=== PATIENT | male | born 1970 | race Caucasian/White ===

== ENCOUNTER 2018-03-02 22:45 | Emergency (ER) | payer MEDICARE, OTHER ==
[2018-03-02] MEDS ORDERED: SODIUM CHLORIDE 0.9% 1,000 ML IV STA (23:16)
[2018-03-02] MEDS ORDERED: ONDANSETRON 4 MG/2 ML VIAL IVP STA (23:16)
[2018-03-02 23:25] LABS: Basophils # (A) 0.1 k/uL (0-0.2); Basophils % (A) 1 %; Eosinophils # (A) 0.3 k/uL (0-0.7); Eosinophils % (A) 2 %; HCT 49.5 % (39.0-53.0); HGB 16.7 gm/dL (13.0-17.5); Lymphocytes # (A) 1.8 k/uL (1.0-4.8); Lymphocytes % (A) 16 %; MCH 28.9 pg (25.0-35.0); MCHC 33.8 g/dL (31.0-37.0); MCV 85.4 fL (80.0-100.0); Mean Platelet Volume 7.4; Monocytes # (A) 0.5 k/uL (0-1.0); Monocytes % (A) 4 %; Neutrophils # (A) 8.6 k/uL (1.3-7.7); Neutrophils % (A) 75 %; Platelet Count 238 k/uL (150-450); RBC 5.79 m/uL (4.30-5.90); RDW 13.4 % (11.5-15.5); WBC 11.4 k/uL (3.8-10.6)
[2018-03-02 23:29] LABS: Appearance,Urine Clear (Clear); Bilirubin,Urine Negative (Negative); Blood,Urine Trace (Negative); Color,Urine Yellow; Glucose,Urine (UA) Negative (Negative); Ketones,Urine Negative (Negative); Leukocyte Esterase,Urine Negative (Negative); Mucus,Urine Rare /hpf; Nitrite,Urine Negative (Negative); PH, Urine 6.5 (5.0-8.0); Protein,Urine 1+ (Negative); RBC,Urine 9 /hpf (0-5); Specific Gravity,Urine 1.013 (1.001-1.035); Urobilinogen,Urine <2.0 mg/dL (<2.0); WBC,Urine 1 /hpf (0-5)
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
--- NOTE | 2018-03-02 23:44 | CT ---
EXAMINATION TYPE: CT abdomen pelvis wo con DATE OF EXAM: 03/02/2018 COMPARISON: NONE HISTORY: Lower abd pain, Right side pain, R/O Stones CT DLP: 806.00 mGycm Automated exposure control for dose reduction was used. TECHNIQUE: Helical acquisition of images was performed from the lung bases through the pelvis. FINDINGS: The lung bases are clear. There is no pleural effusion. Heart size is normal. There is no pericardial effusion. Liver spleen pancreas appear normal. Gallbladder is contracted. There is no adrenal mass. There is some thickening of left and right adrenal gland. Kidneys of normal size and contour. There is no hydronephrosis. Ureters are not dilated. There is no ascites. There is no sign of free air. I see no intestinal wall thickening. There are no dilated loops. Bladder disten ds smoothly. I see no pelvic mass. Prostate is large and measures 4.5 cm. Appendix is not seen. There is no sign of appendicitis. I see no bony destructive process. There is atheromatous change in the a bdominal aorta. IMPRESSION: NO EVIDENCE OF RENAL STONE OR OBSTRUCTION. ATHEROSCLEROTIC VASCULAR DISEASE. ENLARGED PROSTATE.
[2018-03-02 23:46] LABS: ALT 31 U/L (21-72); AST 25 U/L (17-59); Albumin 3.6 g/dL (3.5-5.0); Alkaline Phosphatase 72 U/L (38-126); Amylase 58 U/L (30-110); Anion Gap 15 mmol/L; Blood Urea Nitrogen 20 mg/dL (9-20); Calcium 9.6 mg/dL (8.4-10.2); Carbon Dioxide 26 mmol/L (22-30); Chloride 100 mmol/L (98-107); Glucose 108 mg/dL (74-99); Lipase 78 U/L (23-300); Potassium 3.2 mmol/L (3.5-5.1); Sodium 141 mmol/L (137-145); Total Bilirubin 0.4 mg/dL (0.2-1.3); Total Protein 6.3 g/dL (6.3-8.2)
[2018-03-03] MEDS ORDERED: POTASSIUM CHLORIDE ER 20 MEQ TAB.ER PO STA (00:22)
[2018-03-03] MEDS ORDERED: KETOROLAC 30 MG/ML 1 ML VIAL IVP STA (00:22)
[2018-03-03] MEDS ORDERED: DICYCLOMINE 10 MG/ML 2 ML AMP IM STA (00:36)
[2018-03-03 00:53] VITALS: RESP 18
[2018-03-03] MEDS ORDERED: RX INFO: IV CONTRAST WAS GIVEN 1 EACH MISC MISCELLANE PRN (01:35)
--- NOTE | 2018-03-03 02:20 | CT ---
EXAMINATION TYPE: CT abdomen pelvis w con DATE OF EXAM: 03/03/2018 COMPARISON: Yesterday HISTORY: Prior exam done a few hours ago w/o contrast, Lower abd pain, Right side pain, back pain, IV only CT DLP: 559.20 mGycm Automated exposure control for dose reduction was used. TECHNIQUE: Helical acquisition of images was performed from the lung bases through the pelvis. CONTRAST: Performed without Oral Contrast and with IV Contrast, patient injected with 100 mL of Isovue 300. FINDINGS: Lung bases are clear. There is no pleural effusion. There is no pericardial effusion. Liver spleen appear normal. There are a few small pancreatic calcifications. This is probably vascula r. Gallbladder is contracted. There is no adrenal mass. Kidneys show satisfactory contrast opacificat ion. There is no hydronephrosis. There are large bowel fluid levels. There is no sign of free air. Th ere is no ascites. Bladder distends smoothly. There is no evidence of bowel obstruction. Lumbar spine is intact. There is mild atherosclerotic vascular calcification. Prostate measures 5 cm. There is no retroperitoneal adenopathy. Appendix is not seen. No sign of appendicitis. IMPRESSION: THERE ARE SOME LARGE BOWEL AIR FLUID LEVELS A COULD RELATE TO DIARRHEA OR ILEUS. NO FREE AIR. NO EVID ENCE OF BOWEL OBSTRUCTION. ATHEROSCLEROTIC VASCULAR DISEASE. NO SIGNIFICANT CHANGE COMPARED TO YESTER DAY.
[2018-03-03 02:58] VITALS: BP 173/96; PULSE 65; TEMP 98.3
== END 2018-03-03 02:58 | disposition home or self-care (01) ==
LOC: EC 22:45
DX: S30.1XXA Contusion of abdominal wall, initial encounter (principal); N40.0 Benign prostatic hyperplasia without lower urinary tract symptoms; K56.7 Ileus, unspecified; I10 Essential (primary) hypertension; F17.200 Nicotine dependence, unspecified, uncomplicated; Z79.82 Long term (current) use of aspirin; Z79.899 Other long term (current) drug therapy; Z88.0 Allergy status to penicillin; Z88.5 Allergy status to narcotic agent; V49.40XA Driver injured in collision with unspecified motor vehicles in traffic accident, initial encounter
CPT/HCPCS: 36415; 80053; 82150; 83605; 83690; 85025; 81001; 74176; 74177; 99284; 96374; 96375; 96361; 96372; J0500; J2405; J1885; Q9967

== ENCOUNTER → 2019-09-10 | Outpatient (CLI) | payer MEDICARE ==
--- NOTE | 2019-09-10 16:26 | CT ---
EXAMINATION TYPE: CT abdomen pelvis wo con DATE OF EXAM: 09/10/2019 COMPARISON: 03/03/2018 HISTORY: abdominal distention, sudden weight gain CT DLP: 785 mGycm Examination of the solid and hollow viscera is limited given the lack of contrast. FINDINGS: LUNG BASES: No evidence for nodule. No evidence for infiltrate. LIVER/GB: The gallbladder is unremarkable. No space-occupying hepatic lesion. PANCREAS: No pancreatic mass identified. No inflammatory process seen. SPLEEN: No evidence for splenomegaly. No intrasplenic lesions seen. ADRENALS: Bilateral adrenal thickening which may reflect hyperplasia. KIDNEYS: No evidence for renal mass. No nephrolithiasis. No hydronephrosis. BOWEL: Appendix has a normal appearance. No evidence of bowel obstruction. No inflammatory process. Lymph nodes: No evidence for adenopathy greater than 1 cm. Abdominal aorta: Atheromatous changes seen. No evidence for aneurysm. Genital organs: No significant abnormality. Other: No significant abnormality. IMPRESSION: Bilateral adrenal thickening which may reflect hyperplasia. OTHERWISE UNREMARKABLE STUDY.
== END | disposition home or self-care (01) ==
LOC: RADCTMAIN 16:01
PROVIDERS: ATTEND Family Medicine
DX: E27.8 Other specified disorders of adrenal gland (principal)
CPT/HCPCS: 74176

== ENCOUNTER → 2019-09-21 | Outpatient (CLI) | payer MEDICARE ==
[2019-09-21 15:45] LABS: Anion Gap 11.7 mmol/L (4.00-12.00); BUN/Creat Ratio 12.5 Ratio (12.00-20.00); Calcium 9.8 mg/dL (8.7-10.3); Carbon Dioxide 26.3 mmol/L (21.6-31.8); Non-African American GFR(CKD) 71.6 (60.0-200.0); Potassium 3.3 mmol/L (3.5-5.5)
== END | disposition home or self-care (01) ==
LOC: LABWHC1 11:13
PROVIDERS: ATTEND Physician Assistant
DX: I10 Essential (primary) hypertension (principal)
CPT/HCPCS: 36415; 80048

== ENCOUNTER 2019-09-27 10:11 | Day surgery (SDC) | payer MEDICARE ==
[2019-09-23 13:02] VITALS: BMI 24.7
[~2019-09-27 10:11] MED LIST: LACTATED RINGERS 1,000 ML IV SCH
[2019-09-27 10:37] VITALS: TEMP 97.6
[2019-09-27] MEDS ORDERED: LIDOCAINE 1% INJ 10MG/ML (20 ML MDV) ONE (11:14)
[2019-09-27] MEDS ORDERED: PROPOFOL 10 MG/ML 20 ML VIAL IV ONE (11:14)
--- NOTE | 2019-09-27 11:17 | P.GSHP ---
History of Present Illness H&P Date: 09/27/19 Chief Complaint: GERD, constipation This a 49-year-old male who presents today for EGD and colonoscopy. Patient issues with GERD and constipation. Past Medical History Past Medical History: Hypertension, Osteoarthritis (OA) Additional Past Medical History / Comment(s): Constipation/bloating. Renal insufficiency, 80% kidney function, hx TIA's X2, 9 yrs ago X2, bulging disc (L4), back pain, ocassional numbness left leg. History of Any Multi-Drug Resistant Organisms: None Reported Past Surgical History: Appendectomy Additional Past Surgical History / Comment(s): Right second and third toes reattached after lawnmower accident. Past Anesthesia/Blood Transfusion Reactions: No Reported Reaction Past Psychological History: No Psychological Hx Reported Smoking Status: Current every day smoker Past Alcohol Use History: None Reported Additional Past Alcohol Use History / Comment(s): Has been smoking for 30 yrs, down from 1 PPD to 5 cigarettes per day. Past Drug Use History: None Reported - Past Family History Mother Family Medical History: No Reported History Medications and Allergies Home Medications Medication Instructions Recorded Confirmed Type Aspirin 325 mg PO DAILY 03/02/18 09/23/19 History Carvedilol [Coreg] 12.5 mg PO BID 03/02/18 09/23/19 History Ferrous Sulfate [Feosol] 325 mg PO DAILY 03/02/18 09/23/19 History Simvastatin [Zocor] 20 mg PO HS 03/02/18 09/23/19 History amLODIPine [Norvasc] 5 mg PO QAM 03/02/18 09/23/19 History hydrALAZINE HCL [Apresoline] 100 mg PO TID 03/02/18 09/23/19 History Dicyclomine [Bentyl] 20 mg PO QID #10 tablet 03/03/18 09/23/19 Rx Lubiprostone [Amitiza] 24 mcg PO BID 09/23/19 09/23/19 History Potassium Chloride [Klor-Con 20] 20 meq PO QAM 09/23/19 09/23/19 History Triamterene/Hydrochlorothiazid 1 each PO DAILY 09/23/19 09/23/19 History [Triamterene-Hctz 37.5-25 mg Tb] Allergies Allergy/AdvReac Type Severity Reaction Status Date / Time morphine Allergy Rash/Hives Verified 09/23/19 13:03 Penicillins Allergy Rash/Hives Verified 09/23/19 13:03 Surgical - Exam Vital Signs Temp Pulse Resp BP Pulse Ox 97.6 F 74 14 190/113 98 09/27/19 10:35 09/27/19 10:35 09/27/19 10:35 09/27/19 10:35 09/27/19 10:35 - General well developed, well nourished, no distress - Eyes PERRL - ENT normal pinna - Neck no masses - Respiratory normal expansion - Cardiovascular Rhythm: regular - Abdomen Abdomen: soft, non tender Assessment and Plan Assessment: GERD, constipation. We'll perform EGD and colonoscopy
--- NOTE | 2019-09-27 11:30 | P.OP ---
Date of Procedure: 09/27/19 Preoperative Diagnosis: GERD Constipation Postoperative Diagnosis: Antral gastritis No evidence of hiatal hernia Esophagitis External hemorrhoids Procedure(s) Performed: EGD Colonoscopy Anesthesia: MAC Surgeon: Jose R Ramos Pathology: other (Antrum, esophagus) Condition: stable Disposition: PACU Description of Procedure: The patient's placed on the endoscopy table in the lateral position. He received IV sedation. The gastroscope was oropharynx passed in the esophagus into the stomach. Scope was placed through the pylorus. The first and second portion of duodenum appeared normal. Scope was then brought back the antrum this above inflamed. A biopsies performed. The scope was unretroflexed and remainder of the stomach appeared normal. There is no significant hiatal hernia. The GE junction was at 47 is. The distal esophagus are mildly inflamed a biopsies performed. The proximal esophagus appeared normal. Scope was withdrawn for patient. Next digital rectal exam is performed. This revealed external hemorrhoids. The prostate was symmetric without nodules. The flexible colonoscope was then placed patient anus and passed throughout the entire colon. The ileocecal valve was visualized. The cecum, ascending, transverse, descending and sigmoid colon appeared normal. Scope was then brought back the rectum and this appeared normal. Scope was withdrawn for patient.
[2019-09-27 11:40] VITALS: RESP 16
[2019-09-27 12:13] VITALS: BP 173/116; PULSE 59
== END 2019-09-27 12:20 | disposition home or self-care (01) ==
LOC: ORWHC2ENDO 10:11
PROVIDERS: ATTEND Surgery
DX: K29.50 Unspecified chronic gastritis without bleeding (principal); B96.81 Helicobacter pylori [H. pylori] as the cause of diseases classified elsewhere; K21.0 Gastro-esophageal reflux disease with esophagitis; K58.1 Irritable bowel syndrome with constipation; K64.4 Residual hemorrhoidal skin tags; I12.9 Hypertensive chronic kidney disease with stage 1 through stage 4 chronic kidney disease, or unspecified chronic kidney disease; N18.9 Chronic kidney disease, unspecified; M19.90 Unspecified osteoarthritis, unspecified site; E78.5 Hyperlipidemia, unspecified; F17.210 Nicotine dependence, cigarettes, uncomplicated; Z88.0 Allergy status to penicillin; Z88.5 Allergy status to narcotic agent; Z86.73 Personal history of transient ischemic attack (TIA), and cerebral infarction without residual deficits; Z79.82 Long term (current) use of aspirin; Z79.02 Long term (current) use of antithrombotics/antiplatelets; Z79.899 Other long term (current) drug therapy; Z90.49 Acquired absence of other specified parts of digestive tract
CPT/HCPCS: 88305; 88342; 45378; 43239; J2001; J2704

== ENCOUNTER 2020-11-18 05:19 | Inpatient (IN) | payer MEDICARE ==
--- NOTE | 2020-11-18 05:41 | ED ---
Chest Pain HPI <Feliz Mcintosh - Last Filed: 11/18/20 08:58> - General Source: patient Mode of arrival: ambulatory Limitations: no limitations - History of Present Illness MD Complaint: chest pain Onset/Timin -: week(s) Onset: during rest Pain Location: left chest Pain Radiation: none Severity: moderate Quality: aching, sharp Consistency: constant Improves With: nothing Worsens With: inspiration Context: recent surgery (Heart cath) Treatments Prior to Arrival: none <Tera Andrew - Last Filed: 11/22/20 08:15> - General Chief Complaint: Chest Pain Stated Complaint: Chest pain Time Seen by Provider: 11/18/20 05:28 - History of Present Illness Initial Comments: This patient is a 50-year-old man who presents to be evaluated for left-sided chest pain that is been going on for approximately one week, getting worse over that interval. Prior to this patient had been admitted at [facility] for chest pain. He had undergone a heart catheterization and states that they told him that he did not require any stenting, they only had minimal "clots." Patient denies anginal type symptoms, no dyspnea, diaphoresis, nausea or vomiting, palpitations. (Tera Andrew) - Related Data Home Medications Medication Instructions Recorded Confirmed Aspirin 325 mg PO DAILY 03/02/18 11/18/20 Simvastatin [Zocor] 20 mg PO HS 03/02/18 11/18/20 amLODIPine [Norvasc] 5 mg PO QAM 03/02/18 11/18/20 hydrALAZINE HCL [Apresoline] 100 mg PO TID 03/02/18 11/18/20 Potassium Chloride [Klor-Con 20] 20 meq PO DAILY 09/23/19 11/18/20 Triamterene/Hydrochlorothiazid 1 tab PO DAILY 09/23/19 11/18/20 [Triamterene-Hctz 37.5-25 mg Tb] hydroCHLOROthiazide [Hydrodiuril] 25 mg PO DAILY 11/18/20 11/18/20 Allergies Allergy/AdvReac Type Severity Reaction Status Date / Time morphine Allergy Rash/Hives Verified 11/18/20 08:30 Penicillins Allergy Rash/Hives Verified 11/18/20 08:30 pineapple Allergy Anaphylaxis Verified 11/18/20 08:30 Review of Systems ROS Other: All systems not noted in ROS Statement are negative. <Feliz Mcintosh - Last Filed: 11/18/20 08:58> ROS Other: All systems not noted in ROS Statement are negative. Constitutional: Denies: fever, chills Respiratory: Denies: cough, dyspnea, wheezes, hemoptysis Cardiovascular: Reports: chest pain. Denies: palpitations, orthopnea, edema, syncope Gastrointestinal: Denies: abdominal pain, nausea, vomiting, diarrhea Genitourinary: Denies: dysuria, hematuria, testicular pain Musculoskeletal: Denies: back pain Skin: Denies: rash Neurological: Denies: headache, weakness, numbness <LorrieTera - Last Filed: 11/22/20 08:15> ROS Statement: Those systems with pertinent positive or pertinent negative responses have been documented in the HPI. EKG Findings - EKG Results: EKG: interpreted by LINKD, sinus rhythm (With PVCs) EKG shows: tachycardia (Rate 113 bpm) - Blocks, [place], Hypertrophy, ST Abn: AV and intraventricular conduction: right bundle branch block (fixed/intermittent, complete/incomplete), left anterior fascicular block <Tera Andrew - Last Filed: 11/22/20 08:15> Past Medical History Past Medical History: Hypertension, Osteoarthritis (OA) Additional Past Medical History / Comment(s): Constipation/bloating. Renal insufficiency, 80% kidney function, hx TIA's X2, 9 yrs ago X2, bulging disc (L4), back pain, ocassional numbness left leg. History of Any Multi-Drug Resistant Organisms: None Reported Past Surgical History: Appendectomy, Heart Catheterization Additional Past Surgical History / Comment(s): Right second and third toes reattached after lawnmower accident. Past Anesthesia/Blood Transfusion Reactions: No Reported Reaction Past Psychological History: No Psychological Hx Reported Smoking Status: Former smoker Past Alcohol Use History: Occasional Past Drug Use History: None Reported - Past Family History Mother Family Medical History: No Reported History <Tera Andrew - Last Filed: 11/22/20 08:15> General Exam Limitations: no limitations General appearance: alert, in no apparent distress, anxious Head exam: Present: atraumatic, normocephalic Eye exam: Present: normal appearance. Absent: scleral icterus, conjunctival injection ENT exam: Present: normal oropharynx Neck exam: Present: normal inspection, full ROM Respiratory exam: Present: normal lung sounds bilaterally. Absent: respiratory distress, wheezes, rales, rhonchi, stridor Cardiovascular Exam: Present: normal rhythm, tachycardia, normal heart sounds. Absent: systolic murmur, diastolic murmur, rubs, gallop GI/Abdominal exam: Present: soft. Absent: distended, tenderness, guarding, rebound, rigid, organomegaly, mass, pulsatile mass, hernia Extremities exam: Present: normal inspection, normal capillary refill. Absent: pedal edema, calf tenderness Back exam: Present: normal inspection. Absent: CVA tenderness (R), CVA tenderness (L) Neurological exam: Present: alert Skin exam: Present: warm, dry, intact, normal color. Absent: rash <Tera Andrew - Last Filed: 11/22/20 08:15> Course Vital Signs 11/18/20 11/18/20 11/18/20 05:22 06:00 06:05 Temperature 97.6 F Pulse Rate 112 H 106 H 102 H Respiratory 16 18 18 Rate Blood Pressure 156/125 154/124 156/109 O2 Sat by Pulse 97 94 L Oximetry 11/18/20 11/18/20 11/18/20 06:09 06:14 06:19 Temperature Pulse Rate 101 H 100 93 Respiratory 18 18 18 Rate Blood Pressure 140/127 141/88 148/100 O2 Sat by Pulse 93 L 90 L Oximetry 11/18/20 11/18/20 11/18/20 06:27 06:33 06:38 Temperature Pulse Rate 98 85 85 Respiratory 18 18 18 Rate Blood Pressure 144/108 150/112 150/111 O2 Sat by Pulse 91 L 96 97 Oximetry 11/18/20 11/18/20 11/18/20 06:43 06:48 06:53 Temperature Pulse Rate 80 82 95 Respiratory 18 18 18 Rate Blood Pressure 138/119 133/113 167/95 O2 Sat by Pulse 96 96 95 Oximetry 11/18/20 11/18/20 11/18/20 06:58 07:03 07:14 Temperature 98 F Pulse Rate 90 98 94 Respiratory 18 20 18 Rate Blood Pressure 129/98 148/126 143/110 O2 Sat by Pulse 97 97 96 Oximetry 11/18/20 11/18/20 11/18/20 08:30 08:40 08:56 Temperature Pulse Rate 98 93 92 Respiratory 20 20 18 Rate Blood Pressure 178/104 135/103 143/89 O2 Sat by Pulse 98 98 98 Oximetry 11/18/20 11/18/20 11/18/20 09:00 09:04 09:10 Temperature 98.3 F Pulse Rate 101 H 98 Respiratory 18 18 Rate Blood Pressure 143/89 143/105 O2 Sat by Pulse 98 97 Oximetry 11/18/20 11/18/20 09:20 09:30 Temperature Pulse Rate 95 94 Respiratory 18 18 Rate Blood Pressure 140/100 146/93 O2 Sat by Pulse 95 98 Oximetry Chest Pain MDM <Tera Andrew - Last Filed: 11/22/20 08:15> - MDM This patient is 50-year-old man, With history of cardiomyopathy, presenting with left-sided chest pain. He has had recent heart cath, and his EKG does not appear to show any new ischemia. The workup today concerning for elevated transaminases, also a minimally elevated troponin. At shift change, the patient does continue to have significant chest pain and therefore computed tomography scan is ordered. She will be admitted under his primary care physician with cardiology consultation given the borderline troponin, also gastroenterology consultation given the elevated transaminases levels. (Tera Andrew) Disposition <Feliz Mcintosh - Last Filed: 11/18/20 08:58> <Tera Andrew - Last Filed: 11/22/20 08:15> Clinical Impression: Acute non-ST elevation myocardial infarction (NSTEMI), Lung mass, Hepatitis Disposition: ADMITTED IP TO THIS HOSP Condition: Fair
[2020-11-18] MEDS ORDERED: NITROGLYCERIN-D5W PMX 50 MG in DEXTROSE/WATER 1 250ML.BAG IV ONE (05:42)
[2020-11-18 06:05] LABS: Anisocytosis Slight; Basophils # (A) 0.1 k/uL (0-0.2); Basophils % (A) 1 %; Eosinophils # (A) 0.1 k/uL (0-0.7); Eosinophils % (A) 1 %; HCT 42.6 % (39.0-53.0); HGB 14.6 gm/dL (13.0-17.5); Lymphocytes # (A) 1.7 k/uL (1.0-4.8); Lymphocytes % (A) 16 %; MCH 29.8 pg (25.0-35.0); MCHC 34.3 g/dL (31.0-37.0); MCV 86.8 fL (80.0-100.0); Mean Platelet Volume 9.6; Monocytes # (A) 0.5 k/uL (0-1.0); Monocytes % (A) 5 %; Neutrophils % (A) 77 %; Platelet Count 116 k/uL (150-450); RDW 16.7 % (11.5-15.5); WBC 10.4 k/uL (3.8-10.6)
[2020-11-18 06:20] LABS: Albumin 3.8 g/dL (3.5-5.0); Calcium 8.9 mg/dL (8.4-10.2); Potassium 3.7 mmol/L (3.5-5.1); Total Bilirubin 2.1 mg/dL (0.2-1.3); Total Protein 6.4 g/dL (6.3-8.2)
[2020-11-18] MEDS ORDERED: ENALAPRILAT 1.25 MG/ML 1 ML VIAL IVP STA (06:20)
[2020-11-18 06:21] LABS: INR 1.2 (<1.2); Prothrombin Time 12.5 sec (9.0-12.0)
[2020-11-18] MEDS ORDERED: hydrALAZINE HCL 20 MG/ML 1 ML VIAL IVP STA ×3 (06:26→08:15)
[2020-11-18 06:49] LABS: Partial Thromboplastin Time 20.7 sec (22.0-30.0)
[2020-11-18 07:07] LABS: Amylase 41 U/L (30-110); Lipase 79 U/L (23-300)
[2020-11-18] MEDS ORDERED: SODIUM CHLORIDE 0.9% 1,000 ML IV SCH (08:15)
[2020-11-18] MEDS: FUROSEMIDE 10 MG/ML 4 ML VIAL IV SCH ×2 (08:30→20:49)
--- NOTE | 2020-11-18 08:43 | CT ---
EXAMINATION TYPE: CT ChestAbdPelvis w con DATE OF EXAM: 11/18/2020 COMPARISON: 09/10/2019 HISTORY: Chest and abd pain CT DLP: 996.9 mGycm CONTRAST: CT scan of the chest, abdomen and pelvis is performed without Oral Contrast and with IV Contrast, pat ient injected with 80 mL of Isovue 300. CT Chest: LUNGS: There is a pleural-based mass lateral segment right middle lobe measuring 2.6 x 1.7 cm. Additi onal pleural-based mass density posterior left costophrenic sulcus measuring 2.6 x 1.2 cm. Neoplasm is not excluded. Consider PET/CT for further evaluation. There are few scattered groundglass infiltrates seen as well as linear atelectasis. MEDIASTINUM: There is ectasia of the ascending thoracic aorta measuring 3.9 cm. Descending thoracic a stanley is aneurysmal at 3.2 cm AP dimension. No evidence for dissection. The heart is enlarged. Low rig ht paratracheal adenopathy measuring 1.8 cm. AP window adenopathy measuring up to 1.3 cm. Subcarinal adenopathy noted measuring 2.1 cm. Right hilar adenopathy noted measuring 1.6 cm. OTHER: No significant abnormality. CONTRAST CT ABDOMEN AND PELVIS FINDINGS: LIVER/GB: No calcified gallstones. No space occupying hepatic lesion. Biliary tree is of normal ca liber. PANCREAS: No inflammation. No distinct mass. SPLEEN: No splenic enlargement. No lesion seen. ADRENALS: Nonspecific nodular thickening of the adrenal glands. KIDNEYS/BLADDER: No hydronephrosis. No nephrolithiasis. No distinct renal mass. BOWEL: Normal appendix. Normal bowel caliber. No inflammation. GENITAL ORGANS: No gross abnormality. LYMPH NODES: No greater than 1cm abdominal or pelvic lymph nodes are appreciated. AORTA: Mild atheromatous change without definite aneurysm of the abdominal aorta. Right common iliac artery is aneurysmal at 2.1 cm. OSSEOUS STRUCTURES: No significant abnormality is seen. OTHER: No significant additional abnormality is seen. IMPRESSION: 1. 2 pleural-based masses with one within the right middle lobe and one within the left lower lobe wi th right hilar and mediastinal adenopathy. Neoplasm is not excluded. PET/CT is advised. 2. Uncomplicated aneurysm of the descending thoracic aorta. Aneurysm of the right common iliac artery . 3. Nonspecific nodular thickening of the adrenal glands.
--- NOTE | 2020-11-18 08:44 | XR ---
EXAMINATION TYPE: XR chest 1V DATE OF EXAM: 11/18/2020 COMPARISON: 04/11/2013 HISTORY: Chest pain TECHNIQUE: Single frontal view of the chest is obtained. FINDINGS: Nodular density at the periphery of the right middle lobe. CT is recommended. The cardiac silhouette size is enlarged. No evidence for overt failure. Scattered senescent parenchym al changes noted. The osseous structures are intact. IMPRESSION: 1. Nodular density at the periphery of the right middle lobe. CT is recommended.
[2020-11-18] MEDS ORDERED: HEPARIN SODIUM,PORCINE 5,000 UNIT/ML 1 ML VIAL IV ONE (08:49)
[2020-11-18] MEDS ORDERED: HEPARIN SOD,PORK IN 0.45% NACL 25,000 UNIT in 0.45% NACL 1 250ML.BAG IV SCH (09:00)
[2020-11-18] MEDS ORDERED: LORazepam 2 MG/ML INJ IV STA (09:08)
[2020-11-18] MEDS ORDERED: NITROGLYCERIN OINT 1 INCH/GM PACKET TOPICAL STA (09:41)
[2020-11-18] MEDS ORDERED: ASPIRIN 81 MG PO STA (09:42)
[2020-11-18 10:30] VITALS: BMI 21.2
[2020-11-18 12:03] LABS: Hepatitis A Antibody IgM Non-Reactive (Non-Reactive); Hepatitis B Core IgM Non-Reactive (Non-Reactive); Hepatitis B Surface Antigen Non-Reactive (Non-Reactive); Hepatitis C IgG Antibody Non-Reactive (Non-Reactive)
--- NOTE | 2020-11-18 13:24 | P.CNPUL ---
History of Present Illness Consult date: 11/18/20 Requesting physician: Bob Nino Reason for consult: chest pain, abnormal CXR/CT Chief complaint: Abnormal CAT scan. History of present illness: Primary consultation dated 11/18/2020. 50-year-old male who presents to the emergency department on November 18, at 0519 in the morning, because of chest pain. The patient apparently was recently in the hospital at [facility], for chest pain, and had a cardiac catheterization at that time. Apparently no stents were placed at that time. We were consulted primarily because of an abnormal chest x-ray and CAT scan, which shows a lesion in the periphery of the right middle lobe /right lower lobe. The lesion is about 26 x 17 mm in size, and it is very smooth and oval- shaped. Additional 26 X 12 mm lesion in the left costophrenic sulcus. It appears to be abutting the pleural surface but not attached to the pleural surface. The patient has a history of chronic tobacco use. He's been smoking about 30 years. Recently quit smoking. Certainly there is a concern that this could be a early lung cancer. I told the patient that he would be seeing me in the office post discharge out of the hospital, and we would order a PFT, and an outpatient PET scan. If the PET scan was positive, we would attempt either biopsy or excision, and if the PET scan was negative, then we would probably end up doing serial computed tomography scan in for a period of 2 years. The patient has a history of hypertension, osteoarthritis, constipation, chronic kidney disease, TIA, chronic back pain, coronary artery disease, and hyperlipidemia. White count is 10.4, hemoglobin 14.6, hematocrit 42.6, and platelet count 116,000. PT was 12.5, INR 1.2, PTT 20.7. Sodium 137, potassium 3.7, chloride 105, CO2 22, anion gap 10, BUN 29, and creatinine 1.27. Troponins were 0.335, 0.330, 0.300. COVID 19 testing was negative. Review of Systems REVIEW OF SYSTEMS: CONSTITUTIONAL: [Negative.] NEUROLOGIC: [ Negative.] HEENT: [ Negative.] CARDIAC: Chest pain. PULMONARY: [Negative.] GI: [Negative.] : [Negative.] RHEUMATOLOGIC: [ Negative.] IMMUNOLOGIC: [ Negative.] ENDOCRINE: [Negative. ] DERMATOLOGIC: [Negative.] Past Medical History Past Medical History: Hypertension, Osteoarthritis (OA) Additional Past Medical History / Comment(s): Constipation/bloating. Renal insufficiency, 80% kidney function, hx TIA's X2, 9 yrs ago X2, bulging disc (L4), back pain, ocassional numbness left leg. 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 Past Anesthesia/Blood Transfusion Reactions: No Reported Reaction Smoking Status: Former smoker - Past Family History Mother Family Medical History: No Reported History Medications and Allergies Home Medications Medication Instructions Recorded Confirmed Type Aspirin 325 mg PO DAILY 03/02/18 11/18/20 History Simvastatin [Zocor] 20 mg PO HS 03/02/18 11/18/20 History amLODIPine [Norvasc] 5 mg PO QAM 03/02/18 11/18/20 History hydrALAZINE HCL [Apresoline] 100 mg PO TID 03/02/18 11/18/20 History Potassium Chloride [Klor-Con 20] 20 meq PO DAILY 09/23/19 11/18/20 History Triamterene/Hydrochlorothiazid 1 tab PO DAILY 09/23/19 11/18/20 History [Triamterene-Hctz 37.5-25 mg Tb] hydroCHLOROthiazide [Hydrodiuril] 25 mg PO DAILY 11/18/20 11/18/20 History Allergies Allergy/AdvReac Type Severity Reaction Status Date / Time morphine Allergy Rash/Hives Verified 11/18/20 08:30 Penicillins Allergy Rash/Hives Verified 11/18/20 08:30 pineapple Allergy Anaphylaxis Verified 11/18/20 08:30 Physical Exam Osteopathic Statement: *. No significant issues noted on an osteopathic structural exam other than those noted in the History and Physical/Consult. Vitals: Vital Signs Temp Pulse Pulse Resp BP BP Pulse Ox 11/18/20 11:58 97.9 F 88 20 134/97 97 11/18/20 10:30 97.3 F L 82 20 134/78 96 11/18/20 09:30 94 18 146/93 98 11/18/20 09:20 95 18 140/100 95 11/18/20 09:10 98 18 143/105 97 11/18/20 09:04 98.3 F 11/18/20 09:00 101 H 18 143/89 98 11/18/20 08:56 92 18 143/89 98 11/18/20 08:40 93 20 135/103 98 11/18/20 08:30 98 20 178/104 98 11/18/20 07:14 98 F 94 18 143/110 96 11/18/20 07:03 98 20 148/126 97 11/18/20 06:58 90 18 129/98 97 11/18/20 06:53 95 18 167/95 95 11/18/20 06:48 82 18 133/113 96 11/18/20 06:43 80 18 138/119 96 11/18/20 06:38 85 18 150/111 97 11/18/20 06:33 85 18 150/112 96 11/18/20 06:27 98 18 144/108 91 L 11/18/20 06:19 93 18 148/100 90 L 11/18/20 06:14 100 18 141/88 93 L 11/18/20 06:09 101 H 18 140/127 11/18/20 06:05 102 H 18 156/109 11/18/20 06:00 106 H 18 154/124 94 L 11/18/20 05:22 97.6 F 112 H 16 156/125 97 Intake and Output 11/17/20 11/18/20 11/18/20 22:59 06:59 14:59 Intake Total 1.5 47.15 Output Total 3250 Balance 1.5 -3202.85 Intake: Intake, IV Titration 1.5 47.15 Amount Nitroglycerin-D5w Pmx 50 1.5 47.15 mg In Dextrose/Water 1 250ml.bag @ 20 MCG/MIN 6 mls/hr IV .Q24H ONE Rx#: [id number] Output: Urine 3250 Other: Weight 77.111 kg 77.111 kg No acute distress, oriented 3. Nasal O2 noted. Saturations 97%. HEENT examination is grossly unremarkable. Mucous membranes are moist. No oral lesions. Neck supple. Full range of motion. No adenopathy thyromegaly or neck vein distention. Cardiovascular examination reveals regular rhythm rate. S1-S2 normal. No S3 or S4. No discernible murmur noted. Heart rate is 88 bpm. Lungs reveal clear breath sounds. Her sounds are equal bilaterally. No adventitious lung sounds including wheezes rhonchi or crackles. Abdomen soft bowel sounds are heard. No masses or tenderness. Extremities are intact. No cyanosis clubbing or edema. Skin is without rash or lesion. Neurologic examination is brief but nonfocal. Results - Laboratory Findings CBC and BMP: 11/18/20 05:51 11/18/20 05:51 PT/INR, D-dimer PT 12.5 sec (9.0-12.0) H 11/18/20 05:51 INR 1.2 (<1.2) H 11/18/20 05:51 Abnormal lab findings: Abnormal Labs 11/18/20 11/18/20 11/18/20 05:51 05:51 05:51 RDW 16.7 H Plt Count 116 L Neutrophils # 8.0 H PT 12.5 H INR 1.2 H APTT 20.7 L BUN 29 H Creatinine 1.27 H Glucose 102 H Total Bilirubin 2.1 H AST 1038 H ALT 1500 H Troponin I 11/18/20 11/18/20 11/18/20 05:51 09:42 11:43 RDW Plt Count Neutrophils # PT INR APTT BUN Creatinine Glucose Total Bilirubin AST ALT Troponin I 0.335 H* 0.330 H* 0.300 H* - Diagnostic Findings Chest x-ray: image reviewed CT scan - chest: image reviewed Assessment and Plan Assessment: Multiple pulmonary nodules, which could represent bronchogenic carcinoma. History of chronic tobacco use, although currently, the patient does not smoke. Rule out COPD. The patient will have outpatient PFTs Chest pain, for which the patient had a recent cardiac catheterization at [facility], without intervention. History of hypertension. History of hyperlipidemia. History of osteoarthritis. Chronic kidney disease. History of TIA. History of chronic constipation. History of chronic back pain. Plan: Plan dated 11/18/2020. The patient will have an outpatient workup. This will include a complete pulmonary function test to rule out COPD, as well as an outpatient PET scan. If PET scanning is positive, then biopsy will be contemplated. If PET scan is negative, then serial computed tomography scan and will be indicated. Additional recommendations and suggestions are forthcoming. He will see me in the office post discharge. Additional recommendations and suggestions are forthcoming. Prognosis is guarded. The patient is encouraged to continue with tobacco cessation. Time with Patient: Greater than 30
--- NOTE | 2020-11-18 16:36 | HP ---
HISTORY AND PHYSICAL 50-year-old white male comes to emergency room. Recent discharge from [facility]. He had a heart catheterization that showed 30% ejection fraction. He was treated for systolic heart failure and he wanted to follow up as an outpatient with a lesion in the right middle lobe, lower lobe, so we sent him home. He obviously got short of breath and there is concern on CT scan for possible lung cancer. He will need possibly a PET scan versus bronchoscopy. Cardiology can seem him for systolic heart failure and was admitted to the hospital due to chest pain, shortness of breath. Cardiology, Pulmonary, as mentioned has seen him. 14-point review of systems negative. PAST MEDICAL HISTORY: Hypertension, osteoarthritis, systolic heart failure just discovered at the other hospital, coronary artery disease, bulging disc, renal insufficiency, constipation, bloating. PAST SURGICAL HISTORY: Appendectomy, heart catheterization, right 2nd, 3rd toes reattached due to a blanking press operator accident. SOCIAL HISTORY: Former smoker. Works as a mechanical product design engineer. Has breathed in a lot of bad fumes for years. MEDICATIONS: He was on hydralazine 100 t.i.d., Norvasc 5 daily, Zocor 20 daily, aspirin 325 daily, Dyazide 1 daily HydroDIURIL. ALLERGIES: MORPHINE, PENICILLIN. PINEAPPLES. PHYSICAL EXAMINATION: Temperature is 97 to 98, pulse 80s, respiratory 16 to 18, O2 94 to 97. No acute distress. He is thin and he is not grossly obese. Neck is supple. No mass. CARDIOVASCULAR: S1, S2. No murmurs, rubs, gallops. LUNGS are scattered rhonchi and wheeze. ABDOMEN is soft. No mass noted. EXTREMITIES no cyanosis, clubbing, edema. SKIN no rash, excoriation. NEUROLOGIC: Cranial nerves are intact. PSYCH: Fair mood and affect. BUN 29, creatinine 1.27. White count 10.4. ASSESSMENT: 1. Systolic heart failure. 2. Atypical chest pain. 3. He has a history of some chronic obstructive pulmonary disease also. 4. He has history of coronary artery disease with systolic heart failure. 5. Hypertension. 6. Osteoarthritis. 7. Dyslipidemia. 8. Chronic kidney disease. 9. Chronic back pain. 10.Multiple pulmonary nodules. 11.Nicotine addiction. He recently quit. 12.He breathes in a lot of fumes at work as a mechanical product design engineer. Apparently, pulmonary saw and wants to do a PET scan as an outpatient. If it is positive, then do a biopsy. Continue to treat with Cardiology for systolic heart failure. MMODL / IJN: [id number] /
[2020-11-18] MEDS: hydrALAZINE HCL 50 MG TAB PO SCH ×2 (16:55→20:48)
[2020-11-18] MEDS: HEPARIN SODIUM,PORCINE 5,000 UNIT/ML 1 ML VIAL IV PRN (17:17)
[2020-11-18] MEDS ORDERED: ATORVASTATIN 10 MG TAB PO SCH (21:00)
[2020-11-19] MEDS: HEPARIN SODIUM,PORCINE 5,000 UNIT/ML 1 ML VIAL IV PRN (00:35)
[2020-11-19] MEDS: amLODIPine 5 MG TAB PO SCH (08:58)
[2020-11-19] MEDS: FUROSEMIDE 10 MG/ML 4 ML VIAL IV SCH (08:58)
[2020-11-19] MEDS: hydrALAZINE HCL 50 MG TAB PO SCH ×3 (08:58→20:32)
[2020-11-19] MEDS: POTASSIUM CHLORIDE ER 20 MEQ TAB.ER PO SCH (08:58)
[2020-11-19] MEDS ORDERED: ASPIRIN 325 MG TAB PO SCH (09:00)
--- NOTE | 2020-11-19 11:37 | US ---
EXAMINATION TYPE: US abdomen complete DATE OF EXAM: 11/19/2020 COMPARISON: CLINICAL HISTORY: lft elevation. abnormal labs. EXAM MEASUREMENTS: Liver Length: 17.7 cm Gallbladder Wall: 0.2 cm CBD: 0.4 cm Spleen: 15.7 cm Right Kidney: 10.0 x 4.1 x 5.5 cm Left Kidney: 11.1 x 4.1 x 5.3 cm Pancreas: wnl Liver: wnl Gallbladder: No stones seen Evidence for sonographic Walter's sign: neg CBD: Partially obscured by overlying bowel gas Spleen: Enlarged in size. Possible accessory spleen seen = 1.3 x 1.4 x 1.5 cm Right Kidney: No hydronephrosis or masses seen Left Kidney: No hydronephrosis or masses seen Upper IVC: wnl Abd Aorta: No AAA visualized The liver is homogenous. The intrahepatic portion of the IVC and proximal abdominal aorta are within normal limits. There is no evidence of cholelithiasis. Common bile duct is unremarkable. The visu alized portions of the pancreas are homogenous. Kidneys are symmetric and free of hydronephrosis. No renal lesions are seen. IMPRESSION: Splenomegaly.
--- NOTE | 2020-11-19 12:18 | P.PN ---
Subjective Progress Note Date: 11/19/20 Principal diagnosis: Chest pain, abnormal CT of the chest 50-year-old male who presents to the emergency department on November 18, at 0519 in the morning, because of chest pain. The patient apparently was recently in the hospital at [facility], for chest pain, and had a cardiac catheterization at that time. Apparently no stents were placed at that time. We were consulted primarily because of an abnormal chest x-ray and CAT scan, which shows a lesion in the periphery of the right middle lobe /right lower lobe. The lesion is about 26 x 17 mm in size, and it is very smooth and oval- shaped. Additional 26 X 12 mm lesion in the left costophrenic sulcus. It appears to be abutting the pleural surface but not attached to the pleural surface. The patient has a history of chronic tobacco use. He's been smoking about 30 years. Recently quit smoking. Certainly there is a concern that this could be a early lung cancer. I told the patient that he would be seeing me in the office post discharge out of the hospital, and we would order a PFT, and an outpatient PET scan. If the PET scan was positive, we would attempt either biopsy or excision, and if the PET scan was negative, then we would probably end up doing serial computed tomography scan in for a period of 2 years. The patient has a history of hypertension, osteoarthritis, constipation, chronic kidney disease, TIA, chronic back pain, coronary artery disease, and hyperlipidemia. White count is 10.4, hemoglobin 14.6, hematocrit 42.6, and platelet count 116,000. PT was 12.5, INR 1.2, PTT 20.7. Sodium 137, potassium 3.7, chloride 105, CO2 22, anion gap 10, BUN 29, and creatinine 1.27. Troponins were 0.335, 0.330, 0.300. COVID 19 testing was negative. The patient is seen today 11/19/2020 in follow-up on the selective care unit. He is currently awake and alert in no acute distress. Resting comfortably in bed. He is maintaining O2 saturation the high 90s on 3 L/m per nasal cannula. His been afebrile. Hemodynamically stable. Elevated LFTs. Hepatitis screen negative. Abdominal ultrasound revealed splenomegaly but no liver abnormalities. Objective - Vital Signs Vital signs: Vital Signs Temp 97.1 F L 11/19/20 12:00 Pulse 77 11/19/20 12:00 Resp 20 11/19/20 12:00 BP 137/102 11/19/20 12:00 Pulse Ox 98 11/19/20 12:00 Intake & Output 11/18/20 11/19/20 11/19/20 18:59 06:59 18:59 Intake Total 1342.181 88.873 Output Total 4100 1750 200 Balance -2757.819 -1661.127 -200 Weight 77.111 kg 85.3 kg Intake: Intake, IV Titration 262.181 88.873 Amount Heparin Sod,Pork in 0.45% 115.031 88.873 NaCl 25,000 unit In 0.45 % NaCl 1 250ml.bag @ 12 UNITS/KG/HR 9.253 mls/hr IV .Q24H [facility] Rx#: [id number] Nitroglycerin-D5w Pmx 50 47.15 mg In Dextrose/Water 1 250ml.bag @ 20 MCG/MIN 6 mls/hr IV .Q24H [facility] Rx#: [id number] Sodium Chloride 0.9% 1, 100 000 ml @ 20 mls/hr IV . Q24H [facility] Rx#:[id number] Oral 1080 Output: Urine 4100 1750 200 - Exam GENERAL EXAM: Alert, 50-year-old male patient, on room air, comfortable in no apparent distress. HEAD: Normocephalic. EYES: Normal reaction of pupils, equal size. NOSE: Clear with pink turbinates. THROAT: No erythema or exudates. NECK: No masses, no JVD. CHEST: No chest wall deformity. LUNGS: Equal air entry with no crackles, wheeze, rhonchi or dullness. CVS: S1 and S2 normal with no audible murmur, regular rhythm. ABDOMEN: No hepatosplenomegaly, normal bowel sounds, no guarding or rigidity. SPINE: No scoliosis or deformity SKIN: No rashes CENTRAL NERVOUS SYSTEM: No focal deficits, tone is normal in all 4 extremities. EXTREMITIES: There is no peripheral edema. No clubbing, no cyanosis. Peripheral pulses are intact. - Labs CBC & Chem 7: 11/18/20 05:51 11/18/20 05:51 Labs: Abnormal Lab Results - Last 24 Hours (Table) 11/18/20 11/19/20 Range/Units 11:43 06:38 APTT 42.7 H (22.0-30.0) sec Troponin I 0.300 H* (0.000-0.034) ng/mL Assessment and Plan Assessment: Multiple pulmonary nodules, which could represent bronchogenic carcinoma. History of chronic tobacco use, although currently, the patient does not smoke. Rule out COPD. The patient will have outpatient PFTs Chest pain, for which the patient had a recent cardiac catheterization at [facility], without intervention. Elevated LFTs, hepatitis screen negative, ultrasound of the liver negative though with noted splenomegaly History of hypertension. History of hyperlipidemia. History of osteoarthritis. Chronic kidney disease. History of TIA. History of chronic constipation. History of chronic back pain. Plan: The patient was seen and evaluated by Dr. Atkinson Aware of the need for outpatient PET scan Outpatient PFT to determine the severity of his COPD We will follow as needed I, the cosigning physician, performed a history & physical examination of the patient. Lungs sounds are clear. Maintaining good O2 saturations in the 90s on room air. I discussed the assessment and plan of care with my nurse practition er, Jaylene Cortez. I attest to the above note as dictated by her.
[2020-11-19] MEDS: lisinopriL 10 MG TAB PO SCH (12:27)
[2020-11-19] MEDS: SPIRONOLACTONE 25 MG TAB PO SCH (12:27)
--- NOTE | 2020-11-19 14:30 | P.CRDCN ---
History of Present Illness History of present illness: This is Dr. Rider dictating a consult on this patient The patient was interviewed and examined IMPRESSION / ASSESSMENT: Known cardiac myopathy left ventricular ejection fraction of about 40-45% with right bundle branch block pattern on twelve-lead EKG and frequent PVCs with increased LV mass, deemed to be hypertensive hypertrophy. I had suspected an infiltrative or metabolic storage current myopathy almost 10-12 years back based on his MRI of the heart Recently admitted to [facility] with chest discomfort and shortness of breath and left ventricular ejection fraction hours at 35%. He was intolerant of the medications he was given at [facility] and stopped them Hypertension requiring multiple medications with left ventricular hypertrophy Now with increased SGPT and SGOT, SGPT higher than SGOT, normal alkaline phosphatase, possible congestive, possible ischemic versus other primary hepatic etiologies. Hepatitis A- Congestive heart failure, nonobstructive CAD by cardiac catheterization recently 2 pleural-based masses with adenopathy within the chest as described below PLAN: Review of [facility] records to see if he had a significant hypotensive event which is prolonged, that could account for the liver abnormalities or review his cardiac catheterization report to see his LV EDP, possible congestive2 megaly. However the patient does have splenomegaly on ultrasound as well as a low platelet count From a cardiac standpoint, reassessment of secondary hypertension. Serum aldosterone, plasma renin, metanephrines, and 24 hour urine Workup of abnormal liver function and tender hepatomegaly with associated splenomegaly. Considerations also include congestive hepatomegaly versus ischemic hepatic insult as long as there was an appropriate clinical insult Workup for infiltrative or storage disorders that could explain left ventricular hypertrophy/cardiac myopathy and hepatic dysfunction Once his 24-hour urine collection is completed restart him on carvedilol. He is intolerant of metoprolol. Maximize ed inhibitors. Increase spironolactone and stop oral potassium HPI Patient presented with chest discomfort. He presented with chest discomfort totally [facility] in the last one to 2 weeks He also stated he was short of breath at that time. At this time he does not appear short of breath at rest Abdominal pain right upper quadrant pain ROS: No fever chills or rigors, no cough, phlegm or expectoration, no nausea, vomiting or diarrhea, no hematuria, dysuria, no musculoskeletal complaints, no strokes or seizures, no skin lesions. EXAMINATION: 1 3701 102, 117/89, 130 701 Heart rates in the 70s to 90s Afebrile Right upper quadrant tenderness Soft systolic murmur no S3 gallop No JVD No lower extremity edema Resting comfortably in bed REVIEW OF LABS, ECG & MEDICAL DATA Twelve-lead EKG shows sinus tachycardia right bundle-branch block rightward axis, frequent PVCs CT of the chest shows a pleural-based mass right middle lobe lateral segment 2.6 X1.7 centimeter The pleural-based mass posterior left costophrenic sulcus measuring 2.61.2 Ectatic ascending thoracic aorta Descending aorta 3.2 cm Paratracheal adenopathy Adenopathy in the AP window Subcarinal adenopathy Right hilar adenopathy Nonspecific nodular thickening of the adrenal glands Ultrasound of the abdomen shows liver with homogenous texture Splenomegaly Labs are reviewed. White count normal, hemoglobin normal, platelet count reduced at 116,000 Normal sodium, normal potassium BUN 27 creatinine 1.27 Total bilirubin 2.1 AST 1038, ALP 1500, normal alkaline phosphatase Borderline troponins Normal cortisol Normal lipase Past Medical History Past Medical History: Hypertension, Osteoarthritis (OA) Additional Past Medical History / Comment(s): Constipation/bloating. Renal insufficiency, 80% kidney function, hx TIA's X2, 9 yrs ago X2, bulging disc (L4), back pain, ocassional numbness left leg. 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 Past Anesthesia/Blood Transfusion Reactions: No Reported Reaction Smoking Status: Former smoker - Past Family History Mother Family Medical History: No Reported History Medications and Allergies Home Medications Medication Instructions Recorded Confirmed Type Aspirin 325 mg PO DAILY 03/02/18 11/18/20 History Simvastatin [Zocor] 20 mg PO HS 03/02/18 11/18/20 History amLODIPine [Norvasc] 5 mg PO QAM 03/02/18 11/18/20 History hydrALAZINE HCL [Apresoline] 100 mg PO TID 03/02/18 11/18/20 History Potassium Chloride [Klor-Con 20] 20 meq PO DAILY 09/23/19 11/18/20 History Triamterene/Hydrochlorothiazid 1 tab PO DAILY 09/23/19 11/18/20 History [Triamterene-Hctz 37.5-25 mg Tb] hydroCHLOROthiazide [Hydrodiuril] 25 mg PO DAILY 11/18/20 11/18/20 History Allergies Allergy/AdvReac Type Severity Reaction Status Date / Time morphine Allergy Rash/Hives Verified 11/18/20 08:30 Penicillins Allergy Rash/Hives Verified 11/18/20 08:30 pineapple Allergy Anaphylaxis Verified 11/18/20 08:30 Physical Exam Vitals: Vital Signs Temp Pulse Resp BP Pulse Ox 11/19/20 12:00 97.1 F L 77 20 137/102 98 11/19/20 08:00 98.4 F 90 20 117/89 98 11/19/20 04:00 92 20 137/101 98 11/19/20 02:00 95 18 11/19/20 00:00 95 18 134/90 97 11/18/20 20:45 102 H 20 11/18/20 20:00 98.6 F 102 H 20 141/105 96 11/18/20 16:48 97 11/18/20 16:00 98.5 F 93 20 132/90 95 Intake and Output 11/18/20 11/19/20 11/19/20 22:59 06:59 14:59 Intake Total 1055.031 88.873 240 Output Total 1800 800 875 Balance -744.969 -711.127 -165 Intake: Intake, IV Titration 215.031 88.873 Amount Heparin Sod,Pork in 0.45% 115.031 88.873 NaCl 25,000 unit In 0.45 % NaCl 1 250ml.bag @ 12 UNITS/KG/HR 9.253 mls/hr IV .Q24H [facility] Rx#: [id number] Sodium Chloride 0.9% 1, 100 000 ml @ 20 mls/hr IV . Q24H [facility] Rx#:[id number] Oral 840 240 Output: Urine 1800 800 875 Other: Weight 85.3 kg Results 11/18/20 05:51 11/18/20 05:51 Coagulation 11/18/20 11/18/20 11/19/20 Range/Units 15:47 23:34 06:38 APTT 24.3 27.2 42.7 H (22.0-30.0) sec Current Medications Generic Name Dose Route Start Last Admin Trade Name Janneth PRN Reason Stop Dose Admin Amlodipine Besylate 5 mg 11/19/20 09:00 11/19/20 08:58 Amlodipine 5 Mg Tab PO 5 mg QAM [facility] Administration Hydralazine HCl 100 mg 11/18/20 16:00 11/19/20 08:58 Hydralazine Hcl 50 Mg Tab PO 100 mg TID [facility] Administration Lisinopril 10 mg 11/19/20 10:45 11/19/20 12:27 Lisinopril 10 Mg Tab PO 10 mg DAILY [facility] Administration Potassium Chloride 20 meq 11/19/20 09:00 11/19/20 08:58 Potassium Chloride Er 20 Meq Tab.Er PO 20 meq DAILY [facility] Administration Spironolactone 25 mg 11/19/20 10:45 11/19/20 12:27 Spironolactone 25 Mg Tab PO 25 mg DAILY [facility] Administration Intake and Output 11/18/20 11/19/20 11/19/20 22:59 06:59 14:59 Intake Total 1055.031 88.873 240 Output Total 1800 800 875 Balance -744.969 -711.127 -635 Intake: Intake, IV Titration 215.031 88.873 Amount Heparin Sod,Pork in 0.45% 115.031 88.873 NaCl 25,000 unit In 0.45 % NaCl 1 250ml.bag @ 12 UNITS/KG/HR 9.253 mls/hr IV .Q24H [facility] Rx#: [id number] Sodium Chloride 0.9% 1, 100 000 ml @ 20 mls/hr IV . Q24H [facility] Rx#:[id number] Oral 840 240 Output: Urine 1800 800 875 Other: Weight 85.3 kg 11/18/20 05:51 11/18/20 05:51
[2020-11-20 07:00] LABS: Anisocytosis Slight; Basophils # (A) 0.1 k/uL (0-0.2); Basophils % (A) 1 %; Eosinophils # (A) 0.2 k/uL (0-0.7); Eosinophils % (A) 3 %; HCT 44.7 % (39.0-53.0); HGB 14.8 gm/dL (13.0-17.5); Lymphocytes # (A) 1.5 k/uL (1.0-4.8); Lymphocytes % (A) 16 %; MCH 29.1 pg (25.0-35.0); MCV 88.1 fL (80.0-100.0); Mean Platelet Volume 8.8; Monocytes # (A) 0.5 k/uL (0-1.0); Monocytes % (A) 6 %; Neutrophils # (A) 6.8 k/uL (1.3-7.7); Neutrophils % (A) 73 %; Platelet Count 160 k/uL (150-450); RBC 5.08 m/uL (4.30-5.90); RDW 16.6 % (11.5-15.5); WBC 9.3 k/uL (3.8-10.6)
[2020-11-20 07:16] LABS: Albumin 3.5 g/dL (3.5-5.0); Potassium 3.5 mmol/L (3.5-5.1); Total Bilirubin 1.5 mg/dL (0.2-1.3); Total Protein 5.8 g/dL (6.3-8.2)
[2020-11-20] MEDS: SPIRONOLACTONE 25 MG TAB PO SCH (09:25)
[2020-11-20] MEDS: hydrALAZINE HCL 50 MG TAB PO SCH ×3 (09:25→20:20)
[2020-11-20] MEDS: POTASSIUM CHLORIDE ER 20 MEQ TAB.ER PO SCH (09:26)
[2020-11-20] MEDS: lisinopriL 10 MG TAB PO SCH (09:26)
[2020-11-20] MEDS: amLODIPine 5 MG TAB PO SCH (09:26)
--- NOTE | 2020-11-20 14:36 | P.PN ---
Subjective Progress Note Date: 11/20/20 HISTORY OF PRESENT ILLNESS: Patient examined this morning at the bedside. He denies chest pain or pressure. Denies shortness of breath. 24 urine remains in progress. creatinine 1.46, up from 1.27. LFTs improving. AST 123. ALT 727. Vital signs stable. PHYSICAL EXAM: VITAL SIGNS: Reviewed. GENERAL: Well-developed in no acute distress. NECK: Supple. No JVD or thyromegaly LUNGS: Respirations even and unlabored. Lungs essentially clear to auscultation bilaterally. HEART: Regular rate and rhythm. S1 and S2 heard. Systolic murmur noted. EXTREMITIES: Normal range of motion. No clubbing or cyanosis. Peripheral pulses intact. No lower extremity edema ASSESSMENT: Multiple pulmonary nodules Nonischemic cardiomyopathy, EF 35-40% Acute exacerbation of systolic heart failure Transaminitis Hypertensive hypertrophy Chest pain, recent cardiac cath performed at [facility] revealing nonobstructive coronary artery disease PLAN: Pulmonary following. Patient to have outpatient PET scan completed. GI following for elevated LFTs 24 hour urine completed. Await results Begin carvedilol 6.125 mg twice a day Patient currently on lisinopril. Will hold off on beginning Entresto at this time Continue aldactone Further recommendations pending patient course Nurse practitioner note has been reviewed by physician. Signing provider agrees with the documented findings, assessment, and plan of care. Objective - Vital Signs Vital signs: Vital Signs Temp 97.8 F 11/20/20 12:00 Pulse 86 11/20/20 12:00 Resp 18 11/20/20 12:00 BP 139/87 11/20/20 12:00 Pulse Ox 99 11/20/20 12:00 Intake & Output 11/19/20 11/20/20 11/20/20 18:59 06:59 18:59 Intake Total 387 047 3973 Output Total 1125 325 200 Balance -325 -85 1000 Weight 84.7 kg Intake: Intake, IV Titration 80 Amount Sodium Chloride 0.9% 1, 80 000 ml @ 20 mls/hr IV . Q24H [facility] Rx#:[id number] Oral 378 266 5336 Output: Urine 1125 325 200 Other: # Voids 2 - Labs CBC & Chem 7: 11/20/20 06:16 11/20/20 06:16 Labs: Abnormal Lab Results - Last 24 Hours (Table) 11/20/20 11/20/20 Range/Units 06:16 06:16 RDW 16.6 H (11.5-15.5) % BUN 33 H (9-20) mg/dL Creatinine 1.46 H (0.66-1.25) mg/dL Total Bilirubin 1.5 H (0.2-1.3) mg/dL AST 123 H (17-59) U/L ALT 727 H (4-49) U/L Total Protein 5.8 L (6.3-8.2) g/dL
[2020-11-20] MEDS: polyethylene glycoL 3350 17 GM POWD.PACK PO SCH (16:05)
[2020-11-20 16:24] LABS: % Iron Saturation 16.8 (15.00-50.00)
[2020-11-20 17:05] LABS: Alpha Fetoprotein, Tumor Mkr 3.9 ng/mL (0.0-7.9)
[2020-11-20] MEDS ORDERED: carvediloL 3.125 MG TAB PO SCH (17:30)
--- NOTE | 2020-11-20 17:39 | P.PN ---
Progress Note - Text LFTs improving, ALT 727 and AST 123 Not pressure reasonable Current myopathy Nonobstructive CAD Severe LVH Secondary hypertension labs sent Cortisol 21, aldosterone normal, recommend direct 12 Alpha-fetoprotein tumor marker normal Low Iron, normal TIBC Plan Maximize Coreg Continue lisinopril 10 mg daily Stop oral potassium Continue spironolactone and may increase dose Continue hydralazine May continue amlodipine for now, depending upon his maximally tolerated dose of Coreg, he may or may not need this He has a current myopathy and it would be best to avoid it and replace it with higher dose of carvedilol
[2020-11-20] MEDS: carvediloL 3.125 MG TAB PO SCH ×2 (17:40)
[2020-11-20 18:28] LABS: Protein, Total 5.5 g/dL (6.2-8.2)
--- NOTE | 2020-11-20 22:28 | PN ---
PROGRESS NOTE DATE OF SERVICE: 11/19/2020 The patient is admitted with coronary artery disease, cardiomyopathy, significant shortness of breath, pleural lesions, low platelet count. He has elevated liver enzymes, possible congestive hepatomegaly versus ischemic hepatic insult. He is going to be started back on carvedilol. Cardiology is involved with this. He remains short of breath. Pulmonary is going to work him up outpatient for pulmonary mass, adenopathy in the chest, unclear etiology. ASSESSMENT: 1. Pulmonary mass, unclear etiology. 2. Cardiomyopathy, unclear etiology. 3. Elevated liver enzymes of unclear etiology. Please see further orders. MMODL / IJN: [id number] /
--- NOTE | 2020-11-20 22:33 | PN ---
PROGRESS NOTE This patient is a 50-year-old white male admitted with cardiomyopathy, ejection fraction 30% to 35%, medical coronary artery disease, significant shortness of breath secondary to possibly pulmonary lesions versus CHF. Creatinine is up to 1.46 from 1.27. His Lasix was stopped yesterday. LFTs are improved. Vital signs are stable. Vital signs are reviewed. Lungs clear. CARDIOVASCULAR: S1, S2. Extremities: No edema. His temperature is 97.8, pulse 86, respiratory rate 16-18, blood pressure 139/87, O2 99%. ASSESSMENT: 1. Multiple pulmonary nodules. 2. Nonischemic cardiomyopathy. 3. Systolic heart failure. 4. Transaminitis. 5. Hypertension. 6. Hypertrophy. 7. Chest pain. 8. Nonobstructive coronary artery disease. He is going to have an outpatient PET scan. Check LFTs. Awaiting 24-hour metanephrines. He was started back on his beta blockers, his lisinopril. We will hold off on Entresto. Continue Aldactone. Continue to watch him. Follow his liver enzymes. Prognosis extremely guarded. MMODL / IJN: [id number] /
[2020-11-21] MEDS: carvediloL 3.125 MG TAB PO SCH ×2 (06:10→17:39)
[2020-11-21 08:10] LABS: Anisocytosis Slight; Basophils # (A) 0.1 k/uL (0-0.2); Basophils % (A) 1 %; Eosinophils # (A) 0.2 k/uL (0-0.7); Eosinophils % (A) 2 %; HCT 44.9 % (39.0-53.0); HGB 14.7 gm/dL (13.0-17.5); Lymphocytes # (A) 1.3 k/uL (1.0-4.8); Lymphocytes % (A) 15 %; MCH 29.3 pg (25.0-35.0); MCHC 32.7 g/dL (31.0-37.0); MCV 89.4 fL (80.0-100.0); Mean Platelet Volume 8.7; Monocytes # (A) 0.5 k/uL (0-1.0); Monocytes % (A) 5 %; Neutrophils # (A) 6.6 k/uL (1.3-7.7); Neutrophils % (A) 75 %; Platelet Count 162 k/uL (150-450); RBC 5.02 m/uL (4.30-5.90); RDW 16.4 % (11.5-15.5); WBC 8.8 k/uL (3.8-10.6)
[2020-11-21 08:24] LABS: Albumin 3.5 g/dL (3.5-5.0); Calcium 9.2 mg/dL (8.4-10.2); Potassium 3.6 mmol/L (3.5-5.1); Total Bilirubin 1.3 mg/dL (0.2-1.3); Total Protein 5.8 g/dL (6.3-8.2)
[2020-11-21] MEDS: polyethylene glycoL 3350 17 GM POWD.PACK PO SCH (08:30)
[2020-11-21] MEDS: hydrALAZINE HCL 50 MG TAB PO SCH ×3 (08:38→21:06)
[2020-11-21] MEDS: lisinopriL 10 MG TAB PO SCH (08:38)
[2020-11-21] MEDS: ALPRAZolam 0.25 MG TAB PO PRN ×2 (08:38→23:44)
[2020-11-21] MEDS: amLODIPine 5 MG TAB PO SCH (08:38)
[2020-11-21] MEDS: SPIRONOLACTONE 25 MG TAB PO SCH (08:38)
--- NOTE | 2020-11-21 09:32 | XR ---
EXAMINATION TYPE: XR chest 1V portable DATE OF EXAM: 11/21/2020 CLINICAL HISTORY: Difficulty breathing progress study. TECHNIQUE: Two AP portable frontal upright views of the chest are obtained. COMPARISON: Chest x-ray and CT from 3 days earlier FINDINGS: There is background chronic emphysematous change without suspicious new focal airspace opa city or pneumothorax seen. Suspect tiny left pleural effusion. Persistent right middle lobe nodule in the periphery. Posterior left basilar nodule on CT less well seen on plain films. Stable mild cardio megaly. Osseous structures are intact. IMPRESSION: Stable mild cardiomegaly. Background chronic emphysematous change with new tiny left pleu ral effusion. No new focal infiltrate. Persistent suspicious peripheral right middle lobe nodule.
[2020-11-21 11:11] LABS: Liver/Kidney Microsome Antibod 0.9 UNITS (<=20)
[2020-11-21 11:56] LABS: Ceruloplasmin 28.6 mg/dL (20.0-60.0)
[2020-11-21] MEDS: FUROSEMIDE 20 MG TAB PO SCH (12:50)
--- NOTE | 2020-11-21 12:57 | CDI ---
Documentation Clarification Form Date: 11/21/2020 12:49:59 PM From: Teetee Redd RN, CCDS Admit Date: 11/18/2020 08:03:00 AM Patient Name: Jaleel Pal Visit Number: [id number] ATTENTION: The Clinical Documentation Specialists (CDI) and [facility] Coding Staff appreciate your assistance in clarifying documentation. Please respond to the clarification below the line at the bottom and electronically sign. The CDI & [facility] Coding staff will review the response and follow-up if needed. Please note: Queries are made part of the Legal Health Record. If you have any questions, please contact the author of this message via ITS. Dr. Bob Nino CKD is documented in the H&P and Pulmonary progress notes and requires further specificity. History/Risk Factors: 11/22/18 Patients Historical BUN/CR/GFR: 15/1.2/71.6 Chronic systolic CHF, CAD, HTN Clinical Indicators: 11/18 Pulmonary Consult and 11/19 Pulmonary Progress Note: "Chronic kidney disease." 11/18 H&P: "Chronic kidney disease." 11/18-11/21 Current BUN: 29/33/31 CR: 1.27/1.46/1.31 GFR: 66/56/64 Treatment: 11/18-11/19 Lasix 40 mg IVP q12 hrs. 11/21 Lasix 20 mg PO QD No IVF Ordered In order to capture the severity of condition, please clarify the stage of the CKD, if known: CKD Stage 1 (GFR > 90) CKD Stage 2 (GFR 60-89) CKD Stage 3a (GFR 45-59) CKD Stage 3b (GFR 30-44) CKD Stage 4 (GFR 15-29) CKD Stage 5 (GFR <15) ESRD Other, please specify Unable to determine [Template last reviewed: June 2020] MTDD
--- NOTE | 2020-11-21 13:07 | P.CONS ---
History of Present Illness - Reason for Consult Consult date: 11/20/20 Elevated liver enzymes Requesting physician: Bob Nino - Chief Complaint Chest pain - History of Present Illness 50-year-old male with a medical history significant for hypertension, osteoporosis, chronic constipation, chronic kidney disease, prior TIA, chronic back pain, coronary artery disease and hyperlipidemia who presented for chest pain. The patient reports recent heart catheterization at [facility]. Also presented for chest pain. CT was started on 4 no medications at that time. Currently he is being followed by the cardiology service. Patient was found to have elevation in liver enzymes on presentation and gastroenterology for consulted for further evaluation. He denies any history of intrinsic liver disease or heavy alcohol use at this time. Liver enzymes which were significantly elevated on presentation with total bilirubin 2.1, alkaline phosphatase 91, AST 1038 and ALT 1500 have improved with total bilirubin 1.5, alkaline phosphatase 64, AST 123 and ALTs 727 today. Other laboratory evaluation significant for WBC 9.3, hemoglobin 40.8, platelet count 460,000. 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 Abdominal ultrasound showed a homogeneous liver with a normal CBD and no cholelithiasis and splenomegaly. Review of Systems REVIEW OF SYSTEMS: CONSTITUTIONAL: Denies any fevers, chills, weight change or fatigue. CARDIOVASCULAR: Denies any chest pain, palpitations high or low blood pressures currently admitted presented with complaints of chest pain. RESPIRATORY: Denies any shortness of breath, hemoptysis or cough. GENITOURINARY: No dysuria or hematuria. MUSCULOSKELETAL: No weakness reported. SKIN: Denies any new rashes or lesions, jaundice or pallor. PSYCHIATRIC: Denies any depression or anxiety. NEUROLOGY: Denies headache, denies any new focal deficits. EARS/NOSE/THROAT: No recent hearing change, congestion, nasal discharge or sore throat. EYES: No pain in eyes, discharge or change in vision. GASTROINTESTINAL: As per HPI. Past Medical History Past Medical History: Hypertension, Osteoarthritis (OA) Additional Past Medical History / Comment(s): Constipation/bloating. Renal insufficiency, 80% kidney function, hx TIA's X2, 9 yrs ago X2, bulging disc (L4), back pain, ocassional numbness left leg. hear cath oct 2020 medical manage History of Any Multi-Drug Resistant Organisms: None Reported Past Surgical History: Appendectomy, Heart Catheterization Additional Past Surgical History / Comment(s): Right second and third toes codi ttached after lawnmower accident. Past Anesthesia/Blood Transfusion Reactions: No Reported Reaction Smoking Status: Former smoker - Past Family History Mother Family Medical History: No Reported History Medications and Allergies Home Medications Medication Instructions Recorded Confirmed Type Aspirin 325 mg PO DAILY 03/02/18 11/18/20 History Simvastatin [Zocor] 20 mg PO HS 03/02/18 11/18/20 History amLODIPine [Norvasc] 5 mg PO QAM 03/02/18 11/18/20 History hydrALAZINE HCL [Apresoline] 100 mg PO TID 03/02/18 11/18/20 History Potassium Chloride [Klor-Con 20] 20 meq PO DAILY 09/23/19 11/18/20 History Triamterene/Hydrochlorothiazid 1 tab PO DAILY 09/23/19 11/18/20 History [Triamterene-Hctz 37.5-25 mg Tb] hydroCHLOROthiazide [Hydrodiuril] 25 mg PO DAILY 11/18/20 11/18/20 History Allergies Allergy/AdvReac Type Severity Reaction Status Date / Time morphine Allergy Rash/Hives Verified 11/18/20 08:30 Penicillins Allergy Rash/Hives Verified 11/18/20 08:30 pineapple Allergy Anaphylaxis Verified 11/18/20 08:30 Physical Exam Vitals: Vital Signs Temp Pulse Resp BP Pulse Ox 11/20/20 12:00 97.8 F 86 18 139/87 99 11/20/20 08:00 97.8 F 77 18 142/94 97 11/20/20 04:00 98.3 F 82 15 126/93 98 11/20/20 02:00 84 15 11/20/20 00:00 98.1 F 84 15 132/84 100 11/19/20 20:00 97.9 F 82 15 129/96 97 11/19/20 16:00 98 F 84 20 141/91 98 Intake and Output 11/19/20 11/20/20 11/20/20 22:59 06:59 14:59 Intake Total 138 657 4272 Output Total 250 325 200 Balance 70 -85 1000 Intake: Intake, IV Titration 80 Amount Sodium Chloride 0.9% 1, 80 000 ml @ 20 mls/hr IV . Q24H JORGE Rx#:[id number] Oral 161 783 0796 Output: Urine 250 325 200 Other: # Voids 2 Weight 84.7 kg On physical examination, patient appears comfortable in no apparent distress. HEAD: Normocephalic, atraumatic. EYES: No scleral icterus. No conjunctival injection. MOUTH: No lesions, tongue midline. NECK: Trachea midline, no gross abnormalities. CHEST: Clear to auscultation with no wheezing or rhonchi appreciated. HEART: S1-S2 appreciated. ABDOMEN: Soft, nontender to palpation. Bowel sounds are positive. No organomegaly. No guarding or rigidity. EXTREMITIES: No pedal edema. SKIN: No rashes, no jaundice. NEUROLOGIC: Alert and oriented x3. No focal deficits. Results CBC & Chem 7: 11/21/20 07:08 11/21/20 07:08 Labs: Abnormal Lab Results - Last 24 Hours (Table) 11/20/20 11/20/20 Range/Units 06:16 06:16 RDW 16.6 H (11.5-15.5) % BUN 33 H (9-20) mg/dL Creatinine 1.46 H (0.66-1.25) mg/dL Total Bilirubin 1.5 H (0.2-1.3) mg/dL AST 123 H (17-59) U/L ALT 727 H (4-49) U/L Total Protein 5.8 L (6.3-8.2) g/dL US - abdomen: report reviewed (Ultrasound of the abdomen with a homogeneous liver with a normal CBD, splenomegaly with no cholelithiasis noted.) Assessment and Plan (1) Elevated liver enzymes Narrative/Plan: 50-year-old male with multiple medical comorbidities including tobacco abuse, hypertension, osteoporosis, hyperlipidemia, chronic kidney disease, coronary disease and prior TIA who presented to the hospital with chest pain. He reports recent cardiac catheterization at [facility]. Patient found to have elevation in his liver enzymes in both a cholestatic and hepatocellular pattern on presentation with total bilirubin 2.1, pleasant phosphatase 91, AST 1038 and ALT 1500 improved on repeat blood draw to 1.5, 64, 123 and 727 respectively. Unknown etiology, given acuity suspicion is for ischemic hepatitis, differential also includes drug-induced liver injury with plan for full serology and acute viral hepatitis panel testing to rule out other etiology. Current Visit: Yes Status: Acute Code(s): R74.8 - ABNORMAL LEVELS OF OTHER SERUM ENZYMES SNOMED Code(s): 699745187 (2) Lung mass Current Visit: Yes Status: Acute Code(s): R91.8 - OTHER NONSPECIFIC ABNORMAL FINDING OF LUNG FIELD SNOMED Code(s): 040383046 Plan: Supportive care Okay for diet as tolerated Continue monitor CBC, BMP, LFTs Avoid hepatotoxic medications Full liver serologies ordered Ultrasound of the abdomen reviewed with no suspicious hepatic lesions, cholelithiasis or cholecystitis or choledocholithiasis noted MiraLAX daily added for chronic constipation Continue other medical management per primary team Thank you for allowing us to participate in the care of the patient we will continue to follow
--- NOTE | 2020-11-21 14:51 | P.PN ---
Subjective Progress Note Date: 11/21/20 HISTORY OF PRESENT ILLNESS: 11/20/2020 Patient examined this morning at the bedside. He denies chest pain or pressure. Denies shortness of breath. 24 urine remains in progress. creatinine 1.46, up from 1.27. LFTs improving. AST 123. ALT 727. Vital signs stable. 11/21/2020 Patient examined this morning at the bedside. Patient states he had a bad night and did not sleep well secondary to back pain. He reports feeling slightly short of breath. He states he is having a lot of anxiety today. Blood pressure 142/90. Heart rate in the 80s. Creatinine 1.31 today. LFTs continue to improve. Bilirubin 1.3. AST 73. ALT 508. PHYSICAL EXAM: VITAL SIGNS: Reviewed. GENERAL: Well-developed in no acute distress. NECK: Supple. No JVD or thyromegaly LUNGS: Respirations even and unlabored. Lungs essentially clear to auscultation bilaterally. HEART: Regular rate and rhythm. S1 and S2 heard. Systolic murmur noted. EXTREMITIES: Normal range of motion. No clubbing or cyanosis. Peripheral pulses intact. No lower extremity edema ASSESSMENT: Multiple pulmonary nodules Nonischemic cardiomyopathy, EF 35-40% Acute exacerbation of systolic heart failure Transaminitis Hypertensive hypertrophy Chest pain, recent cardiac cath performed at [facility] revealing nonobstructive coronary artery disease PLAN: Pulmonary following. Patient to have outpatient PET scan completed. GI following for elevated LFTs Patient currently on lisinopril. Will hold off on beginning Entresto at this time Continue current dose of carvedilol Continue spironolactone Begin Lasix 20 mg daily Obtain chest x-ray Further recommendations pending patient course Nurse practitioner note has been reviewed by physician. Signing provider agrees with the documented findings, assessment, and plan of care. Objective - Vital Signs Vital signs: Vital Signs Temp 98.4 F 11/21/20 12:00 Pulse 85 11/21/20 12:00 Resp 16 11/21/20 12:00 BP 149/98 11/21/20 12:00 Pulse Ox 95 11/21/20 12:00 Intake & Output 11/20/20 11/21/20 11/21/20 18:59 06:59 18:59 Intake Total 1920 240 Output Total 200 Balance 1720 240 Weight 81.4 kg Intake: Oral 1920 240 Output: Urine 200 Other: # Voids 1 1 - Labs CBC & Chem 7: 11/21/20 07:08 11/21/20 07:08 Labs: Abnormal Lab Results - Last 24 Hours (Table) 11/20/20 11/20/20 11/21/20 Range/Units 06:16 06:16 07:08 RDW 16.4 H (11.5-15.5) % Sodium (137-145) mmol/L BUN (9-20) mg/dL Creatinine (0.66-1.25) mg/dL Iron 43 L (65-175) ug/dL AST (17-59) U/L ALT (4-49) U/L Total Protein (6.3-8.2) g/dL Total Protein (PEP) 5.5 L (6.2-8.2) g/dL 11/21/20 Range/Units 07:08 RDW (11.5-15.5) % Sodium 136 L (137-145) mmol/L BUN 31 H (9-20) mg/dL Creatinine 1.31 H (0.66-1.25) mg/dL Iron (65-175) ug/dL AST 73 H (17-59) U/L ALT 508 H (4-49) U/L Total Protein 5.8 L (6.3-8.2) g/dL Total Protein (PEP) (6.2-8.2) g/dL
[2020-11-21 15:36] LABS: Cortisol, Urine Free by LC-MS 17.4 ug/L; Free Cortisol 24 Hour,Urine 17.4 ug/day (<60.0)
[2020-11-21 17:28] LABS: Albumin 3.15 g/dL (3.80-4.90); Gamma Globulin 0.54 g/dL (0.70-1.50)
--- NOTE | 2020-11-21 17:45 | PN ---
PROGRESS NOTE This is a 50-year-old white male with cardiomyopathy. Ordered Xanax for his severe anxiety today. Cardiology has reassessed his medicines for cardiomyopathy. LFTs are improving. AST is 123, ALT 727. Vital signs are stable. CARDIOVASCULAR: S1, S2. Lungs clear. GI soft. He has rales at the base. He is going to get a PET scan as an outpatient. Elevated LFTs; unsure of etiology. Cardiology review of systems. Medications started Xanax for anxiety. Try to wean him off oxygen. Possible discharge home after Cardiology and liver physician clear him. MMODL / IJN: [id number] /
[2020-11-22] MEDS: carvediloL 3.125 MG TAB PO SCH (06:44)
[2020-11-22] MEDS: SPIRONOLACTONE 25 MG TAB PO SCH (09:16)
[2020-11-22] MEDS: FUROSEMIDE 20 MG TAB PO SCH (09:16)
[2020-11-22] MEDS: lisinopriL 10 MG TAB PO SCH (09:16)
[2020-11-22] MEDS: hydrALAZINE HCL 50 MG TAB PO SCH (09:16)
[2020-11-22] MEDS: amLODIPine 5 MG TAB PO SCH (09:17)
[2020-11-22] MEDS: polyethylene glycoL 3350 17 GM POWD.PACK PO SCH (09:17)
[2020-11-22 10:38] VITALS: RESP 16
[2020-11-22 10:47] LABS: Albumin 4.1 g/dL (3.5-5.0); Anisocytosis Slight; Basophils # (A) 0.1 k/uL (0-0.2); Basophils % (A) 1 %; Calcium 9.7 mg/dL (8.4-10.2); Eosinophils # (A) 0.1 k/uL (0-0.7); Eosinophils % (A) 1 %; HGB 15.4 gm/dL (13.0-17.5); Hypochromasia Slight; Lymphocytes % (A) 12 %; MCH 28.7 pg (25.0-35.0); MCHC 31.5 g/dL (31.0-37.0); MCV 91.2 fL (80.0-100.0); Mean Platelet Volume 8.8; Monocytes # (A) 0.4 k/uL (0-1.0); Monocytes % (A) 5 %; Neutrophils # (A) 6.6 k/uL (1.3-7.7); Neutrophils % (A) 79 %; Platelet Count 191 k/uL (150-450); Potassium 4.3 mmol/L (3.5-5.1); RBC 5.37 m/uL (4.30-5.90); RDW 16.5 % (11.5-15.5); Total Bilirubin 1.4 mg/dL (0.2-1.3); Total Protein 6.7 g/dL (6.3-8.2); WBC 8.3 k/uL (3.8-10.6)
[2020-11-22] MEDS ORDERED: SENNOSIDES-DOCUSATE SODIUM 1 EACH TAB PO PRN (10:55)
--- NOTE | 2020-11-22 10:57 | P.PN ---
Subjective Progress Note Date: 11/21/20 Principal diagnosis: Elevated liver enzymes Patient seen lying in bed. No acute complaints. Still reporting some constipation. Patient formed the liver enzymes are trending down with no acute intervention recommended at this time. Objective - Vital Signs Vital signs: Vital Signs Temp 98.4 F 11/21/20 12:00 Pulse 85 11/21/20 12:00 Resp 16 11/21/20 12:00 BP 149/98 11/21/20 12:00 Pulse Ox 95 11/21/20 12:00 Intake & Output 11/20/20 11/21/20 11/21/20 18:59 06:59 18:59 Intake Total 1920 240 Output Total 200 Balance 1720 240 Weight 81.4 kg Intake: Oral 1920 240 Output: Urine 200 Other: # Voids 1 1 - Exam On physical examination, patient appears comfortable in no apparent distress. HEAD: Normocephalic, atraumatic. EYES: No scleral icterus. No conjunctival injection. MOUTH: No lesions, tongue midline. NECK: Trachea midline, no gross abnormalities. ABDOMEN: Soft, nontender to palpation. Bowel sounds are positive. No organomegaly. No guarding or rigidity. EXTREMITIES: No pedal edema. SKIN: No rashes, no jaundice. NEUROLOGIC: Alert and oriented x3. No focal deficits. - Labs CBC & Chem 7: 11/22/20 09:08 11/22/20 09:08 Labs: Abnormal Lab Results - Last 24 Hours (Table) 11/20/20 11/20/20 11/21/20 Range/Units 06:16 06:16 07:08 RDW 16.4 H (11.5-15.5) % Sodium (137-145) mmol/L BUN (9-20) mg/dL Creatinine (0.66-1.25) mg/dL Iron 43 L (65-175) ug/dL AST (17-59) U/L ALT (4-49) U/L Total Protein (6.3-8.2) g/dL Total Protein (PEP) 5.5 L (6.2-8.2) g/dL 11/21/20 Range/Units 07:08 RDW (11.5-15.5) % Sodium 136 L (137-145) mmol/L BUN 31 H (9-20) mg/dL Creatinine 1.31 H (0.66-1.25) mg/dL Iron (65-175) ug/dL AST 73 H (17-59) U/L ALT 508 H (4-49) U/L Total Protein 5.8 L (6.3-8.2) g/dL Total Protein (PEP) (6.2-8.2) g/dL Assessment and Plan (1) Elevated liver enzymes Narrative/Plan: 50-year-old male with multiple medical comorbidities including tobacco abuse, hypertension, osteoporosis, hyperlipidemia, chronic kidney disease, coronary disease and prior TIA who presented to the hospital with chest pain. He reports recent cardiac catheterization at [facility]. Patient found to have elevation in his liver enzymes in both a cholestatic and hepatocellular pattern on presentation with total bilirubin 2.1, pleasant phosphatase 91, AST 1038 and ALT 1500 improved on repeat blood draw to 1.5, 64, 123 and 727 respectively. Unknown etiology, given acuity suspicion is for ischemic hepatitis, differential also includes drug-induced liver injury with plan for full serology and acute viral hepatitis panel testing to rule out other etiology. Liver enzymes are trending down, consistent with possible ischemic etiology of elevation. Current Visit: Yes Status: Acute Code(s): R74.8 - ABNORMAL LEVELS OF OTHER SERUM ENZYMES SNOMED Code(s): 620889852 (2) Lung mass Current Visit: Yes Status: Acute Code(s): R91.8 - OTHER NONSPECIFIC ABNORMAL FINDING OF LUNG FIELD SNOMED Code(s): 025636661 Plan: Supportive care Okay for diet as tolerated Continue monitor CBC, BMP, LFTs Avoid hepatotoxic medications Full liver serologies ordered Ultrasound of the abdomen reviewed with no suspicious hepatic lesions, cholelithiasis or cholecystitis or choledocholithiasis noted MiraLAX daily added for chronic constipation Senokot added as needed for constipation Continue other medical management per primary team The GI service will stand by, please calls back with any questions or concerns Thank you for allowing us to participate in the care of the patient
[2020-11-22 12:14] LABS: Metanephrines 24 Hour,Urine 166 ug/day (52-341); Normetanephrine 24 Hour,Urine 550 ug/day (88-444); Total Metanephrines 24 Hour,Ur 716 ug/day (140-785); Urine Creatinine, 24 Hr 1.5 gm/24h (1.0-2.0)
--- NOTE | 2020-11-22 14:42 | P.PN ---
Subjective Progress Note Date: 11/22/20 HISTORY OF PRESENT ILLNESS: 11/20/2020 Patient examined this morning at the bedside. He denies chest pain or pressure. Denies shortness of breath. 24 urine remains in progress. creatinine 1.46, up from 1.27. LFTs improving. AST 123. ALT 727. Vital signs stable. 11/21/2020 Patient examined this morning at the bedside. Patient states he had a bad night and did not sleep well secondary to back pain. He reports feeling slightly short of breath. He states he is having a lot of anxiety today. Blood pressure 142/90. Heart rate in the 80s. Creatinine 1.31 today. LFTs continue to improve. Bilirubin 1.3. AST 73. ALT 508. 11/22/2020 Patient examined this morning on the cardiac stepdown unit. Patient seen ambulating in the hallway multiple times this morning. He denies chest pain or pressure. Denies shortness of breath. PHYSICAL EXAM: VITAL SIGNS: Reviewed. GENERAL: Well-developed in no acute distress. NECK: Supple. No JVD or thyromegaly LUNGS: Respirations even and unlabored. Lungs essentially clear to auscultation bilaterally. HEART: Regular rate and rhythm. S1 and S2 heard. Systolic murmur noted. EXTREMITIES: Normal range of motion. No clubbing or cyanosis. Peripheral pulses intact. No lower extremity edema ASSESSMENT: Multiple pulmonary nodules Nonischemic cardiomyopathy, EF 35-40% Acute exacerbation of systolic heart failure Transaminitis Hypertensive hypertrophy Chest pain, recent cardiac cath performed at [facility] revealing nonobstructive coronary artery disease PLAN: Continue current cardiac medications Increase Coreg to 12.5 mg twice a day Patient is stable for discharge home today. He is to follow up outpatient with Dr. Rider Nurse practitioner note has been reviewed by physician. Signing provider agrees with the documented findings, assessment, and plan of care. Objective - Vital Signs Vital signs: Vital Signs Temp 97.4 F L 11/22/20 08:55 Pulse 82 11/22/20 08:55 Resp 16 11/22/20 08:55 BP 137/108 11/22/20 08:55 Pulse Ox 98 11/22/20 08:55 Intake & Output 11/21/20 11/22/20 11/22/20 18:59 06:59 18:59 Intake Total 0033 022 9764 Output Total 500 450 350 Balance 810 -90 770 Weight 81.1 kg Intake: Oral 8477 317 9684 Output: Urine 500 450 350 Other: # Voids 3 # Bowel Movements 1 - Labs CBC & Chem 7: 11/22/20 09:08 11/22/20 09:08 Labs: Abnormal Lab Results - Last 24 Hours (Table) 11/19/20 11/20/20 11/21/20 Range/Units 11:24 06:16 07:08 RDW (11.5-15.5) % BUN (9-20) mg/dL Creatinine (0.66-1.25) mg/dL Glucose (74-99) mg/dL Transferrin 186.0 L (204.0-354.0) mg/dL Total Bilirubin (0.2-1.3) mg/dL AST (17-59) U/L ALT (4-49) U/L Albumin (PEP) 3.15 L (3.80-4.90) g/dL Coazx-4-Miajexrcx 0.61 H (0.10-0.40) g/dL Beta Globulins 0.50 L (0.60-1.30) g/dL Gamma Globulins 0.54 L (0.70-1.50) g/dL U Normetanephrine 24h 550 H (88-444) ug/day 11/22/20 11/22/20 Range/Units 09:08 09:08 RDW 16.5 H (11.5-15.5) % BUN 32 H (9-20) mg/dL Creatinine 1.41 H (0.66-1.25) mg/dL Glucose 110 H (74-99) mg/dL Transferrin (204.0-354.0) mg/dL Total Bilirubin 1.4 H (0.2-1.3) mg/dL AST 71 H (17-59) U/L ALT 402 H (4-49) U/L Albumin (PEP) (3.80-4.90) g/dL Ryzmx-3-Khntwqies (0.10-0.40) g/dL Beta Globulins (0.60-1.30) g/dL Gamma Globulins (0.70-1.50) g/dL U Normetanephrine 24h (88-444) ug/day
[2020-11-22 14:45] VITALS: BP 128/89; PULSE 81; TEMP 96.5
[2020-11-22] MEDS ORDERED: carvediloL 12.5 MG TAB PO SCH (17:30)
--- NOTE | 2020-11-22 19:05 | DS ---
DISCHARGE SUMMARY This 50-year-old white male was admitted with systolic heart failure and abnormal lung mass of unclear etiology. He is going to have a PET scan as outpatient. New medicines for systolic heart failure and cardiomyopathy include Aldactone 25 mg daily, Coreg 6.25 b.i.d., Lasix 20 mg daily, MiraLAX 17 grams daily, Senokot 1 daily p.r.n., Zestril 10 mg daily, Apresoline 100 t.i.d., Norvasc 5 each morning. CONDITION: Stable. PROGNOSIS: Guarded. Ambulate as tolerated. He will need a PET scan as outpatient. He had an abnormal CT scan of his lungs, for which PET scan is recommended. He was weaned off oxygen. He came in on 3 L of oxygen and was weaned off with treatment for systolic heart failure and cardiomyopathy. As mentioned above, chronic constipation, liver enzyme elevation of unclear etiology; possible cardiorenal syndrome, improved on discharge. Hepatic doctor had no further input on discharge medications and will follow up with liver enzymes as outpatient. He will need a PET scan right away. Diet regular. Ambulate as tolerated. MMODL / IJN: [id number] /
--- NOTE | 2020-11-24 09:33 | CDI ---
Documentation Clarification Form Date: 11/21/2020 12:49:00 PM From: Teetee Redd RN, CCDS Admit Date: 11/18/2020 08:03:00 AM Patient Name: Jaleel Pal Visit Number: [id number] Discharge Date: 11/22/2020 03:57:00 PM ATTENTION: The Clinical Documentation Specialists (CDI) and [facility] Coding Staff appreciate your assistance in clarifying documentation. Please respond to the clarification below the line at the bottom and electronically sign. The CDI & [facility] Coding staff will review the response and follow-up if needed. Please note: Queries are made part of the Legal Health Record. If you have any questions, please contact the author of this message via ITS. Dr. Bob Nino CKD is documented in the H&P and Pulmonary progress notes and requires further specificity. History/Risk Factors: 11/22/18 Patients Historical BUN/CR/GFR: 15/1.2/71.6 Chronic systolic CHF, CAD, HTN Clinical Indicators: 11/18 Pulmonary Consult and 11/19 Pulmonary Progress Note: "Chronic kidney disease." 11/18 H&P: "Chronic kidney disease." 11/18-11/21 Current BUN: 29/33/31 CR: 1.27/1.46/1.31 GFR: 66/56/64 Treatment: 11/18-11/19 Lasix 40 mg IVP q12 hrs. 11/21 Lasix 20 mg PO QD No IVF Ordered In order to capture the severity of condition, please clarify the stage of the CKD, if known: CKD Stage 1 (GFR > 90) CKD Stage 2 (GFR 60-89) CKD Stage 3a (GFR 45-59) CKD Stage 3b (GFR 30-44) CKD Stage 4 (GFR 15-29) CKD Stage 5 (GFR <15) ESRD Other, please specify Unable to determine [Template last reviewed: June 2020] MTDD
[2020-11-27 22:40] LABS: Metanephrine, Free <25 pg/mL (< OR = 57); Normetanephrine, Free 53 pg/mL (< OR = 148); Total, Free (MN + NMN) 53 pg/mL (< OR = 205)
--- NOTE | 2020-11-30 21:56 | PN ---
PROGRESS NOTE ADDENDUM TO PROGRESS NOTES: Chronic kidney disease, stage 3A. MMODL / IJN: [id number] /
== END 2020-11-22 15:57 | disposition home or self-care (01) | DRG 291 ==
LOC: EC 05:19 → 3SCARD 08:03
PROVIDERS: ADMIT Family Medicine; ATTEND Family Medicine
DX: I13.0 Hypertensive heart and chronic kidney disease with heart failure and stage 1 through stage 4 chronic kidney disease, or unspecified chronic kidney disease (principal); I50.23 Acute on chronic systolic (congestive) heart failure; I42.8 Other cardiomyopathies; J44.9 Chronic obstructive pulmonary disease, unspecified; Z20.822 Contact with and (suspected) exposure to COVID-19; I25.10 Atherosclerotic heart disease of native coronary artery without angina pectoris; E78.5 Hyperlipidemia, unspecified; K59.09 Other constipation; R16.1 Splenomegaly, not elsewhere classified; R91.1 Solitary pulmonary nodule; R14.0 Abdominal distension (gaseous); K75.9 Inflammatory liver disease, unspecified; N18.31 Chronic kidney disease, stage 3a; I15.9 Secondary hypertension, unspecified; R59.9 Enlarged lymph nodes, unspecified; R20.0 Anesthesia of skin; M54.9 Dorsalgia, unspecified; G89.29 Other chronic pain; M19.90 Unspecified osteoarthritis, unspecified site; I45.10 Unspecified right bundle-branch block; F41.9 Anxiety disorder, unspecified; F17.200 Nicotine dependence, unspecified, uncomplicated; Z79.82 Long term (current) use of aspirin; Z79.899 Other long term (current) drug therapy; Z86.73 Personal history of transient ischemic attack (TIA), and cerebral infarction without residual deficits
CPT/HCPCS: 36415; 71045; 71260; 74177; 76700; 80053; 80074; 82088; 82103; 82105; 82150; 82390; 82530; 82533; 83516; 83540; 83550; 83690; 83735; 83835; 84165; 84244; 84466; 84484; 85025; 85610; 85730; 86038; 86376; 87635; 93005; 94760; 96365; 96366; 96368; 96375; 96376; 99285

== ENCOUNTER 2020-12-07 00:34 | Emergency (ER) | payer MEDICARE ==
--- NOTE | 2020-12-07 00:36 | ED ---
Recheck HPI - General Stated Complaint: Rib Pain Time Seen by Provider: 12/07/20 00:35 Source: RN notes reviewed, old records reviewed Limitations: no limitations - History of Present Illness Initial Comments: This is a 42-year-old male DF for evaluation patient Dese for recurrent right- sided chest pain chest wall pain known history of lung nodules. Patient is a complicated recent medical history with admissions and evaluation for possible cancer metastatic cancer. Patient has history of smoking although denying this continued shortness of breath. Patient quit smoking 2 weeks ago. Patient is epstein s continued pain and right-sided a stress was seen in urgent care earlier today x-ray was done which is negative for acute disease. Patient denying any fevers or cough. Complaining of right-sided rib pain right-sided chest pain MD Complaint: other (Heart records reviewed) -: week(s) Returns Today for: request for prescription, persistent/worsening pain related to initial visit Symptoms Since Prior Visit: worsening pain Context: planned re-check Associated Symptoms: chest pain Treatments Prior to Arrival: Given Pain Meds on - Related Data Home Medications Medication Instructions Recorded Confirmed amLODIPine [Norvasc] 5 mg PO QAM 03/02/18 11/18/20 hydrALAZINE HCL [Apresoline] 100 mg PO TID 03/02/18 11/18/20 Previous Rx's Medication Instructions Recorded Carvedilol [Coreg] 12.5 mg PO BID #60 tablet 11/22/20 Furosemide [Lasix] 20 mg PO DAILY 30 Days #30 tab 11/22/20 Sennosides-Docusate Sodium 1 each PO DAILY PRN tab 11/22/20 [Senokot-S] Spironolactone [Aldactone] 25 mg PO DAILY 30 Days #30 tab 11/22/20 lisinopriL [Zestril] 10 mg PO DAILY 30 Days #30 tab 11/22/20 polyethylene glycoL 3350 [Miralax] 17 gm PO DAILY powd.pack 11/22/20 Allergies Allergy/AdvReac Type Severity Reaction Status Date / Time morphine Allergy Rash/Hives Verified 11/18/20 08:30 Penicillins Allergy Rash/Hives Verified 11/18/20 08:30 pineapple Allergy Anaphylaxis Verified 11/18/20 08:30 Review of Systems ROS Statement: Those systems with pertinent positive or pertinent negative responses have been documented in the HPI. ROS Other: All systems not noted in ROS Statement are negative. Past Medical History Past Medical History: Hypertension, Osteoarthritis (OA) Additional Past Medical History / Comment(s): Constipation/bloating. Renal insufficiency, 80% kidney function, hx TIA's X2, 9 yrs ago X2, bulging disc (L4), back pain, ocassional numbness left leg. History of Any Multi-Drug Resistant Organisms: None Reported Past Surgical History: Appendectomy, Heart Catheterization Additional Past Surgical History / Comment(s): Right second and third toes reattached after lawnmower accident. Past Anesthesia/Blood Transfusion Reactions: No Reported Reaction Past Psychological History: No Psychological Hx Reported Smoking Status: Former smoker Past Alcohol Use History: Occasional Past Drug Use History: None Reported - Past Family History Mother Family Medical History: No Reported History General Exam General appearance: alert, in no apparent distress Head exam: Present: atraumatic, normocephalic, normal inspection Eye exam: Present: normal appearance, PERRL, EOMI. Absent: scleral icterus, conjunctival injection, periorbital swelling ENT exam: Present: normal exam, mucous membranes moist Neck exam: Present: normal inspection. Absent: tenderness, meningismus, ly mphadenopathy Respiratory exam: Present: normal lung sounds bilaterally. Absent: respiratory distress, wheezes, rales, rhonchi, stridor Cardiovascular Exam: Present: regular rate, normal rhythm, normal heart sounds. Absent: systolic murmur, diastolic murmur, rubs, gallop, clicks GI/Abdominal exam: Present: soft, normal bowel sounds. Absent: distended, tenderness, guarding, rebound, rigid Extremities exam: Present: normal inspection, full ROM, normal capillary refill. Absent: tenderness, pedal edema, joint swelling, calf tenderness Back exam: Present: normal inspection Neurological exam: Present: alert, oriented X3, CN II-XII intact Psychiatric exam: Present: normal affect, normal mood Skin exam: Present: warm, dry, intact, normal color. Absent: rash Course Vital Signs 12/07/20 12/07/20 00:38 01:34 Temperature 98.1 F Pulse Rate 68 69 Respiratory 20 Rate Blood Pressure 142/85 O2 Sat by Pulse 95 Oximetry - Reevaluation(s) Reevaluation #1: 12/07/20 01:46 Medical record is reviewed Reevaluation #2: 12/07/20 01:46 Patient informed of results here and questions have been answered Medical Decision Making - Medical Decision Making 50 male DF for evaluation patient with recurrent right-sided pain chest pain chest wall pain. No recent diagnosis of pulmonary nodules rule out mass rule out cancer. Patient unsure pending results. Patient be given pain control and discharged home - EKG Data -: EKG Interpreted by Me (EKG shows sinus rhythm 77, MO 172 QRS 148 QTc 506) - Radiology Data Radiology results: report reviewed (Chest x-rays negative for acute disease), image reviewed Disposition Clinical Impression: Lung mass, Rib pain on right side, Chest wall pain Disposition: HOME SELF-CARE Condition: Fair Instructions (If sedation given, give patient instructions): Chest Pain (ED), Costochondritis (ED) Is patient prescribed a controlled substance at d/c from ED?: No Referrals: Bob Nino MD [Primary Care Provider] - 1-2 days
[2020-12-07 00:42] VITALS: TEMP 98.1
[2020-12-07] MEDS ORDERED: IPRATROPIUM-ALBUTEROL 3 ML NEB INHALATION STA (00:56)
[2020-12-07] MEDS ORDERED: KETOROLAC 15 MG/ML 1 ML VIAL IVP STA (00:56)
[2020-12-07] MEDS ORDERED: HYDROmorphone 1 MG/ML 1 ML SYRINGE IVP STA (00:57)
[2020-12-07] MEDS ORDERED: ACET/COD 300 MG/30 MG STARTER PACK 6 TAB BTL PO STA (01:27)
--- NOTE | 2020-12-07 01:30 | XR ---
EXAM: XR Chest, 2 Views CLINICAL HISTORY: ITS.REASON XR Reason: cp TECHNIQUE: Frontal and lateral views of the chest. COMPARISON: CXR 11/21/20. FINDINGS: Lungs: Bibasilar opacities. Stable 15 mm pulmonary nodule in the right lower lung. Emphysema. Pleural space: Possible trace effusions. No pneumothorax. Heart: Stable cardiomegaly. Pulmonary vascularity appears normal. Mediastinum: Unremarkable. Bones/joints: No acute fracture. No dislocation. IMPRESSION: 1. Stable 15 mm pulmonary nodule right lower lung. 2. Bibasilar opacities, atelectasis or infiltrates. 3. Possible trace effusions. 4. Stable cardiomegaly.
[2020-12-07 01:51] VITALS: BP 126/80; PULSE 72; RESP 18
== END 2020-12-07 02:01 | disposition home or self-care (01) ==
LOC: EC 00:34
DX: R07.89 Other chest pain (principal); R07.81 Pleurodynia; R91.8 Other nonspecific abnormal finding of lung field; I10 Essential (primary) hypertension; Z79.899 Other long term (current) drug therapy; Z87.891 Personal history of nicotine dependence; Z88.5 Allergy status to narcotic agent; Z88.0 Allergy status to penicillin; Z91.018 Allergy to other foods
CPT/HCPCS: 94640; 71046; 99284; 96374; 96375; J1170; J1885

== ENCOUNTER 2020-12-07 20:54 | Inpatient (IN) | payer MEDICARE ==
[2020-12-07] MEDS ORDERED: HYDROmorphone 0.5 MG/0.5 ML SYRINGE IVP STA ×2 (21:49→22:47)
[2020-12-07 22:12] LABS: Basophils % (A) 0 %; Eosinophils # (A) 0.1 k/uL (0-0.7); Eosinophils % (A) 1 %; HCT 45.3 % (39.0-53.0); HGB 14.9 gm/dL (13.0-17.5); Lymphocytes # (A) 1.2 k/uL (1.0-4.8); Lymphocytes % (A) 12 %; MCH 28.6 pg (25.0-35.0); MCV 86.9 fL (80.0-100.0); Mean Platelet Volume 8.4; Monocytes # (A) 0.8 k/uL (0-1.0); Monocytes % (A) 8 %; Neutrophils # (A) 7.7 k/uL (1.3-7.7); Neutrophils % (A) 77 %; Platelet Count 218 k/uL (150-450); RBC 5.22 m/uL (4.30-5.90); RDW 15.1 % (11.5-15.5); WBC 9.9 k/uL (3.8-10.6)
[2020-12-07 22:24] LABS: INR 0.9 (<1.2); Partial Thromboplastin Time 23.9 sec (22.0-30.0); Prothrombin Time 10.1 sec (9.0-12.0)
[2020-12-07 22:28] LABS: D-Dimer 0.97 mg/L FEU (<0.60)
[2020-12-07 22:29] LABS: Albumin 4.5 g/dL (3.5-5.0); Magnesium 1.9 mg/dL (1.6-2.3); Total Bilirubin 1.3 mg/dL (0.2-1.3); Total Protein 7.4 g/dL (6.3-8.2)
--- NOTE | 2020-12-07 22:32 | XR ---
EXAMINATION TYPE: XR ribs RT w pa chest xray DATE OF EXAM: 12/07/2020 COMPARISON: 12/07/2020 HISTORY: Right upper quadrant pain. Rib pain. Chest pain TECHNIQUE: 5 views FINDINGS: There is some patchy atelectasis at the lung bases. Heart size is normal. There is no heart failure. The right ribs appear intact. I see no rib fracture. IMPRESSION: Patchy atelectasis at the lung bases with pleural reaction at the right costophrenic angl e. No significant change compared to exam earlier today. No heart failure. No rib fracture seen.
[2020-12-07 22:50] LABS: Potassium 4.3 mmol/L (3.5-5.1)
[2020-12-07] MEDS: ASPIRIN 81 MG PO STA ×2 (23:13→23:26)
[2020-12-07] MEDS ORDERED: LORazepam 2 MG/ML INJ IV STA (23:17)
[2020-12-07 23:47] LABS: Lactic Acid, Venous 1.1 mmol/L (0.7-2.0)
--- NOTE | 2020-12-07 23:52 | ED ---
General Adult HPI - General Source: patient Mode of arrival: EMS Limitations: no limitations <Gilda Avalos - Last Filed: 12/07/20 23:55> - General Source: RN notes reviewed, old records reviewed <Feliz Zaragoza - Last Filed: 12/09/20 05:58> - General Chief complaint: Back Pain/Injury Stated complaint: Flank pain Time Seen by Provider: 12/07/20 21:08 - History of Present Illness Initial comments: 50-year-old male history of refractory hypertension on numerous blood pressure medications including amlodipine hydralazine carvedilol furosemide spironolactone, lisinopril presenting for cc of right rib pain. patient states that he has had right rib pain for quiote some time. he denies injuries or fall. he denies substernal chest pain, jaw pain, arm pain. He states he has pain in the right shoulder and right back. patient denies nausea, vomiting, diaphoresis. patient appear dyspneic but he states he does not have significant shortness of breath. Patient should denies any leg swelling calf pain he denies any hemoptysis. Patient states he recent quit smoking but has been on lifetime heavy smoker. Patient states uses trouble with alcoholism. Patient has no additional complaints. (Gilda Avalos) - Related Data Home Medications Medication Instructions Recorded Confirmed amLODIPine [Norvasc] 5 mg PO QAM 03/02/18 12/08/20 hydrALAZINE HCL [Apresoline] 100 mg PO TID 03/02/18 12/08/20 Acetaminophen Tab [Tylenol Tab] 1,000 mg PO Q6HR PRN 12/08/20 12/08/20 Acetaminophen-Codeine 300-30mg 1 tab PO Q6H PRN 12/08/20 12/08/20 [Tylenol w/codeine #3] Ferrous Sulfate [Feosol] 325 mg PO DAILY 12/08/20 12/08/20 traMADol HCL [Ultram] 50 mg PO Q4HR PRN 12/08/20 12/08/20 Previous Rx's Medication Instructions Recorded Carvedilol [Coreg] 12.5 mg PO BID #60 tablet 11/22/20 Furosemide [Lasix] 20 mg PO DAILY 30 Days #30 tab 11/22/20 Spironolactone [Aldactone] 25 mg PO DAILY 30 Days #30 tab 11/22/20 lisinopriL [Zestril] 10 mg PO DAILY 30 Days #30 tab 11/22/20 Allergies Allergy/AdvReac Type Severity Reaction Status Date / Time morphine Allergy Rash/Hives Verified 12/08/20 08:32 Penicillins Allergy Rash/Hives Verified 12/08/20 08:32 pineapple Allergy Anaphylaxis Verified 12/08/20 08:32 Review of Systems ROS Other: All systems not noted in ROS Statement are negative. <Gilda Avalos - Last Filed: 12/07/20 23:55> ROS Other: All systems not noted in ROS Statement are negative. <Feliz Zaragoza - Last Filed: 12/09/20 05:58> ROS Statement: Those systems with pertinent positive or pertinent negative responses have been documented in the HPI. Past Medical History Past Medical History: Hypertension, Osteoarthritis (OA) Additional Past Medical History / Comment(s): Constipation/bloating. Renal insufficiency, 80% kidney function, hx TIA's X2, 9 yrs ago X2, bulging disc (L4), back pain, ocassional numbness left leg. History of Any Multi-Drug Resistant Organisms: None Reported Past Surgical History: Appendectomy, Heart Catheterization Additional Past Surgical History / Comment(s): Right second and third toes reattached after lawnmower accident. Past Anesthesia/Blood Transfusion Reactions: No Reported Reaction Past Psychological History: No Psychological Hx Reported Smoking Status: Former smoker Past Alcohol Use History: Occasional Past Drug Use History: None Reported - Past Family History Mother Family Medical History: No Reported History <Gilda Avalos - Last Filed: 12/07/20 23:55> General Exam Limitations: no limitations <Gilda Avalos - Last Filed: 12/07/20 23:55> General appearance: alert, in no apparent distress Head exam: Present: atraumatic, normocephalic, normal inspection Eye exam: Present: normal appearance, PERRL, EOMI. Absent: scleral icterus, conjunctival injection, periorbital swelling ENT exam: Present: normal exam, mucous membranes moist Neck exam: Present: normal inspection. Absent: tenderness, meningismus, lymphadenopathy Respiratory exam: Present: normal lung sounds bilaterally. Absent: respiratory distress, wheezes, rales, rhonchi, stridor Cardiovascular Exam: Present: regular rate, normal rhythm, normal heart sounds. Absent: systolic murmur, diastolic murmur, rubs, gallop, clicks GI/Abdominal exam: Present: soft, normal bowel sounds. Absent: distended, tenderness, guarding, rebound, rigid Extremities exam: Present: normal inspection, full ROM, normal capillary refill. Absent: tenderness, pedal edema, joint swelling, calf tenderness Back exam: Present: normal inspection Neurological exam: Present: alert, oriented X3, CN II-XII intact Psychiatric exam: Present: normal affect, normal mood Skin exam: Present: warm, dry, intact, normal color. Absent: rash <Feliz Zaragoza - Last Filed: 12/09/20 05:58> - General Exam Comments Initial Comments: General: The patient is awake and alert, in no distress Eye: +3 mm pupils are equal, round and reactive to light, extra-ocular movements are intact. No nystagmus. There is normal conjunctiva bilaterally. No signs of icterus. Ears, nose, mouth and throat: There are moist mucous membranes and no oral lesions. Neck: The neck is supple, there is no tenderness or JVD. Cardiovascular: There is a regular rate and rhythm. No murmur, rub or gallop is appreciated. Respiratory: Specfici right upper rib pain to palpation, pt jumps from the bed when it is pushed. Respirations are mildly labored, breath sounds are equal. No wheezes, stridor, rales, or rhonchi. Gastrointestinal: Soft, non-distended, non-tender abdomen without masses or organomegaly noted. There is no rebound or guarding present. Musculoskeletal: Normal ROM, no tenderness. Strength 5/5. Sensation intact. Radial and DP pulses equal bilaterally 2+. Neurological: A&O x 3. CN II-XII intact grossly, There are no obvious motor or sensory deficits. Coordination appears grossly intact. Speech is normal. Skin: Skin is warm and dry and no rashes or lesions are noted. No LE pitting edema, no calf pain to palpation or calf swelling Psychiatric: Cooperative, appropriate mood & affect, normal judgment. (Gilda Avalos) Course <Gilda Avalos - Last Filed: 12/07/20 23:55> <Feliz Zaragoza Last Filed: 12/09/20 05:58> Vital Signs 12/07/20 12/07/20 12/08/20 20:57 22:47 00:59 Temperature 97.4 F L Pulse Rate 91 96 77 Respiratory 18 16 18 Rate Blood Pressure 169/122 171/101 147/103 O2 Sat by Pulse 97 97 98 Oximetry - Reevaluation(s) Reevaluation #1: Signed out to Dr. Zaragoza pending CTA and final disposition, aware of ddx 12/07/20 23:57 (Gilda Avalos) medical record and prior ED visit is reviewed patient still w persistent and difficult to control PA (Feliz Zaragoza) Medical Decision Making - Lab Data Result diagrams: 12/07/20 21:55 12/07/20 21:55 <Gilda Avalos - Last Filed: 12/07/20 23:55> - Lab Data Result diagrams: 12/07/20 21:55 12/07/20 21:55 - Radiology Data Radiology results: report reviewed (CTa chest is negative for PE, postiive for BL pna ), image reviewed <Feliz Zaragoza - Last Filed: 12/09/20 05:58> - Medical Decision Making 50 male with persistent right-sided chest pain, history of new diagnosis of cancer, history of drug abuse alcohol and smoking. Patient does have persistently elevated troponin [place] for cardiology echo and further evaluation. Patient does have persistent right-sided chest pain here in the ER difficult to control pain, patient be admitted for pain control as well, chest x-ray does show developing edema, CHF versus pneumonia pneumonia (Feliz Zaragoza) - Lab Data Lab Results 12/07/20 12/07/20 12/07/20 Range/Units 21:55 21:55 21:55 WBC 9.9 (3.8-10.6) k/uL RBC 5.22 (4.30-5.90) m/uL Hgb 14.9 (13.0-17.5) gm/dL Hct 45.3 (39.0-53.0) % MCV 86.9 (80.0-100.0) fL MCH 28.6 (25.0-35.0) pg MCHC 33.0 (31.0-37.0) g/dL RDW 15.1 (11.5-15.5) % Plt Count 218 (150-450) k/uL MPV 8.4 Neutrophils % 77 % Lymphocytes % 12 % Monocytes % 8 % Eosinophils % 1 % Basophils % 0 % Neutrophils # 7.7 (1.3-7.7) k/uL Lymphocytes # 1.2 (1.0-4.8) k/uL Monocytes # 0.8 (0-1.0) k/uL Eosinophils # 0.1 (0-0.7) k/uL Basophils # 0.0 (0-0.2) k/uL PT 10.1 (9.0-12.0) sec INR 0.9 (<1.2) APTT 23.9 (22.0-30.0) sec D-Dimer 0.97 H (<0.60) mg/L FEU Sodium 135 L (137-145) mmol/L Potassium 4.3 (3.5-5.1) mmol/L Chloride 100 (98-107) mmol/L Carbon Dioxide 20 L (22-30) mmol/L Anion Gap 15 mmol/L BUN 30 H (9-20) mg/dL Creatinine 1.53 H (0.66-1.25) mg/dL Est GFR (CKD-EPI)AfAm 61 (>60 ml/min/1.73 sqM) Est GFR (CKD-EPI)NonAf 53 (>60 ml/min/1.73 sqM) Glucose 90 (74-99) mg/dL Plasma Lactic Acid Elvis (0.7-2.0) mmol/L Calcium 10.0 (8.4-10.2) mg/dL Magnesium 1.9 (1.6-2.3) mg/dL Total Bilirubin 1.3 (0.2-1.3) mg/dL AST 27 (17-59) U/L ALT 27 (4-49) U/L Alkaline Phosphatase 58 (38-126) U/L Ammonia (<30) umol/L Troponin I (0.000-0.034) ng/mL NT-Pro-B Natriuret Pep pg/mL Total Protein 7.4 (6.3-8.2) g/dL Albumin 4.5 (3.5-5.0) g/dL 12/07/20 12/07/20 12/07/20 Range/Units 21:55 21:55 23:23 WBC (3.8-10.6) k/uL RBC (4.30-5.90) m/uL Hgb (13.0-17.5) gm/dL Hct (39.0-53.0) % MCV (80.0-100.0) fL MCH (25.0-35.0) pg MCHC (31.0-37.0) g/dL RDW (11.5-15.5) % Plt Count (150-450) k/uL MPV Neutrophils % % Lymphocytes % % Monocytes % % Eosinophils % % Basophils % % Neutrophils # (1.3-7.7) k/uL Lymphocytes # (1.0-4.8) k/uL Monocytes # (0-1.0) k/uL Eosinophils # (0-0.7) k/uL Basophils # (0-0.2) k/uL PT (9.0-12.0) sec INR (<1.2) APTT (22.0-30.0) sec D-Dimer (<0.60) mg/L FEU Sodium (137-145) mmol/L Potassium (3.5-5.1) mmol/L Chloride (98-107) mmol/L Carbon Dioxide (22-30) mmol/L Anion Gap mmol/L BUN (9-20) mg/dL Creatinine (0.66-1.25) mg/dL Est GFR (CKD-EPI)AfAm (>60 ml/min/1.73 sqM) Est GFR (CKD-EPI)NonAf (>60 ml/min/1.73 sqM) Glucose (74-99) mg/dL Plasma Lactic Acid Elvis 1.1 (0.7-2.0) mmol/L Calcium (8.4-10.2) mg/dL Magnesium (1.6-2.3) mg/dL Total Bilirubin (0.2-1.3) mg/dL AST (17-59) U/L ALT (4-49) U/L Alkaline Phosphatase (38-126) U/L Ammonia 11 (<30) umol/L Troponin I 0.105 H* (0.000-0.034) ng/mL NT-Pro-B Natriuret Pep 4900 pg/mL Total Protein (6.3-8.2) g/dL Albumin (3.5-5.0) g/dL Critical Care Time Critical Care Time: Yes Total Critical Care Time: 31 <Feliz Zaragoza - Last Filed: 12/09/20 05:58> Disposition <Gilda Avalos - Last Filed: 12/07/20 23:55> Is patient prescribed a controlled substance at d/c from ED?: No <Fleiz Zaragoza - Last Filed: 12/09/20 05:58> Clinical Impression: Chest wall pain, Acute non-ST elevation myocardial infarction (NSTEMI), Lung mass, Rib pain on right side, Community acquired bacterial pneumonia Disposition: ADMITTED IP TO THIS HOSP Condition: Undetermined
--- NOTE | 2020-12-08 00:05 | CT ---
EXAMINATION TYPE: CT chest angio for PE DATE OF EXAM: 12/07/2020 COMPARISON: 11/18/2020 HISTORY: elevated d-dimer Chest pain CT DLP: 354 mGycm Automated exposure control for dose reduction was used. CONTRAST: Performed with IV Contrast, patient injected with 65 mL of Isovue 370. There are 3-D post processed images. There is some patchy infiltrate and atelectasis at both lung bases. Heart is borderline enlarged. The re is no pericardial effusion. There is no pleural effusion. There is a subpleural 3 x 1.5 cm rounded infiltrate in the lateral aspect of the right middle lobe. There are no hilar masses. There is no mediastinal adenopathy. Thoracic aorta is intact. There is no aneurysm or dissection. There is normal contrast opacification of the pulmonary arteries. There are no filling defects. Upper abdominal soft tissues are intact. IMPRESSION: No evidence of pulmonary embolism. Patchy pneumonia and atelectasis at both lung bases is mostly new compared to old exam. There is stab le oval-shaped masslike infiltrate in the subpleural right middle lobe compared to recent exam. This appears new compared to older CT scan of 09/10/2019 and is nonspecific. Tumor is possible.
[2020-12-08] MEDS ORDERED: NITROGLYCERIN SL TABS 0.4 MG TAB SUBLINGUAL PRN (00:43)
[2020-12-08] MEDS ORDERED: MORPHINE SULFATE 4 MG/ML SYRINGE IV PRN (00:43)
[2020-12-08 01:22] LABS: Acetaminophen <10.0 ug/mL; Alcohol <10 mg/dL; Lipase 84 U/L (23-300); Magnesium 1.9 mg/dL (1.6-2.3); Phosphorus 4.5 mg/dL (2.5-4.5); Salicylate <1.0 mg/dL
[2020-12-08] MEDS ORDERED: HYDROmorphone 1 MG/ML 1 ML SYRINGE IVP STA (01:39)
[2020-12-08] MEDS: carvediloL 12.5 MG TAB PO SCH ×2 (09:27→20:08)
[2020-12-08] MEDS: ATORVASTATIN 80 MG TAB PO SCH (09:27)
[2020-12-08] MEDS: lisinopriL 10 MG TAB PO SCH (09:27)
[2020-12-08] MEDS: SPIRONOLACTONE 25 MG TAB PO SCH (09:27)
[2020-12-08] MEDS: HYDROmorphone 1 MG/ML 1 ML SYRINGE IVP PRN ×3 (09:27→22:21)
--- NOTE | 2020-12-08 12:23 | P.CRDCN ---
History of Present Illness History of present illness: HISTORY OF PRESENTING ILLNESS This is a pleasant 50-year-old patient amount past medical history significant for non-ischemic cardiomyopathy, left ventricular ejection fraction 3035 percent with right bundle branch block pattern and frequent PVCs, TIA's x 2, osteoarthritis, former smoker (30+ smoker, smoking 1/2 ppd, recently quit on 11/23/20), former ETOH (quit 14 years ago), hypertension. He follows in the office with Dr. Rider. We have been asked to see in consultation for patient complained of right-sided chest pain and elevated troponins. Patient is seen and examined lying in bed. Patient complains of right-sided rib right shoulder and right lower back pain. Pain started on Friday and increased and patient presents emergency department. His right-sided pain worsens with activity and improves when he is resting in bed. Pain does not radiate. Rates right sided and back pain 10/10, constant, and sharp. Associated symptoms include shortness of breath and fatigue. Patient states told about a lung nodule and that he is to follow-up Dr. Peng next week in clinic he's been told that he potentially may need a PET scan Patient denies any central chest pain, palpitations, weight cane, change in diet, weakness, edema. Patient denies symptoms of orthopnea, PND. Patient denies history of DC, diabetes. States he is compliant with medication. Laboratory data reviewed, troponin 0.10, peaked at 0.13, now downtrending 0.12, d-dimer 0.97, sodium 135, creatinine 1.53, P1 30, lactate 1.1, magnesium 1.9 hemoglobin 14.9, white blood cell count 9.9, Plt 218 Vital signs blood pressure 129/85 heart rate 81 afebrile respirations 18 SpO2 96% on 3 L nasal cannula DIAGNOSTICS EKG reveals sinus rhythm heart rate 73 right bundle-branch block, T wave inversion in V2, left axis devation. Previous EKG showed similar however, more frequent PVCs Telemetry tracings indicate this with right bundle branch block.with occasional PVCs Chest xray stable 15 mm nodule in the right lower lung, bibasilar opacities, atelectasis or infiltrate, stable cardiomegaly, possible trace effusions. Current cardiac medications include lisinopril 10 mg daily, hydralazine 100 mg 3 times a day, amlodipine 5 mg daily, spironolactone 25 mg daily, furosemide 20 mg daily, carvedilol 12.5 mg 3 times a day . Xray- Ribs: No fracture seen. Patchy atelectasis at the lung bases with pleural reaction at the right costophrenic angle. CT chest - negative for PE, Stable oval-shaped mass-like infiltrate in the subpleural right middle lobe compared to recent exam, appears new compared to older CT scan of 08/2019. Tumor is possible. Most recent TTE at [facility]- 11/13/20 - EF 30-35%, Most recent cardiac cath at [facility]- 11/13/20- mild to moderate diffuse disease in LAD without high-grade stenosis TTE 07/2018- EF 50%, G2DD, severe concentric hypertrophy REVIEW OF SYSTEMS At the time of my exam: CONSTITUTIONAL: Denies fever or chills. CARDIOVASCULAR: +shortness of breath, Denies central chest pain, orthopnea, PND or palpitations. RESPIRATORY: Denies cough. GASTROINTESTINAL: Denies abdominal pain, diarrhea, constipation, nausea or vomiting. MUSCULOSKELETAL: Denies myalgias. NEUROLOGIC: Denies numbness, tingling, headacbe or weakness. ENDOCRINE: +fatigue, Denies weight change, polydipsia or polyurina. GENITOURINARY: Denies burning, hematuria or urgency with micturation. HEMATOLOGIC: Denies history of anemia or bleeding. PHYSICAL EXAMINATION CONSTITUTIONAL: No apparent distress. HEENT: Head is normocephalic. Pupils are equal, round. Sclerae anicteric. Mucous membranes of the mouth are moist. No JVD. No carotid bruit. CHEST EXAMINATION: Lungs severe decreased air exchange. Chest wall tenderness on right side and with deep breathing. HEART EXAMINATION: Regular rate and rhythm. S1, S2 heard. No murmurs, gallops or rub. ABDOMEN: Soft, nontender. Positive bowel sounds. EXTREMITIES: 2+ peripheral pulses, no lower extremity edema and no calf ten derness. NEUROLOGIC EXAMINATION: Patient is awake, alert and oriented x3. ASSESSMENT [Heart failure with reduced EF- Non-ischemic cardiomyopathy Hypertension Pulmonary Nodule Acute on chronic kidney disease Elevated troponin- -Patient with no evidence of NSTEMI. Recent cardiac cath (11/13/20), mild to moderate diffuse disease in LAD without high-grade stenosis. May be related to kidney disease or pulmonary. ] PLAN -No need for repeat TTE, most recent TTE 11/13/20 -Pulmonary consult/follow up regarding pulmonary nodule- patient states he is going to follow up with Dr. Atkinson next week. -Will optimize medical therapy: Continue ASA 81mg daily, Lisinopril 10mg daily, Spirnolactone 25mg daily, Carvedilol 12.5mg daily. -Will hold Lasix secondary to increased creatinine and patient does not appear overloaded on exam -Will hold amlodipine- BP 120s/80s -Will need to follow up outpatient in cardiology clinic Nurse Practitioner note has been reviewed, I agree with a documented findings a nd plan of care. Patient was seen and examined. Past Medical History Past Medical History: Hypertension, Osteoarthritis (OA) Additional Past Medical History / Comment(s): Constipation/bloating. Renal insufficiency, 80% kidney function, hx TIA's X2, 9 yrs ago X2, bulging disc (L4), back pain, ocassional numbness left leg. History of Any Multi-Drug Resistant Organisms: None Reported Past Surgical History: Appendectomy, Heart Catheterization Additional Past Surgical History / Comment(s): Right second and third toes reattached after lawnmower accident. Past Anesthesia/Blood Transfusion Reactions: No Reported Reaction Past Psychological History: No Psychological Hx Reported Smoking Status: Former smoker Past Alcohol Use History: Occasional Additional Past Alcohol Use History / Comment(s): Has been smoking for 30 yrs, QUIT 2 WEEKS AGO Past Drug Use History: None Reported - Past Family History Mother Family Medical History: No Reported History Medications and Allergies Home Medications Medication Instructions Recorded Confirmed Type amLODIPine [Norvasc] 5 mg PO QAM 03/02/18 12/08/20 History hydrALAZINE HCL [Apresoline] 100 mg PO TID 03/02/18 12/08/20 History Carvedilol [Coreg] 12.5 mg PO BID #60 tablet 11/22/20 12/08/20 Rx Furosemide [Lasix] 20 mg PO DAILY 30 Days #30 tab 11/22/20 12/08/20 Rx Spironolactone [Aldactone] 25 mg PO DAILY 30 Days #30 tab 11/22/20 12/08/20 Rx lisinopriL [Zestril] 10 mg PO DAILY 30 Days #30 tab 11/22/20 12/08/20 Rx Acetaminophen Tab [Tylenol Tab] 1,000 mg PO Q6HR PRN 12/08/20 12/08/20 History Acetaminophen-Codeine 300-30mg 1 tab PO Q6H PRN 12/08/20 12/08/20 History [Tylenol w/codeine #3] Ferrous Sulfate [Feosol] 325 mg PO DAILY 12/08/20 12/08/20 History traMADol HCL [Ultram] 50 mg PO Q4HR PRN 12/08/20 12/08/20 History Allergies Allergy/AdvReac Type Severity Reaction Status Date / Time morphine Allergy Rash/Hives Verified 12/08/20 08:32 Penicillins Allergy Rash/Hives Verified 12/08/20 08:32 pineapple Allergy Anaphylaxis Verified 12/08/20 08:32 Physical Exam Vitals: Vital Signs Temp Pulse Pulse Resp BP BP Pulse Ox 12/08/20 04:00 98.4 F 77 17 128/75 95 12/08/20 02:19 97 12/08/20 02:06 97.9 F 84 18 174/102 97 12/08/20 00:59 77 18 147/103 98 12/07/20 22:47 96 16 171/101 97 12/07/20 20:57 97.4 F L 91 18 169/122 97 Intake and Output 12/07/20 12/08/20 12/08/20 22:59 06:59 14:59 Output Total 400 Balance -400 Output: Urine 400 Other: Voiding Method Urinal # Voids 1 Weight 83.007 kg 83.6 kg Results 12/07/20 21:55 12/07/20 21:55 Cardiac Enzymes 12/07/20 12/07/20 12/08/20 Range/Units 21:55 21:55 01:50 AST 27 (17-59) U/L Troponin I 0.105 H* 0.130 H* (0.000-0.034) ng/mL 12/08/20 Range/Units 03:58 AST (17-59) U/L Troponin I 0.120 H* (0.000-0.034) ng/mL Coagulation 12/07/20 Range/Units 21:55 PT 10.1 (9.0-12.0) sec APTT 23.9 (22.0-30.0) sec CBC 12/07/20 Range/Units 21:55 WBC 9.9 (3.8-10.6) k/uL RBC 5.22 (4.30-5.90) m/uL Hgb 14.9 (13.0-17.5) gm/dL Hct 45.3 (39.0-53.0) % Plt Count 218 (150-450) k/uL Comprehensive Metabolic Panel 12/07/20 Range/Units 21:55 Sodium 135 L (137-145) mmol/L Potassium 4.3 (3.5-5.1) mmol/L Chloride 100 (98-107) mmol/L Carbon Dioxide 20 L (22-30) mmol/L BUN 30 H (9-20) mg/dL Creatinine 1.53 H (0.66-1.25) mg/dL Glucose 90 (74-99) mg/dL Calcium 10.0 (8.4-10.2) mg/dL AST 27 (17-59) U/L ALT 27 (4-49) U/L Alkaline Phosphatase 58 (38-126) U/L Total Protein 7.4 (6.3-8.2) g/dL Albumin 4.5 (3.5-5.0) g/dL Current Medications Generic Name Dose Route Start Last Admin Trade Name Freq PRN Reason Stop Dose Admin Aspirin 325 mg 12/09/20 09:00 Aspirin 325 Mg Tab PO DAILY [facility] Atorvastatin Calcium 80 mg 12/08/20 09:00 Atorvastatin 80 Mg Tab PO DAILY [facility] Hydromorphone HCl 1 mg 12/08/20 01:39 Hydromorphone 1 Mg/Ml 1 Ml Syringe IVP Q4HR PRN Pain Morphine Sulfate 4 mg 12/08/20 00:43 Morphine Sulfate 4 Mg/Ml Syringe IV Q4HR PRN Chest Pain Nitroglycerin 0.4 mg 12/08/20 00:43 Nitroglycerin Sl Tabs 0.4 Mg Tab SUBLINGUAL Q5M PRN Chest Pain Intake and Output 12/07/20 12/08/20 12/08/20 22:59 06:59 14:59 Output Total 400 Balance -400 Output: Urine 400 Other: Voiding Method Urinal # Voids 1 Weight 83.007 kg 83.6 kg 12/07/20 21:55 12/07/20 21:55
[2020-12-08] MEDS ORDERED: LEVOFLOXACIN 750MG-D5W PMX 750 MG in DEXTROSE/WATER 1 150ML.BAG IVPB SCH (15:00)
--- NOTE | 2020-12-08 15:20 | HP ---
HISTORY AND PHYSICAL A 50-year-old white male with past medical history significant for nonischemic cardiomyopathy and left ventricular ejection fraction 30% to 35%, TIAs x2, nicotine addiction, pulmonary mass for which he missed his PET scan. He is complaining of severe chest pain, unrelieved with tramadol or any Motrin, more right-sided rib, shoulder pain, right lower back pain. The pain is 10/10, constant. systems include shortness of breath, fatigue. He has a lung nodule or mass for which a PET scan has been ordered. He missed his first PET scan. EKG shows right bundle branch block. Chest x-ray is 1.5 mm nodule right lower lung, bibasilar opacities. MEDICATIONS: Medications include: 1. Hydralazine 100 t.i.d. 2. Lisinopril 10 daily. 3. Amlodipine 5 daily. 4. Spironolactone 25 daily. 5. Lasix 20 daily. 6. Carvedilol 12.[address] of the chest negative for PE, stable oval shaped mass like infiltrate in the right middle lobe, rule out tumor. Ejection fraction 30% to 35% on recent echo. Heart catheterization shows mild to moderate diffuse disease. REVIEW OF SYSTEMS: Fourteen-point review of systems otherwise is negative except for pain in his right side of his chest, shortness of breath with exertion and at rest. PHYSICAL EXAMINATION: Pupils equal, round, reactive. cachectic. LUNGS: Are decreased. HEART: S1, S2. ABDOMEN: Soft. EXTREMITIES: 2+ peripheral pulses. NEUROLOGIC: Alert and oriented x3. PSYCH: Appears anxious, nervous. ASSESSMENT: 1. Heart failure reduced ejection fraction. 2. Pulmonary mass. 3. Right-sided chest pain. 4. Hypertension. 5. Pulmonary nodule. 6. Acute on chronic kidney disease. 7. Elevated troponin, but no evidence of non ST-elevation myocardial infarction. Will need a Pulmonary consult, Cardiology consult. Due to elevated creatinine levels, we are going to hold his amlodipine. Follow up as outpatient with Cardiology. Get Pulmonary and Cardiology to see him. Please see further orders. MMODL / IJN: [id number] /
--- NOTE | 2020-12-08 15:27 | P.CNPUL ---
History of Present Illness Consult date: 12/08/20 Requesting physician: Bob Nino Reason for consult: chest pain, lung mass, abnormal CXR/CT Chief complaint: Chest pain History of present illness: 50-year-old male, who is been to the emergency room twice, with right-sided sharp chest pain. The patient was air couple days ago and then there again last night. The patient apparently complained of right-sided chest discomfort. It is described as a very sharp pain, worse when he takes a deep breath. The patient apparently was evaluated the first time and sent home and evaluated second time in admitted to the hospital. The patient sees Dr. Bob Nino as a primary. He denies trauma to the area although he states that the ER physi bianca told him, he had a bruise on his right lateral chest area. On observation today, there was no bruise. He does deny trauma. The shortness of breath he's having his more when he takes a deep breath, the pain is such that it limits his inspiration. The patient states that he quit smoking 15 days ago. The patient's smoking since CHF 15. He's been smoking for 33 years at a pack a day. The patient apparently has a history of severe hypertension, and is on numerous medications including amlodipine, hydralazine, Coreg, Lasix, Aldactone, and lisinopril. The patient apparently also has a history of osteoarthritis, chronic kidney disease, TIA, and chronic back pain. Review of Systems REVIEW OF SYSTEMS: CONSTITUTIONAL: [Negative.] NEUROLOGIC: [ Negative.] HEENT: [ Negative.] CARDIAC: [Negative.] PULMONARY: Pleuritic type chest pain, right lateral chest area, worse on deep inspiration. GI: [Negative.] : [Negative.] RHEUMATOLOGIC: [ Negative.] IMMUNOLOGIC: [ Negative.] ENDOCRINE: [Negative. ] DERMATOLOGIC: [Negative.] Past Medical History Past Medical History: Hypertension, Osteoarthritis (OA) Additional Past Medical History / Comment(s): Constipation/bloating. Renal insufficiency, 80% kidney function, hx TIA's X2, 9 yrs ago X2, bulging disc (L4), back pain, ocassional numbness left leg. History of Any Multi-Drug Resistant Organisms: None Reported Past Surgical History: Appendectomy, Heart Catheterization Additional Past Surgical History / Comment(s): Right second and third toes reattached after lawnmower accident. Past Anesthesia/Blood Transfusion Reactions: No Reported Reaction Past Psychological History: No Psychological Hx Reported Smoking Status: Former smoker Past Alcohol Use History: Occasional Additional Past Alcohol Use History / Comment(s): Has been smoking for 30 yrs, QUIT 2 WEEKS AGO Past Drug Use History: None Reported - Past Family History Mother Family Medical History: No Reported History Medications and Allergies Home Medications Medication Instructions Recorded Confirmed Type amLODIPine [Norvasc] 5 mg PO QAM 03/02/18 12/08/20 History hydrALAZINE HCL [Apresoline] 100 mg PO TID 03/02/18 12/08/20 History Carvedilol [Coreg] 12.5 mg PO BID #60 tablet 11/22/20 12/08/20 Rx Furosemide [Lasix] 20 mg PO DAILY 30 Days #30 tab 11/22/20 12/08/20 Rx Spironolactone [Aldactone] 25 mg PO DAILY 30 Days #30 tab 11/22/20 12/08/20 Rx lisinopriL [Zestril] 10 mg PO DAILY 30 Days #30 tab 11/22/20 12/08/20 Rx Acetaminophen Tab [Tylenol Tab] 1,000 mg PO Q6HR PRN 12/08/20 12/08/20 History Acetaminophen-Codeine 300-30mg 1 tab PO Q6H PRN 12/08/20 12/08/20 History [Tylenol w/codeine #3] Ferrous Sulfate [Feosol] 325 mg PO DAILY 12/08/20 12/08/20 History traMADol HCL [Ultram] 50 mg PO Q4HR PRN 12/08/20 12/08/20 History Allergies Allergy/AdvReac Type Severity Reaction Status Date / Time morphine Allergy Rash/Hives Verified 12/08/20 08:32 Penicillins Allergy Rash/Hives Verified 12/08/20 08:32 pineapple Allergy Anaphylaxis Verified 12/08/20 08:32 Physical Exam Osteopathic Statement: *. No significant issues noted on an osteopathic structural exam other than those noted in the History and Physical/Consult. Vitals: Vital Signs Temp Pulse Pulse Resp BP BP Pulse Ox 12/08/20 12:00 70 20 130/81 95 12/08/20 08:00 98.7 F 81 18 129/85 96 12/08/20 04:00 98.4 F 77 17 128/75 95 12/08/20 02:19 97 12/08/20 02:06 97.9 F 84 18 174/102 97 12/08/20 00:59 77 18 147/103 98 12/07/20 22:47 96 16 171/101 97 12/07/20 20:57 97.4 F L 91 18 169/122 97 Intake and Output 12/08/20 12/08/20 12/08/20 06:59 14:59 22:59 Intake Total 480 Output Total 400 300 Balance -400 180 Intake: Oral 480 Output: Urine 400 300 Other: Voiding Method Urinal # Voids 1 Weight 83.6 kg No acute distress, oriented 3. Currently on 3 L nasal cannula. Saturations 95%. The rest of his vital signs are stable. HEENT examination is grossly unremarkable. Mucous membranes are moist. No oral lesions. Neck supple. Full range of motion. No adenopathy thyromegaly or neck vein distention. Cardiovascular examination reveals regular rhythm rate. S1-S2 normal. No S3 or S4. No discernible murmur noted. Lungs reveal clear breath sounds. Breath sounds are equal bilaterally. No adventitious lung sounds including wheezes rhonchi or crackles. No evident trauma. Abdomen soft bowel sounds are heard. No masses or tenderness. Extremities are intact. No cyanosis clubbing or edema. Skin is without rash or lesion. Neurologic examination is brief but nonfocal. Results - Laboratory Findings CBC and BMP: 12/07/20 21:55 12/07/20 21:55 PT/INR, D-dimer PT 10.1 sec (9.0-12.0) 12/07/20 21:55 INR 0.9 (<1.2) 12/07/20 21:55 D-Dimer 0.97 mg/L FEU (<0.60) H 12/07/20 21:55 Abnormal lab findings: Abnormal Labs 12/07/20 12/07/20 12/07/20 21:55 21:55 21:55 D-Dimer 0.97 H Sodium 135 L Carbon Dioxide 20 L BUN 30 H Creatinine 1.53 H Troponin I 0.105 H* C-Reactive Protein 12/08/20 12/08/20 12/08/20 01:02 01:50 03:58 D-Dimer Sodium Carbon Dioxide BUN Creatinine Troponin I 0.130 H* 0.120 H* C-Reactive Protein 64.5 H - Diagnostic Findings Chest x-ray: image reviewed CT scan - chest: image reviewed Assessment and Plan Assessment: Pneumonia, with right-sided pleurisy, community-acquired. Possible mass, right middle lobe, measuring 3 x 1.5 cm. This can be worked up as an outpatient. Patient will need an outpatient PET scan. Rule out COPD, previous heavy tobacco use. The patient's been smoking for 33 years, 1 pack a day, quit 15 days ago. History of severe refractory hypertension, on multiple medications. History of DJD. History of constipation. History of chronic kidney disease. History of TIA. History of chronic back pain. Plan: Plan dated 12/08/2020. The patient should be treated for community-acquired pneumonia. He should be on Zithromax and Rocephin. The patient will need an outpatient PET scan to evaluate the possible lesion in the right midlung. Additional recommendations and suggestions are forthcoming. The patient should be counseled about the importance of maintaining smoking cessation. The patient should also be placed on some updrafts. I'll allow the primary service to order pain medication for the patient's pleurisy. No additional recommendations are made. Prognosis is guarded. Time with Patient: Greater than 30
[2020-12-08] MEDS ORDERED: IPRATROPIUM-ALBUTEROL 3 ML NEB INHALATION PRN (15:29)
[2020-12-08] MEDS: AZITHROMYCIN 500 MG in SODIUM CHLORIDE 0.9% 250 ML IVPB SCH (16:30)
--- NOTE | 2020-12-08 17:44 | ECHOF ---
Referral Reason:eleTrop MEASUREMENTS -------- HEIGHT: 190.5 cm WEIGHT: 83.0 kg BP: 128/75 RVIDd: 2.9 cm (< 3.3) IVSd: 1.7 cm (0.6 - 1.1) LVIDd: 5.4 cm (3.9 - 5.3) LVPWd: 1.6 cm (0.6 - 1.1) IVSs: 2.3 cm LVIDs: 4.8 cm LVPWs: 1.7 cm LA Diam: 4.6 cm (2.7 - 3.8) LAESV Index (A-L): 42.78 ml/m Ao Diam: 3.7 cm (2.0 - 3.7) AV Cusp: 2.4 cm (1.5 - 2.6) MV EXCURSION: 21.020 mm (> 18.000) MV EF SLOPE: 84 mm/s (70 - 150) EPSS: 1.3 cm MV E Praveen: 0.60 m/s MV DecT: 224 ms MV A Praveen: 0.87 m/s MV E/A Ratio: 0.68 RAP: 5.00 mmHg RVSP: 24.48 mmHg FINDINGS -------- This was a technically good study. The left ventricular size is normal. There is severe concentric left ventricular hypertrophy. Ove rall left ventricular systolic function is moderate-severely impaired with, an EF between 30 - 35 %. Basal lateral LV wall motion is hypokinetic. Basal inferior LV wall motion is hypokinetic. Ba jenelel inferoseptal LV wall motion is hypokinetic. The right ventricle is normal in size. LA is severely dilated >40 ml/m2 The right atrium is normal in size. Interatrial and interventricular septum intact. The aortic valve is trileaflet and appears structurally normal. Mild mitral regurgitation is present. Trace tricuspid regurgitation present. Right ventricular systolic pressure is normal at < 35 mmHg. There is no pulmonic regurgitation present. The aortic root size is normal. IVC Not well visulized. There is no pericardial effusion. CONCLUSIONS -------- 1. The left ventricular size is normal. 2. There is severe concentric left ventricular hypertrophy. 3. Overall left ventricular systolic function is moderate-severely impaired with, an EF between 30 - 35 %. 4. Basal lateral LV wall motion is hypokinetic. 5. Basal inferior LV wall motion is hypokinetic. 6. Basal inferoseptal LV wall motion is hypokinetic. 7. LA is severely dilated >40 ml/m2 8. Mild mitral regurgitation is present. 9. Trace tricuspid regurgitation present. 10. There is no pericardial effusion. MANAGEMENT TECHNICIAN: Reina Pope RDCS
[2020-12-08 18:01] LABS: Glucose,Whole Blood 94 mg/dL (75-99)
[2020-12-08] MEDS: IPRATROPIUM-ALBUTEROL 3 ML NEB INHALATION SCH (18:47)
[2020-12-09] MEDS: HYDROmorphone 1 MG/ML 1 ML SYRINGE IVP PRN ×2 (03:42→09:45)
[2020-12-09] MEDS: IPRATROPIUM-ALBUTEROL 3 ML NEB INHALATION SCH ×3 (07:40→19:29)
[2020-12-09 08:14] LABS: Calcium 9.5 mg/dL (8.4-10.2); Potassium 4.1 mmol/L (3.5-5.1)
[2020-12-09 08:43] LABS: HDL Cholesterol 42 mg/dL (40-60)
[2020-12-09 08:47] LABS: Cholesterol 162 mg/dL (<200); LDL Cholesterol,Calculated 100 mg/dL (0-99); Triglycerides 101 mg/dL (<150)
[2020-12-09] MEDS ORDERED: ASPIRIN 325 MG TAB PO SCH (09:00)
[2020-12-09] MEDS: lisinopriL 10 MG TAB PO SCH ×2 (09:44→20:09)
[2020-12-09] MEDS: carvediloL 12.5 MG TAB PO SCH ×2 (09:44→20:09)
[2020-12-09] MEDS: ATORVASTATIN 80 MG TAB PO SCH (09:44)
[2020-12-09] MEDS: ASPIRIN 81 MG PO SCH (09:44)
[2020-12-09] MEDS: SPIRONOLACTONE 25 MG TAB PO SCH (09:45)
--- NOTE | 2020-12-09 12:35 | P.PN ---
Subjective Progress Note Date: 12/09/20 Principal diagnosis: Pneumonia. Pleurisy. 50-year-old male, who is been to the emergency room twice, with right-sided sharp chest pain. The patient was air couple days ago and then there again last night. The patient apparently complained of right-sided chest discomfort. It is described as a very sharp pain, worse when he takes a deep breath. The patient apparently was evaluated the first time and sent home and evaluated second time in admitted to the hospital. The patient sees Dr. Bob Nino as a primary. He denies trauma to the area although he states that the ER physician told him, he had a bruise on his right lateral chest area. On observation today, there was no bruise. He does deny trauma. The shortness of breath he's having his more when he takes a deep breath, the pain is such that it limits his inspiration. The patient states that he quit smoking 15 days ago. The patient's smoking since CHF 15. He's been smoking for 33 years at a pack a day. The patient apparently has a history of severe hypertension, and is on numerous medications including amlodipine, hydralazine, Coreg, Lasix, Aldactone, and lisinopril. The patient apparently also has a history of osteoarthritis, chronic kidney disease, TIA, and chronic back pain. Progress note dated 12/09/2020. 50-year-old male, who we saw yesterday in consultation. He came into the emergency room a couple times, but sharp right-sided pleuritic chest pain. The patient was found to have a pneumonia, with parapneumonic effusion, and pleurisy. The patient was admitted for the diagnosis of pneumonia. In addition, the CAT scan did reveal a nodular density in the right middle lobe. That will need outpatient evaluation. The patient has been smoking for 33 years at a pack a day, and recently quit 15 days ago. Apparently his primary had set him up to see me in the office for the abnormal computed tomography scan showing a solitary pulmonary nodule in the right midlung. The patient does have a history of refractory hypertension, and takes amlodipine, hydralazine, Coreg, Lasix, Aldactone, and lisinopril. The patient is feeling better from the lung standpoint. He also has a history of osteoarthritis, chronic kidney disease, TIA, and chronic back pain. Objective - Vital Signs Vital signs: Vital Signs Temp 98.1 F 12/09/20 09:29 Pulse 70 12/09/20 10:52 Resp 16 12/09/20 10:52 BP 137/88 12/09/20 10:52 Pulse Ox 95 12/09/20 10:52 Intake & Output 12/08/20 12/09/20 12/09/20 18:59 06:59 18:59 Intake Total 480 225 115 Output Total 700 500 Balance -220 -275 115 Weight 81.4 kg Intake: Oral 480 225 115 Output: Urine 700 500 Other: Voiding Method Urinal # Voids 1 - Exam No acute distress, oriented 3. Currently on 3 L nasal cannula. Saturations 95%. The rest of his vital signs are stable. HEENT examination is grossly unremarkable. Mucous membranes are moist. No oral lesions. Neck supple. Full range of motion. No adenopathy thyromegaly or neck vein distention. Cardiovascular examination reveals regular rhythm rate. S1-S2 normal. No S3 or S4. No discernible murmur noted. Lungs reveal clear breath sounds. Breath sounds are equal bilaterally. No adventitious lung sounds including wheezes rhonchi or crackles. No evident trauma. Abdomen soft bowel sounds are heard. No masses or tenderness. Extremities are intact. No cyanosis clubbing or edema. Skin is without rash or lesion. Neurologic examination is brief but nonfocal. - Labs CBC & Chem 7: 12/07/20 21:55 12/09/20 06:47 Labs: Abnormal Lab Results - Last 24 Hours (Table) 12/09/20 12/09/20 Range/Units 06:47 06:47 Sodium 135 L (137-145) mmol/L BUN 26 H (9-20) mg/dL Creatinine 1.30 H (0.66-1.25) mg/dL Glucose 112 H (74-99) mg/dL LDL Cholesterol, Calc 100 H (0-99) mg/dL Assessment and Plan Assessment: Pneumonia, with right-sided pleurisy, community-acquired. Possible mass/SPN, right middle lobe, measuring 3 x 1.5 cm. This can be worked up as an outpatient. Patient will need an outpatient PET scan. Rule out COPD, secondary to previous heavy tobacco use. The patient's been smoking for 33 years, 1 pack a day, quit 15 days ago. History of severe refractory hypertension, on multiple medications. History of DJD. History of constipation. History of chronic kidney disease. History of TIA. History of chronic back pain. Plan: Plan dated 12/09/2020. The patient is doing better. Again, he will need an outpatient PET scan to evaluate the nodular lesion in the right middle lobe. Currently, he is being treated for pneumonia and pleurisy, and the right lower lobe. He does feel better today. The patient's on appropriate antibiotics. He also would likely benefit from a pulmonary function test, as he likely has underlying COPD from 32 years of tobacco use that more than 1 pack a day. The patient was previously scheduled for a PET scan but apparently it was not done. I'll see the patient in the outpatient setting once he is discharged. No additional recommendations are made. Prognosis is guarded. Time with Patient: Less than 30
--- NOTE | 2020-12-09 12:51 | P.PN ---
Subjective This is a pleasant 50-year-old male past medical history significant for nonischemic cardiomyopathy with ejection fraction 30-35%, TIA 2, former nicotine dependence and hypertension. He follows in the office with Dr. Rider. He is seen and examined sitting up in bed in no acute distress. Skin breathing is stable. He continues to have pain on the right side of his chest that is exacerbated by movement or deep breathing. Blood pressure 160/100 heart rate 76 afebrile maintaining oxygen saturation on nasal cannula. Laboratory da ta reviewed, sodium 135, potassium 4.1, creatinine 1.3, LDL 100 and HDL 42. Currently maintained on aspirin 81 mg daily, atorvastatin 80 mg daily, carvedilol 12.5 mg twice a day, lisinopril 10 mg daily and Aldactone 25 mg daily. Echocardiogram obtained on this admission reveals impaired LV systolic function with ejection fraction 30-35%, basal lateral, basal inferior and basal inferoseptal LV wall motion hypokinesia. GENERAL: Well-appearing, well-nourished and in no acute distress. NECK: Supple without JVD or thyromegaly. LUNGS: Breath sounds clear to auscultation bilaterally. Respiration equal and unlabored. No wheezes, rales or rhonchi. Diminished bilaterally. Chest wall tenderness noted in the right anterior moran. HEART: Regular rate and rhythm without murmurs, rubs or gallops. S1 and S2 heard. EXTREMITIES: Normal range of motion, no edema. No clubbing or cyanosis. Peripheral pulses intact. ASSESSMENT Pneumonia Chronic systolic heart failure Hypertension Pleuritic chest pain Acute on chronic kidney disease Elevated troponin, not related to primary myocardial injury. Pulmonary nodule. PLAN Maintained on IV antibiotics for pneumonia. Increase lisinopril to 10 mg BID for optimal blood pressure control. Ongoing medical management, we will follow along as needed. Follow up with Dr. Rider upon discharge. Nurse Practitioner note has been reviewed, I agree with a documented findings and plan of care. Patient was seen and examined. Objective - Vital Signs Vital signs: Vital Signs Temp 98.1 F 12/09/20 09:29 Pulse 76 12/09/20 09:29 Resp 16 12/09/20 09:29 BP 160/100 12/09/20 09:29 Pulse Ox 100 12/09/20 09:29 Intake & Output 12/08/20 12/09/20 12/09/20 18:59 06:59 18:59 Intake Total 480 225 Output Total 700 500 Balance -220 -275 Weight 81.4 kg Intake: Oral 480 225 Output: Urine 700 500 Other: Voiding Method Urinal # Voids 1 - Labs CBC & Chem 7: 12/07/20 21:55 12/09/20 06:47 Labs: Abnormal Lab Results - Last 24 Hours (Table) 12/09/20 12/09/20 Range/Units 06:47 06:47 Sodium 135 L (137-145) mmol/L BUN 26 H (9-20) mg/dL Creatinine 1.30 H (0.66-1.25) mg/dL Glucose 112 H (74-99) mg/dL LDL Cholesterol, Calc 100 H (0-99) mg/dL
--- NOTE | 2020-12-09 13:22 | PN ---
PROGRESS NOTE White male was admitted with right-sided pneumonia and right-sided lung mass. History of cardiomyopathy. He came in with severe right-sided chest pain on the right lateral side of the ribs and shortness of breath. He says something popped in his right side of his chest. He feels better. He had an echo that shows ejection fraction 30-35 percent, unclear etiology. He has a history of medically treated coronary artery disease. He is supposed to get a PET scan as an outpatient. CARDIOVASCULAR: S1, S2. LUNGS: Transmitted upper airway sounds. Hematology negative Homans. Psych: Fair mood and affect. Neurologic: Alert orient x3. ASSESSMENT: 1. Pneumonia with right-sided pleurisy, community-acquired. Possible mass right middle lobe. Workup with a PET scan when he goes home. 2. Chronic obstructive pulmonary disease. 3. Nicotine addiction. 4. Cardiomyopathy. 5. Severe refractory hypertension. 6. Degenerative joint disease. 7. Constipation. 8. Chronic kidney disease. 9. History of transient ischemic attack. 10.Chronic back pain. Smoking cessation, steroids, antibiotics. Wait for Pulmonary to clear for discharge. PET scan as an outpatient. MMODL / IJN: [id number] /
[2020-12-09] MEDS: HYDROcodone/APAP 5-325MG 1 EACH TAB PO PRN (14:11)
[2020-12-09] MEDS: AZITHROMYCIN 500 MG in SODIUM CHLORIDE 0.9% 250 ML IVPB SCH (16:53)
[2020-12-10 00:59] VITALS: TEMP 98.1
[2020-12-10] MEDS: HYDROmorphone 0.5 MG/0.5 ML SYRINGE IVP PRN ×2 (00:59→06:33)
[2020-12-10] MEDS: HYDROcodone/APAP 5-325MG 1 EACH TAB PO PRN (03:52)
[2020-12-10] MEDS: IPRATROPIUM-ALBUTEROL 3 ML NEB INHALATION SCH ×2 (08:01→11:14)
[2020-12-10 08:24] VITALS: BP 122/75; PULSE 75; RESP 18
[2020-12-10] MEDS: lisinopriL 10 MG TAB PO SCH (08:25)
[2020-12-10] MEDS: carvediloL 12.5 MG TAB PO SCH (08:25)
[2020-12-10] MEDS: ATORVASTATIN 80 MG TAB PO SCH (08:25)
[2020-12-10] MEDS: ASPIRIN 81 MG PO SCH (08:25)
[2020-12-10] MEDS: SPIRONOLACTONE 25 MG TAB PO SCH (08:25)
[2020-12-10 09:09] LABS: Calcium 9.5 mg/dL (8.4-10.2); Potassium 4.4 mmol/L (3.5-5.1)
--- NOTE | 2020-12-10 10:30 | P.PN ---
Subjective This is a pleasant 50-year-old male past medical history significant for nonischemic cardiomyopathy with ejection fraction 30-35%, TIA 2, former nicotine dependence and hypertension. He follows in the office with Dr. Rider. He is seen and examined sitting up in bed in no acute distress. Skin breathing is stable. He continues to have pain on the right side of his chest that is exacerbated by movement or deep breathing. Blood pressure 160/100 heart rate 76 afebrile maintaining oxygen saturation on nasal cannula. Laboratory da ta reviewed, sodium 135, potassium 4.1, creatinine 1.3, LDL 100 and HDL 42. Currently maintained on aspirin 81 mg daily, atorvastatin 80 mg daily, carvedilol 12.5 mg twice a day, lisinopril 10 mg daily and Aldactone 25 mg daily. Echocardiogram obtained on this admission reveals impaired LV systolic function with ejection fraction 30-35%, basal lateral, basal inferior and basal inferoseptal LV wall motion hypokinesia. 12/10/2020 Patient is seen and examined resting comfortably in bed in no acute distress he has been up and ambulating through the halls without exertional chest pain. Blood pressure 122/75 heart rate 75 afebrile maintaining oxygen saturation on room air. GENERAL: Well-appearing, well-nourished and in no acute distress. NECK: Supple without JVD or thyromegaly. LUNGS: Breath sounds clear to auscultation bilaterally. Respiration equal and unlabored. No wheezes, rales or rhonchi. Diminished bilaterally. Chest wall tenderness noted in the right anterior moran. HEART: Regular rate and rhythm without murmurs, rubs or gallops. S1 and S2 heard. EXTREMITIES: Normal range of motion, no edema. No clubbing or cyanosis. Peripheral pulses intact. ASSESSMENT Pneumonia Chronic systolic heart failure Hypertension Pleuritic chest pain Acute on chronic kidney disease Elevated troponin, not related to primary myocardial injury. Pulmonary nodule. PLAN Stable on current medical regimen. Ongoing medical management, we will follow along as needed. Follow up with Dr. Rider upon discharge. Nurse Practitioner note has been reviewed, I agree with a documented findings and plan of care. Patient was seen and examined. Objective - Vital Signs Vital signs: Vital Signs Temp 98.1 F 12/10/20 08:00 Pulse 75 12/10/20 08:00 Resp 18 12/10/20 08:00 BP 122/75 12/10/20 08:00 Pulse Ox 96 12/10/20 08:00 Intake & Output 12/09/20 12/10/20 12/10/20 18:59 06:59 18:59 Intake Total 165 100 240 Output Total 350 250 Balance -185 -150 240 Weight 81.7 kg Intake: Intake, IV Titration 50 Amount cefTRIAXone 1 gm In 50 Sodium Chloride 0.9% 50 ml @ 100 mls/hr IVPB Q24HR [facility] Rx#:[id number] Oral 115 100 240 Output: Urine 350 250 Other: Voiding Method Urinal Toilet # Voids 2 - Labs CBC & Chem 7: 12/07/20 21:55 12/10/20 07:23 Labs: Abnormal Lab Results - Last 24 Hours (Table) 12/10/20 Range/Units 07:23 Sodium 136 L (137-145) mmol/L BUN 31 H (9-20) mg/dL Creatinine 1.45 H (0.66-1.25) mg/dL
--- NOTE | 2020-12-10 12:01 | PN ---
PROGRESS NOTE He is up ambulating down the tompkins. His blood pressure is 120s over 70s, heart rate 75, he is saturating decent on room air. Cardiovascular S1, S2. Lungs are diminished. ASSESSMENT: 1. Community-acquired pneumonia. 2. Systolic heart failure. 3. Cardiomyopathy. 4. Hypertension. 5. Pleuritic chest pain. 6. Acute on chronic kidney disease. 7. Elevated troponin, non-cardiac. Wait for Pulmonary recommendations as far as him going home. He needs a PET scan as an outpatient. Antibiotics may be switched to oral soon. He may be discharged depending on pulmonary. Cardiomyopathy will have to be followed up as an outpatient. Needs a PET scan right away. He has a mass on his right middle lobe 3 x 1.5 cm. Continue to quit smoking. hypertension. Continue current medicines. Possible discharge home today. We will see how he does. JANELLE / JOYCEN: [id number] /
--- NOTE | 2020-12-10 12:11 | DS ---
DISCHARGE SUMMARY DISCHARGE MEDICATIONS: Aspirin 81 mg daily, Lipitor 80 mg daily, doxycycline 100 mg b.i.d. for 7 days, Medrol Dosepak dispense 1, Robaxin 500 q.12 hours p.r.n. for pain and muscle relaxer on the right chest wall for 10 day, tramadol for pain 50 q.8h p.r.n., Zestril 10 mg b.i.d., Aldactone 25 mg daily, Nitrostat 0.4 mg sublingual p.r.n. CONDITION: Stable. PROGNOSIS: Guarded. ACTIVITY: Ambulate as tolerated. PLAN: Outpatient PET scan will need to be done next week. The patient missed his prior PET scan. He came in with right-sided pleuritic chest pain. CT scan of the chest shows right middle lobe pneumonia versus mass. Cardiology has seen him for systolic heart failure and cardiomyopathy. Medications adjusted by them. The patient was up ambulating on room air. His right-sided pleuritic chest pain I told him may stay there for 6-8 weeks due to a rib injury or neuropathy under his ribs versus cartilage damage. Patient will take muscle relaxer, tramadol at home, Tylenol, and prednisone. Finish up doxycycline for his pneumonia. Follow up after PET scan. Quit smoking. Blood pressure control. Systolic CHF treatment. Follow up with Cardiology as well as PET scan. Quit smoking. He realizes the importance of all these as he has missed one PET scan appointment already. JANELLE / ELA: [id number] /
--- NOTE | 2020-12-10 12:24 | XR ---
EXAMINATION TYPE: XR chest 2V DATE OF EXAM: 12/10/2020 COMPARISON: Chest x-ray and CT chest from 3 days ago. HISTORY: Pneumonia progress study. TECHNIQUE: Frontal and lateral views of the chest are obtained. FINDINGS: There are persistent bibasilar opacities. Upper lungs remain clear without pneumothorax. T he cardiac silhouette size is stable mildly enlarged. The osseous structures are intact. IMPRESSION: Mild cardiomegaly with new small to tiny bilateral pleural effusions. Persistent bibasil ar acute infiltrate and/or atelectasis.
--- NOTE | 2020-12-10 14:23 | P.PN ---
Subjective Progress Note Date: 12/10/20 Principal diagnosis: Pneumonia. Pleurisy. 50-year-old male, who is been to the emergency room twice, with right-sided sharp chest pain. The patient was air couple days ago and then there again last night. The patient apparently complained of right-sided chest discomfort. It is described as a very sharp pain, worse when he takes a deep breath. The patient apparently was evaluated the first time and sent home and evaluated second time in admitted to the hospital. The patient sees Dr. Bob Nino as a primary. He denies trauma to the area although he states that the ER physician told him, he had a bruise on his right lateral chest area. On observation today, there was no bruise. He does deny trauma. The shortness of breath he's having his more when he takes a deep breath, the pain is such that it limits his inspiration. The patient states that he quit smoking 15 days ago. The patient's smoking since CHF 15. He's been smoking for 33 years at a pack a day. The patient apparently has a history of severe hypertension, and is on numerous medications including amlodipine, hydralazine, Coreg, Lasix, Aldactone, and lisinopril. The patient apparently also has a history of osteoarthritis, chronic kidney disease, TIA, and chronic back pain. Progress note dated 12/09/2020. 50-year-old male, who we saw yesterday in consultation. He came into the emergency room a couple times, but sharp right-sided pleuritic chest pain. The patient was found to have a pneumonia, with parapneumonic effusion, and pleurisy. The patient was admitted for the diagnosis of pneumonia. In addition, the CAT scan did reveal a nodular density in the right middle lobe. That will need outpatient evaluation. The patient has been smoking for 33 years at a pack a day, and recently quit 15 days ago. Apparently his primary had set him up to see me in the office for the abnormal computed tomography scan showing a solitary pulmonary nodule in the right midlung. The patient does have a history of refractory hypertension, and takes amlodipine, hydralazine, Coreg, Lasix, Aldactone, and lisinopril. The patient is feeling better from the lung standpoint. He also has a history of osteoarthritis, chronic kidney disease, TIA, and chronic back pain. Progress note dated 12/10/2020. 50-year-old male, who was seen in consultation 2 or 3 days ago. He was in the emergency room 2 or 3 times complaining of right-sided chest pain. The patient was discovered to have pneumonia in the right base, with small parapneumonic effusion, and pleurisy. The patient was admitted to the hospital with a diagnosis of pneumonia. In addition, the patient was found to have a nodular density in the right middle lobe. He has smoked heavily for 33 years at a pack a day. He states he recently quit a couple weeks ago. The patient is scheduled for an outpatient PET scan, and will see me afterwards. The patient may need a biopsy. His other medical issues include severe hypertension, for which she takes multiple medications. The patient will have a chest x-ray today. He does have a history of osteoarthritis, chronic kidney disease, TIA, and chronic back pain. There may be some consideration to discharging the patient today. The patient's chest x-ray today shows evidence of mild cardiomegaly as well as small bilateral pleural effusions. There is a persistent infiltrate in the right lower lobe. Objective - Vital Signs Vital signs: Vital Signs Temp 98.1 F 12/10/20 08:00 Pulse 75 12/10/20 08:00 Resp 18 12/10/20 08:00 BP 122/75 12/10/20 08:00 Pulse Ox 96 12/10/20 08:00 Intake & Output 12/09/20 12/10/20 12/10/20 18:59 06:59 18:59 Intake Total 165 100 240 Output Total 350 250 Balance -185 -150 240 Weight 81.7 kg Intake: Intake, IV Titration 50 Amount cefTRIAXone 1 gm In 50 Sodium Chloride 0.9% 50 ml @ 100 mls/hr IVPB Q24HR [facility] Rx#:[id number] Oral 115 100 240 Output: Urine 350 250 Other: Voiding Method Urinal Toilet # Voids 2 - Exam No acute distress, oriented 3. Room air saturation is 96%. The rest of his vital signs are stable. HEENT examination is grossly unremarkable. Mucous membranes are moist. No oral lesions. Neck supple. Full range of motion. No adenopathy thyromegaly or neck vein distention. Cardiovascular examination reveals regular rhythm rate. S1-S2 normal. No S3 or S4. No discernible murmur noted. Heart rate is 75 bpm. Lungs reveal clear breath sounds. Breath sounds are equal bilaterally. No adventitious lung sounds including wheezes rhonchi or crackles. No evident trauma. Abdomen soft bowel sounds are heard. No masses or tenderness. Extremities are intact. No cyanosis clubbing or edema. Skin is without rash or lesion. Neurologic examination is brief but nonfocal. - Labs CBC & Chem 7: 12/07/20 21:55 12/10/20 07:23 Labs: Abnormal Lab Results - Last 24 Hours (Table) 12/10/20 Range/Units 07:23 Sodium 136 L (137-145) mmol/L BUN 31 H (9-20) mg/dL Creatinine 1.45 H (0.66-1.25) mg/dL Assessment and Plan Assessment: Pneumonia, with right-sided pleurisy, community-acquired. Possible mass/SPN, right middle lobe, measuring 3 x 1.5 cm. This can be worked up as an outpatient. Patient will need an outpatient PET scan. Rule out COPD, secondary to previous heavy tobacco use. The patient's been smoking for 33 years, 1 pack a day, quit 15 days ago. History of severe refractory hypertension, on multiple medications. History of DJD. History of constipation. History of chronic kidney disease. History of TIA. History of chronic back pain. Plan: Plan dated 12/10/2020. The patient is doing better, and has been weaned off of oxygen. The patient will follow with me after having an outpatient PET scan. Today's labs include a sodium 136, potassium 4.4, chlorides 102, CO2 27, anion gap 7, BUN 31, and creatinine 1.45. The patient's chest x-ray is reviewed. The patient will be potentially discharged later today. He will follow-up with me in the office. Again he will need an outpatient PET scan and also will need a complete pulmonary function test. Additional recommendations and suggestions are forthcoming. He is counseled about the importance of smoking cessation. He states that he quit 15 days ago. Time with Patient: Less than 30
== END 2020-12-10 12:32 | disposition home or self-care (01) | DRG 194 ==
LOC: EC 20:54 → 3SCARD 12-08 00:45
PROVIDERS: ADMIT Family Medicine; ATTEND Family Medicine
DX: J15.9 Unspecified bacterial pneumonia (principal); J44.0 Chronic obstructive pulmonary disease with (acute) lower respiratory infection; I50.22 Chronic systolic (congestive) heart failure; I42.8 Other cardiomyopathies; I13.0 Hypertensive heart and chronic kidney disease with heart failure and stage 1 through stage 4 chronic kidney disease, or unspecified chronic kidney disease; J98.11 Atelectasis; I45.10 Unspecified right bundle-branch block; K59.00 Constipation, unspecified; Z20.822 Contact with and (suspected) exposure to COVID-19; I25.10 Atherosclerotic heart disease of native coronary artery without angina pectoris; F10.20 Alcohol dependence, uncomplicated; Z71.6 Tobacco abuse counseling; Z87.891 Personal history of nicotine dependence; G89.29 Other chronic pain; M19.90 Unspecified osteoarthritis, unspecified site; N18.9 Chronic kidney disease, unspecified; Z79.82 Long term (current) use of aspirin; Z79.899 Other long term (current) drug therapy; Z86.73 Personal history of transient ischemic attack (TIA), and cerebral infarction without residual deficits; R91.1 Solitary pulmonary nodule; Z90.49 Acquired absence of other specified parts of digestive tract; I49.3 Ventricular premature depolarization; G62.9 Polyneuropathy, unspecified; Z88.5 Allergy status to narcotic agent; Z88.0 Allergy status to penicillin; M54.9 Dorsalgia, unspecified
CPT/HCPCS: 36415; 71046; 71275; 80048; 80053; 80061; 80143; 80179; 80320; 82140; 83605; 83690; 83735; 83880; 84100; 84484; 85025; 85379; 85610; 85730; 86140; 87635; 93005; 93306; 94640; 94760; 96374; 96375; 99284; 99291

== ENCOUNTER → 2020-12-15 | Outpatient (CLI) | payer MEDICARE ==
--- NOTE | 2020-12-19 11:26 | PE ---
Nuclear medicine PET/CT HISTORY: R 91.8, initial Patient received 10.5 mCi F-18 FDG intravenously delayed scanning was performed from the skull base t o the mid thighs. Localization and attenuation correction CT scan was performed. Correlation to CT scan dated 12/07/2020 Chest and neck: There is no hypermetabolic uptake identified. No cervical or supraclavicular adenopat hy. There is no mediastinal, axillary, or hilar adenopathy. No pleural pericardial effusion. Coronary artery calcifications are noted. Patchy densities present at the right lung base but improved as com pared to prior exam, SUV 2.8, subpleural nodule appears somewhat decreased in size as compared to alvino or in the right middle lobe, minimal uptake noted. SUV 0.9. No pleural pericardial effusion. ABDOMEN: There is no adrenal mass, no evident liver mass. No retroperitoneal adenopathy. No ascites o r suspicious uptake. Umbilical hernia contains fat. Atheromatous changes are present in the aortoilia c distribution, right iliac artery is ectatic. Prostate is enlarged. No pelvic adenopathy. Osseous structures show no suspicious uptake IMPRESSION: Findings at the right lung base may be postinflammatory, are improved, no suspicious upta ke associated with the subpleural nodule.
== END ==
LOC: RADPETMAIN 13:27
PROVIDERS: ATTEND Internal Medicine Critical Care Medicine
DX: R91.8 Other nonspecific abnormal finding of lung field (principal)
CPT/HCPCS: 78815; A9552

== ENCOUNTER 2021-01-02 23:20 | Inpatient (IN) | payer MEDICARE ==
[2021-01-02 23:24] VITALS: RESP 18; TEMP 97.9
[2021-01-02] MEDS ORDERED: KETOROLAC 15 MG/ML 1 ML VIAL IVP STA (23:37)
[2021-01-02] MEDS ORDERED: SODIUM CHLORIDE 0.9% 500 ML 500 ML IV STA (23:37)
--- NOTE | 2021-01-02 23:51 | ED ---
Abdominal Pain HPI - General Chief Complaint: Abdominal Pain Stated Complaint: Left side pain Time Seen by Provider: 01/02/21 23:26 Source: patient Mode of arrival: ambulatory Limitations: no limitations - History of Present Illness Initial Comments: This patient is a 50-year-old man who presents to have reevaluation of left flank pain. This is been going on for nearly 3 days. The patient had been having similar pains in the right flank and chest for approximately 3-4 weeks and had been admitted in the hospital for the same. The patient states that that the type of pain feels identical. It is worse with movement, with palpation of the chest wall along the costal margin and with lying supine. Patient denies dyspnea. He does have a little bit of cough which is unchanged. No fever or chills. No vomiting. No change in urination or bowel movements MD Complaint: flank pain Onset/Timin -: days(s) Location: L flank Radiation: none Severity: moderate Quality: aching Consistency: constant Improves With: nothing Worsens With: movement Associated Symptoms: denies other symptoms - Related Data Home Medications Medication Instructions Recorded Confirmed Acetaminophen Tab [Tylenol] 1,000 mg PO Q6HR PRN 12/08/20 12/08/20 Ferrous Sulfate [Iron (65 MG 325 mg PO DAILY 12/08/20 12/08/20 Elemental)] traMADol HCL [Ultram] 50 mg PO Q4HR PRN 12/08/20 12/08/20 Previous Rx's Medication Instructions Recorded Carvedilol [Coreg] 12.5 mg PO BID #60 tablet 11/22/20 Spironolactone [Aldactone] 25 mg PO DAILY 30 Days #30 tab 11/22/20 lisinopriL [Zestril] 10 mg PO DAILY 30 Days #30 tab 11/22/20 Aspirin 81 mg PO DAILY 90 Days #90 chew 12/10/20 Atorvastatin [Lipitor] 80 mg PO DAILY 90 Days #90 tab 12/10/20 Nitroglycerin Sl Tabs [Nitrostat] 0.4 mg SUBLINGUAL Q5M PRN 180 Days 12/10/20 #100 tab Allergies Allergy/AdvReac Type Severity Reaction Status Date / Time morphine Allergy Rash/Hives Verified 01/02/21 23:24 Penicillins Allergy Rash/Hives Verified 01/02/21 23:24 pineapple Allergy Anaphylaxis Verified 01/02/21 23:24 Review of Systems ROS Statement: Those systems with pertinent positive or pertinent negative responses have been documented in the HPI. ROS Other: All systems not noted in ROS Statement are negative. Constitutional: Denies: fever, chills Respiratory: Reports: cough (Chronic). Denies: dyspnea, wheezes, hemoptysis Cardiovascular: Denies: chest pain, palpitations, orthopnea, edema, syncope Gastrointestinal: Reports: as per HPI, abdominal pain (Left flank). Denies: nausea, vomiting, diarrhea, constipation Genitourinary: Denies: dysuria, hematuria, testicular pain, testicular mass Musculoskeletal: Denies: back pain Skin: Denies: rash Neurological: Denies: headache, weakness, numbness Past Medical History Past Medical History: Hypertension, Osteoarthritis (OA) Additional Past Medical History / Comment(s): Constipation/bloating. Renal insufficiency, 80% kidney function, hx TIA's X2, 9 yrs ago X2, bulging disc (L4), back pain, ocassional numbness left leg. History of Any Multi-Drug Resistant Organisms: None Reported Past Surgical History: Appendectomy, Heart Catheterization Additional Past Surgical History / Comment(s): Right second and third toes reattached after lawnmower accident. Past Anesthesia/Blood Transfusion Reactions: No Reported Reaction Past Psychological History: No Psychological Hx Reported Smoking Status: Former smoker Past Alcohol Use History: None Reported Past Drug Use History: None Reported - Past Family History Mother Family Medical History: No Reported History General Exam Limitations: no limitations General appearance: alert, in no apparent distress Head exam: Present: atraumatic, normocephalic Eye exam: Present: normal appearance. Absent: scleral icterus, conjunctival injection Neck exam: Present: normal inspection, full ROM Respiratory exam: Present: normal lung sounds bilaterally, chest wall tenderness (There is tenderness to palpation of the left side of the thorax in the midaxillary line near the costal margin). Absent: respiratory distress, wheezes, rales, rhonchi, stridor, accessory muscle use Cardiovascular Exam: Present: regular rate, normal rhythm, normal heart sounds. Absent: systolic murmur, diastolic murmur, rubs, gallop GI/Abdominal exam: Present: soft, tenderness. Absent: distended, guarding, rebound, rigid, mass, pulsatile mass, hernia Extremities exam: Present: normal inspection, normal capillary refill. Absent: pedal edema, calf tenderness Back exam: Present: normal inspection, CVA tenderness (L), paraspinal tenderness. Absent: CVA tenderness (R), vertebral tenderness Neurological exam: Present: alert, normal gait Skin exam: Present: warm, dry, intact, normal color. Absent: rash Course Vital Signs 01/02/21 01/03/21 01/03/21 23:21 01:01 02:21 Temperature 97.9 F Pulse Rate 106 H 86 73 Respiratory 18 18 18 Rate Blood Pressure 144/105 136/97 125/96 O2 Sat by Pulse 96 96 96 Oximetry 01/03/21 03:43 Temperature Pulse Rate 77 Respiratory 18 Rate Blood Pressure 133/98 O2 Sat by Pulse 97 Oximetry Medical Decision Making - Medical Decision Making Patient's 50-year-old man presenting with left-sided flank pain. He is found have elevated d-dimer and computed tomography scan shows what appears to be pulmonary embolism. Discussed that we could not with certainty determine the cause of the left-sided symptoms. Suspect that this is not cardiac in origin given that his troponin is at his baseline, but cannot rule out cardiac source of pain. Patient to be admitted, case discussed with Dr. Nino. The patient subsequently decided he did not want to stay. I discussed that these can course be life-threatening if not properly treated. The patient states that he would like to go. I did provide prescription for eliquis for treatment, going over the appropriate dosing with patient. He'll follow closely with Dr. Nino. He'll return should he have any change in his respiratory status or any new symptoms develop. - Lab Data Result diagrams: 01/02/21 23:43 01/02/21 23:43 Lab Results 01/02/21 01/02/21 01/02/21 Range/Units 23:43 23:43 23:43 WBC 8.6 (3.8-10.6) k/uL RBC 5.64 (4.30-5.90) m/uL Hgb 15.6 (13.0-17.5) gm/dL Hct 47.7 (39.0-53.0) % MCV 84.5 (80.0-100.0) fL MCH 27.7 (25.0-35.0) pg MCHC 32.8 (31.0-37.0) g/dL RDW 14.9 (11.5-15.5) % Plt Count 207 (150-450) k/uL MPV 7.3 Neutrophils % 71 % Lymphocytes % 18 % Monocytes % 6 % Eosinophils % 2 % Basophils % 1 % Neutrophils # 6.1 (1.3-7.7) k/uL Lymphocytes # 1.6 (1.0-4.8) k/uL Monocytes # 0.5 (0-1.0) k/uL Eosinophils # 0.2 (0-0.7) k/uL Basophils # 0.1 (0-0.2) k/uL D-Dimer (<0.60) mg/L FEU Sodium 136 L (137-145) mmol/L Potassium 4.1 (3.5-5.1) mmol/L Chloride 102 (98-107) mmol/L Carbon Dioxide 24 (22-30) mmol/L Anion Gap 10 mmol/L BUN 22 H (9-20) mg/dL Creatinine 1.29 H (0.66-1.25) mg/dL Est GFR (CKD-EPI)AfAm 76 (>60 ml/min/1.73 sqM) Est GFR (CKD-EPI)NonAf 65 (>60 ml/min/1.73 sqM) Glucose 107 H (74-99) mg/dL Calcium 9.6 (8.4-10.2) mg/dL Total Bilirubin 0.7 (0.2-1.3) mg/dL AST 28 (17-59) U/L ALT 24 (4-49) U/L Alkaline Phosphatase 67 (38-126) U/L Troponin I (0.000-0.034) ng/mL Total Protein 6.8 (6.3-8.2) g/dL Albumin 4.0 (3.5-5.0) g/dL Amylase 56 (30-110) U/L Lipase 99 (23-300) U/L Urine Color Yellow Urine Appearance Clear (Clear) Urine pH 5.0 (5.0-8.0) Ur Specific [place] 1.025 (1.001-1.035) Urine Protein Trace H (Negative) Urine Glucose (UA) Negative (Negative) Urine Ketones Negative (Negative) Urine Blood Negative (Negative) Urine Nitrite Negative (Negative) Urine Bilirubin Negative (Negative) Urine Urobilinogen <2.0 (<2.0) mg/dL Ur Leukocyte Esterase Negative (Negative) 01/03/21 01/03/21 Range/Units 01:42 01:42 WBC (3.8-10.6) k/uL RBC (4.30-5.90) m/uL Hgb (13.0-17.5) gm/dL Hct (39.0-53.0) % MCV (80.0-100.0) fL MCH (25.0-35.0) pg MCHC (31.0-37.0) g/dL RDW (11.5-15.5) % Plt Count (150-450) k/uL MPV Neutrophils % % Lymphocytes % % Monocytes % % Eosinophils % % Basophils % % Neutrophils # (1.3-7.7) k/uL Lymphocytes # (1.0-4.8) k/uL Monocytes # (0-1.0) k/uL Eosinophils # (0-0.7) k/uL Basophils # (0-0.2) k/uL D-Dimer 2.91 H (<0.60) mg/L FEU Sodium (137-145) mmol/L Potassium (3.5-5.1) mmol/L Chloride (98-107) mmol/L Carbon Dioxide (22-30) mmol/L Anion Gap mmol/L BUN (9-20) mg/dL Creatinine (0.66-1.25) mg/dL Est GFR (CKD-EPI)AfAm (>60 ml/min/1.73 sqM) Est GFR (CKD-EPI)NonAf (>60 ml/min/1.73 sqM) Glucose (74-99) mg/dL Calcium (8.4-10.2) mg/dL Total Bilirubin (0.2-1.3) mg/dL AST (17-59) U/L ALT (4-49) U/L Alkaline Phosphatase (38-126) U/L Troponin I 0.112 H* (0.000-0.034) ng/mL Total Protein (6.3-8.2) g/dL Albumin (3.5-5.0) g/dL Amylase (30-110) U/L Lipase (23-300) U/L Urine Color Urine Appearance (Clear) Urine pH (5.0-8.0) Ur Specific [place] (1.001-1.035) Urine Protein (Negative) Urine Glucose (UA) (Negative) Urine Ketones (Negative) Urine Blood (Negative) Urine Nitrite (Negative) Urine Bilirubin (Negative) Urine Urobilinogen (<2.0) mg/dL Ur Leukocyte Esterase (Negative) - EKG Data -: EKG Interpreted by [facility] EKG shows normal: sinus rhythm, intervals (AK interval 168 ms, QTC 516 ms, both normal. QRS duration 138 ms prolonged consistent with the intraventricular blocks.), QRS complexes (Right bundle-branch block. Left anterior fascicular block.) Rate: normal (Rate 80 bpm) Interpretation: other (Possible old inferior infarct. Possible old lateral infarct.) Disposition Clinical Impression: Pulmonary embolism Disposition: Left Against Medical Advice Condition: Undetermined Is patient prescribed a controlled substance at d/c from ED?: No
[2021-01-02 23:57] LABS: Basophils # (A) 0.1 k/uL (0-0.2); Basophils % (A) 1 %; Eosinophils # (A) 0.2 k/uL (0-0.7); Eosinophils % (A) 2 %; HCT 47.7 % (39.0-53.0); HGB 15.6 gm/dL (13.0-17.5); Lymphocytes # (A) 1.6 k/uL (1.0-4.8); Lymphocytes % (A) 18 %; MCH 27.7 pg (25.0-35.0); MCHC 32.8 g/dL (31.0-37.0); MCV 84.5 fL (80.0-100.0); Mean Platelet Volume 7.3; Monocytes # (A) 0.5 k/uL (0-1.0); Monocytes % (A) 6 %; Neutrophils # (A) 6.1 k/uL (1.3-7.7); Neutrophils % (A) 71 %; Platelet Count 207 k/uL (150-450); RBC 5.64 m/uL (4.30-5.90); RDW 14.9 % (11.5-15.5); WBC 8.6 k/uL (3.8-10.6)
[2021-01-02 23:58] LABS: Appearance,Urine Clear (Clear); Bilirubin,Urine Negative (Negative); Blood,Urine Negative (Negative); Color,Urine Yellow; Glucose,Urine (UA) Negative (Negative); Ketones,Urine Negative (Negative); Leukocyte Esterase,Urine Negative (Negative); Nitrite,Urine Negative (Negative); Protein,Urine Trace (Negative); Specific Gravity,Urine 1.025 (1.001-1.035); Urobilinogen,Urine <2.0 mg/dL (<2.0)
--- NOTE | 2021-01-03 00:04 | XR ---
EXAMINATION TYPE: XR KUB DATE OF EXAM: 01/02/2021 COMPARISON: NONE HISTORY: Pain TECHNIQUE: 2 views upright FINDINGS: There is no sign of intestinal obstruction or pneumoperitoneum. Fecal pattern is normal. Th ere is no evidence of a mass. There is slight blunting left costophrenic angle. There are no patholog ic calcifications over the kidneys. IMPRESSION: Nonacute abdomen. Small left pleural effusion.
[2021-01-03 00:11] LABS: Calcium 9.6 mg/dL (8.4-10.2); Potassium 4.1 mmol/L (3.5-5.1); Total Bilirubin 0.7 mg/dL (0.2-1.3); Total Protein 6.8 g/dL (6.3-8.2)
[2021-01-03] MEDS ORDERED: HYDROcodone/APAP 5-325MG 1 EACH TAB PO STA (00:46)
--- NOTE | 2021-01-03 03:10 | CT ---
EXAM: CT Angiography Chest With Intravenous Contrast CLINICAL HISTORY: ITS.REASON CT Reason: Possible PE TECHNIQUE: Axial computed tomographic angiography images of the chest with intravenous contrast. CTDI is 17.57 mGy and DLP is 375 mGy-cm. This CT exam was performed using one or more of the following dose reduction techniques: automated exposure control, adjustment of the mA and/or kV according to patient size, and/or use of iterative reconstruction technique. MIP reconstructed images were created and reviewed. COMPARISON: 12/07/2020 FINDINGS: Pulmonary arteries: Partial filling defects in the subsegmental branches of the right lower lobe. Aorta: No thoracic aortic aneurysm. Lungs: No mass. No consolidation. Pleural space: No pneumothorax. Mild left and trace right pleural effusion. Peripheral opacities are again seen in the mid to lower lungs bilaterally. Heart: No cardiomegaly. No pericardial effusion. Bones/joints: No acute fracture or dislocation. Chronic minimal superior endplate wedging of T12 from Schmorl's node. Soft tissues: Thickened nodular right adrenal gland. Lymph nodes: No enlarged lymph nodes. IMPRESSION: 1. Evidence of pulmonary embolism in the subsegmental branches of the right lower lobe. No pulmonary infarct. No right heart strain. 2. Left more than right pleural effusions. 3. Peripheral based lung opacities are again seen, nonspecific. 4. Unchanged thickened nodular right adrenal gland, possibly underlying adenoma.
[2021-01-03] MEDS ORDERED: HYDROmorphone 0.5 MG/0.5 ML SYRINGE IVP PRN (03:21)
[2021-01-03] MEDS ORDERED: HYDROmorphone 1 MG/ML 1 ML SYRINGE IVP PRN (03:21)
[2021-01-03] MEDS ORDERED: MAG HYDROX/AL HYDROX/SIMETH 30 ML CUP PO PRN (03:21)
[2021-01-03] MEDS ORDERED: HEPARIN SODIUM,PORCINE 5,000 UNIT/ML 1 ML VIAL IV PRN (03:21)
[2021-01-03] MEDS ORDERED: ONDANSETRON 4 MG/2 ML VIAL IVP PRN (03:21)
[2021-01-03] MEDS ORDERED: NALOXONE 0.4 MG/ML 1 ML VIAL IV PRN (03:21)
[2021-01-03] MEDS ORDERED: DOCUSATE 100 MG CAP PO PRN (03:21)
[2021-01-03] MEDS ORDERED: TEMAZEPAM 15 MG CAP PO PRN (03:21)
[2021-01-03] MEDS ORDERED: HEPARIN SODIUM,PORCINE 10,000 UNIT/ML 1 ML VIAL IV ONE (03:21)
[2021-01-03] MEDS ORDERED: NITROGLYCERIN SL TABS 0.4 MG TAB SUBLINGUAL PRN (03:24)
[2021-01-03] MEDS ORDERED: ACETAMINOPHEN TAB 500 MG TAB PO PRN (03:24)
[2021-01-03] MEDS ORDERED: HEPARIN SOD,PORK IN 0.45% NACL 25,000 UNIT in 0.45% NACL 1 250ML.BAG IV SCH (03:30)
[2021-01-03 03:45] VITALS: BP 133/98; PULSE 77
[2021-01-03] MEDS ORDERED: carvediloL 12.5 MG TAB PO SCH (09:00)
[2021-01-03] MEDS ORDERED: ASPIRIN 81 MG PO SCH (09:00)
[2021-01-03] MEDS ORDERED: ATORVASTATIN 80 MG TAB PO SCH (09:00)
[2021-01-03] MEDS ORDERED: FERROUS SULFATE 325 MG TAB PO SCH (09:00)
[2021-01-03] MEDS ORDERED: lisinopriL 10 MG TAB PO SCH (09:00)
[2021-01-03] MEDS ORDERED: SPIRONOLACTONE 25 MG TAB PO SCH (09:00)
[2021-01-03] MEDS ORDERED: PANTOPRAZOLE 40 MG/10 ML VIAL IV SCH (09:00)
== END 2021-01-03 04:38 | disposition left against medical advice (07) | DRG 176 ==
LOC: EC 23:20 → 3SCARD 01-03 03:21
PROVIDERS: ADMIT Family Medicine; ATTEND Family Medicine
DX: I26.99 Other pulmonary embolism without acute cor pulmonale (principal); I13.0 Hypertensive heart and chronic kidney disease with heart failure and stage 1 through stage 4 chronic kidney disease, or unspecified chronic kidney disease; I45.2 Bifascicular block; I50.22 Chronic systolic (congestive) heart failure; I11.0 Hypertensive heart disease with heart failure; M19.90 Unspecified osteoarthritis, unspecified site; N18.9 Chronic kidney disease, unspecified; Z79.82 Long term (current) use of aspirin; Z79.899 Other long term (current) drug therapy; Z86.73 Personal history of transient ischemic attack (TIA), and cerebral infarction without residual deficits; Z98.890 Other specified postprocedural states; Z90.49 Acquired absence of other specified parts of digestive tract; Z87.891 Personal history of nicotine dependence; Z88.5 Allergy status to narcotic agent; Z88.0 Allergy status to penicillin; Z91.018 Allergy to other foods
CPT/HCPCS: 36415; 71275; 74018; 80053; 81003; 82150; 83690; 84484; 85025; 85379; 93005; 96361; 96365; 96375; 99284

== ENCOUNTER 2021-09-02 21:37 | Inpatient (IN) | payer MEDICARE ==
--- NOTE | 2021-09-02 21:57 | ED ---
SOB HPI - General Chief Complaint: Shortness of Breath Stated Complaint: SOB Time Seen by Provider: 09/02/21 21:39 Source: EMS Mode of arrival: EMS Limitations: no limitations - History of Present Illness Initial Comments: This patient is a 51-year-old man who presents with complaint that he believes his congestive heart failure is flaring up. The patient states that he ran out of a number of his usual medications yesterday. The symptoms had however started day prior. He noticed that he was starting to get bilateral leg edema. Patient then had orthopnea, shortness of breath and when things worsened today called the ambulance to bring him here. No fever or chills. Denies productive cough. MD Complaint: shortness of breath Onset/Timin -: days(s) Consistency: constant Improves With: upright position Worsens With: lying flat Known History Of: congestive heart failure Context: medication noncompliance (Ran out of medications yesterday) Associated Symptoms: other (Bilateral leg edema) Treatments Prior to Arrival: none - Related Data Home Medications Medication Instructions Recorded Confirmed Acetaminophen Tab [Tylenol] 1,000 mg PO Q6HR PRN 12/08/20 12/08/20 Ferrous Sulfate [Iron (65 MG 325 mg PO DAILY 12/08/20 12/08/20 Elemental)] traMADol HCL [Ultram] 50 mg PO Q4HR PRN 12/08/20 12/08/20 Previous Rx's Medication Instructions Recorded Carvedilol [Coreg] 12.5 mg PO BID #60 tablet 11/22/20 Spironolactone [Aldactone] 25 mg PO DAILY 30 Days #30 tab 11/22/20 lisinopriL [Zestril] 10 mg PO DAILY 30 Days #30 tab 11/22/20 Aspirin 81 mg PO DAILY 90 Days #90 chew 12/10/20 Atorvastatin [Lipitor] 80 mg PO DAILY 90 Days #90 tab 12/10/20 Nitroglycerin Sl Tabs [Nitrostat] 0.4 mg SUBLINGUAL Q5M PRN 180 Days 12/10/20 #100 tab Allergies Allergy/AdvReac Type Severity Reaction Status Date / Time morphine Allergy Rash/Hives Verified 09/02/21 21:46 Penicillins Allergy Rash/Hives Verified 09/02/21 21:46 pineapple Allergy Anaphylaxis Verified 09/02/21 21:46 Review of Systems ROS Statement: Those systems with pertinent positive or pertinent negative responses have been documented in the HPI. ROS Other: All systems not noted in ROS Statement are negative. Constitutional: Reports: weakness. Denies: fever, chills Respiratory: Reports: dyspnea. Denies: hemoptysis Cardiovascular: Reports: palpitations, orthopnea, edema. Denies: chest pain, syncope Gastrointestinal: Denies: abdominal pain, nausea, vomiting, diarrhea, constipation Genitourinary: Denies: dysuria, hematuria Musculoskeletal: Denies: back pain Skin: Denies: rash Neurological: Denies: headache, weakness, numbness Past Medical History Past Medical History: Hypertension, Osteoarthritis (OA) Additional Past Medical History / Comment(s): Constipation/bloating. Renal insufficiency, 80% kidney function, hx TIA's X2, 9 yrs ago X2, bulging disc (L4), back pain, ocassional numbness left leg. History of Any Multi-Drug Resistant Organisms: None Reported Past Surgical History: Appendectomy, Heart Catheterization Additional Past Surgical History / Comment(s): Right second and third toes reattached after lawnmower accident. Past Anesthesia/Blood Transfusion Reactions: No Reported Reaction Past Psychological History: No Psychological Hx Reported Smoking Status: Former smoker Past Alcohol Use History: None Reported Past Drug Use History: None Reported - Past Family History Mother Family Medical History: No Reported History General Exam Limitations: no limitations General appearance: alert, in distress Head exam: Present: atraumatic, normocephalic Eye exam: Present: normal appearance. Absent: scleral icterus, conjunctival injection Respiratory exam: Present: respiratory distress (Mild tachypnea), rales (Bilateral bases). Absent: wheezes, rhonchi, stridor, accessory muscle use, decreased breath sounds Cardiovascular Exam: Present: normal rhythm, tachycardia, systolic murmur, gallop. Absent: diastolic murmur, rubs GI/Abdominal exam: Present: soft. Absent: distended, tenderness, guarding, rebound, rigid, mass Extremities exam: Present: normal capillary refill, pedal edema. Absent: normal inspection, calf tenderness Back exam: Present: normal inspection. Absent: CVA tenderness (R), CVA tenderness (L) Neurological exam: Present: alert Skin exam: Present: warm, dry, intact, normal color. Absent: rash Course Vital Signs 09/02/21 21:39 Temperature 98.9 F Pulse Rate 129 H Respiratory 22 Rate Blood Pressure 152/108 O2 Sat by Pulse 97 Oximetry Medical Decision Making - EKG Data -: EKG Interpreted by [facility] EKG shows normal: sinus rhythm (Sinus tachycardia with multiple PVCs.), intervals ([place] interval 138 ms, normal. QTc 49 ms, normal. QRS duration 128 ms, prolonged consistent with right bundle-branch block.), QRS complexes (Patient h as bifascicular block consisting of right bundle-branch block and left anterior fascicular block.) Rate: tachycardia (Rate 126 bpm) Interpretation: other (Old inferior infarct. Possible old lateral infarct.) Disposition Referrals: Bob Nino MD [Primary Care Provider] - 1-2 days
[2021-09-02 22:38] LABS: Basophils % (A) 0 %; Eosinophils # (A) 0.1 k/uL (0-0.7); Eosinophils % (A) 1 %; HCT 44.4 % (39.0-53.0); HGB 14.4 gm/dL (13.0-17.5); Lymphocytes # (A) 1.3 k/uL (1.0-4.8); Lymphocytes % (A) 9 %; MCH 27.5 pg (25.0-35.0); MCHC 32.6 g/dL (31.0-37.0); MCV 84.5 fL (80.0-100.0); Mean Platelet Volume 9.9; Monocytes # (A) 1.1 k/uL (0-1.0); Monocytes % (A) 8 %; Neutrophils # (A) 11.1 k/uL (1.3-7.7); Neutrophils % (A) 78 %; Platelet Count 169 k/uL (150-450); RBC 5.25 m/uL (4.30-5.90); RDW 15.1 % (11.5-15.5); WBC 14.2 k/uL (3.8-10.6)
--- NOTE | 2021-09-02 22:41 | XR ---
EXAMINATION TYPE: XR chest 2V DATE OF EXAM: 09/02/2021 COMPARISON: 12/10/2020 HISTORY: Pneumonia TECHNIQUE: 2 views FINDINGS: Heart is enlarged. There is no heart failure. There is no pleural effusion. There are no hi lar masses. Bony thorax is intact. IMPRESSION: Moderate cardiomegaly. Heart appears increased compared to old exam. There is clearing of the pleural fluid and atelectasis at the lung bases compared to old exam.
[2021-09-02 22:49] LABS: Albumin 3.4 g/dL (3.5-5.0); Calcium 9.2 mg/dL (8.4-10.2); Potassium 4.8 mmol/L (3.5-5.1); Total Protein 5.9 g/dL (6.3-8.2)
[2021-09-02 22:57] LABS: INR 1.9 (<1.2); Prothrombin Time 18.6 sec (9.0-12.0)
[2021-09-02 23:11] LABS: Amorphous Sediment,Urine Occasional /hpf; Appearance,Urine Clear (Clear); Bilirubin,Urine Negative (Negative); Blood,Urine Small (Negative); Color,Urine Yellow; Glucose,Urine (UA) Negative (Negative); Granular Casts,Urine 5 /lpf (0); Hyaline Casts,Urine 12 /lpf (0-2); Ketones,Urine Trace (Negative); Leukocyte Esterase,Urine Negative (Negative); Mucus,Urine Rare /hpf; Nitrite,Urine Negative (Negative); PH, Urine 5.5 (5.0-8.0); Protein,Urine 3+ (Negative); RBC,Urine 1 /hpf (0-5); Specific Gravity,Urine 1.032 (1.001-1.035); Squamous Epithelial Cell,Urine <1 /hpf (0-4); Urobilinogen,Urine <2.0 mg/dL (<2.0); WBC,Urine 1 /hpf (0-5)
[2021-09-02] MEDS ORDERED: ENOXAPARIN 80 MG/0.8 ML SYRINGE SQ STA (23:24)
[2021-09-02] MEDS ORDERED: HYDROmorphone 1 MG/ML 1 ML SYRINGE IVP STA (23:25)
[2021-09-02] MEDS: NITROGLYCERIN-D5W PMX 50 MG in DEXTROSE/WATER 1 250ML.BAG IV ONE (23:44)
[2021-09-03] MEDS ORDERED: amLODIPine 5 MG TAB PO STA (00:04)
[2021-09-03] MEDS ORDERED: NALOXONE 0.4 MG/ML 1 ML VIAL IV PRN (00:13)
[2021-09-03] MEDS ORDERED: ACETAMINOPHEN TAB 325 MG TAB PO PRN (00:13)
--- NOTE | 2021-09-03 01:11 | CT ---
EXAMINATION TYPE: CT chest angio for PE DATE OF EXAM: 09/03/2021 COMPARISON: 01/03/2021 HISTORY: pe CT DLP: 436.8 mGycm Automated exposure control for dose reduction was used. CONTRAST: Performed with IV Contrast, patient injected with 80 mL of Isovue 370. There are 3-D post processed images. There is mild subsegmental atelectasis at the lung bases. Heart is enlarged. There is no pericardial effusion. There is no pleural effusion. There is no mediastinal adenopathy. There are a few paratracheal and bronchial lymph nodes up to 1 cm . There is normal contrast opacification of the pulmonary arteries. There are no filling defects. Tho racic aorta is intact. There is no sign of aneurysm or dissection. The bony thorax is intact. There is no thoracic compression fracture. Sternum is intact. IMPRESSION: No evidence of pulmonary embolism. Mild cardiomegaly. Mild subsegmental atelectasis at the lung bases similar to old exam. No suspicious pulmonary mass. Cardiomegaly unchanged.
[2021-09-03] MEDS: SODIUM CHLORIDE 0.9% 1,000 ML IV SCH (03:20)
[2021-09-03] MEDS ORDERED: HYDROmorphone 1 MG/ML 1 ML SYRINGE IVP STA (03:56)
[2021-09-03] MEDS ORDERED: hydrALAZINE HCL 20 MG/ML 1 ML VIAL IVP STA (03:57)
[2021-09-03] MEDS ORDERED: LORazepam 2 MG/ML INJ IV STA (03:59)
[2021-09-03] MEDS: NITROGLYCERIN-D5W PMX 50 MG in DEXTROSE/WATER 1 250ML.BAG IV ONE (04:37)
[2021-09-03] MEDS ORDERED: HEPARIN SODIUM 1,000 UN/ML (10ML VL) IV ONE (07:12)
[2021-09-03] MEDS: HEPARIN SOD,PORK IN 0.45% NACL 25,000 UNIT in 0.45% NACL 1 250ML.BAG IV SCH (07:28)
[2021-09-03] MEDS ORDERED: amLODIPine 5 MG TAB PO SCH (09:00)
[2021-09-03] MEDS: allopurinoL 100 MG TAB PO SCH (09:40)
[2021-09-03] MEDS: ASPIRIN 81 MG PO SCH (09:40)
[2021-09-03] MEDS: FUROSEMIDE 40 MG TAB PO SCH ×2 (09:40→18:03)
[2021-09-03] MEDS: carvediloL 12.5 MG TAB PO SCH ×2 (09:41→17:46)
[2021-09-03] MEDS: traMADol 50 MG TAB PO PRN ×2 (09:41→20:09)
[2021-09-03] MEDS: FERROUS SULFATE 325 MG TAB PO SCH (09:41)
[2021-09-03] MEDS: POTASSIUM CHLORIDE ER 20 MEQ TAB.ER PO SCH (09:41)
--- NOTE | 2021-09-03 10:22 | P.CRDCN ---
"History of Present Illness History of present illness: HISTORY OF PRESENTING ILLNESS This is a pleasant 51-year-old patient amount past medical history significant for non-ischemic cardiomyopathy, left ventricular ejection fraction 3035 percent with right bundle branch block pattern and frequent PVCs, TIA's x 2, osteoarthritis, former smoker (30+ smoker, smoking 1/2 ppd, recently quit on 11/23/20), former ETOH (quit 14+ years ago), hypertension. He follows in the office with Dr. Rider. We have been asked to see in consultation for ailyn estive heart failure and possible NSTEMI. Patient seen and examined in the emergency department. He presents to emergency with worsening shortness of breath , he also states he recently ran out of this medications. He denies any chest pain, palpitations, lightheadedness, dizziness, presyncope or syncope. He does have some symptoms of orthopnea and lower extremity edema. DIAGNOSTICS Laboratory data reviewed, WBC 14.2, hemoglobin 14, platelets 169, d-dimer dimer 10, INR 1.9, sodium 131, potassium 4.8, BUN 56, serum creatinine 1.5, lactate 2.4, repeat 1.6, AST 356, AST 584, troponin 2.5, 3.7, troponin 4, proBNP 25,900, COVID-19 PCR negative EKG reveals sinus tachycardia, PVCs, right bundle branch block, left anterior fascicular block, heart rate 126 Telemetry tracings sinus tachycardia Chest xray moderate cardiomegaly. Heart appears increased compared to old exam. Current cardiac medications include CT chest - negative for PE, mild cardiomegaly. No suspicious pulmonary mass. Echocardiogram in the office 03/2021- EF 40%, severe LVH, mild aortic regurgitation, mild to moderate mitral regurgitation mild tricuspid regurgitation Most recent TTE at [facility]- 11/13/20 - EF 30-35%, Most recent cardiac cath at [facility]- 11/13/20- mild to moderate diffuse disease in LAD without high-grade stenosis. LAD 20-30% lesion, Left circumflex mild to moderate disease 30-50% REVIEW OF SYSTEMS At the time of my exam: CONSTITUTIONAL: Denies fever or chills. CARDIOVASCULAR: +shortness of breath, +orthopnea +|LE edema Denies central chest pain,PND or palpitations. RESPIRATORY: Denies cough. GASTROINTESTINAL: Denies abdominal pain, diarrhea, constipation, nausea or vomiting. MUSCULOSKELETAL: Denies myalgias. NEUROLOGIC: Denies numbness, tingling, headacbe or weakness. ENDOCRINE: +fatigue, Denies weight change, polydipsia or polyurina. GENITOURINARY: Denies burning, hematuria or urgency with micturation. HEMATOLOGIC: Denies history of anemia or bleeding. PHYSICAL EXAMINATION CONSTITUTIONAL: Short of breath HEENT: Head is normocephalic. Pupils are equal, round. Sclerae anicteric. Mucous membranes of the mouth are moist. No JVD. No carotid bruit. CHEST EXAMINATION: Lungs severe decreased air exchange. Chest wall tenderness on right side and with deep breathing. HEART EXAMINATION: Regular Tachycardic rate and rhythm. S1, S2 heard. Systolic murmur right sternal border ABDOMEN: Soft, nontender. Positive bowel sounds. EXTREMITIES: 2+ peripheral pulses, 2+ bilateral lower extremity edema and no calf tenderness. NEUROLOGIC EXAMINATION: Patient is awake, alert and oriented x3. ASSESSMENT NSTEMI Elevated LFTs, possibly hepatic congestion Elevated D dimer, CT negative PE Acute Systolic Heart failure with reduced EF Non-ischemic cardiomyopathy Hypertension Acute on chronic kidney disease History non-ischemic cardiomyopathy Non obstructive coronary artery dsiease Former smoker Former ETOH use History of TIAs PLAN Obtain 2D echocardiogram Continue IV heparin drip Continue aspirin Due to acute kidney injury will start PO Lasix 40mg BID Continue Nitro drip Continue amlodipine, carvedilol Statin on hold due to elevated liver enzymes Not on ACEI/ARB due to renal function Keep NPO after midnight Patient will most likely need cardiac catheterization, will stabilize and diuresis patient first, monitor labs, and make further recommendations tomorrow regarding cardiac catheterization Further recommendations based on clinical course Nurse Practitioner note has been reviewed, I agree with a documented findings and plan of care. Patient was seen and examined. Past Medical History Past Medical History: Hypertension, Osteoarthritis (OA) Additional Past Medical History / Comment(s): Constipation/bloating. Renal insufficiency, 80% kidney function, hx TIA's X2, 9 yrs ago X2, bulging disc (L4), back pain, ocassional numbness left leg. History of Any Multi-Drug Resistant Organisms: None Reported Past Surgical History: Appendectomy, Heart Catheterization Additional Past Surgical History / Comment(s): Right second and third toes reattached after lawnmower accident. Past Anesthesia/Blood Transfusion Reactions: No Reported Reaction Past Psychological History: No Psychological Hx Reported Smoking Status: Former smoker Past Alcohol Use History: None Reported Past Drug Use History: None Reported - Past Family History Mother Family Medical History: No Reported History Medications and Allergies Home Medications Medication Instructions Recorded Confirmed Type Carvedilol [Coreg] 12.5 mg PO BID #60 tablet 11/22/20 09/02/21 Rx Spironolactone [Aldactone] 25 mg PO DAILY 30 Days #30 tab 11/22/20 09/02/21 Rx Ferrous Sulfate [Iron (65 MG 325 mg PO DAILY 12/08/20 09/02/21 History Elemental)] traMADol HCL [Ultram] 50 mg PO Q4-6H PRN 12/08/20 09/02/21 History Allopurinol [Zyloprim] 200 mg PO DAILY 09/02/21 09/02/21 History Aspirin 325 mg PO BID 09/02/21 09/02/21 History Ergocalciferol [Vitamin D2 (1250 1,250 mcg PO Q14D 09/02/21 09/02/21 History Mcg = 15407 Iu)] Furosemide [Lasix] 20 mg PO DAILY 09/02/21 09/02/21 History Potassium Chloride [Klor-Con 20] 20 meq PO DAILY 09/02/21 09/02/21 History amLODIPine [Norvasc] 5 mg PO DAILY 09/02/21 09/02/21 History lisinopriL [Zestril] 10 mg PO BID 09/02/21 09/02/21 History Allergies Allergy/AdvReac Type Severity Reaction Status Date / Time morphine Allergy Rash/Hives Verified 09/02/21 23:52 Penicillins Allergy Rash/Hives Verified 09/02/21 23:52 pineapple Allergy Anaphylaxis Verified 09/02/21 23:52 Physical Exam Vitals: Vital Signs Temp Pulse Resp BP Pulse Ox 09/03/21 06:28 98.1 F 110 H 22 121/91 97 09/03/21 06:00 112 H 22 125/100 96 09/03/21 05:00 109 H 22 136/89 97 09/03/21 04:49 111 H 20 149/76 95 09/03/21 04:20 140/92 09/03/21 04:11 105 H 20 132/95 94 L 09/03/21 04:05 112 H 20 142/98 96 09/03/21 03:50 109 H 22 138/117 95 09/03/21 03:45 111 H 20 138/104 95 09/03/21 03:40 112 H 20 149/92 95 09/03/21 03:34 111 H 20 144/99 96 09/03/21 03:29 111 H 20 143/102 96 09/03/21 03:24 110 H 20 139/113 96 09/03/21 03:20 112 H 22 138/97 96 09/03/21 03:15 111 H 20 128/113 95 09/03/21 03:10 114 H 20 126/105 96 09/03/21 03:05 114 H 22 161/103 97 09/03/21 03:00 104 H 22 157/97 96 09/03/21 02:56 113 H 20 148/105 94 L 09/03/21 02:50 112 H 20 154/128 95 09/03/21 02:00 110 H 20 145/106 95 09/03/21 01:30 135/113 09/03/21 01:25 115 H 22 143/84 96 09/03/21 01:20 108 H 20 149/100 94 L 09/03/21 01:15 110 H 20 124/111 97 09/03/21 01:10 112 H 20 126/106 96 09/03/21 01:05 114 H 18 147/118 96 09/03/21 00:39 114 H 18 138/108 97 09/03/21 00:07 117 H 20 149/133 96 09/02/21 23:40 121 H 20 156/117 97 09/02/21 23:16 115 H 22 157/113 96 09/02/21 22:24 125 H 22 149/109 96 09/02/21 21:39 98.9 F 129 H 22 152/108 97 Intake and Output 09/02/21 09/03/21 09/03/21 22:59 06:59 14:59 Intake Total 250.00 Balance 250.00 Intake: Intake, IV Titration 250.00 Amount Nitroglycerin-D5w Pmx 50 250.00 mg In Dextrose/Water 1 250ml.bag @ 20 MCG/MIN 6 mls/hr IV .Q24H ONE Rx#: [id number] Other: Weight 72.575 kg Results 09/02/21 22:22 09/02/21 22:22 Cardiac Enzymes 09/02/21 09/02/21 09/03/21 Range/Units 22:22 22:22 02:59 AST 356 H (17-59) U/L Troponin I 3.510 H* 3.750 H* (0.000-0.034) ng/mL Coagulation 09/02/21 Range/Units 22:22 PT 18.6 H (9.0-12.0) sec APTT 24.0 (22.0-30.0) sec CBC 09/02/21 Range/Units 22:22 WBC 14.2 H (3.8-10.6) k/uL RBC 5.25 (4.30-5.90) m/uL Hgb 14.4 (13.0-17.5) gm/dL Hct 44.4 (39.0-53.0) % Plt Count 169 (150-450) k/uL Comprehensive Metabolic Panel 09/02/21 Range/Units 22:22 Sodium 131 L (137-145) mmol/L Potassium 4.8 (3.5-5.1) mmol/L Chloride 103 (98-107) mmol/L Carbon Dioxide 17 L (22-30) mmol/L BUN 56 H (9-20) mg/dL Creatinine 1.53 H (0.66-1.25) mg/dL Glucose 151 H (74-99) mg/dL Calcium 9.2 (8.4-10.2) mg/dL AST 356 H (17-59) U/L ALT 584 H (4-49) U/L Alkaline Phosphatase 85 (38-126) U/L Total Protein 5.9 L (6.3-8.2) g/dL Albumin 3.4 L (3.5-5.0) g/dL Current Medications Generic Name Dose Route Start Last Admin Trade Name Freq PRN Reason Stop Dose Admin Acetaminophen 650 mg 09/03/21 00:13 Acetaminophen Tab 325 Mg Tab PO Q6HR PRN Mild Pain or Fever > 100.5 Heparin Sodium (Porcine) 0 unit 09/03/21 07:12 Heparin Sodium 1,000 Un/Ml (10ml Vl) IV PER PROTOCOL PRN Low PTT Protocol Nitroglycerin/Dextrose 50 mg/ 250 mls @ 6 mls/hr 09/02/21 23:23 09/03/21 04:37 IV Solution IV 09/03/21 23:22 400 mcg/min .Q24H ONE 120 mls/hr Administration Protocol 20 MCG/MIN Sodium Chloride 1,000 mls @ 20 mls/hr 09/03/21 00:15 09/03/21 03:20 Saline 0.9% IV Not Given .Q24H JORGE Heparin Sodium/Sodium Chloride 250 mls @ 8.709 mls/hr 09/03/21 07:15 09/03/21 07:28 25,000 unit/ Sodium Chloride IV 12 units/kg/hr .Q24H JORGE 8.709 mls/hr Administration Protocol 12 UNITS/KG/HR Naloxone HCl 0.2 mg 09/03/21 00:13 Naloxone 0.4 Mg/Ml 1 Ml Vial IV Q2M PRN Opioid Reversal Intake and Output 09/02/21 09/03/21 09/03/21 22:59 06:59 14:59 Intake Total 250.00 Balance 250.00 Intake: Intake, IV Titration 250.00 Amount Nitroglycerin-D5w Pmx 50 250.00 mg In Dextrose/Water 1 250ml.bag @ 20 MCG/MIN 6 mls/hr IV .Q24H ONE Rx#: [id number] Other: Weight 72.575 kg 09/02/21 22:22 09/02/21 22:22"
--- NOTE | 2021-09-03 10:36 | ECHOF ---
Referral Reason:CHF exacerbation MEASUREMENTS -------- HEIGHT: 190.5 cm WEIGHT: 72.6 kg BP: 130/105 RVIDd: 3.6 cm (< 3.3) IVSd: 1.5 cm (0.6 - 1.1) LVIDd: 6.2 cm (3.9 - 5.3) LVPWd: 1.3 cm (0.6 - 1.1) IVSs: 2.1 cm LVIDs: 5.5 cm LVPWs: 1.7 cm LA Diam: 4.3 cm (2.7 - 3.8) LAESV Index (A-L): 52.91 ml/m Ao Diam: 3.7 cm (2.0 - 3.7) AV Cusp: 2.4 cm (1.5 - 2.6) MV EXCURSION: 15.488 mm (> 18.000) MV EF SLOPE: 171 mm/s (70 - 150) EPSS: 1.9 cm MV E Praveen: 1.26 m/s MV DecT: 89 ms MV A Praveen: 0.53 m/s MV E/A Ratio: 2.39 RAP: 15.00 mmHg RVSP: 53.85 mmHg FINDINGS -------- This was a technically good study. The left ventricle is mildly dilated. There is moderate concentric left ventricular hypertrophy. Overall left ventricular systolic function is severely impaired with, an EF between 20 - 25 %. The right ventricle is mildly enlarged. LA is severely dilated >40 ml/m2 The right atrium is normal in size. Interatrial and interventricular septum intact. Trace amount of aortic regurgitation. Moderate mitral regurgitation is present. Mild tricuspid regurgitation present. There is moderate pulmonary hypertension. The right ventric ular systolic pressure, as measured by Doppler, is 53.85mmHg. Trace/mild (physiologic) pulmonic regurgitation. The aortic root size is normal. The inferior vena cava is dilated with no significant inspiratory collapse which is consistent estima sal right atrial pressure of >15 mmHg. There is no pericardial effusion. CONCLUSIONS -------- 1. The left ventricle is mildly dilated. 2. There is moderate concentric left ventricular hypertrophy. 3. Overall left ventricular systolic function is severely impaired with, an EF between 20 - 25 %. 4. The right ventricle is mildly enlarged. 5. LA is severely dilated >40 ml/m2 6. Trace amount of aortic regurgitation. 7. Moderate mitral regurgitation is present. 8. Mild tricuspid regurgitation present. 9. There is moderate pulmonary hypertension. 10. The right ventricular systolic pressure, as measured by Doppler, is 53.85mmHg. 11. Trace/mild (physiologic) pulmonic regurgitation. 12. The aortic root size is normal. 13. The inferior vena cava is dilated with no significant inspiratory collapse which is consistent es timated right atrial pressure of >15 mmHg. 14. There is no pericardial effusion. TECHNICAL INSPECTOR: Reina Pope RDCS
--- NOTE | 2021-09-03 18:22 | P.CNPUL ---
History of Present Illness Consult date: 09/03/21 Reason for consult: dyspnea, hypoxemia Chief complaint: Shortness of breath History of present illness: Patient is a 51-year-old male with history of the cardiomyopathy started having shortness of breath few days ago with increasing lower extremity swelling, development of orthopnea patient however denies any fever or chills denies any cough or sputum production, symptoms got worse since one day prior to hospitalization since patient ran out of his medications, patient has a baseline nonischemic cardiomyopathy with ejection fraction of 30%, extensive history of smoking and nicotine use [id number] still smoking off and on lately however have quit smoking and also alcohol, on arrival patient noted to be tachycardic and tachypneic hypertensive, patient noted to have elevated prolapse cardiovascular services have been consulted, patient currently on heparin drip, due to hypoxia patient started on BiPAP with a setting of 12/6 with 40% oxygen, unable to obtain a good seal because of facial hair and air leak, admitted chest x-ray significant for cardiomegaly, computed tomography scan of the chest negative for pulmonary embolism showed bilateral subsegmental atelectasis at the bases, cardiomegaly remains unchanged, patient also complaining of some bruises in the lower extremity which are relatively new, admit labs were significant for leukocytosis at 14,000, INR of 1.9, sodium 131, CO2 of 17, BUN/creatinine 56 1.53, and lactic acid level is 2.4, came down to 1.6, troponin were 3.5 continue to go up now showing a downward trend of 2.4, BNP is elevated over 25,000, COVID-19 is negative, Review of Systems All systems: negative Past Medical History Past Medical History: Hypertension, Osteoarthritis (OA) Additional Past Medical History / Comment(s): Constipation/bloating. Renal insufficiency, 80% kidney function, hx TIA's X2, 9 yrs ago X2, bulging disc (L4), back pain, ocassional numbness left leg. History of Any Multi-Drug Resistant Organisms: None Reported Past Surgical History: Appendectomy, Heart Catheterization Additional Past Surgical History / Comment(s): Right second and third toes reattached after lawnmower accident. Past Anesthesia/Blood Transfusion Reactions: No Reported Reaction Past Psychological History: No Psychological Hx Reported Smoking Status: Former smoker Past Alcohol Use History: None Reported Additional Past Alcohol Use History / Comment(s): Has been smoking for 30 yrs, QUIT 1 WEEKS AGO Past Drug Use History: None Reported - Past Family History Mother Family Medical History: No Reported History Medications and Allergies Home Medications Medication Instructions Recorded Confirmed Type Carvedilol [Coreg] 12.5 mg PO BID #60 tablet 11/22/20 09/02/21 Rx Spironolactone [Aldactone] 25 mg PO DAILY 30 Days #30 tab 11/22/20 09/02/21 Rx Ferrous Sulfate [Iron (65 MG 325 mg PO DAILY 12/08/20 09/02/21 History Elemental)] traMADol HCL [Ultram] 50 mg PO Q4-6H PRN 12/08/20 09/02/21 History Allopurinol [Zyloprim] 200 mg PO DAILY 09/02/21 09/02/21 History Aspirin 325 mg PO BID 09/02/21 09/02/21 History Ergocalciferol [Vitamin D2 (1250 1,250 mcg PO Q14D 09/02/21 09/02/21 History Mcg = 03502 Iu)] Furosemide [Lasix] 20 mg PO DAILY 09/02/21 09/02/21 History Potassium Chloride [Klor-Con 20] 20 meq PO DAILY 09/02/21 09/02/21 History amLODIPine [Norvasc] 5 mg PO DAILY 09/02/21 09/02/21 History lisinopriL [Zestril] 10 mg PO BID 09/02/21 09/02/21 History Allergies Allergy/AdvReac Type Severity Reaction Status Date / Time morphine Allergy Rash/Hives Verified 09/02/21 23:52 Penicillins Allergy Rash/Hives Verified 09/02/21 23:52 pineapple Allergy Anaphylaxis Verified 09/02/21 23:52 Physical Exam Vitals: Vital Signs Temp Pulse Resp BP BP Pulse Ox 09/03/21 12:00 97.9 F 18 119/83 99 09/03/21 10:57 102 H 24 128/83 96 09/03/21 09:49 96 09/03/21 09:34 109 H 22 158/105 95 09/03/21 08:14 111 H 16 148/101 98 09/03/21 06:28 98.1 F 110 H 22 121/91 97 09/03/21 06:00 112 H 22 125/100 96 09/03/21 05:00 109 H 22 136/89 97 09/03/21 04:49 111 H 20 149/76 95 09/03/21 04:20 140/92 09/03/21 04:11 105 H 20 132/95 94 L 09/03/21 04:05 112 H 20 142/98 96 09/03/21 03:50 109 H 22 138/117 95 09/03/21 03:45 111 H 20 138/104 95 09/03/21 03:40 112 H 20 149/92 95 09/03/21 03:34 111 H 20 144/99 96 09/03/21 03:29 111 H 20 143/102 96 09/03/21 03:24 110 H 20 139/113 96 09/03/21 03:20 112 H 22 138/97 96 09/03/21 03:15 111 H 20 128/113 95 09/03/21 03:10 114 H 20 126/105 96 09/03/21 03:05 114 H 22 161/103 97 09/03/21 03:00 104 H 22 157/97 96 09/03/21 02:56 113 H 20 148/105 94 L 09/03/21 02:50 112 H 20 154/128 95 09/03/21 02:00 110 H 20 145/106 95 09/03/21 01:30 135/113 09/03/21 01:25 115 H 22 143/84 96 09/03/21 01:20 108 H 20 149/100 94 L 09/03/21 01:15 110 H 20 124/111 97 09/03/21 01:10 112 H 20 126/106 96 09/03/21 01:05 114 H 18 147/118 96 09/03/21 00:39 114 H 18 138/108 97 09/03/21 00:07 117 H 20 149/133 96 09/02/21 23:40 121 H 20 156/117 97 09/02/21 23:16 115 H 22 157/113 96 09/02/21 22:24 125 H 22 149/109 96 09/02/21 21:39 98.9 F 129 H 22 152/108 97 Intake and Output 09/03/21 09/03/21 09/03/21 06:59 14:59 22:59 Intake Total 250.00 89.993 Output Total 400 Balance 250.00 -310.007 Intake: Intake, IV Titration 250.00 89.993 Amount Heparin Sod,Pork in 0.45% 89.993 NaCl 25,000 unit In 0.45 % NaCl 1 250ml.bag @ 12 UNITS/KG/HR 8.709 mls/hr IV .Q24H JORGE Rx#: [id number] Nitroglycerin-D5w Pmx 50 250.00 mg In Dextrose/Water 1 250ml.bag @ 20 MCG/MIN 6 mls/hr IV .Q24H ONE Rx#: [id number] Output: Urine 400 Other: Weight 72.575 kg - Constitutional General appearance: average body habitus, cooperative, disheveled - EENT Eyes: EOMI, PERRLA Ears: bilateral: normal - Neck Neck: normal ROM Carotids: bilateral: upstroke normal Thyroid: bilateral: normal size - Respiratory Respiratory: bilateral: CTA - Cardiovascular Rhythm: regular Heart sounds: normal: S1, S2 - Gastrointestinal General gastrointestinal: normal bowel sounds - Integumentary Integumentary: normal turgor - Neurologic Neurologic: CNII-XII intact - Musculoskeletal Musculoskeletal: gait normal, generalized weakness, strength equal bilaterally - Psychiatric Psychiatric: A&O x's 3, appropriate affect, intact judgment & insight Results - Laboratory Findings CBC and BMP: 09/02/21 22:22 09/02/21 22:22 PT/INR, D-dimer PT 18.6 sec (9.0-12.0) H 09/02/21 22:22 INR 1.9 (<1.2) H 09/02/21 22:22 D-Dimer 10.41 mg/L FEU (<0.60) H 09/02/21 22:22 Abnormal lab findings: Abnormal Labs 09/02/21 09/02/21 09/02/21 22:22 22:22 22:22 WBC 14.2 H Neutrophils # 11.1 H Monocytes # 1.1 H PT 18.6 H INR 1.9 H D-Dimer 10.41 H Sodium Carbon Dioxide BUN Creatinine Glucose Plasma Lactic Acid Elvis Total Bilirubin AST ALT Troponin I Total Protein Albumin Urine Protein 3+ H Urine Ketones Trace H Urine Blood Small H Amorphous Sediment Occasional H Hyaline Casts 12 H Urine Mucus Rare H 09/02/21 09/02/21 09/02/21 22:22 22:22 22:22 WBC Neutrophils # Monocytes # PT INR D-Dimer Sodium 131 L Carbon Dioxide 17 L BUN 56 H Creatinine 1.53 H Glucose 151 H Plasma Lactic Acid Elvis 2.4 H* Total Bilirubin 2.0 H AST 356 H ALT 584 H Troponin I 3.510 H* Total Protein 5.9 L Albumin 3.4 L Urine Protein Urine Ketones Urine Blood Amorphous Sediment Hyaline Casts Urine Mucus 09/03/21 09/03/21 02:59 07:38 WBC Neutrophils # Monocytes # PT INR D-Dimer Sodium Carbon Dioxide BUN Creatinine Glucose Plasma Lactic Acid Elvis Total Bilirubin AST ALT Troponin I 3.750 H* 2.470 H* Total Protein Albumin Urine Protein Urine Ketones Urine Blood Amorphous Sediment Hyaline Casts Urine Mucus Assessment and Plan Assessment: Acute hypoxic respiratory failure due to exacerbation of CHF acute on chronic systolic heart failure Acute on chronic systolic heart failure Non-ST segment elevated CA Nonischemic cardiomyopathy Bruising of lower extremity of unclear etiology Hypertension hypertensive cardiovascular disease Acute kidney injury Plan: Continue gentle diuresis Continue BiPAP support Further definitive intervention for acute CA per cardiovascular services Repeat labs in the morning Time with Patient: Greater than 30
--- NOTE | 2021-09-03 23:43 | CT ---
EXAMINATION TYPE: CT abdomen pelvis wo con DATE OF EXAM: 09/03/2021 COMPARISON: 11/18/2020 HISTORY: abdominal pain CT DLP: 641.1 mGycm Automated exposure control for dose reduction was used. There is some mild atelectasis at the posterior lung bases. There is no pleural effusion. Heart is en larged. There is no pericardial effusion. There is increased density in the gallbladder that could be vicarious excretion. Liver shows no focal defect. Plain is intact. There is no pancreatic mass. The stomach is intact. There is extensive vasc ular calcification. There is no adrenal mass. There is bilateral adrenal hypertrophy. Kidneys show no hydronephrosis. There is some mild renal vascular calcification. There is no evidence of a renal mas s. There is no retroperitoneal adenopathy. Abdominal aorta is atheromatous. There is contrast in the urinary bladder from CT scan earlier today. There is no inguinal hernia. There is probably a small amount of free fluid in the pelvis. There is n o mesenteric edema. There is no ascites or free air. There is no bowel obstruction. Lumbar vertebra h ave normal alignment. There is no compression fracture. The bony pelvis is intact. The hip joints are intact. IMPRESSION: Mild subsegmental atelectasis at the lung bases. Cardiomegaly. There is tiny amount of free fluid in the pelvis of uncertain significance. Fluid appears new compared to old exam.
[2021-09-04] MEDS: HYDROmorphone 0.5 MG/0.5 ML SYRINGE IVP PRN (00:54)
[2021-09-04] MEDS: HEPARIN SODIUM 1,000 UN/ML (10ML VL) IV PRN ×3 (01:07→20:39)
[2021-09-04] MEDS: SODIUM CHLORIDE 0.9% 1,000 ML IV SCH (05:45)
[2021-09-04] MEDS: HEPARIN SOD,PORK IN 0.45% NACL 25,000 UNIT in 0.45% NACL 1 250ML.BAG IV SCH (06:50)
[2021-09-04] MEDS: carvediloL 12.5 MG TAB PO SCH ×2 (06:51→17:38)
[2021-09-04 07:12] LABS: INR 1.6 (<1.2); Prothrombin Time 16.2 sec (9.0-12.0)
[2021-09-04 07:21] LABS: Basophils % (A) 0 %; Eosinophils % (A) 0 %; HCT 45.1 % (39.0-53.0); HGB 14.7 gm/dL (13.0-17.5); Lymphocytes # (A) 1.5 k/uL (1.0-4.8); Lymphocytes % (A) 14 %; MCH 27.6 pg (25.0-35.0); MCHC 32.6 g/dL (31.0-37.0); MCV 84.7 fL (80.0-100.0); Mean Platelet Volume 11.2; Monocytes # (A) 1.1 k/uL (0-1.0); Monocytes % (A) 11 %; Neutrophils # (A) 7.6 k/uL (1.3-7.7); Neutrophils % (A) 72 %; Platelet Count 148 k/uL (150-450); RBC 5.33 m/uL (4.30-5.90); RDW 15.7 % (11.5-15.5); WBC 10.7 k/uL (3.8-10.6)
[2021-09-04 07:46] LABS: Albumin 3.1 g/dL (3.5-5.0); Calcium 9.2 mg/dL (8.4-10.2); Total Protein 5.6 g/dL (6.3-8.2)
[2021-09-04 08:02] LABS: Potassium 6.3 mmol/L (3.5-5.1)
[2021-09-04] MEDS: allopurinoL 100 MG TAB PO SCH (10:21)
[2021-09-04] MEDS: FUROSEMIDE 40 MG TAB PO SCH ×2 (10:22→17:38)
[2021-09-04] MEDS: traMADol 50 MG TAB PO PRN ×2 (10:22→22:47)
[2021-09-04] MEDS: FERROUS SULFATE 325 MG TAB PO SCH (10:22)
[2021-09-04] MEDS: amLODIPine 5 MG TAB PO SCH (10:23)
[2021-09-04] MEDS: POTASSIUM CHLORIDE ER 20 MEQ TAB.ER PO SCH (10:23)
[2021-09-04] MEDS: ASPIRIN 81 MG PO SCH (10:23)
[2021-09-04 10:40] LABS: Calcium 9.1 mg/dL (8.4-10.2)
[2021-09-04 10:45] LABS: Potassium 6.1 mmol/L (3.5-5.1)
--- NOTE | 2021-09-04 10:52 | HP ---
HISTORY AND PHYSICAL This 51-year-old white male came to the hospital with elevated BNP, fluid overload, congestive heart failure changes. He is a 30-year smoker. History of TIAs, PVCs, right bundle branch block, ejection fraction 30% to 35% in the past. Admitted to hospital with shortness of breath. He ran out of his medications one day prior to admission. D- dimer was 10. INR was 1.9. Sodium 131, potassium 4.6. Cardiovascular: S1-S2. Lungs: Rales at the base. Hematology: Negative Homans. Psych: Fair mood and affect. Neurologic: Alert oriented x3. Ophthalmologic: Pupils equal, round and reactive to light and accommodation. Fourteen-point review of systems otherwise negative. PHYSICAL EXAMINATION: GI soft. Tenderness to palpation, diffuse. Cardiovascular: S1-S2. Lungs: Rales at the base. Hematology: Negative Homans. Two plus edema, 3+ edema. Neurologic: Alert and oriented x3. Ophthalmologic: Pupils equal, round, reactive to light and accommodation. ASSESSMENT: 1. [id number] myocardial infarction. 2. Elevated liver function tests. 3. Hepatic congestion. 4. Elevated D-dimer. CT negative for PE. 5. Systolic heart failure, reduced ejection fraction. 6. Nonischemic cardiomyopathy. 7. Hypertension. 8. Acute on chronic kidney disease. 9. Nonobstructive coronary artery disease. 10.Nicotine addiction. 11.Former alcohol. PLAN: Echo. Heparin drip, aspirin, Lasix 40 b.i.d. Continue nitroglycerin drip, amlodipine, carvedilol. Prognosis guarded. MMODL / IJN: [id number] /
[2021-09-04] MEDS: DOBUTamine DRIP 500 MG in DEXTROSE/WATER 1 250ML.BAG IV SCH (11:01)
[2021-09-04] MEDS ORDERED: SODIUM POLYSTYRENE SULFONATE 15 GM/60 ML BOTTLE PO STA (11:54)
--- NOTE | 2021-09-04 13:38 | P.PN ---
Subjective This is a pleasant 51-year-old patient amount past medical history significant for non-ischemic cardiomyopathy, left ventricular ejection fraction 3035 percent with right bundle branch block pattern and frequent PVCs, TIA's x 2, osteoarthritis, former smoker (30+ smoker, smoking 1/2 ppd, recently quit on 11/23/20), former ETOH (quit 14+ years ago), hypertension. He follows in the office with Dr. Rider. We have been asked to see in consultation for congestive heart failure and possible NSTEMI. Patient seen and examined in the emergency department. He presents to emergency with worsening shortness of breath , he also states he recently ran out of this medications. He denies any chest pain, palpitations, lightheadedness, dizziness, presyncope or syncope. He does have some symptoms of orthopnea and lower extremity edema. DIAGNOSTICS Echocardiogram this admission revealed EF 2025 percent, LA severely dilated, moderate mitral regurgitation, mild tricuspid regurgitation, moderate pulmonary hypertension with an RVSP of 54 mmHg. Previous Echocardiogram in the office 03/2021- EF 40%, severe LVH, mild aortic regurgitation, mild to moderate mitral regurgitation mild tricuspid regurgitation Echo at [facility]- 11/13/20 - EF 30-35%, Most recent cardiac cath at [facility]- 11/13/20- mild to moderate diffuse disease in LAD without high-grade stenosis. LAD 20-30% lesion, Left circumflex mild to moderate disease 30-50%. 09/04/21: Patient seen and examined at bedside, he continues to be short of breath, no improvement. Labs reviewed, sodium 130, potassium 6.1, BUN 76, serum crit 2.1. He's currently maintained on aspirin 81 mg daily, carvedilol 12.5 mg twice a day, Lasix 40 mg PO BID, IV heparin. PHYSICAL EXAMINATION Blood pressure 139/70, heart rate 83, afebrile, oxygen saturation is greater rizwan n 92% on 2 L nasal cannula CONSTITUTIONAL: Short of breath HEENT: Neck Supple. No JVD. CHEST EXAMINATION: Lungs severe decreased air exchange, crackles bilaterally. HEART EXAMINATION: Regular Tachycardic rate and rhythm. S1, S2 heard. Systolic murmur right sternal border ABDOMEN: Soft, nontender. Positive bowel sounds. EXTREMITIES: 2+ peripheral pulses, 2+ bilateral lower extremity edema and no calf tenderness. NEUROLOGIC EXAMINATION: Patient is awake, alert and oriented x3. ASSESSMENT NSTEMI Elevated LFTs, likely hepatic congestion Elevated D dimer, CT negative PE Acute Systolic Heart failure with reduced EF 20-25% Non-ischemic cardiomyopathy Hypertension Acute on chronic kidney disease History non-ischemic cardiomyopathy Non obstructive coronary artery dsiease Former smoker Former ETOH use History of TIAs PLAN Start Dobutamine IV 2.5mcg/hr Continue IV heparin drip Continue aspirin Due to acute kidney injury will continue PO Lasix 40mg BID Continue amlodipine, carvedilol Statin on hold due to elevated liver enzymes Not on ACEI/ARB due to renal function I/Os, daily weights, monitor renal function and electrolytes Patient will most likely need cardiac catheterization, will stabilize and diuresis patient first, monitor labs at this time Further recommendations based on clinical course Nurse Practitioner note has been reviewed, I agree with a documented findings and plan of care. Patient was seen and examined. Objective - Vital Signs Vital signs: Vital Signs Temp 98.1 F 09/04/21 08:00 Pulse 83 09/04/21 08:00 Resp 22 09/04/21 08:00 BP 113/78 09/04/21 08:00 Pulse Ox 100 09/04/21 08:00 Intake & Output 09/03/21 09/04/21 09/04/21 18:59 06:59 18:59 Intake Total 89.993 194.368 69.239 Output Total 400 250 Balance -310.007 -55.632 69.239 Weight 72.575 kg 81.3 kg Intake: Intake, IV Titration 89.993 154.368 69.239 Amount Heparin Sod,Pork in 0.45% 89.993 154.368 69.239 NaCl 25,000 unit In 0.45 % NaCl 1 250ml.bag @ 12 UNITS/KG/HR 8.709 mls/hr IV .Q24H [facility] Rx#: [id number] Oral 40 Output: Urine 400 250 Other: Voiding Method Urinal Urinal - Labs CBC & Chem 7: 09/04/21 06:44 09/04/21 10:11 Labs: Abnormal Lab Results - Last 24 Hours (Table) 09/04/21 09/04/21 09/04/21 Range/Units 06:44 06:44 06:44 WBC 10.7 H (3.8-10.6) k/uL RDW 15.7 H (11.5-15.5) % Plt Count 148 L (150-450) k/uL Monocytes # 1.1 H (0-1.0) k/uL PT 16.2 H (9.0-12.0) sec INR 1.6 H (<1.2) Sodium 132 L (137-145) mmol/L Potassium 6.3 H* (3.5-5.1) mmol/L Carbon Dioxide 19 L (22-30) mmol/L BUN 68 H (9-20) mg/dL Creatinine 2.01 H (0.66-1.25) mg/dL Glucose 115 H (74-99) mg/dL Total Bilirubin 3.0 H (0.2-1.3) mg/dL AST 679 H (17-59) U/L ALT 861 H (4-49) U/L Total Protein 5.6 L (6.3-8.2) g/dL Albumin 3.1 L (3.5-5.0) g/dL 09/04/ Range/Units 10:11 WBC (3.8-10.6) k/uL RDW (11.5-15.5) % Plt Count (150-450) k/uL Monocytes # (0-1.0) k/uL PT (9.0-12.0) sec INR (<1.2) Sodium 130 L (137-145) mmol/L Potassium 6.1 H* (3.5-5.1) mmol/L Carbon Dioxide 20 L (22-30) mmol/L BUN 76 H (9-20) mg/dL Creatinine 2.17 H (0.66-1.25) mg/dL Glucose 120 H (74-99) mg/dL Total Bilirubin (0.2-1.3) mg/dL AST (17-59) U/L ALT (4-49) U/L Total Protein (6.3-8.2) g/dL Albumin (3.5-5.0) g/dL
[2021-09-05] MEDS: HYDROmorphone 0.5 MG/0.5 ML SYRINGE IVP PRN ×2 (00:10→08:58)
[2021-09-05 03:27] LABS: Calcium 8.7 mg/dL (8.4-10.2); Magnesium 2.6 mg/dL (1.6-2.3); Potassium 5.2 mmol/L (3.5-5.1)
[2021-09-05] MEDS: HEPARIN SOD,PORK IN 0.45% NACL 25,000 UNIT in 0.45% NACL 1 250ML.BAG IV SCH ×2 (03:41→13:45)
[2021-09-05] MEDS: HEPARIN SODIUM 1,000 UN/ML (10ML VL) IV PRN ×3 (03:43→19:48)
[2021-09-05] MEDS: carvediloL 12.5 MG TAB PO SCH ×2 (06:37→18:02)
[2021-09-05] MEDS: SODIUM CHLORIDE 0.9% 1,000 ML IV SCH (06:39)
[2021-09-05] MEDS: ASPIRIN 81 MG PO SCH (09:00)
[2021-09-05] MEDS: allopurinoL 100 MG TAB PO SCH (09:00)
[2021-09-05] MEDS: amLODIPine 5 MG TAB PO SCH (09:00)
[2021-09-05] MEDS: FUROSEMIDE 10 MG/ML 4 ML VIAL IV SCH ×2 (09:00→21:06)
[2021-09-05] MEDS: FERROUS SULFATE 325 MG TAB PO SCH (09:00)
--- NOTE | 2021-09-05 09:00 | PN ---
PROGRESS NOTE This is a 51-year-old white male with history nonischemic cardiomyopathy, LV ejection fraction 30% to 35%, right bundle branch block, frequent PVCs, TIAs, osteoarthritis, former smoker. No alcohol. Ran out of his medicines at home. He came in with severe systolic heart failure with severely dilated left atrium with mitral regurgitation and pulmonary hypertension. Ejection fraction 25% to 40%, which is down from 40% ejection fraction. His recent heart catheterization in the past showed about 30% to 50% blockage. He is still short of breath at this time. He is on carvedilol, Lasix, heparin, aspirin. BUN is 76-84, creatinine is up to 2.4. Cardiovascular S1, S2. Lungs scattered rhonchi and wheeze. Hematologic 2 to 3+ edema. Neurologic alert and oriented x3. Psych fair mood and affect. ASSESSMENT: 1. [id number] myocardial infarction. 2. congestion secondary to congestive heart failure. 3. Systolic heart failure. 4. Nonischemic cardiomyopathy,. 5. Hypertension. 6. Acute on chronic renal disease. 7. Nonobstructive coronary artery disease. 8. Former smoker. 9. Nicotine addiction. 10.Alcohol abuse. 11.History of transient ischemic attacks. Continue on dobutamine, Heparin, aspirin, oral Lasix, amlodipine, carvedilol status due to elevated LFTs. Wait for possible heart catheterization. Patient is stabilized from a pulmonary standpoint. MMODL / IJN: [id number] /
[2021-09-05 09:58] LABS: ALT 608 U/L (4-49); AST 178 U/L (17-59)
--- NOTE | 2021-09-05 10:04 | P.NPCON ---
History of Present Illness - Reason for Consult acute renal failure, chronic renal failure - History of Present Illness Reason for consultation: Acute kidney injury on chronic kidney disease History of present illness: Patient is a 51-year-old male seen in renal consultation for acute kidney injury on chronic kidney disease. Patient has chronic kidney disease stage IIIa with baseline creatinine in the range of 1.3-1.5. Patient presented to the hospital with shortness of breath and worsening edema. He is noted to have ejection fraction of 20-25% with moderate pulmonary hypertension. He is currently maintained on dobutamine as well as oral Lasix 40 mg twice daily. He did receive IV contrast on September 03 for a CTA which revealed no evidence of PE. CT of the abdomen and pelvis revealed no evidence of hydronephrosis. Patient still feels short of breath at times. Does have edema in the lower 70s. Has been voiding. No hematuria or dysuria. Urine output documented as 700 mL in the last 24 hours. Blood pressure stable. Denies use of nonsteroidals. Vital signs are stable. General: The patient appeared well nourished and normally developed. HEENT: Head exam is unremarkable. LUNGS: Breath sounds decreased. HEART: Rate and Rhythm are regular. ABDOMEN: Soft, no distention. EXTREMITITES: 1+ edema. Past Medical History Past Medical History: Hypertension, Osteoarthritis (OA) Additional Past Medical History / Comment(s): Constipation/bloating. Renal insufficiency, 80% kidney function, hx TIA's X2, 9 yrs ago X2, bulging disc (L4), back pain, ocassional numbness left leg. History of Any Multi-Drug Resistant Organisms: None Reported Past Surgical History: Appendectomy, Heart Catheterization Additional Past Surgical History / Comment(s): Right second and third toes reattached after lawnmower accident. Past Anesthesia/Blood Transfusion Reactions: No Reported Reaction Past Psychological History: No Psychological Hx Reported Smoking Status: Former smoker Past Alcohol Use History: None Reported Additional Past Alcohol Use History / Comment(s): Has been smoking for 30 yrs, QUIT 1 WEEKS AGO Past Drug Use History: None Reported - Past Family History Mother Family Medical History: No Reported History Medications and Allergies Home Medications Medication Instructions Recorded Confirmed Type Carvedilol [Coreg] 12.5 mg PO BID #60 tablet 11/22/20 09/02/21 Rx Spironolactone [Aldactone] 25 mg PO DAILY 30 Days #30 tab 11/22/20 09/02/21 Rx Ferrous Sulfate [Iron (65 MG 325 mg PO DAILY 12/08/20 09/02/21 History Elemental)] traMADol HCL [Ultram] 50 mg PO Q4-6H PRN 12/08/20 09/02/21 History Allopurinol [Zyloprim] 200 mg PO DAILY 09/02/21 09/02/21 History Aspirin 325 mg PO BID 09/02/21 09/02/21 History Ergocalciferol [Vitamin D2 (1250 1,250 mcg PO Q14D 09/02/21 09/02/21 History Mcg = 53074 Iu)] Furosemide [Lasix] 20 mg PO DAILY 09/02/21 09/02/21 History Potassium Chloride [Klor-Con 20] 20 meq PO DAILY 09/02/21 09/02/21 History amLODIPine [Norvasc] 5 mg PO DAILY 09/02/21 09/02/21 History lisinopriL [Zestril] 10 mg PO BID 09/02/21 09/02/21 History Allergies Allergy/AdvReac Type Severity Reaction Status Date / Time morphine Allergy Rash/Hives Verified 09/02/21 23:52 Penicillins Allergy Rash/Hives Verified 09/02/21 23:52 pineapple Allergy Anaphylaxis Verified 09/02/21 23:52 Physical Exam Vitals: Vital Signs Temp Pulse Resp BP Pulse Ox 09/05/21 08:18 100 09/05/21 08:00 97.8 F 91 22 122/89 96 09/05/21 04:00 97.6 F 91 20 119/82 98 09/05/21 02:00 86 20 09/05/21 00:00 97.7 F 86 20 107/78 98 09/04/21 20:00 97.6 F 94 20 118/87 100 09/04/21 16:00 97.9 F 89 18 128/96 100 09/04/21 12:00 98.3 F 65 18 111/75 97 Intake and Output 09/04/21 09/05/21 09/05/21 22:59 06:59 14:59 Intake Total 393.991 172.991 118 Output Total 700 425 Balance 393.991 -527.009 -307 Intake: Intake, IV Titration 153.991 172.991 Amount DOBUTamine IP 500 mg In 26.221 Dextrose/Water 1 250ml. bag @ 5 MCG/KG/MIN 12.195 mls/hr IV .[id number] [facility] Rx#:[id number] Heparin Sod,Pork in 0.45% 127.77 52.991 NaCl 25,000 unit In 0.45 % NaCl 1 250ml.bag @ 12 UNITS/KG/HR 8.709 mls/hr IV .Q24H [facility] Rx#: [id number] Sodium Chloride 0.9% 1, 120 000 ml @ 20 mls/hr IV . Q24H [facility] Rx#:[id number] Oral 240 118 Output: Urine 700 425 Other: Voiding Method Urinal Urinal Weight 81.2 kg Results - Lab Results Most recent lab results Calcium 8.7 mg/dL (8.4-10.2) 09/05/21 02:50 Magnesium 2.6 mg/dL (1.6-2.3) H 09/05/21 02:50 09/04/21 06:44 09/05/21 02:50 Assessment and Plan Plan: Assessment: 1. Acute kidney injury mostly prerenal secondary to cardiorenal syndrome. Creatinine peaked at 2.17 this admission and is 1.82 today. No evidence of hydronephrosis noted on CAT scan. He also received IV contrast dye on September 03 for CTA. UA positive for proteinuria. 2. Hypervolemic hyponatremia. 3. Chronic kidney disease stage III with baseline creatinine in the range of 1.3-1.5 secondary to nephrosclerosis and cardiorenal syndrome. 4. Hyperkalemia secondary to acute kidney injury and metabolic acidosis. He was also on potassium supplementation which has been discontinued. 5. Volume overload. 6. Acute on chronic systolic CHF with ejection fraction of 20-25% with moderate pulmonary hypertension. 7. Metabolic acidosis secondary to acute kidney injury. Plan: Stop oral Lasix. Add IV Lasix 40 mg twice daily. Also on dobutamine. 1200 mL fluid restriction. Repeat UA and quantify proteinuria. Continue to monitor renal function and urine output. Thank you for the consultation. I will continue to follow the patient with you during his hospital stay
[2021-09-05] MEDS: DOBUTamine DRIP 500 MG in DEXTROSE/WATER 1 250ML.BAG IV SCH (10:09)
--- NOTE | 2021-09-05 11:39 | XR ---
EXAMINATION TYPE: XR chest 1V DATE OF EXAM: 09/05/2021 COMPARISON: 09/02/2021 HISTORY: 51 year-old male shortness of breath TECHNIQUE: Single frontal view of the chest is obtained. FINDINGS: Heart is mildly enlarged. Aorta and pulmonary vasculature within normal limits. Mild hyperinflation. No consolidation or pleural effusion. IMPRESSION: Mild cardiomegaly. Otherwise, no acute process.
--- NOTE | 2021-09-05 12:24 | P.PN ---
Subjective This is a pleasant 51-year-old patient amount past medical history significant for non-ischemic cardiomyopathy, left ventricular ejection fraction 3035 percent with right bundle branch block pattern and frequent PVCs, TIA's x 2, osteoarthritis, former smoker (30+ smoker, smoking 1/2 ppd, recently quit on 11/23/20), former ETOH (quit 14+ years ago), hypertension. He follows in the office with Dr. Rider. We have been asked to see in consultation for congestive heart failure and possible NSTEMI. Patient seen and examined in the emergency department. He presents to emergency with worsening shortness of breath , he also states he recently ran out of this medications. He denies any chest pain, palpitations, lightheadedness, dizziness, presyncope or syncope. He does have some symptoms of orthopnea and lower extremity edema. DIAGNOSTICS Echocardiogram this admission revealed EF 2025 percent, LA severely dilated, moderate mitral regurgitation, mild tricuspid regurgitation, moderate pulmonary hypertension with an RVSP of 54 mmHg. Previous Echocardiogram in the office 03/2021- EF 40%, severe LVH, mild aortic regurgitation, mild to moderate mitral regurgitation mild tricuspid regurgitation Echo at [facility]- 11/13/20 - EF 30-35%, Most recent cardiac cath at [facility]- 11/13/20- mild to moderate diffuse disease in LAD without high-grade stenosis. LAD 20-30% lesion, Left circumflex mild to moderate disease 30-50%. 09/05/21: Patient seen and examined at bedside, he continues to be short of breath, some improvement today. He is having some chest discomfort with palpation to the chest or when he takes a deep breath. Continues to have lower extremity edema. He was started on IV dobutamine yesterday and increased to 5mcg/hr. He is also maintained on aspirin 81 mg daily, carvedilol 12.5 mg twice a day, Lasix 40 mg IV BID per nephrology, IV heparin. Telemetry reviewed patient sinus mechanism, occasional PVCs. Patient with 700mL urine output over the past 24 hours. PHYSICAL EXAMINATION Blood pressure 129/88, heart rate 91, afebrile, oxygen saturation is greater than 92% on 2 L nasal cannula CONSTITUTIONAL: Short of breath HEENT: Neck Supple. No JVD. CHEST EXAMINATION: Lungs severe decreased air exchange, crackles bilaterally. HEART EXAMINATION: Regular rate and rhythm. S1, S2 heard. Systolic ejection murmur at apex ABDOMEN: Soft, nontender. Positive bowel sounds. EXTREMITIES: 2+ peripheral pulses, 2+ bilateral lower extremity edema and no calf tenderness. NEUROLOGIC EXAMINATION: Patient is awake, alert and oriented x3. ASSESSMENT NSTEMI Elevated LFTs, likely hepatic congestion Elevated D dimer, CT negative PE Acute Systolic Heart failure with reduced EF 20-25% Non-ischemic cardiomyopathy Hypertension Acute on chronic kidney disease History non-ischemic cardiomyopathy Non obstructive coronary artery dsiease Former smoker Former ETOH use History of TIAs PLAN Continue Dobutamine IV 5mcg/hr IV Lasix 40mg BID started by nephrology Continue IV heparin drip Continue aspirin, amlodipine, carvedilol Statin on hold due to elevated liver enzymes Not on ACEI/ARB due to renal function I/Os, daily weights, monitor renal function and electrolytes Patient will most likely need cardiac catheterization, will stabilize and diuresis patient first, monitor labs at this time Further recommendations based on clinical course Nurse Practitioner note has been reviewed, I agree with a documented findings and plan of care. Patient was seen and examined. Objective - Vital Signs Vital signs: Vital Signs Temp 98.3 F 09/05/21 12:00 Pulse 91 09/05/21 12:00 Resp 20 09/05/21 12:00 BP 129/88 09/05/21 12:00 Pulse Ox 98 09/05/21 12:00 Intake & Output 09/04/21 09/05/21 09/05/21 18:59 06:59 18:59 Intake Total 95.460 540.761 341.779 Output Total 700 425 Balance 95.460 -159.239 -83.221 Weight 81.2 kg Intake: Intake, IV Titration 95.460 300.761 223.779 Amount DOBUTamine DRIP 500 mg In 26.221 223.779 Dextrose/Water 1 250ml. bag @ 5 MCG/KG/MIN 12.195 mls/hr IV .[id number] [facility] Rx#:[id number] Heparin Sod,Pork in 0.45% 69.239 180.761 NaCl 25,000 unit In 0.45 % NaCl 1 250ml.bag @ 12 UNITS/KG/HR 8.709 mls/hr IV .Q24H [facility] Rx#: [id number] Sodium Chloride 0.9% 1, 120 000 ml @ 20 mls/hr IV . Q24H [facility] Rx#:[id number] Oral 240 118 Output: Urine 700 425 Other: Voiding Method Urinal Urinal - Labs CBC & Chem 7: 09/04/21 06:44 09/05/21 02:50 Labs: Abnormal Lab Results - Last 24 Hours (Table) 09/04/21 09/04/21 09/05/21 Range/Units 18:26 21:59 02:50 APTT 33.5 H (22.0-30.0) sec Sodium 129 L (137-145) mmol/L Potassium 5.2 H 5.2 H (3.5-5.1) mmol/L Carbon Dioxide 20 L (22-30) mmol/L BUN 83 H (9-20) mg/dL Creatinine 1.82 H (0.66-1.25) mg/dL Glucose 144 H (74-99) mg/dL Magnesium 2.6 H (1.6-2.3) mg/dL AST (17-59) U/L ALT (4-49) U/L 09/05/21 09/05/21 Range/Units 02:50 09:21 APTT 31.4 H (22.0-30.0) sec Sodium (137-145) mmol/L Potassium (3.5-5.1) mmol/L Carbon Dioxide (22-30) mmol/L BUN (9-20) mg/dL Creatinine (0.66-1.25) mg/dL Glucose (74-99) mg/dL Magnesium (1.6-2.3) mg/dL AST 178 H (17-59) U/L ALT 608 H (4-49) U/L
--- NOTE | 2021-09-05 13:50 | P.PN ---
Subjective Progress Note Date: 09/04/21 Principal diagnosis: Acute hypoxic respiratory failure due to exacerbation of CHF acute on chronic systolic heart failure Acute on chronic systolic heart failure Non-ST segment elevated MO Nonischemic cardiomyopathy Bruising of lower extremity of unclear etiology Hypertension hypertensive cardiovascular disease Acute kidney injury 09/04/2021, patient seen eval reexamined, patient continues short of breath, aggressive to being diuresed, labs from today reviewed sodium is 1:30, potassium 6.1, BUN 76, creatinine 2.1, patient remains on the Lasix and IV heparin cardiovascular disease following, Patient is a 51-year-old male with history of the cardiomyopathy started having shortness of breath few days ago with increasing lower extremity swelling, development of orthopnea patient however denies any fever or chills denies any cough or sputum production, symptoms got worse since one day prior to hospitalization since patient ran out of his medications, patient has a baseline nonischemic cardiomyopathy with ejection fraction of 30%, extensive history of smoking and nicotine use [id number] still smoking off and on lately however have quit smoking and also alcohol, on arrival patient noted to be tachycardic and tachypneic hypertensive, patient noted to have elevated prolapse cardiovascular services have been consulted, patient currently on heparin drip, due to hypoxia patient started on BiPAP with a setting of 12/6 with 40% oxygen, unable to obtain a good seal because of facial hair and air leak, admitted chest x-ray significant for cardiomegaly, computed tomography scan of the chest negative for pulmonary embolism showed bilateral subsegmental atelectasis at the bases, cardiomegaly remains unchanged, patient also complaining of some bruises in the lower extremity which are relatively new, admit labs were significant for leukocytosis at 14,000, INR of 1.9, sodium 131, CO2 of 17, BUN/creatinine 56 1.53, and lactic acid level is 2.4, came down to 1.6, troponin were 3.5 continue to go up now showing a downward trend of 2.4, BNP is elevated over 25,000, COVID-19 is negative, Objective - Vital Signs Vital signs: Vital Signs Temp 98.1 F 09/04/21 08:00 Pulse 83 09/04/21 08:00 Resp 22 09/04/21 08:00 BP 113/78 09/04/21 08:00 Pulse Ox 100 09/04/21 08:00 Intake & Output 09/03/21 09/04/21 09/04/21 18:59 06:59 18:59 Intake Total 89.993 194.368 69.239 Output Total 400 250 Balance -310.007 -55.632 69.239 Weight 72.575 kg 81.3 kg Intake: Intake, IV Titration 89.993 154.368 69.239 Amount Heparin Sod,Pork in 0.45% 89.993 154.368 69.239 NaCl 25,000 unit In 0.45 % NaCl 1 250ml.bag @ 12 UNITS/KG/HR 8.709 mls/hr IV .Q24H [facility] Rx#: [id number] Oral 40 Output: Urine 400 250 Other: Voiding Method Urinal Urinal - Exam - Constitutional General appearance: average body habitus, cooperative, disheveled - EENT Eyes: EOMI, PERRLA Ears: bilateral: normal - Neck Neck: normal ROM Carotids: bilateral: upstroke normal Thyroid: bilateral: normal size - Respiratory Respiratory: bilateral: CTA - Cardiovascular Rhythm: regular Heart sounds: normal: S1, S2 - Gastrointestinal General gastrointestinal: normal bowel sounds - Integumentary Integumentary: normal turgor - Neurologic Neurologic: CNII-XII intact - Musculoskeletal Musculoskeletal: gait normal, generalized weakness, strength equal bilaterally - Psychiatric Psychiatric: A&O x's 3, appropriate affect, intact judgment & insight - Labs CBC & Chem 7: 09/04/21 06:44 09/05/21 02:50 Labs: Abnormal Lab Results - Last 24 Hours (Table) 09/04/21 09/04/21 09/04/21 Range/Units 06:44 06:44 06:44 WBC 10.7 H (3.8-10.6) k/uL RDW 15.7 H (11.5-15.5) % Plt Count 148 L (150-450) k/uL Monocytes # 1.1 H (0-1.0) k/uL PT 16.2 H (9.0-12.0) sec INR 1.6 H (<1.2) Sodium 132 L (137-145) mmol/L Potassium 6.3 H* (3.5-5.1) mmol/L Carbon Dioxide 19 L (22-30) mmol/L BUN 68 H (9-20) mg/dL Creatinine 2.01 H (0.66-1.25) mg/dL Glucose 115 H (74-99) mg/dL Total Bilirubin 3.0 H (0.2-1.3) mg/dL AST 679 H (17-59) U/L ALT 861 H (4-49) U/L Total Protein 5.6 L (6.3-8.2) g/dL Albumin 3.1 L (3.5-5.0) g/dL 09/04/ Range/Units 10:11 WBC (3.8-10.6) k/uL RDW (11.5-15.5) % Plt Count (150-450) k/uL Monocytes # (0-1.0) k/uL PT (9.0-12.0) sec INR (<1.2) Sodium 130 L (137-145) mmol/L Potassium 6.1 H* (3.5-5.1) mmol/L Carbon Dioxide 20 L (22-30) mmol/L BUN 76 H (9-20) mg/dL Creatinine 2.17 H (0.66-1.25) mg/dL Glucose 120 H (74-99) mg/dL Total Bilirubin (0.2-1.3) mg/dL AST (17-59) U/L ALT (4-49) U/L Total Protein (6.3-8.2) g/dL Albumin (3.5-5.0) g/dL Assessment and Plan Assessment: Acute hypoxic respiratory failure due to exacerbation of CHF acute on chronic systolic heart failure Acute on chronic systolic heart failure Non-ST segment elevated MO Elevated liver enzymes combination of history of alcohol and liver disease passive hepatic congestion Nonischemic cardiomyopathy Bruising of lower extremity of unclear etiology Hypertension hypertensive cardiovascular disease Acute kidney injury Plan: Continue gentle diuresis Continue BiPAP support Further definitive intervention for acute MO per cardiovascular services Repeat labs in the morning Trend liver functions Time with Patient: Greater than 30
--- NOTE | 2021-09-05 13:52 | P.PN ---
Subjective Progress Note Date: 09/05/21 Principal diagnosis: Acute hypoxic respiratory failure due to exacerbation of CHF acute on chronic systolic heart failure Acute on chronic systolic heart failure Non-ST segment elevated RI Nonischemic cardiomyopathy Bruising of lower extremity of unclear etiology Hypertension hypertensive cardiovascular disease Acute kidney injury 09/05/2021, shouldn't seen evaluated examined during the rounds labs reviewed medications reviewed, LFT showing a downward trend, hypertension improved as well, stable renal functions, patient is less short of breath, on 3 L nasal cannula, patient has been using BiPAP support 09/04/2021, patient seen eval reexamined, patient continues short of breath, aggressive to being diuresed, labs from today reviewed sodium is 1:30, potassium 6.1, BUN 76, creatinine 2.1, patient remains on the Lasix and IV heparin cardiovascular disease following, Patient is a 51-year-old male with history of the cardiomyopathy started having shortness of breath few days ago with increasing lower extremity swelling, development of orthopnea patient however denies any fever or chills denies any cough or sputum production, symptoms got worse since one day prior to hospitalization since patient ran out of his medications, patient has a baseline nonischemic cardiomyopathy with ejection fraction of 30%, extensive history of smoking and nicotine use [id number] still smoking off and on lately however have quit smoking and also alcohol, on arrival patient noted to be tachycardic and tachypneic hypertensive, patient noted to have elevated prolapse cardiov ascular services have been consulted, patient currently on heparin drip, due to hypoxia patient started on BiPAP with a setting of 12/6 with 40% oxygen, unable to obtain a good seal because of facial hair and air leak, admitted chest x-ray significant for cardiomegaly, computed tomography scan of the chest negative for pulmonary embolism showed bilateral subsegmental atelectasis at the bases, card iomegaly remains unchanged, patient also complaining of some bruises in the lower extremity which are relatively new, admit labs were significant for leukocytosis at 14,000, INR of 1.9, sodium 131, CO2 of 17, BUN/creatinine 56 1.53, and lactic acid level is 2.4, came down to 1.6, troponin were 3.5 continue to go up now showing a downward trend of 2.4, BNP is elevated over 25,000, COVID-19 is negative, Objective - Vital Signs Vital signs: Vital Signs Temp 98.3 F 09/05/21 12:00 Pulse 91 09/05/21 12:00 Resp 20 09/05/21 12:00 BP 129/88 09/05/21 12:00 Pulse Ox 98 09/05/21 12:00 Intake & Output 09/04/21 09/05/21 09/05/21 18:59 06:59 18:59 Intake Total 95.460 540.761 542.593 Output Total 700 425 Balance 95.460 -159.239 117.593 Weight 81.2 kg Intake: Intake, IV Titration 95.460 300.761 424.593 Amount DOBUTamine DRIP 500 mg In 26.221 223.779 Dextrose/Water 1 250ml. bag @ 5 MCG/KG/MIN 12.195 mls/hr IV .[id number] [facility] Rx#:[id number] Heparin Sod,Pork in 0.45% 69.239 180.761 200.814 NaCl 25,000 unit In 0.45 % NaCl 1 250ml.bag @ 12 UNITS/KG/HR 8.709 mls/hr IV .Q24H JORGE Rx#: [id number] Sodium Chloride 0.9% 1, 120 000 ml @ 20 mls/hr IV . Q24H JORGE Rx#:[id number] Oral 240 118 Output: Urine 700 425 Other: Voiding Method Urinal Urinal Urinal - Exam - Constitutional General appearance: average body habitus, cooperative, disheveled - EENT Eyes: EOMI, PERRLA Ears: bilateral: normal - Neck Neck: normal ROM Carotids: bilateral: upstroke normal Thyroid: bilateral: normal size - Respiratory Respiratory: bilateral: CTA - Cardiovascular Rhythm: regular Heart sounds: normal: S1, S2 - Gastrointestinal General gastrointestinal: normal bowel sounds - Integumentary Integumentary: normal turgor - Neurologic Neurologic: CNII-XII intact - Musculoskeletal Musculoskeletal: gait normal, generalized weakness, strength equal bilaterally - Psychiatric Psychiatric: A&O x's 3, appropriate affect, intact judgment & insight - Labs CBC & Chem 7: 09/04/21 06:44 09/05/21 02:50 Labs: Abnormal Lab Results - Last 24 Hours (Table) 09/04/21 09/04/21 09/05/21 Range/Units 18:26 21:59 02:50 APTT 33.5 H (22.0-30.0) sec Sodium 129 L (137-145) mmol/L Potassium 5.2 H 5.2 H (3.5-5.1) mmol/L Carbon Dioxide 20 L (22-30) mmol/L BUN 83 H (9-20) mg/dL Creatinine 1.82 H (0.66-1.25) mg/dL Glucose 144 H (74-99) mg/dL Magnesium 2.6 H (1.6-2.3) mg/dL AST (17-59) U/L ALT (4-49) U/L 09/05/21 09/05/21 Range/Units 02:50 09:21 APTT 31.4 H (22.0-30.0) sec Sodium (137-145) mmol/L Potassium (3.5-5.1) mmol/L Carbon Dioxide (22-30) mmol/L BUN (9-20) mg/dL Creatinine (0.66-1.25) mg/dL Glucose (74-99) mg/dL Magnesium (1.6-2.3) mg/dL AST 178 H (17-59) U/L ALT 608 H (4-49) U/L Assessment and Plan Assessment: Acute hypoxic respiratory failure due to exacerbation of CHF acute on chronic systolic heart failure Acute on chronic systolic heart failure Non-ST segment elevated RI Elevated liver enzymes combination of history of alcohol and liver disease passive hepatic congestion Nonischemic cardiomyopathy Bruising of lower extremity of unclear etiology Hypertension hypertensive cardiovascular disease Acute kidney injury Plan: Continue gentle diuresis Continue BiPAP support Further definitive intervention for acute RI per cardiovascular services Repeat labs in the morning Trend liver functions Time with Patient: Greater than 30
--- NOTE | 2021-09-05 15:23 | PN ---
PROGRESS NOTE 51-year-old white male with acute hypoxemic respiratory failure, exacerbation of COPD, CHF, acute on chronic systolic CHF, non-STEMI, nonischemic cardiomyopathy, hypertensive cardiovascular disease. He is on 3 L nasal cannula and using BiPAP at night. LFT showed downward trend. Hypertension, improved, stable renal functions/less short of breath. Cardiovascular: S1, S2. Lungs: Rales at the bases. Hematology: 2+ edema. Psych: Fair mood and affect. Temp 98.3, pulse 91, respiratory 18-20, blood pressure 120s over 80s, O2 98 on 3 L. Sodium 129, potassium 5.2, BUN is 83, creatinine 1.82. ASSESSMENT AND PLAN: 1. Acute hypoxemic respiratory failure secondary to congestive heart failure, systolic heart failure and fluid overload, acute on chronic systolic heart failure, non- STEMI. 2. Elevated LFTs secondary to cardiorenal syndrome. 3. Nonischemic cardiomyopathy. 4. Hypertensive cardiovascular disease. 5. Acute kidney injury. 6. Noncompliance with outpatient medications. 7. BiPAP. 8. Diuresis. 9. Monitor liver and renal enzymes. 10.Possible heart catheterization down the road. MMODL / IJN: [id number] /
[2021-09-06] MEDS: HEPARIN SODIUM 1,000 UN/ML (10ML VL) IV PRN (02:50)
[2021-09-06] MEDS: traMADol 50 MG TAB PO PRN (04:03)
[2021-09-06] MEDS: HYDROmorphone 0.5 MG/0.5 ML SYRINGE IVP PRN (05:26)
[2021-09-06] MEDS: carvediloL 12.5 MG TAB PO SCH ×2 (06:50→18:09)
[2021-09-06 07:37] LABS: Creatinine,Urine Random 46.5 mg/dL; Protein/Creatinine Ratio,Urine 0.237
[2021-09-06] MEDS: SODIUM CHLORIDE 0.9% 1,000 ML IV SCH (07:43)
[2021-09-06] MEDS: DOBUTamine DRIP 500 MG in DEXTROSE/WATER 1 250ML.BAG IV SCH (08:03)
[2021-09-06] MEDS: FUROSEMIDE 10 MG/ML 4 ML VIAL IV SCH ×2 (08:04→21:48)
[2021-09-06] MEDS: allopurinoL 100 MG TAB PO SCH (08:04)
[2021-09-06] MEDS: ASPIRIN 81 MG PO SCH (08:04)
[2021-09-06] MEDS: FERROUS SULFATE 325 MG TAB PO SCH (08:04)
[2021-09-06] MEDS: amLODIPine 5 MG TAB PO SCH (08:04)
--- NOTE | 2021-09-06 10:14 | P.PN ---
Subjective Progress Note Date: 09/06/21 Principal diagnosis: Acute hypoxic respiratory failure due to exacerbation of CHF acute on chronic systolic heart failure Acute on chronic systolic heart failure Non-ST segment elevated [place] Nonischemic cardiomyopathy Bruising of lower extremity of unclear etiology Hypertension hypertensive cardiovascular disease Acute kidney injury 09/06/2021, patient seen eval examined during the rounds labs reviewed medications reviewed care plan discussed, respiratory status improved as patient most of time has been on room air using oxygen intermittently, subjective shortness of breath improved as well, patient is getting dobutamine infusion 5 mics per kilogram per minute as well 09/05/2021, shouldn't seen evaluated examined during the rounds labs reviewed medications reviewed, LFT showing a downward trend, hypertension improved as well, stable renal functions, patient is less short of breath, on 3 L nasal cannula, patient has been using BiPAP support 09/04/2021, patient seen eval reexamined, patient continues short of breath, aggressive to being diuresed, labs from today reviewed sodium is 1:30, potassium 6.1, BUN 76, creatinine 2.1, patient remains on the Lasix and IV heparin cardiovascular disease following, Patient is a 51-year-old male with history of the cardiomyopathy started having shortness of breath few days ago with increasing lower extremity swelling, development of orthopnea patient however denies any fever or chills denies any cough or sputum production, symptoms got worse since one day prior to hospitalization since patient ran out of his medications, patient has a baseline nonischemic cardiomyopathy with ejection fraction of 30%, extensive history of smoking and nicotine use [id number] still smoking off and on lately however have quit smoking and also alcohol, on arrival patient noted to be tachycardic and tachypneic hypertensive, patient noted to have elevated prolapse cardiovascular services have been consulted, patient currently on heparin drip, due to hypoxia patient started on BiPAP with a setting of / with 40% oxygen, unable to obtain a good seal because of facial hair and air leak, admitted chest x-ray significant for cardiomegaly, computed tomography scan of the chest negative for pulmonary embolism showed bilateral subsegmental atelectasis at the bases, cardiomegaly remains unchanged, patient also complaining of some bruises in the lower extremity which are relatively new, admit labs were significant for leukocytosis at 14,000, INR of 1.9, sodium 131, CO2 of 17, BUN/creatinine 56 1.53, and lactic acid level is 2.4, came down to 1.6, troponin were 3.5 continue to go up now showing a downward trend of 2.4, BNP is elevated over 25,000, COVID-19 is negative, Objective - Vital Signs Vital signs: Vital Signs Temp 98.7 F 09/06/21 08:00 Pulse 87 09/06/21 08:00 Resp 16 09/06/21 08:00 BP 131/87 09/06/21 08:00 Pulse Ox 96 09/06/21 08:00 Intake & Output 09/05/21 09/06/21 09/06/21 18:59 06:59 18:59 Intake Total 1022.593 500.000 Output Total 1950 1500 300 Balance -927.407 -1000.000 -300 Intake: Intake, IV Titration 424.593 500.000 Amount DOBUTamine DRIP 500 mg In 223.779 250 Dextrose/Water 1 250ml. bag @ 5 MCG/KG/MIN 12.195 mls/hr IV .[id number] [facility] Rx#:[id number] Heparin Sod,Pork in 0.45% 200.814 250.000 NaCl 25,000 unit In 0.45 % NaCl 1 250ml.bag @ 12 UNITS/KG/HR 8.709 mls/hr IV .Q24H JOR[facility] Rx#: [id number] Oral 598 Output: Urine 1950 1500 300 Other: Voiding Method Urinal Urinal Urinal # Bowel Movements 1 - Exam - Constitutional General appearance: average body habitus, cooperative, disheveled - EENT Eyes: EOMI, PERRLA Ears: bilateral: normal - Neck Neck: normal ROM Carotids: bilateral: upstroke normal Thyroid: bilateral: normal size - Respiratory Respiratory: bilateral: CTA - Cardiovascular Rhythm: regular Heart sounds: normal: S1, S2 - Gastrointestinal General gastrointestinal: normal bowel sounds - Integumentary Integumentary: normal turgor - Neurologic Neurologic: CNII-XII intact - Musculoskeletal Musculoskeletal: gait normal, generalized weakness, strength equal bilaterally - Psychiatric Psychiatric: A&O x's 3, appropriate affect, intact judgment & insight - Labs CBC & Chem 7: 09/04/21 06:44 09/05/21 02:50 Labs: Abnormal Lab Results - Last 24 Hours (Table) 09/05/21 09/06/21 Range/Units 18:22 01:38 APTT 43.6 H 37.3 H (22.0-30.0) sec Assessment and Plan Assessment: Acute hypoxic respiratory failure due to exacerbation of CHF acute on chronic systolic heart failure Acute on chronic systolic heart failure Non-ST segment elevated [place] Elevated liver enzymes combination of history of alcohol and liver disease passive hepatic congestion Nonischemic cardiomyopathy Bruising of lower extremity of unclear etiology Hypertension hypertensive cardiovascular disease Acute kidney injury Plan: Continue dobutamine drip Continue gentle diuresis Continue BiPAP support as needed and when necessary Further definitive intervention for acute WA per cardiovascular services Trend liver functions Time with Patient: Greater than 30
[2021-09-06 10:42] LABS: Albumin 3.1 g/dL (3.5-5.0); Calcium 8.8 mg/dL (8.4-10.2); Total Bilirubin 2.3 mg/dL (0.2-1.3); Total Protein 5.8 g/dL (6.3-8.2)
--- NOTE | 2021-09-06 10:46 | P.PN ---
Subjective Principal diagnosis: Bob seems to be doing better. He is less short of breath He is making urine on IV dobutamine and IV Lasix He denies any chest discomfort no dizziness lightheadedness. He has been sitting in a chair off and on On telemetry sinus rhythm with occasional PVCs no sustained arrhythmias Blood pressure 131/87 mmHg pulse rate in the 80s and 90s, afebrile Breath sounds are reduced at the bases especially in the right base with crackles Heart sounds S1 and S2 are normal systolic murmur Abdomen soft nontender extremities are warm No JVD today Impression Severe hypertensive heart disease with LVH Reduced LV systolic function on 2-D echo, cardio myopathy Nonobstructive CAD documented by cardiac catheterization in the past Abnormal cardiac enzymes in the setting of acute on chronic CHF exacerbation Acute exacerbation of CHF, systolic Suggest Continue IV dobutamine Continue IV Lasix Stop IV heparin today Switched to subcutaneous heparin 5000 units every 8 hours Ambulate in the room Up in a chair for most of the day We will follow Objective - Vital Signs Vital signs: Vital Signs Temp 98.7 F 09/06/21 08:00 Pulse 87 09/06/21 08:00 Resp 16 09/06/21 08:00 BP 131/87 09/06/21 08:00 Pulse Ox 96 09/06/21 08:00 Intake & Output 09/05/21 09/06/21 09/06/21 18:59 06:59 18:59 Intake Total 1022.593 500.000 Output Total 1950 1500 300 Balance -927.407 -1000.000 -300 Intake: Intake, IV Titration 424.593 500.000 Amount DOBUTamine DRIP 500 mg In 223.779 250 Dextrose/Water 1 250ml. bag @ 5 MCG/KG/MIN 12.195 mls/hr IV .[id number] [facility] Rx#:[id number] Heparin Sod,Pork in 0.45% 200.814 250.000 NaCl 25,000 unit In 0.45 % NaCl 1 250ml.bag @ 12 UNITS/KG/HR 8.709 mls/hr IV .Q24H [facility]OR[facility] Rx#: [id number] Oral 598 Output: Urine 1950 1500 300 Other: Voiding Method Urinal Urinal Urinal # Bowel Movements 1 - Labs CBC & Chem 7: 09/04/21 06:44 09/06/21 09:52 Labs: Abnormal Lab Results - Last 24 Hours (Table) 09/05/21 09/06/21 09/06/21 Range/Units 18:22 01:38 09:52 APTT 43.6 H 37.3 H (22.0-30.0) sec Sodium 132 L (137-145) mmol/L BUN 60 H (9-20) mg/dL Glucose 138 H (74-99) mg/dL Total Bilirubin 2.3 H (0.2-1.3) mg/dL AST 99 H (17-59) U/L ALT 413 H (4-49) U/L Total Protein 5.8 L (6.3-8.2) g/dL Albumin 3.1 L (3.5-5.0) g/dL
--- NOTE | 2021-09-06 13:53 | P.PN ---
Subjective Progress Note Date: 09/06/21 Follow-up for acute kidney injury.Urine output of 3.4 L in the last 24 hours. Objective - Vital Signs Vital signs: Vital Signs Temp 98.4 F 09/06/21 11:30 Pulse 87 09/06/21 11:30 Resp 16 09/06/21 11:30 BP 140/88 09/06/21 11:30 Pulse Ox 94 L 09/06/21 11:30 Intake & Output 09/05/21 09/06/21 09/06/21 18:59 06:59 18:59 Intake Total 1022.593 500.000 0 Output Total 1950 1500 1350 Balance -927.407 -1000.000 -1350 Weight 77.2 kg Intake: Intake, IV Titration 424.593 500.000 Amount DOBUTamine DRIP 500 mg In 223.779 250 Dextrose/Water 1 250ml. bag @ 5 MCG/KG/MIN 12.195 mls/hr IV .[id number] [facility] Rx#:[id number] Heparin Sod,Pork in 0.45% 200.814 250.000 NaCl 25,000 unit In 0.45 % NaCl 1 250ml.bag @ 12 UNITS/KG/HR 8.709 mls/hr IV .Q24H [facility] Rx#: [id number] Oral 598 0 Output: Urine 1950 1500 1350 Other: Voiding Method Urinal Urinal Urinal # Bowel Movements 1 - Exam No acute distress S1-S2 heard Decreased breath sounds Trace edema - Labs CBC & Chem 7: 09/04/21 06:44 09/06/21 09:52 Labs: Abnormal Lab Results - Last 24 Hours (Table) 09/05/21 09/06/21 09/06/21 Range/Units 18:22 01:38 09:52 APTT 43.6 H 37.3 H (22.0-30.0) sec Sodium 132 L (137-145) mmol/L BUN 60 H (9-20) mg/dL Glucose 138 H (74-99) mg/dL Total Bilirubin 2.3 H (0.2-1.3) mg/dL AST 99 H (17-59) U/L ALT 413 H (4-49) U/L Total Protein 5.8 L (6.3-8.2) g/dL Albumin 3.1 L (3.5-5.0) g/dL 09/06/21 Range/Units 09:52 APTT 36.8 H (22.0-30.0) sec Sodium (137-145) mmol/L BUN (9-20) mg/dL Glucose (74-99) mg/dL Total Bilirubin (0.2-1.3) mg/dL AST (17-59) U/L ALT (4-49) U/L Total Protein (6.3-8.2) g/dL Albumin (3.5-5.0) g/dL Assessment and Plan Assessment: #1 nonoliguric acute kidney injury secondary to type I cardiorenal syndrome. #2 CK D3 B secondary to recurrent acute kidney injury/type to cardiorenal syndrome with a baseline creatinine of 1.3-1.5 MG per DL. #3 CHF with systolic dysfunction EF of 20-25% #4 volume overload With hyponatremia #5 metabolic acidosis, Improved #6 mild hyperkalemia, Improved Plan: #1 renal function stable and improving. #2 continue with inotropes and Lasix #3 can be switched to torsemide 40 mg by mouth daily at discharge. #4 avoid nephrotoxic agents and hypotensive episodes.
[2021-09-06] MEDS: HEPARIN SODIUM,PORCINE/PF 5,000 UNIT/0.5 ML SYRINGE SQ SCH (15:37)
--- NOTE | 2021-09-06 17:28 | P.PN ---
Progress Note - Text Progress Note Date: 09/06/21 Presenting complaint: Tired Admitted with CHF exacerbation. September 06: Patient on IV dobutamine and IV Lasix. Eating good. Had a bowel movement. Diet. Patient states he stopped smoking 2 weeks ago. Review of systems: Was done for constitutional, cardiovascular, GI, pulmonary. relevant finding as above Active Medications Acetaminophen (Acetaminophen Tab 325 Mg Tab) 650 mg PO Q6HR PRN PRN Reason: Mild Pain or Fever > 100.5 Allopurinol (Allopurinol 100 Mg Tab) 200 mg PO DAILY [facility] Last Admin: 09/06/21 08:04 Dose: 200 mg Documented by: Amlodipine Besylate (Amlodipine 5 Mg Tab) 5 mg PO DAILY [facility] Last Admin: 09/06/21 08:04 Dose: 5 mg Documented by: Aspirin (Aspirin 81 Mg) 81 mg PO DAILY [facility] Last Admin: 09/06/21 08:04 Dose: 81 mg Documented by: Carvedilol (Carvedilol 12.5 Mg Tab) 12.5 mg PO BID-W/MEALS [facility] Last Admin: 09/06/21 06:50 Dose: 12.5 mg Documented by: Ergocalciferol (Ergocalciferol 1,250 Mcg (50,000 Iu) Capsule) 1,250 mcg PO Q14D [facility] Ferrous Sulfate (Ferrous Sulfate 325 Mg Tab) 325 mg PO DAILY [facility] Last Admin: 09/06/21 08:04 Dose: 325 mg Documented by: Furosemide (Furosemide 10 Mg/Ml 4 Ml Vial) 40 mg IV Q12HR [facility] Last Admin: 09/06/21 08:04 Dose: 40 mg Documented by: Heparin Sodium (Porcine) (Heparin Sodium,Porcine/Pf 5,000 Unit/0.5 Ml Syringe) 5,000 unit SQ Q8HR [facility] Last Admin: 09/06/21 15:37 Dose: 5,000 unit Documented by: Hydromorphone HCl (Hydromorphone 0.5 Mg/0.5 Ml Syringe) 0.5 mg IVP Q4HR PRN PRN Reason: Pain Last Admin: 09/06/21 05:26 Dose: 0.5 mg Documented by: Dobutamine HCl/Dextrose 500 mg (/ IV Solution) 250 mls @ 12.195 mls/hr IV .[id number] [facility] Last Admin: 09/06/21 08:03 Dose: 5 mcg/kg/min, 12.195 mls/hr Documented by: Naloxone HCl (Naloxone 0.4 Mg/Ml 1 Ml Vial) 0.2 mg IV Q2M PRN PRN Reason: Opioid Reversal Tramadol HCl (Tramadol 50 Mg Tab) 50 mg PO Q4H PRN PRN Reason: Pain Last Admin: 09/06/21 04:03 Dose: 50 mg Documented by: On examination: VITAL SIGNS: [98.4, 87, 16, 140/88, 94% on room air] GENERAL APPEARANCE: BMI 21.3, reclining in bed, awake, tired HEENT: Normal external appearance of nose and ear. Oral cavity normal EYES: Pupils equal. Conjunctiva normal. NECK: JVD not raised. Mass not palpable. RESPIRATORY: Respiratory effort increased, decreased breaths on some basal crackles CARDIOVASCULAR: First and second sounds normal. Mild edema. ABDOMEN: Soft. Liver and spleen not palpable. No tenderness. No mass palpable. PSYCHIATRY: Alert and oriented x3. Mood and affect normal. INVESTIGATIONS, reviewed in the clinical context: Sodium 132 potassium 4 BUN 60 creatinine 1.25 AST 99 ALT 413 albumin 3.1 Chest x-ray film personally reviewed by me-[September 05]: Cardiomegaly. Some cephalization Admission labs: WBC 14.2 hemoglobin 14.4 potassium 4.8. 56 creatinine 1.53 Troponin I 3.5 proBNP 25,900 Coronavirus [PCR]: Not detected EKG tracing: Right bundle-branch block pattern, PVC Chest CTA: Negative for PE. Mild cardiomegaly. CT abdomen pelvis without contrast: Cardiomegaly. Nonspecific findings. 2-D echocardiogram: Moderate concentric LVH, EF 20-25%, moderate MR, mild TR, moderate pulmonary hypertension Assessment and plan: -Acute congestive heart failure exacerbation from systolic and diastolic dysfunction. 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 Coreg 12.5 by mouth twice a day -COPD in a current smoker DuoNeb 3 times a day -Chronic nicotine dependence, cigarette smoker Nicotine patch -Acute kidney injury mostly prerenal secondary to cardiorenal syndrome Creatinine peaked at 2.17 -Hypervolemic hyponatremia Follow sodium -CKD stage III baseline creatinine 1.3-1.5 secondary to nephrosclerosis -Hyperkalemia due to acute kidney injury: Improved -Metabolic acidosis: Better -Acute ischemic hepatitis: Slow to respond Follow-up LFT Patient remains on IV dobutamine. IV Lasix. Discussed with patient. Alessia Sood. Nicotine patch. Follow labs closely. Follow- with nephrology in cardiology
[2021-09-06] MEDS: NICOTINE 21MG/24HR PATCH TRANSDERM SCH (18:09)
[2021-09-06] MEDS: IPRATROPIUM-ALBUTEROL 3 ML NEB INHALATION SCH (19:20)
[2021-09-07] MEDS: HEPARIN SODIUM,PORCINE/PF 5,000 UNIT/0.5 ML SYRINGE SQ SCH ×4 (00:35→23:19)
[2021-09-07] MEDS: DOBUTamine DRIP 500 MG in DEXTROSE/WATER 1 250ML.BAG IV SCH (04:19)
[2021-09-07 04:20] LABS: Appearance,Urine Clear (Clear); Bilirubin,Urine Negative (Negative); Blood,Urine Negative (Negative); Color,Urine Light Yellow; Glucose,Urine (UA) Negative (Negative); Ketones,Urine Negative (Negative); Leukocyte Esterase,Urine Negative (Negative); Nitrite,Urine Negative (Negative); PH, Urine 6.5 (5.0-8.0); Protein,Urine Negative (Negative); Urobilinogen,Urine <2.0 mg/dL (<2.0)
[2021-09-07] MEDS: carvediloL 12.5 MG TAB PO SCH ×2 (07:01→17:50)
[2021-09-07] MEDS: IPRATROPIUM-ALBUTEROL 3 ML NEB INHALATION SCH ×3 (07:04→20:55)
[2021-09-07 09:01] LABS: ALT 294 U/L (4-49); AST 90 U/L (17-59); African American GFR (CKD) >90 (>60 ml/min/1.73 sqM); Albumin 2.9 g/dL (3.5-5.0); Alkaline Phosphatase 83 U/L (38-126); Anion Gap 7 mmol/L; Blood Urea Nitrogen 40 mg/dL (9-20); Calcium 8.9 mg/dL (8.4-10.2); Carbon Dioxide 26 mmol/L (22-30); Chloride 98 mmol/L (98-107); Glucose 100 mg/dL (74-99); Non-African American GFR(CKD) 80 (>60 ml/min/1.73 sqM); Sodium 131 mmol/L (137-145); Total Bilirubin 2.8 mg/dL (0.2-1.3); Total Protein 5.6 g/dL (6.3-8.2)
[2021-09-07] MEDS: FUROSEMIDE 10 MG/ML 4 ML VIAL IV SCH ×2 (09:37→20:11)
[2021-09-07] MEDS: NICOTINE 21MG/24HR PATCH TRANSDERM SCH (09:37)
[2021-09-07] MEDS: amLODIPine 5 MG TAB PO SCH ×2 (09:38→20:12)
[2021-09-07] MEDS: FERROUS SULFATE 325 MG TAB PO SCH (09:38)
[2021-09-07] MEDS: ASPIRIN 81 MG PO SCH (09:38)
[2021-09-07] MEDS: allopurinoL 100 MG TAB PO SCH (09:38)
--- NOTE | 2021-09-07 09:45 | P.PN ---
Subjective Progress Note Date: 09/07/21 Principal diagnosis: Acute hypoxic respiratory failure due to exacerbation of CHF acute on chronic systolic heart failure Acute on chronic systolic heart failure Non-ST segment elevated IN Nonischemic cardiomyopathy Bruising of lower extremity of unclear etiology Hypertension hypertensive cardiovascular disease Acute kidney injury 09/07/2021, patient has been on oxygen on and off him a shortness of breath significant improvement lower extremity edema improved as well, labs reviewed sodium remains low but stable, BUN/creatinine creatinine improved to 40/1.08 down from 60/1.25, LFT also continued to improve with AST and ALT down to 90/294, bruising in the extremities stable, remains on continuous infusion with dobutamine 5 mcg/kg/m 09/06/2021, patient seen eval examined during the rounds labs reviewed medications reviewed care plan discussed, respiratory status improved as patient most of time has been on room air using oxygen intermittently, subjective shortness of breath improved as well, patient is getting dobutamine infusion 5 mics per kilogram per minute as well 09/05/2021, shouldn't seen evaluated examined during the rounds labs reviewed medications reviewed, LFT showing a downward trend, hypertension improved as well, stable renal functions, patient is less short of breath, on 3 L nasal cannula, patient has been using BiPAP support 09/04/2021, patient seen eval reexamined, patient continues short of breath, aggressive to being diuresed, labs from today reviewed sodium is 1:30, potassium 6.1, BUN 76, creatinine 2.1, patient remains on the Lasix and IV heparin cardiovascular disease following, Patient is a 51-year-old male with history of the cardiomyopathy started having shortness of breath few days ago with increasing lower extremity swelling, development of orthopnea patient however denies any fever or chills denies any cough or sputum production, symptoms got worse since one day prior to hospitalization since patient ran out of his medications, patient has a baseline nonischemic cardiomyopathy with ejection fraction of 30%, extensive history of smoking and nicotine use [id number] still smoking off and on lately however have quit smoking and also alcohol, on arrival patient noted to be tachycardic and tachypneic hypertensive, patient noted to have elevated prolapse cardiovascular services have been consulted, patient currently on heparin drip, due to hypoxia patient started on BiPAP with a setting of 09/17 with 40% oxygen, unable to obtain a good seal because of facial hair and air leak, admitted chest x-ray significant for cardiomegaly, computed tomography scan of the chest negative for pulmonary embolism showed bilateral subsegmental atelectasis at the bases, cardiomegaly remains unchanged, patient also complaining of some bruises in the lower extremity which are relatively new, admit labs were significant for leukocytosis at 14,000, INR of 1.9, sodium 131, CO2 of 17, BUN/creatinine 56 1.53, and lactic acid level is 2.4, came down to 1.6, troponin were 3.5 continue to go up now showing a downward trend of 2.4, BNP is elevated over 25,000, COVID-19 is negative, Objective - Vital Signs Vital signs: Vital Signs Temp 97.7 F 09/07/21 09:10 Pulse 97 09/07/21 09:10 Resp 16 09/07/21 09:10 BP 136/86 09/07/21 09:10 Pulse Ox 95 09/07/21 09:10 Intake & Output 09/06/21 09/07/21 09/07/21 18:59 06:59 18:59 Intake Total 1560 267.152 240 Output Total 1875 3200 300 Balance -315 -2932.848 -60 Weight 77.2 kg 77.5 kg Intake: IV 20 Invasive Line 1 20 Intake, IV Titration 247.152 Amount DOBUTamine DRIP 500 mg In 247.152 Dextrose/Water 1 250ml. bag @ 5 MCG/KG/MIN 12.195 mls/hr IV .[id number] [facility] Rx#:[id number] Oral 1560 240 Output: Urine 1875 3200 300 Other: Voiding Method Urinal Urinal - Exam - Constitutional General appearance: average body habitus, cooperative, disheveled - EENT Eyes: EOMI, PERRLA Ears: bilateral: normal - Neck Neck: normal ROM Carotids: bilateral: upstroke normal Thyroid: bilateral: normal size - Respiratory Respiratory: bilateral: CTA - Cardiovascular Rhythm: regular Heart sounds: normal: S1, S2 - Gastrointestinal General gastrointestinal: normal bowel sounds - Integumentary Integumentary: normal turgor - Neurologic Neurologic: CNII-XII intact - Musculoskeletal Musculoskeletal: gait normal, generalized weakness, strength equal bilaterally - Psychiatric Psychiatric: A&O x's 3, appropriate affect, intact judgment & insight - Labs CBC & Chem 7: 09/04/21 06:44 09/07/21 07:22 Labs: Abnormal Lab Results - Last 24 Hours (Table) 09/06/21 09/06/21 09/07/21 Range/Units 09:52 09:52 07:22 APTT 36.8 H (22.0-30.0) sec Sodium 132 L 131 L (137-145) mmol/L BUN 60 H 40 H (9-20) mg/dL Glucose 138 H 100 H (74-99) mg/dL Total Bilirubin 2.3 H 2.8 H (0.2-1.3) mg/dL AST 99 H 90 H (17-59) U/L ALT 413 H 294 H (4-49) U/L Total Protein 5.8 L 5.6 L (6.3-8.2) g/dL Albumin 3.1 L 2.9 L (3.5-5.0) g/dL Assessment and Plan Assessment: Acute hypoxic respiratory failure due to exacerbation of CHF acute on chronic systolic heart failure Acute on chronic systolic heart failure Non-ST segment elevated IN Elevated liver enzymes combination of history of alcohol and liver disease passive hepatic congestion Nonischemic cardiomyopathy Bruising of lower extremity of unclear etiology Hypertension hypertensive cardiovascular disease Acute kidney injury Plan: Continue dobutamine drip Continue gentle diuresis Continue BiPAP support as needed and when necessary alternating with supplemental oxygen however lately patient has been refusing BiPAP Further definitive intervention for acute IN per cardiovascular services Trend liver functions Time with Patient: Greater than 30
--- NOTE | 2021-09-07 10:24 | P.PN ---
Subjective Bob is resting comfortably in bed He does not appear short of breath but he complains of a left-sided chest discomfort which is a chest wall tenderness He is making adequate urine on IV dobutamine and IV Lasix No JVD Lungs are clear no rhonchi no crackles Heart sounds S1 and S2 are normal No murmurs Abdomen is soft no right upper quadrant tenderness No lower extremity edema No orthopnea a Blood pressure 136/86 163/99 144/97, 136/96 and 153/60 Labs are reviewed Sodium 131, potassium 4.0 BUN and creatinine are steadily improving and today it's 40/1.1 AST is 90, improved ALT is 294, improving Suggest Continue IV dobutamine and continue IV Lasix at the same dose today We will reassess Lasix dose tomorrow Increase amlodipine to 5 mg twice daily Increase carvedilol to 25 mg twice daily Continue subcutaneous heparin Reassess heart rate and blood pressure control once he is finally off IV dobutamine Objective - Vital Signs Vital signs: Vital Signs Temp 97.7 F 09/07/21 09:10 Pulse 97 09/07/21 09:10 Resp 16 09/07/21 09:10 BP 136/86 09/07/21 09:10 Pulse Ox 95 09/07/21 09:10 Intake & Output 09/06/21 09/07/21 09/07/21 18:59 06:59 18:59 Intake Total 1560 267.152 240 Output Total 1875 3200 300 Balance -315 -2932.848 -60 Weight 77.2 kg 77.5 kg Intake: IV 20 Invasive Line 1 20 Intake, IV Titration 247.152 Amount DOBUTamine DRIP 500 mg In 247.152 Dextrose/Water 1 250ml. bag @ 5 MCG/KG/MIN 12.195 mls/hr IV .[id number] [facility] Rx#:[id number] Oral 1560 240 Output: Urine 1875 3200 300 Other: Voiding Method Urinal Urinal - Labs CBC & Chem 7: 09/04/21 06:44 09/07/21 07:22 Labs: Abnormal Lab Results - Last 24 Hours (Table) 09/06/21 09/06/21 09/07/21 Range/Units 09:52 09:52 07:22 APTT 36.8 H (22.0-30.0) sec Sodium 132 L 131 L (137-145) mmol/L BUN 60 H 40 H (9-20) mg/dL Glucose 138 H 100 H (74-99) mg/dL Total Bilirubin 2.3 H 2.8 H (0.2-1.3) mg/dL AST 99 H 90 H (17-59) U/L ALT 413 H 294 H (4-49) U/L Total Protein 5.8 L 5.6 L (6.3-8.2) g/dL Albumin 3.1 L 2.9 L (3.5-5.0) g/dL
--- NOTE | 2021-09-07 13:05 | P.PN ---
Subjective Progress Note Date: 09/07/21 Follow-up for acute kidney injury.Urine output of 5.0 L in the last 24 hours. Objective - Vital Signs Vital signs: Vital Signs Temp 97.7 F 09/07/21 09:10 Pulse 97 09/07/21 09:10 Resp 16 09/07/21 09:10 BP 136/86 09/07/21 09:10 Pulse Ox 95 09/07/21 09:10 Intake & Output 09/06/21 09/07/21 09/07/21 18:59 06:59 18:59 Intake Total 1560 267.152 240 Output Total 1875 3200 300 Balance -315 -2932.848 -60 Weight 77.2 kg 77.5 kg Intake: IV 20 Invasive Line 1 20 Intake, IV Titration 247.152 Amount DOBUTamine DRIP 500 mg In 247.152 Dextrose/Water 1 250ml. bag @ 5 MCG/KG/MIN 12.195 mls/hr IV .[id number] [facility] Rx#:[id number] Oral 1560 240 Output: Urine 1875 3200 300 Other: Voiding Method Urinal Urinal - Exam No acute distress S1-S2 heard Decreased breath sounds Trace edema - Labs CBC & Chem 7: 09/04/21 06:44 09/07/21 07:22 Labs: Abnormal Lab Results - Last 24 Hours (Table) 09/07/21 Range/Units 07:22 Sodium 131 L (137-145) mmol/L BUN 40 H (9-20) mg/dL Glucose 100 H (74-99) mg/dL Total Bilirubin 2.8 H (0.2-1.3) mg/dL AST 90 H (17-59) U/L ALT 294 H (4-49) U/L Total Protein 5.6 L (6.3-8.2) g/dL Albumin 2.9 L (3.5-5.0) g/dL Assessment and Plan Assessment: #1 nonoliguric acute kidney injury secondary to type I cardiorenal syndrome. #2 CK D3 B secondary to recurrent acute kidney injury/type to cardiorenal syndrome with a baseline creatinine of 1.3-1.5 MG per DL. #3 CHF with systolic dysfunction EF of 20-25% #4 volume overload With hyponatremia #5 metabolic acidosis, Improved #6 mild hyperkalemia, Improved Plan: #1 renal function stable and improving. #2 continue with inotropes and Lasix #3 can be switched to torsemide 40 mg by mouth daily at discharge. #4 avoid nephrotoxic agents and hypotensive episodes.
--- NOTE | 2021-09-07 15:30 | P.PN ---
Progress Note - Text Progress Note Date: 09/07/21 Presenting complaint: Tired Admitted with CHF exacerbation. September 06: Patient on IV dobutamine and IV Lasix. Eating good. Had a bowel movement. Diet. Patient states he stopped smoking 2 weeks ago. September 07: Remains on IV dobutamine and IV Lasix. Negative fluid balance. Breathing a bit better. Good oral intake. Review of systems: Was done for constitutional, cardiovascular, GI, pulmonary. relevant finding as above Active Medications Acetaminophen (Acetaminophen Tab 325 Mg Tab) 650 mg PO Q6HR PRN PRN Reason: Mild Pain or Fever > 100.5 Albuterol/Ipratropium (Ipratropium-Albuterol 3 Ml Neb) 3 ml INHALATION TID [facility] Last Admin: 09/07/21 12:57 Dose: 3 ml Documented by: Allopurinol (Allopurinol 100 Mg Tab) 200 mg PO DAILY [facility] Last Admin: 09/07/21 09:38 Dose: 200 mg Documented by: Amlodipine Besylate (Amlodipine 5 Mg Tab) 5 mg PO BID [facility] Aspirin (Aspirin 81 Mg) 81 mg PO DAILY [facility] Last Admin: 09/07/21 09:38 Dose: 81 mg Documented by: Carvedilol (Carvedilol 12.5 Mg Tab) 25 mg PO BID-W/MEALS [facility] Ergocalciferol (Ergocalciferol 1,250 Mcg (50,000 Iu) Capsule) 1,250 mcg PO Q14D [facility] Ferrous Sulfate (Ferrous Sulfate 325 Mg Tab) 325 mg PO DAILY [facility] Last Admin: 09/07/21 09:38 Dose: 325 mg Documented by: Furosemide (Furosemide 10 Mg/Ml 4 Ml Vial) 40 mg IV Q12HR [facility] Last Admin: 09/07/21 09:37 Dose: 40 mg Documented by: Heparin Sodium (Porcine) (Heparin Sodium,Porcine/Pf 5,000 Unit/0.5 Ml Syringe) 5,000 unit SQ Q8HR [facility] Last Admin: 09/07/21 09:37 Dose: 5,000 unit Documented by: Hydromorphone HCl (Hydromorphone 0.5 Mg/0.5 Ml Syringe) 0.5 mg IVP Q4HR PRN PRN Reason: Pain Last Admin: 09/06/21 05:26 Dose: 0.5 mg Documented by: Dobutamine HCl/Dextrose 500 mg (/ IV Solution) 250 mls @ 12.195 mls/hr IV .[id number] [facility] Last Admin: 09/07/21 04:19 Dose: 5 mcg/kg/min, 12.195 mls/hr Documented by: Naloxone HCl (Naloxone 0.4 Mg/Ml 1 Ml Vial) 0.2 mg IV Q2M PRN PRN Reason: Opioid Reversal Nicotine (Nicotine 21mg/24hr Patch) 1 patch TRANSDERM DAILY [facility] Last Admin: 09/07/21 09:37 Dose: 1 patch Documented by: Tramadol HCl (Tramadol 50 Mg Tab) 50 mg PO Q4H PRN PRN Reason: Pain Last Admin: 09/06/21 04:03 Dose: 50 mg Documented by: On examination: VITAL SIGNS: 97.2, 100, 16, 142/92, 94% room air GENERAL APPEARANCE: reclining in bed, awake, HEENT: Normal external appearance of nose and ear. Oral cavity normal EYES: Pupils equal. Conjunctiva normal. NECK: JVD not raised. Mass not palpable. RESPIRATORY: Respiratory effort increased, decreased breaths sounds CARDIOVASCULAR: First and second sounds normal. Mild edema. ABDOMEN: Soft. Liver and spleen not palpable. No tenderness. No mass palpable. PSYCHIATRY: Alert and oriented x3. Mood and affect normal. INVESTIGATIONS, reviewed in the clinical context: September 07: Sodium 131 potassium 4. 40 creatinine 1.08 AST 90 ENT to 94 UA: Negative Sodium 132 potassium 4 BUN 60 creatinine 1.25 AST 99 ALT 413 albumin 3.1 Chest x-ray film personally reviewed by nv-[September 05]: Cardiomegaly. Some cephalization Admission labs: WBC 14.2 hemoglobin 14.4 potassium 4.8. 56 creatinine 1.53 Troponin I 3.5 proBNP 25,900 Coronavirus [PCR]: Not detected EKG tracing: Right bundle-branch block pattern, PVC Chest CTA: Negative for PE. Mild cardiomegaly. CT abdomen pelvis without contrast: Cardiomegaly. Nonspecific findings. 2-D echocardiogram: Moderate concentric LVH, EF 20-25%, moderate MR, mild TR, moderate pulmonary hypertension Assessment and plan: -Acute congestive heart failure exacerbation from systolic and diastolic dysfunction. 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 Coreg 12.5 by mouth twice a day -COPD in a current smoker DuoNeb 3 times a day -Chronic nicotine dependence, cigarette smoker Nicotine patch -Acute kidney injury mostly prerenal secondary to cardiorenal syndrome Creatinine peaked at 2.17 -Hypervolemic hyponatremia Follow sodium -CKD stage III baseline creatinine 1.3-1.5 secondary to nephrosclerosis -Hyperkalemia due to acute kidney injury: Improved -Metabolic acidosis: Better -Acute ischemic hepatitis: Improving slowly Follow-up LFT on IV dobutamine. IV Lasix. Discussed with patient. . Follow labs closely. Follow- with nephrology in cardiology
[2021-09-08] MEDS: DOBUTamine DRIP 500 MG in DEXTROSE/WATER 1 250ML.BAG IV SCH ×2 (01:46→18:25)
[2021-09-08] MEDS: HEPARIN SODIUM,PORCINE/PF 5,000 UNIT/0.5 ML SYRINGE SQ SCH ×3 (06:53→22:46)
[2021-09-08] MEDS: carvediloL 12.5 MG TAB PO SCH ×2 (06:54→18:24)
[2021-09-08] MEDS: IPRATROPIUM-ALBUTEROL 3 ML NEB INHALATION SCH ×3 (07:20→19:18)
[2021-09-08] MEDS: NICOTINE 21MG/24HR PATCH TRANSDERM SCH (08:11)
[2021-09-08] MEDS: allopurinoL 100 MG TAB PO SCH (08:12)
[2021-09-08] MEDS: FERROUS SULFATE 325 MG TAB PO SCH (08:12)
[2021-09-08] MEDS: ASPIRIN 81 MG PO SCH (08:12)
[2021-09-08] MEDS: FUROSEMIDE 10 MG/ML 4 ML VIAL IV SCH (08:12)
[2021-09-08] MEDS: amLODIPine 5 MG TAB PO SCH ×2 (08:12→20:16)
[2021-09-08 09:03] LABS: ALT 229 U/L (4-49); AST 90 U/L (17-59); African American GFR (CKD) >90 (>60 ml/min/1.73 sqM); Albumin 2.9 g/dL (3.5-5.0); Alkaline Phosphatase 86 U/L (38-126); Anion Gap 7 mmol/L; Blood Urea Nitrogen 33 mg/dL (9-20); Carbon Dioxide 26 mmol/L (22-30); Chloride 100 mmol/L (98-107); Glucose 104 mg/dL (74-99); Non-African American GFR(CKD) 88 (>60 ml/min/1.73 sqM); Sodium 133 mmol/L (137-145); Total Bilirubin 2.3 mg/dL (0.2-1.3); Total Protein 5.5 g/dL (6.3-8.2)
[2021-09-08 09:09] LABS: Calcium 8.9 mg/dL (8.4-10.2); Potassium 3.9 mmol/L (3.5-5.1)
--- NOTE | 2021-09-08 09:51 | P.PN ---
Subjective Patient is seen in follow-up for acute kidney injury. Renal function continues to improve. Maintain on dobutamine as well as IV Lasix. Nonoliguric. Denies chest pain or shortness of breath. Vital signs are stable. General: The patient appeared well nourished and normally developed. HEENT: Head exam is unremarkable. LUNGS: Breath sounds decreased. HEART: Rate and Rhythm are regular. ABDOMEN: Soft, no distention. EXTREMITITES: Trace edema. Objective - Vital Signs Vital signs: Vital Signs Temp 98.2 F 09/08/21 08:10 Pulse 93 09/08/21 08:12 Resp 18 09/08/21 08:12 BP 149/87 09/08/21 08:10 Pulse Ox 97 09/08/21 08:10 Intake & Output 09/07/21 09/08/21 09/08/21 18:59 06:59 18:59 Intake Total 790 250 270 Output Total 2800 1400 Balance -2009115 270 Weight 71.5 kg Intake: IV 50 30 Invasive Line 1 20 Invasive Line 2 10 Invasive Line 3 10 20 Invasive Line 4 10 10 Intake, IV Titration 250 Amount DOBUTamine DRIP 500 mg In 250 Dextrose/Water 1 250ml. bag @ 5 MCG/KG/MIN 12.195 mls/hr IV .[id number] [facility] [place] Rx#:[id number] Oral 740 240 Output: Urine 2800 1400 Other: Voiding Method Urinal Urinal - Labs CBC & Chem 7: 09/04/21 06:44 09/08/21 07:51 Labs: Abnormal Lab Results - Last 24 Hours (Table) 09/08/21 Range/Units 07:51 Sodium 133 L (137-145) mmol/L BUN 33 H (9-20) mg/dL Glucose 104 H (74-99) mg/dL Total Bilirubin 2.3 H (0.2-1.3) mg/dL AST 90 H (17-59) U/L ALT 229 H (4-49) U/L Total Protein 5.5 L (6.3-8.2) g/dL Albumin 2.9 L (3.5-5.0) g/dL Assessment and Plan Plan: Assessment: 1. Acute kidney injury mostly prerenal secondary to cardiorenal syndrome. Creatinine peaked at 2.17 this admission and is 1.0 today. No evidence of hydronephrosis noted on CAT scan. He also received IV contrast dye on September 03 for CTA. UA benign. 2. Hypervolemic hyponatremia. Improved. 3. Hyperkalemia secondary to acute kidney injury and metabolic acidosis. He was also on potassium supplementation which has been discontinued. 4. Volume overload. 5. Acute on chronic systolic CHF with ejection fraction of 20-25% with moderate pulmonary hypertension. 6. Metabolic acidosis secondary to acute kidney injury. Resolved. 7. Benign hypertension. Plan: Lasix decreased to 40 mg IV once daily. Dobutamine per cardiology. Encouraged oral intake. Maintain fluid restriction. Dose of amlodipine increased.
--- NOTE | 2021-09-08 11:31 | P.PN ---
Subjective Bob seems to be improving steadily line he does not appear to be short of breath No chest discomfort other than that localized discomfort that he described on his left rib The site is tender His mucosae are moist On examination afebrile Pulse rate in the 80s to 90s Respirations normal Blood pressure 149/87 mmHg No lower extremity edema No abdominal tenderness His labs are reviewed today sodium is better 133 Potassium 3.9 BUN 33 and creatinine 1.0 AST 90, unchanged from yesterday ALT 229 slightly better from yesterday Albumin low Normal alkaline phosphatase Impression Acute and chronic congestive heart failure with hepatic congestion Hypertensive heart disease with increased LV [place] reduced LV systolic function Improving on IV Lasix and IV dobutamine Plan Reduce dobutamine dose to 2.5 mics Reduce Lasix to 40 mg IV once daily Increase carvedilol to 37.5 mg twice daily Continue amlodipine for now Tomorrow if his BUN and creatinine remain stable then I will initiate angiotensin receptor blockers at low doses Continue telemetry monitoring Objective - Vital Signs Vital signs: Vital Signs Temp 98.2 F 09/08/21 08:10 Pulse 93 09/08/21 08:12 Resp 18 09/08/21 08:12 BP 149/87 09/08/21 08:10 Pulse Ox 97 09/08/21 08:10 Intake & Output 09/07/21 09/08/21 09/08/21 18:59 06:59 18:59 Intake Total 790 250 270 Output Total 2800 1400 Balance -2009 270 Weight 71.5 kg Intake: IV 50 30 Invasive Line 1 20 Invasive Line 2 10 Invasive Line 3 10 20 Invasive Line 4 10 10 Intake, IV Titration 250 Amount DOBUTamine DRIP 500 mg In 250 Dextrose/Water 1 250ml. bag @ 5 MCG/KG/MIN 12.195 mls/hr IV .[id number] [facility] Rx#:[id number] Oral 740 240 Output: Urine 2800 1400 Other: Voiding Method Urinal Urinal - Labs CBC & Chem 7: 09/04/21 06:44 09/08/21 07:51 Labs: Abnormal Lab Results - Last 24 Hours (Table) 09/08/21 Range/Units 07:51 Sodium 133 L (137-145) mmol/L BUN 33 H (9-20) mg/dL Glucose 104 H (74-99) mg/dL Total Bilirubin 2.3 H (0.2-1.3) mg/dL AST 90 H (17-59) U/L ALT 229 H (4-49) U/L Total Protein 5.5 L (6.3-8.2) g/dL Albumin 2.9 L (3.5-5.0) g/dL
--- NOTE | 2021-09-08 16:35 | P.PN ---
Progress Note - Text Progress Note Date: 09/08/21 Presenting complaint: Tired Admitted with CHF exacerbation. September 06: Patient on IV dobutamine and IV Lasix. Eating good. Had a bowel movement. Diet. Patient states he stopped smoking 2 weeks ago. September 07: Remains on IV dobutamine and IV Lasix. Negative fluid balance. Breathing a bit better. Good oral intake. September 08: Good urine output. Dose of dobutamine decreased today. Lasix IV changed to once daily. Oral intake good. Sitting up in bed. Review of systems: Was done for constitutional, cardiovascular, GI, pulmonary. relevant finding as above Active Medications Acetaminophen (Acetaminophen Tab 325 Mg Tab) 650 mg PO Q6HR PRN PRN Reason: Mild Pain or Fever > 100.5 Albuterol/Ipratropium (Ipratropium-Albuterol 3 Ml Neb) 3 ml INHALATION TID [facility] Last Admin: 09/08/21 12:56 Dose: 3 ml Documented by: Allopurinol (Allopurinol 100 Mg Tab) 200 mg PO DAILY [facility] Last Admin: 09/08/21 08:12 Dose: 200 mg Documented by: Amlodipine Besylate (Amlodipine 5 Mg Tab) 5 mg PO BID [facility] Last Admin: 09/08/21 08:12 Dose: 5 mg Documented by: Aspirin (Aspirin 81 Mg) 81 mg PO DAILY [facility] Last Admin: 09/08/21 08:12 Dose: 81 mg Documented by: Carvedilol (Carvedilol 12.5 Mg Tab) 37.5 mg PO BID-W/MEALS [facility] Ergocalciferol (Ergocalciferol 1,250 Mcg (50,000 Iu) Capsule) 1,250 mcg PO Q14D [facility] Ferrous Sulfate (Ferrous Sulfate 325 Mg Tab) 325 mg PO DAILY [facility] Last Admin: 09/08/21 08:12 Dose: 325 mg Documented by: Furosemide (Furosemide 10 Mg/Ml 4 Ml Vial) 40 mg IV DAILY [facility] Heparin Sodium (Porcine) (Heparin Sodium,Porcine/Pf 5,000 Unit/0.5 Ml Syringe) 5,000 unit SQ Q8HR [facility] Last Admin: 09/08/21 06:53 Dose: 5,000 unit Documented by: Hydromorphone HCl (Hydromorphone 0.5 Mg/0.5 Ml Syringe) 0.5 mg IVP Q4HR PRN PRN Reason: Pain Last Admin: 09/06/21 05:26 Dose: 0.5 mg Documented by: Dobutamine HCl/Dextrose 500 mg (/ IV Solution) 250 mls @ 6.098 mls/hr IV .Q24H [facility] Last Admin: 09/08/21 01:46 Dose: 5 mcg/kg/min, 12.195 mls/hr Documented by: Naloxone HCl (Naloxone 0.4 Mg/Ml 1 Ml Vial) 0.2 mg IV Q2M PRN PRN Reason: Opioid Reversal Nicotine (Nicotine 21mg/24hr Patch) 1 patch TRANSDERM DAILY [facility] Last Admin: 09/08/21 08:11 Dose: Not Given Documented by: Tramadol HCl (Tramadol 50 Mg Tab) 50 mg PO Q4H PRN PRN Reason: Pain Last Admin: 09/06/21 04:03 Dose: 50 mg Documented by: On examination: VITAL SIGNS: 98.8, 89, 20, 149.96, 96% room air GENERAL APPEARANCE: reclining in bed, awake, HEENT: Normal external appearance of nose and ear. Oral cavity normal EYES: Pupils equal. Conjunctiva normal. NECK: JVD not raised. Mass not palpable. RESPIRATORY: Respiratory effort increased, decreased breaths sounds CARDIOVASCULAR: First and second sounds normal. Mild edema. ABDOMEN: Soft. Liver and spleen not palpable. No tenderness. No mass palpable. PSYCHIATRY: Alert and oriented x3. Mood and affect normal. INVESTIGATIONS, reviewed in the clinical context: September 08: Sodium 133 potassium 3.9 BUN 33 creatinine 1.0 AST 90 ENT to September 07: Sodium 131 potassium 4. 40 creatinine 1.08 AST 90 ENT to 94 UA: Negative Sodium 132 potassium 4 BUN 60 creatinine 1.25 AST 99 ALT 413 albumin 3.1 Chest x-ray film personally reviewed by tn-[September 05]: Cardiomegaly. Some cephalization Admission labs: WBC 14.2 hemoglobin 14.4 potassium 4.8. 56 creatinine 1.53 Troponin I 3.5 proBNP 25,900 Coronavirus [PCR]: Not detected EKG tracing: Right bundle-branch block pattern, PVC Chest CTA: Negative for PE. Mild cardiomegaly. CT abdomen pelvis without contrast: Cardiomegaly. Nonspecific findings. 2-D echocardiogram: Moderate concentric LVH, EF 20-25%, moderate MR, mild TR, moderate pulmonary hypertension Assessment and plan: -Acute congestive heart failure exacerbation from systolic and diastolic dysfunction. EF 20-25%.: Slow to respond IV dobutamine: IV Lasix 40 mg daily -Moderate mitral regurgitation Follow clinically -Secondary moderate pulmonary hypertension due to CHF Follow clinically -Essential hypertension Amlodipine 5 mg a day. Coreg 37.5 by mouth twice a day -COPD in a current smoker DuoNeb 3 times a day -Chronic nicotine dependence, cigarette smoker Nicotine patch -Acute kidney injury mostly prerenal secondary to cardiorenal syndrome: Significantly improved Creatinine peaked at 2.17 -Hypervolemic hyponatremia, improving Follow sodium -CKD stage III baseline creatinine 1.3-1.5 secondary to nephrosclerosis -Hyperkalemia due to acute kidney injury: Improved -Metabolic acidosis: Better -Acute ischemic hepatitis: Improving slowly Follow-up LFT on IV dobutamine. IV Lasix 40 mg daily. Have the patient up in a chair. Follow labs closely. Add Aldactone
[2021-09-09] MEDS: carvediloL 12.5 MG TAB PO SCH ×2 (06:34→16:58)
[2021-09-09] MEDS: IPRATROPIUM-ALBUTEROL 3 ML NEB INHALATION SCH ×3 (07:43→20:57)
[2021-09-09 08:51] LABS: ALT 161 U/L (4-49); AST 64 U/L (17-59); African American GFR (CKD) >90 (>60 ml/min/1.73 sqM); Albumin 2.7 g/dL (3.5-5.0); Alkaline Phosphatase 80 U/L (38-126); Anion Gap 5 mmol/L; Blood Urea Nitrogen 33 mg/dL (9-20); Carbon Dioxide 26 mmol/L (22-30); Chloride 100 mmol/L (98-107); Glucose 105 mg/dL (74-99); Non-African American GFR(CKD) 84 (>60 ml/min/1.73 sqM); Sodium 131 mmol/L (137-145); Total Bilirubin 1.9 mg/dL (0.2-1.3); Total Protein 5.5 g/dL (6.3-8.2)
[2021-09-09] MEDS ORDERED: ERGOCALCIFEROL 1,250 MCG (50,000 IU) CAPSULE PO SCH (09:00)
[2021-09-09] MEDS ORDERED: FUROSEMIDE 10 MG/ML 4 ML VIAL IV SCH (09:00)
--- NOTE | 2021-09-09 10:02 | P.PN ---
Subjective Patient is seen in follow-up for acute kidney injury. Renal function improved from admission. Maintained on dobutamine as well as IV Lasix. Nonoliguric. Denies chest pain or shortness of breath. Vital signs are stable. General: The patient appeared well nourished and normally developed. HEENT: Head exam is unremarkable. LUNGS: Breath sounds decreased. HEART: Rate and Rhythm are regular. ABDOMEN: Soft, no distention. EXTREMITITES: Trace edema. Objective - Vital Signs Vital signs: Vital Signs Temp 98.8 F 09/09/21 03:11 Pulse 80 09/09/21 07:56 Resp 20 09/09/21 03:11 BP 118/76 09/09/21 03:11 Pulse Ox 97 09/09/21 03:11 Intake & Output 09/08/21 09/09/21 09/09/21 18:59 06:59 18:59 Intake Total 771.047 180 Output Total 900 500 Balance -128.953 -500 180 Intake: IV 70 Invasive Line 3 40 Invasive Line 4 30 Intake, IV Titration 203.047 Amount DOBUTamine DRIP 500 mg In 203.047 Dextrose/Water 1 250ml. bag @ 2.5 MCG/KG/MIN 6. 098 mls/hr IV .Q24H JORGE Rx#:[id number] Oral 498 180 Output: Urine 900 500 Other: Voiding Method Urinal Urinal # Voids 1 - Labs CBC & Chem 7: 09/04/21 06:44 09/09/21 08:19 Labs: Abnormal Lab Results - Last 24 Hours (Table) 09/09/21 Range/Units 08:19 Sodium 131 L (137-145) mmol/L BUN 33 H (9-20) mg/dL Glucose 105 H (74-99) mg/dL Total Bilirubin 1.9 H (0.2-1.3) mg/dL AST 64 H (17-59) U/L ALT 161 H (4-49) U/L Total Protein 5.5 L (6.3-8.2) g/dL Albumin 2.7 L (3.5-5.0) g/dL Assessment and Plan Plan: Assessment: 1. Acute kidney injury mostly prerenal secondary to cardiorenal syndrome. Creatinine peaked at 2.17 this admission and is 1.05 today. No evidence of hydronephrosis noted on CAT scan. He also received IV contrast dye on September 03 for CTA. UA benign. 2. Hypervolemic hyponatremia. 3. Hyperkalemia secondary to acute kidney injury and metabolic acidosis. He was also on potassium supplementation which has been discontinued. Potassium level now normal. 4. Volume overload. Improved with diuresis. 5. Acute on chronic systolic CHF with ejection fraction of 20-25% with moderate pulmonary hypertension. 6. Metabolic acidosis secondary to acute kidney injury. Resolved. 7. Benign hypertension. Controlled. Plan: Stop IV Lasix. Add torsemide 20 mg once daily. Encouraged oral intake. Maintain fluid restriction.
[2021-09-09] MEDS: amLODIPine 5 MG TAB PO SCH ×2 (10:12→20:12)
[2021-09-09] MEDS: ASPIRIN 81 MG PO SCH (10:12)
[2021-09-09] MEDS: allopurinoL 100 MG TAB PO SCH (10:12)
[2021-09-09] MEDS: HEPARIN SODIUM,PORCINE/PF 5,000 UNIT/0.5 ML SYRINGE SQ SCH ×2 (10:12→16:58)
[2021-09-09] MEDS: SPIRONOLACTONE 25 MG TAB PO SCH (10:12)
[2021-09-09] MEDS: FERROUS SULFATE 325 MG TAB PO SCH (10:12)
[2021-09-09] MEDS: NICOTINE 21MG/24HR PATCH TRANSDERM SCH (10:13)
[2021-09-09] MEDS: FUROSEMIDE 10 MG/ML 4 ML VIAL IV SCH (10:21)
[2021-09-09] MEDS ORDERED: ACETAMINOPHEN TAB 325 MG TAB PO PRN (11:07)
--- NOTE | 2021-09-09 11:11 | P.PN ---
Subjective Patient is doing well. He is resting comfortably in bed He does not appear to be short of breath No edema in the lower extremities No JVD On examination his blood pressure is 121/80 mmHg afebrile 98.2F Breath sounds are clear no rhonchi no crackles Heart sounds S1 and S2 are normal, no murmurs Abdomen soft nontender Sodium is 131 potassium 4.0 BUN 33 and creatinine 1.05 Liver function tests improving with an AST of 64 and ALT 161 Impression Hypertension with hypertensive heart disease and moderate to severe LVH Progressive reduction in LV systolic function Acute and chronic, decompensated congestive heart failure with congestive hepatomegaly Treated with IV dobutamine and IV Lasix and has shown significant improvement Plan Stop dobutamine infusion today Stop IV Lasix per nephrology, switched to torsemide Continue Aldactone Continue carvedilol at 37.5 g twice daily If his heart rates at rest are in the 70s and tomorrow I will increase the dose of carvedilol to 50 mg twice daily Tomorrow we will consider adding low-dose losartan 12.5 mg by mouth daily Check BMP tomorrow Objective - Vital Signs Vital signs: Vital Signs Temp 98.2 F 09/09/21 08:00 Pulse 88 09/09/21 08:00 Resp 20 09/09/21 08:00 BP 121/80 09/09/21 08:00 Pulse Ox 98 09/09/21 08:00 Intake & Output 09/08/21 09/09/21 09/09/21 18:59 06:59 18:59 Intake Total 771.047 180 Output Total 900 500 Balance -128.953 -500 180 Intake: IV 70 Invasive Line 3 40 Invasive Line 4 30 Intake, IV Titration 203.047 Amount DOBUTamine DRIP 500 mg In 203.047 Dextrose/Water 1 250ml. bag @ 2.5 MCG/KG/MIN 6. 098 mls/hr IV .Q24H JORGE Rx#:[id number] Oral 498 180 Output: Urine 900 500 Other: Voiding Method Urinal Urinal # Voids 1 - Labs CBC & Chem 7: 09/04/21 06:44 09/09/21 08:19 Labs: Abnormal Lab Results - Last 24 Hours (Table) 09/09/21 Range/Units 08:19 Sodium 131 L (137-145) mmol/L BUN 33 H (9-20) mg/dL Glucose 105 H (74-99) mg/dL Total Bilirubin 1.9 H (0.2-1.3) mg/dL AST 64 H (17-59) U/L ALT 161 H (4-49) U/L Total Protein 5.5 L (6.3-8.2) g/dL Albumin 2.7 L (3.5-5.0) g/dL
[2021-09-09] MEDS: ATORVASTATIN 10 MG TAB PO SCH (12:46)
[2021-09-09] MEDS: TORSEMIDE 20 MG TAB PO SCH (12:46)
--- NOTE | 2021-09-09 21:50 | P.PN ---
Progress Note - Text Progress Note Date: 09/09/21 Presenting complaint: Tired Admitted with CHF exacerbation. September 06: Patient on IV dobutamine and IV Lasix. Eating good. Had a bowel movement. Diet. Patient states he stopped smoking 2 weeks ago. September 07: Remains on IV dobutamine and IV Lasix. Negative fluid balance. Breathing a bit better. Good oral intake. September 08: Good urine output. Dose of dobutamine decreased today. Lasix IV changed to once daily. Oral intake good. Sitting up in bed. September 09: Doing much better. Patient taken off dobutamine drip. IV Lasix discontinued. Started on Demadex. And Aldactone. Oral intake good. Breathing better. Discussed with patient about fluid restriction. Review of systems: Was done for constitutional, cardiovascular, GI, pulmonary. relevant finding as above Active Medications Acetaminophen (Acetaminophen Tab 325 Mg Tab) 325 mg PO Q8HR PRN PRN Reason: Mild Pain or Fever > 100.5 Albuterol/Ipratropium (Ipratropium-Albuterol 3 Ml Neb) 3 ml INHALATION TID [facility] Last Admin: 09/09/21 20:57 Dose: 3 ml Documented by: Allopurinol (Allopurinol 100 Mg Tab) 200 mg PO DAILY [facility] Last Admin: 09/09/21 10:12 Dose: 200 mg Documented by: Amlodipine Besylate (Amlodipine 5 Mg Tab) 5 mg PO BID [facility] Last Admin: 09/09/21 20:12 Dose: 5 mg Documented by: Aspirin (Aspirin 81 Mg) 81 mg PO DAILY [facility] Last Admin: 09/09/21 10:12 Dose: 81 mg Documented by: Atorvastatin Calcium (Atorvastatin 10 Mg Tab) 10 mg PO DAILY [facility] Last Admin: 09/09/21 12:46 Dose: 10 mg Documented by: Carvedilol (Carvedilol 12.5 Mg Tab) 37.5 mg PO BID-W/MEALS [facility] Last Admin: 09/09/21 16:58 Dose: 37.5 mg Documented by: Ergocalciferol (Ergocalciferol 1,250 Mcg (50,000 Iu) Capsule) 1,250 mcg PO Q14D [facility] Last Admin: 09/09/21 10:12 Dose: 1,250 mcg Documented by: Ferrous Sulfate (Ferrous Sulfate 325 Mg Tab) 325 mg PO DAILY [facility] Last Admin: 09/09/21 10:12 Dose: 325 mg Documented by: Heparin Sodium (Porcine) (Heparin Sodium,Porcine/Pf 5,000 Unit/0.5 Ml Syringe) 5,000 unit SQ Q8HR [facility] Last Admin: 09/09/21 16:58 Dose: 5,000 unit Documented by: Hydromorphone HCl (Hydromorphone 0.5 Mg/0.5 Ml Syringe) 0.5 mg IVP Q4HR PRN PRN Reason: Pain Last Admin: 09/06/21 05:26 Dose: 0.5 mg Documented by: Naloxone HCl (Naloxone 0.4 Mg/Ml 1 Ml Vial) 0.2 mg IV Q2M PRN PRN Reason: Opioid Reversal Nicotine (Nicotine 21mg/24hr Patch) 1 patch TRANSDERM DAILY [facility] Last Admin: 09/09/21 10:13 Dose: Not Given Documented by: Spironolactone (Spironolactone 25 Mg Tab) 25 mg PO DAILY [facility] Last Admin: 09/09/21 10:12 Dose: 25 mg Documented by: Torsemide (Torsemide 20 Mg Tab) 20 mg PO DAILY [facility] Last Admin: 09/09/21 12:46 Dose: 20 mg Documented by: Tramadol HCl (Tramadol 50 Mg Tab) 50 mg PO Q4H PRN PRN Reason: Pain Last Admin: 09/06/21 04:03 Dose: 50 mg Documented by: On examination: VITAL SIGNS: 97.9, 89, 20, 11 6 x 61, 94% room air GENERAL APPEARANCE: reclining in bed, awake, HEENT: Normal external appearance of nose and ear. Oral cavity normal EYES: Pupils equal. Conjunctiva normal. NECK: JVD not raised. Mass not palpable. RESPIRATORY: Respiratory effort normal, decreased breaths sounds CARDIOVASCULAR: First and second sounds normal. Mild edema. ABDOMEN: Soft. Liver and spleen not palpable. No tenderness. No mass palpable. PSYCHIATRY: Alert and oriented x3. Mood and affect normal. INVESTIGATIONS, reviewed in the clinical context: September 09: Sodium 131 potassium 4 creatinine 1.05 total bilirubin 1.9 AST and 64 ALT 161 albumin 2.7 September 08: Sodium 133 potassium 3.9 BUN 33 creatinine 1.0 AST 90 ENT to September 07: Sodium 131 potassium 4. 40 creatinine 1.08 AST 90 ENT to UA: Negative Sodium 132 potassium 4 BUN 60 creatinine 1.25 AST 99 ALT 413 albumin 3.1 Chest x-ray film personally reviewed by me-[September 05]: Cardiomegaly. Some cephalization Admission labs: WBC 14.2 hemoglobin 14.4 potassium 4.8. 56 creatinine 1.53 Troponin I 3.5 proBNP 25,900 Coronavirus [PCR]: Not detected EKG tracing: Right bundle-branch block pattern, PVC Chest CTA: Negative for PE. Mild cardiomegaly. CT abdomen pelvis without contrast: Cardiomegaly. Nonspecific findings. 2-D echocardiogram: Moderate concentric LVH, EF 20-25%, moderate MR, mild TR, moderate pulmonary hypertension Assessment and plan: -Acute congestive heart failure exacerbation from systolic and diastolic dysfunction. EF 20-25%.: Improving IV dobutamine discontinued: IV Lasix discontinued Demadex 20 mg. Aldactone 25 mg. StartARB tomorrow -Moderate mitral regurgitation Follow clinically -Secondary moderate pulmonary hypertension due to CHF Follow clinically -Essential hypertension Amlodipine 5 mg a day. Coreg 37.5 by mouth twice a day -COPD in a current smoker DuoNeb 3 times a day -Chronic nicotine dependence, cigarette smoker Nicotine patch -Acute kidney injury mostly prerenal secondary to cardiorenal syndrome: S ignificantly improved Creatinine peaked at 2.17. Now 1.05 -Hypervolemic hyponatremia, improving Follow sodium -CKD stage III baseline creatinine 1.3-1.5 secondary to nephrosclerosis -Hyperkalemia due to acute kidney injury: Improved -Metabolic acidosis: Better -Acute ischemic hepatitis: Improving slowly Follow-up LFT Patient taken off IV dobutamine and IV Lasix. Started on Demadex and Aldactone. We can hopefully cutback dose of amlodipine and start Cozaar tomorrow
[2021-09-10] MEDS: HEPARIN SODIUM,PORCINE/PF 5,000 UNIT/0.5 ML SYRINGE SQ SCH ×3 (00:42→17:07)
[2021-09-10] MEDS: carvediloL 12.5 MG TAB PO SCH ×2 (06:16→17:08)
[2021-09-10 07:28] LABS: Calcium 8.9 mg/dL (8.4-10.2); Potassium 4.2 mmol/L (3.5-5.1)
[2021-09-10] MEDS: IPRATROPIUM-ALBUTEROL 3 ML NEB INHALATION SCH ×3 (08:42→19:25)
[2021-09-10 08:50] VITALS: BMI 20.6
[2021-09-10] MEDS: FERROUS SULFATE 325 MG TAB PO SCH (09:22)
[2021-09-10] MEDS: allopurinoL 100 MG TAB PO SCH (09:22)
[2021-09-10] MEDS: ASPIRIN 81 MG PO SCH (09:23)
[2021-09-10] MEDS: SPIRONOLACTONE 25 MG TAB PO SCH (09:23)
[2021-09-10] MEDS: ATORVASTATIN 10 MG TAB PO SCH (09:23)
[2021-09-10] MEDS: NICOTINE 21MG/24HR PATCH TRANSDERM SCH (09:23)
[2021-09-10] MEDS: amLODIPine 5 MG TAB PO SCH ×2 (09:23→20:38)
[2021-09-10] MEDS: TORSEMIDE 20 MG TAB PO SCH (09:23)
--- NOTE | 2021-09-10 10:52 | P.PN ---
Subjective Progress Note Date: 09/10/21 HISTORY OF PRESENT ILLNESS: This is a 51-year-old male who follows in the office with Dr. Rider. Patient has a history of congestive heart failure and nonischemic cardiac myopathy. Patient is admitted to the hospital secondary to non-STEMI and congestive heart failure. Initially there was discussion for coronary angiogram. However the patient developed congestive hepatomegaly with abnormal LFTs. Patient was treated with IV dobutamine and IV Lasix. Patient is currently on Demadex and Aldactone. He denies any chest pain or pressure. Denies shortness of breath. He states he was been walking to the bathroom without SOB. Echocardiogram completed revealing EF 20-25%, moderate mitral regurgitation, mild tricuspid regurgitation, and moderate pulmonary hypertension. Creatinine increased today to 1.28 from 1.05. PHYSICAL EXAM: VITAL SIGNS: Reviewed. GENERAL: Well-developed in no acute distress. NECK: Supple. No JVD or thyromegaly LUNGS: Respirations even and unlabored. Lungs essentially clear to auscultation bilaterally. HEART: Regular rate and rhythm. S1 and S2 heard. Systolic murmur noted. EXTREMITIES: Normal range of motion. No clubbing or cyanosis. Peripheral pulses intact. No lower extremity edema ASSESSMENT: Non-STEMI Nonischemic cardiomyopathy Acute on chronic systolic congestive heart failure, EF 20-25% LVH Abnormal LFTs Hypertension PLAN: Continue current cardiac medications Monitor kidney function. Nephrology following. Patient may require AICD in the future for his cardiomyopathy. Will defer this to Dr. Rider to further discuss on an outpatient basis. Further recommendations pending patient course Nurse practitioner note has been reviewed by physician. Signing provider agrees with the documented findings, assessment, and plan of care. Objective - Vital Signs Vital signs: Vital Signs Temp 98.0 F 09/10/21 04:00 Pulse 55 L 09/10/21 08:54 Resp 16 09/10/21 08:54 BP 118/71 09/10/21 04:00 Pulse Ox 95 09/10/21 08:44 Intake & Output 09/09/21 09/10/21 09/10/21 18:59 06:59 18:59 Intake Total 700 40 Output Total 900 Balance 700 -860 Weight 75 kg 75 kg Intake: IV 40 Invasive Line 3 20 Invasive Line 4 20 Oral 700 Output: Urine 900 Other: Voiding Method Urinal - Labs CBC & Chem 7: 09/04/21 06:44 09/10/21 05:50 Labs: Abnormal Lab Results - Last 24 Hours (Table) 09/10/21 Range/Units 05:50 Sodium 133 L (137-145) mmol/L BUN 35 H (9-20) mg/dL Creatinine 1.28 H (0.66-1.25) mg/dL
--- NOTE | 2021-09-10 12:41 | PN ---
PROGRESS NOTE Patient is seen for followup for acute kidney injury. He is currently being diuresed and being treated for cardiorenal syndrome. Serum creatinine is up to 1.2 from 1.0 yesterday. Patient's diuretics were changed. He is currently on oral Demadex and has been switched over to oral diuretics from IV Lasix yesterday. PHYSICAL EXAMINATION: On examination today, blood pressure 117/68, heart rate 89 per minute, he is afebrile. Examination of the heart S1, S2. Examination of the lungs, bilateral breath sounds are heard. Abdomen is soft, nontender. Examination lower extremities shows no evidence of edema. [employer] exam grossly intact. LAB: Show sodium 133, potassium 4.2, BUN 35, creatinine 1.2. ASSESSMENT: 1. Acute kidney injury, mostly cardiorenal, currently slightly higher creatinine at 1.2. Diuretics have been switched to p.o. We will continue with the current dose of Demadex for now. Repeat labs in a.m. 2. Possible contrast nephropathy. Continue to monitor renal function. UA is completely benign. 3. Hypervolemic hyponatremia, now improved. 4. Hyperkalemia associated with acute kidney injury, metabolic acidosis, now improved. 5. Volume overload, now improved. PLAN: Continue with current dose of Demadex. Repeat labs in 1-2 days. MMODL / IJN: [id number] /
--- NOTE | 2021-09-10 14:47 | P.PN ---
Subjective Progress Note Date: 09/10/21 Principal diagnosis: Acute hypoxic respiratory failure due to exacerbation of CHF acute on chronic systolic heart failure Acute on chronic systolic heart failure Non-ST segment elevated MS Nonischemic cardiomyopathy Bruising of lower extremity of unclear etiology Hypertension hypertensive cardiovascular disease Acute kidney injury 09/10/2021, patient seen eval examined during the rounds labs reviewed medications reviewed care plan discussed, off of dobutamine drip, respiratory status stable, less congested, labs reviewed, noted that BUN/creatinine 35/1.28 09/07/2021, patient has been on oxygen on and off him a shortness of breath significant improvement lower extremity edema improved as well, labs reviewed sodium remains low but stable, BUN/creatinine creatinine improved to 40/1.08 down from 60/1.25, LFT also continued to improve with AST and ALT down to 90/294 , bruising in the extremities stable, remains on continuous infusion with dobutamine 5 mcg/kg/m 09/06/2021, patient seen eval examined during the rounds labs reviewed medications reviewed care plan discussed, respiratory status improved as patient most of time has been on room air using oxygen intermittently, subjective shortness of breath improved as well, patient is getting dobutamine infusion 5 mics per kilogram per minute as well 09/05/2021, shouldn't seen evaluated examined during the rounds labs reviewed medications reviewed, LFT showing a downward trend, hypertension improved as well, stable renal functions, patient is less short of breath, on 3 L nasal cannula, patient has been using BiPAP support 09/04/2021, patient seen eval reexamined, patient continues short of breath, aggressive to being diuresed, labs from today reviewed sodium is 1:30, potassium 6.1, BUN 76, creatinine 2.1, patient remains on the Lasix and IV heparin cardiovascular disease following, Patient is a 51-year-old male with history of the cardiomyopathy started having shortness of breath few days ago with increasing lower extremity swelling, development of orthopnea patient however denies any fever or chills denies any cough or sputum production, symptoms got worse since one day prior to hospitalization since patient ran out of his medications, patient has a baseline nonischemic cardiomyopathy with ejection fraction of 30%, extensive history of smoking and nicotine use [id number] still smoking off and on lately however have quit smoking and also alcohol, on arrival patient noted to be tachycardic and tachypneic hypertensive, patient noted to have elevated prolapse cardiovascular services have been consulted, patient currently on heparin drip, due to hypoxia patient started on BiPAP with a setting of 12/6 with 40% oxygen, unable to obtain a good seal because of facial hair and air leak, admitted chest x-ray significant for cardiomegaly, computed tomography scan of the chest negative for pulmonary embolism showed bilateral subsegmental atelectasis at the bases, cardiomegaly remains unchanged, patient also complaining of some bruises in the lower extremity which are relatively new, admit labs were significant for leukocytosis at 14,000, INR of 1.9, sodium 131, CO2 of 17, BUN/creatinine 56 1.53, and lactic acid level is 2.4, came down to 1.6, troponin were 3.5 continue to go up now showing a downward trend of 2.4, BNP is elevated over 25,000, COVID-19 is negative, Objective - Vital Signs Vital signs: Vital Signs Temp 97.7 F 09/10/21 11:50 Pulse 86 09/10/21 11:50 Resp 16 09/10/21 11:50 BP 117/74 09/10/21 11:50 Pulse Ox 97 09/10/21 11:50 Intake & Output 09/09/21 09/10/21 09/10/21 18:59 06:59 18:59 Intake Total 700 40 Output Total 900 Balance 700 -860 Weight 75 kg 75 kg Intake: IV 40 Invasive Line 3 20 Invasive Line 4 20 Oral 700 Output: Urine 900 Other: Voiding Method Urinal Urinal - Exam - Constitutional General appearance: average body habitus, cooperative, disheveled - EENT Eyes: EOMI, PERRLA Ears: bilateral: normal - Neck Neck: normal ROM Carotids: bilateral: upstroke normal Thyroid: bilateral: normal size - Respiratory Respiratory: bilateral: CTA - Cardiovascular Rhythm: regular Heart sounds: normal: S1, S2 - Gastrointestinal General gastrointestinal: normal bowel sounds - Integumentary Integumentary: normal turgor - Neurologic Neurologic: CNII-XII intact - Musculoskeletal Musculoskeletal: gait normal, generalized weakness, strength equal bilaterally - Psychiatric Psychiatric: A&O x's 3, appropriate affect, intact judgment & insight - Labs CBC & Chem 7: 09/04/21 06:44 09/10/21 05:50 Labs: Abnormal Lab Results - Last 24 Hours (Table) 09/10/21 Range/Units 05:50 Sodium 133 L (137-145) mmol/L BUN 35 H (9-20) mg/dL Creatinine 1.28 H (0.66-1.25) mg/dL Assessment and Plan Assessment: Acute hypoxic respiratory failure due to exacerbation of CHF acute on chronic systolic heart failure Acute on chronic systolic heart failure Non-ST segment elevated MS Elevated liver enzymes combination of history of alcohol and liver disease passive hepatic congestion Nonischemic cardiomyopathy Bruising of lower extremity of unclear etiology Hypertension hypertensive cardiovascular disease Acute kidney injury Plan: Monitor and observe off of dobutamine drip, dose of Coreg is gradually optimize Continue gentle diuresis however monitor kidney functions closely Continue BiPAP support as needed and when necessary alternating with supplemental oxygen however lately patient has been refusing BiPAP Further definitive intervention for acute MS per cardiovascular services Trend liver functions Time with Patient: Greater than 30
[2021-09-10 23:38] VITALS: RESP 18
[2021-09-11] MEDS: HEPARIN SODIUM,PORCINE/PF 5,000 UNIT/0.5 ML SYRINGE SQ SCH ×2 (01:24→08:10)
--- NOTE | 2021-09-11 06:33 | PN ---
PROGRESS NOTE 51-year-old white male with renal failure, COPD, congestive heart failure, acute on chronic systolic heart failure, non STEMI. Ischemic cardiomyopathy, hypertensive cardiovascular disease, acute kidney injury. The patient says he wants to go home tomorrow. He has been off dobutamine drip for a week. He is less congested. No chest pain, shortness of breath. No lightheadedness or syncope. Cardiovascular S1, S2. Lungs clear. GI soft. Hematology negative Homans. BUN 35, creatinine 1.28. White count 10.7, hemoglobin is 14.1. ASSESSMENT: 1. Hypertensive cardiovascular disease. 2. Acute kidney injury. 3. Non ST elevation myocardial infarction. 4. Acute on chronic systolic heart failure. 5. Ischemic cardiomyopathy. 6. Elevated liver enzymes. PROGNOSIS: Guarded. Possibly discharge home tomorrow. MMODL / IJN: [id number] /
[2021-09-11] MEDS: carvediloL 12.5 MG TAB PO SCH (06:59)
[2021-09-11] MEDS: IPRATROPIUM-ALBUTEROL 3 ML NEB INHALATION SCH (08:04)
[2021-09-11] MEDS: allopurinoL 100 MG TAB PO SCH (08:09)
[2021-09-11] MEDS: ATORVASTATIN 10 MG TAB PO SCH (08:09)
[2021-09-11] MEDS: ASPIRIN 81 MG PO SCH (08:09)
[2021-09-11] MEDS: FERROUS SULFATE 325 MG TAB PO SCH (08:09)
[2021-09-11] MEDS: amLODIPine 5 MG TAB PO SCH (08:09)
[2021-09-11] MEDS: SPIRONOLACTONE 25 MG TAB PO SCH (08:09)
[2021-09-11] MEDS: TORSEMIDE 20 MG TAB PO SCH (08:10)
[2021-09-11] MEDS: NICOTINE 21MG/24HR PATCH TRANSDERM SCH (08:10)
[2021-09-11 08:18] VITALS: TEMP 97.7
--- NOTE | 2021-09-11 09:36 | P.PN ---
Subjective Progress Note Date: 09/11/21 Principal diagnosis: Acute hypoxic respiratory failure due to exacerbation of CHF acute on chronic systolic heart failure Acute on chronic systolic heart failure Non-ST segment elevated [place] Nonischemic cardiomyopathy Bruising of lower extremity of unclear etiology Hypertension hypertensive cardiovascular disease Acute kidney injury 09/11/2021, patient seen eval examined during the rounds labs reviewed medications reviewed care plan discussed, respiratory status remained stable, on room air mostly, denies any chest pain intermittent cough is present, labs reviewed medications reviewed, overall patient is stable from this standpoint to be discharged home and recommended follow-up on outpatient basis 09/10/2021, patient seen eval examined during the rounds labs reviewed medications reviewed care plan discussed, off of dobutamine drip, respiratory status stable, less congested, labs reviewed, noted that BUN/creatinine 35/1.28 09/07/2021, patient has been on oxygen on and off him a shortness of breath significant improvement lower extremity edema improved as well, labs reviewed sodium remains low but stable, BUN/creatinine creatinine improved to 40/1.08 down from 60/1.25, LFT also continued to improve with AST and ALT down to 90/294, bruising in the extremities stable, remains on continuous infusion with dobutamine 5 mcg/kg/m 09/06/2021, patient seen eval examined during the rounds labs reviewed medications reviewed care plan discussed, respiratory status improved as patient most of time has been on room air using oxygen intermittently, subjective lanre rtness of breath improved as well, patient is getting dobutamine infusion 5 mics per kilogram per minute as well 09/05/2021, shouldn't seen evaluated examined during the rounds labs reviewed medications reviewed, LFT showing a downward trend, hypertension improved as well, stable renal functions, patient is less short of breath, on 3 L nasal cannula, patient has been using BiPAP support 09/04/2021, patient seen eval reexamined, patient continues short of breath, aggressive to being diuresed, labs from today reviewed sodium is 1:30, potassium 6.1, BUN 76, creatinine 2.1, patient remains on the Lasix and IV heparin cardiovascular disease following, Patient is a 51-year-old male with history of the cardiomyopathy started having shortness of breath few days ago with increasing lower extremity swelling, development of orthopnea patient however denies any fever or chills denies any cough or sputum production, symptoms got worse since one day prior to hospitalization since patient ran out of his medications, patient has a baseline nonischemic cardiomyopathy with ejection fraction of 30%, extensive history of smoking and nicotine use [id number] still smoking off and on lately however have quit smoking and also alcohol, on arrival patient noted to be tachycardic and tachypneic hypertensive, patient noted to have elevated prolapse cardiovascular services have been consulted, patient currently on heparin drip, due to hypoxia patient started on BiPAP with a setting of 12/6 with 40% oxygen, unable to obtain a good seal because of facial hair and air leak, admitted chest x-ray significant for cardiomegaly, computed tomography scan of the chest negative for pulmonary embolism showed bilateral subsegmental atelectasis at the bases, cardiomegaly remains unchanged, patient also complaining of some bruises in the lower extremity which are relatively new, admit labs were significant for leukocytosis at 14,000, INR of 1.9, sodium 131, CO2 of 17, BUN/creatinine 56 1.53, and lactic acid level is 2.4, came down to 1.6, troponin were 3.5 continue to go up now showing a downward trend of 2.4, BNP is elevated over 25,000, COVID-19 is negative, Objective - Vital Signs Vital signs: Vital Signs Temp 97.7 F 09/11/21 08:00 Pulse 78 09/11/21 08:00 Resp 18 09/11/21 08:00 BP 112/71 09/11/21 08:00 Pulse Ox 95 09/11/21 08:00 Intake & Output 09/10/21 09/11/21 09/11/21 18:59 06:59 18:59 Intake Total 462 20 Output Total 350 Balance 462 -330 Weight 75 kg 74.6 kg Intake: IV 20 Invasive Line 3 10 Invasive Line 4 10 Oral 462 Output: Urine 350 Other: Voiding Method Urinal Urinal - Exam - Constitutional General appearance: average body habitus, cooperative, disheveled - EENT Eyes: EOMI, PERRLA Ears: bilateral: normal - Neck Neck: normal ROM Carotids: bilateral: upstroke normal Thyroid: bilateral: normal size - Respiratory Respiratory: bilateral: CTA - Cardiovascular Rhythm: regular Heart sounds: normal: S1, S2 - Gastrointestinal General gastrointestinal: normal bowel sounds - Integumentary Integumentary: normal turgor - Neurologic Neurologic: CNII-XII intact - Musculoskeletal Musculoskeletal: gait normal, generalized weakness, strength equal bilaterally - Psychiatric Psychiatric: A&O x's 3, appropriate affect, intact judgment & insight - Labs CBC & Chem 7: 09/04/21 06:44 09/10/21 05:50 Assessment and Plan Assessment: Acute hypoxic respiratory failure due to exacerbation of CHF acute on chronic systolic heart failure Acute on chronic systolic heart failure Non-ST segment elevated [place] Elevated liver enzymes combination of history of alcohol and liver disease passive hepatic congestion Nonischemic cardiomyopathy Bruising of lower extremity of unclear etiology Hypertension hypertensive cardiovascular disease Acute kidney injury Plan: Monitor and observe off of dobutamine drip, dose of Coreg is gradually optimize Continue gentle diuresis however monitor kidney functions closely Continue BiPAP support as needed and when necessary alternating with supplemental oxygen however lately patient has been refusing BiPAP Further definitive intervention for acute KY per cardiovascular services Trend liver functions Time with Patient: Greater than 30
[2021-09-11 09:46] LABS: Calcium 9.1 mg/dL (8.4-10.2); Potassium 4.1 mmol/L (3.5-5.1)
--- NOTE | 2021-09-11 11:34 | P.PN ---
Subjective Progress Note Date: 09/11/21 HISTORY OF PRESENT ILLNESS: This is a 51-year-old male who follows in the office with Dr. Rider. Patient has a history of congestive heart failure and nonischemic cardiac myopathy. Patient is admitted to the hospital secondary to non-STEMI and congestive heart failure. Initially there was discussion for coronary angiogram. However the patient developed congestive hepatomegaly with abnormal LFTs. Patient was treated with IV dobutamine and IV Lasix. Patient is currently on Demadex and Aldactone. He denies any chest pain or pressure. Denies shortness of breath. He states he was been walking to the bathroom without SOB. Echocardiogram completed revealing EF 20-25%, moderate mitral regurgitation, mild tricuspid regurgitation, and moderate pulmonary hypertension. Creatinine increased today to 1.28 from 1.05. 09/11/2021 Patient examined this morning at the bedside. He denies chest pain or pressure. Denies shortness of breath. Creatinine is 1.13. Patient is hoping to be discharged today. PHYSICAL EXAM: VITAL SIGNS: Reviewed. GENERAL: Well-developed in no acute distress. NECK: Supple. No JVD or thyromegaly LUNGS: Respirations even and unlabored. Lungs essentially clear to auscultation bilaterally. HEART: Regular rate and rhythm. S1 and S2 heard. Systolic murmur noted. EXTREMITIES: Normal range of motion. No clubbing or cyanosis. Peripheral pulses intact. No lower extremity edema ASSESSMENT: Non-STEMI Nonischemic cardiomyopathy Acute on chronic systolic congestive heart failure, EF 20-25% LVH Abnormal LFTs Hypertension PLAN: Continue current cardiac medications Monitor kidney function. Nephrology following. Patient may require AICD in the future for his cardiomyopathy. Will defer this to Dr. Rider to further discuss on an outpatient basis. Patient is stable for discharge home today from a cardiac standpoint. Nurse practitioner note has been reviewed by physician. Signing provider agrees with the documented findings, assessment, and plan of care. Objective - Vital Signs Vital signs: Vital Signs Temp 97.7 F 09/11/21 08:00 Pulse 78 09/11/21 08:00 Resp 18 09/11/21 08:00 BP 112/71 09/11/21 08:00 Pulse Ox 95 09/11/21 08:00 Intake & Output 09/10/21 09/11/21 09/11/21 18:59 06:59 18:59 Intake Total 462 20 Output Total 350 750 Balance 462 -330 -750 Weight 75 kg 74.6 kg Intake: IV 20 Invasive Line 3 10 Invasive Line 4 10 Oral 462 Output: Urine 350 750 Other: Voiding Method Urinal Urinal Urinal - Labs CBC & Chem 7: 09/04/21 06:44 09/11/21 09:05 Labs: Abnormal Lab Results - Last 24 Hours (Table) 09/11/21 Range/Units 09:05 Sodium 132 L (137-145) mmol/L Chloride 96 L (98-107) mmol/L BUN 27 H (9-20) mg/dL Glucose 146 H (74-99) mg/dL
--- NOTE | 2021-09-11 11:56 | PN ---
PROGRESS NOTE Patient is seen for followup for acute kidney injury, mostly cardiorenal. His renal function has improved, creatinine staying at 1.1 mg/dL. Patient's diuretics have been switched to p.o. He is expecting to be discharged today. On examination, blood pressure is 112/71, heart rate 78 per minute. He is afebrile. EXAMINATION OF THE HEART: S1 and S2. EXAMINATION OF LUNGS: Decreased breath sounds at the bases. Abdomen is soft, non-tender. Examination of lower extremities shows no evidence of edema. SAFETY FIRE BOSS EXAM: Grossly intact. Labs show sodium 132, potassium 4.1, BUN 27, creatinine 1.1. ASSESSMENT: 1. Acute kidney injury, cardiorenal, currently improved. 2. Volume overload, now improved. 3. Possible contrast nephropathy. UA is completely benign. Creatinine is decreasing. I highly doubt it at this time. 4. Hypervolemic hyponatremia, now improved. 5. Hyperkalemia associated with acute kidney injury, metabolic acidosis, now resolved. PLAN: Continue with Demadex. Follow up as outpatient with repeat labs in about 4-5 days post discharge. MMODL / IJN: [id number] /
[2021-09-11 12:02] VITALS: BP 110/72; PULSE 82
== END 2021-09-11 13:43 | disposition home or self-care (01) | DRG 280 ==
LOC: EC 21:37 → 3SCARD 09-03 00:14
PROVIDERS: ADMIT Family Medicine; ATTEND Family Medicine
DX: I21.4 Non-ST elevation (NSTEMI) myocardial infarction (principal); K72.00 Acute and subacute hepatic failure without coma; I50.43 Acute on chronic combined systolic (congestive) and diastolic (congestive) heart failure; J96.01 Acute respiratory failure with hypoxia; I45.2 Bifascicular block; E87.1 Hypo-osmolality and hyponatremia; E87.2 Acidosis; I13.0 Hypertensive heart and chronic kidney disease with heart failure and stage 1 through stage 4 chronic kidney disease, or unspecified chronic kidney disease; N17.9 Acute kidney failure, unspecified; I42.8 Other cardiomyopathies; I49.3 Ventricular premature depolarization; Z20.822 Contact with and (suspected) exposure to COVID-19; D72.829 Elevated white blood cell count, unspecified; E87.5 Hyperkalemia; F10.10 Alcohol abuse, uncomplicated; F17.210 Nicotine dependence, cigarettes, uncomplicated; I25.10 Atherosclerotic heart disease of native coronary artery without angina pectoris; I25.5 Ischemic cardiomyopathy; K59.00 Constipation, unspecified; M54.9 Dorsalgia, unspecified; S80.10XA Contusion of unspecified lower leg, initial encounter; N18.31 Chronic kidney disease, stage 3a; M19.90 Unspecified osteoarthritis, unspecified site; K76.1 Chronic passive congestion of liver; I27.22 Pulmonary hypertension due to left heart disease; I34.0 Nonrheumatic mitral (valve) insufficiency; Z91.19 Patient's noncompliance with other medical treatment and regimen; Z91.14 Patient's other noncompliance with medication regimen; Z86.73 Personal history of transient ischemic attack (TIA), and cerebral infarction without residual deficits; Z79.899 Other long term (current) drug therapy; Z79.82 Long term (current) use of aspirin; R79.89 Other specified abnormal findings of blood chemistry; M79.89 Other specified soft tissue disorders; J44.9 Chronic obstructive pulmonary disease, unspecified
CPT/HCPCS: 36415; 71045; 71046; 71275; 74176; 80048; 80053; 81001; 81003; 82570; 83605; 83735; 83880; 84132; 84156; 84450; 84460; 84484; 85025; 85379; 85610; 85730; 87635; 93005; 93306; 94640; 94660; 94760; 96374; 99285

== ENCOUNTER 2021-09-16 03:56 | Inpatient (IN) | payer MEDICARE ==
[2021-09-16] MEDS ORDERED: ONDANSETRON 4 MG/2 ML VIAL IVP STA (04:13)
[2021-09-16] MEDS ORDERED: SODIUM CHLORIDE 0.9% 1,000 ML IV STA (04:13)
[2021-09-16] MEDS ORDERED: LORazepam 2 MG/ML INJ IV STA (04:14)
[2021-09-16] MEDS ORDERED: HYDROmorphone 1 MG/ML 1 ML SYRINGE IVP STA (04:14)
--- NOTE | 2021-09-16 04:14 | ED ---
Chest Pain HPI - General Chief Complaint: Abdominal Pain Stated Complaint: Flank Pain Time Seen by Provider: 09/16/21 03:57 Source: patient, EMS, RN notes reviewed, old records reviewed Mode of arrival: EMS Limitations: no limitations - History of Present Illness Initial Comments: This is a 51-year-old male to the emergency department today. Patient has today for evaluation of chest pain shortness not feeling well. Patient has history of PE this feels maybe similar but worse. Patient was on blood thinners recently taken off blood thinners. Otherwise no fevers cough congestion or travel history. MD Complaint: chest pain, other (abdominal pain) -: days(s) Onset: during rest, during exertion Pain Location: substernal, left chest, right chest, epigastric Pain Radiation: back Severity: severe Severity scale (1-10): 10 Quality: tightness, sharp Consistency: constant Improves With: nothing Worsens With: exertion, inspiration Context: new medications Anginal Symptoms: diaphoresis, dyspnea Other Symptoms: palpitations Treatments Prior to Arrival: none - Related Data Home Medications Medication Instructions Recorded Confirmed Ferrous Sulfate [Iron (65 MG 325 mg PO DAILY 12/08/20 09/16/21 Elemental)] traMADol HCL [Ultram] 50 mg PO Q4-6H PRN 12/08/20 09/16/21 Allopurinol [Zyloprim] 200 mg PO DAILY 09/02/21 09/16/21 Ergocalciferol [Vitamin D2 (1250 1,250 mcg PO Q14D 09/02/21 09/16/21 Mcg = [id number] Iu)] amLODIPine [Norvasc] 5 mg PO DAILY 09/02/21 09/16/21 Albuterol Inhaler [Ventolin Hfa 2 puff INHALATION RT-QID PRN 09/16/21 09/16/21 Inhaler] Ipratropium-Albuterol Nebulize 3 ml INHALATION RT-TID 09/16/21 09/16/21 [Duoneb 0.5 mg-3 mg/3 ml Soln] Previous Rx's Medication Instructions Recorded Spironolactone [Aldactone] 25 mg PO DAILY 30 Days #30 tab 11/22/20 Aspirin 81 mg PO DAILY 90 Days #90 tab 09/11/21 Atorvastatin [Lipitor] 10 mg PO DAILY 90 Days #90 tab 09/11/21 Nicotine 21Mg/24Hr Patch [Habitrol] 1 patch TRANSDERM DAILY 30 Days 09/11/21 #30 patch Torsemide [Demadex] 20 mg PO DAILY 90 Days #90 tab 09/11/21 Thiamine [Vitamin B-1] 100 mg PO BID-W/MEALS tab 09/21/21 Warfarin [Coumadin] 2.5 mg PO DAILY@1800 90 Days #90 09/21/21 tab carvediloL [Coreg*] 25 mg PO BID-W/MEALS 90 Days #180 09/21/21 tab Allergies Allergy/AdvReac Type Severity Reaction Status Date / Time morphine Allergy Rash/Hives Verified 09/16/21 07:38 Penicillins Allergy Rash/Hives Verified 09/16/21 07:38 pineapple Allergy Anaphylaxis Verified 09/16/21 07:38 Review of Systems ROS Statement: Those systems with pertinent positive or pertinent negative responses have been documented in the HPI. ROS Other: All systems not noted in ROS Statement are negative. EKG Findings - EKG Comments: EKG Findings:: EKG shows sinus tachycardia 111 NV 158 QRS 122 QTC 503 Past Medical History Past Medical History: Hypertension, Osteoarthritis (OA) Additional Past Medical History / Comment(s): Constipation/bloating. Renal insufficiency, 80% kidney function, hx TIA's X2, 9 yrs ago X2, bulging disc (L4), back pain, ocassional numbness left leg. History of Any Multi-Drug Resistant Organisms: None Reported Past Surgical History: Appendectomy, Heart Catheterization Additional Past Surgical History / Comment(s): Right second and third toes reattached after lawnmower accident. Past Anesthesia/Blood Transfusion Reactions: No Reported Reaction Past Psychological History: No Psychological Hx Reported Smoking Status: Former smoker Past Alcohol Use History: None Reported Past Drug Use History: None Reported - Past Family History Mother Family Medical History: No Reported History General Exam Limitations: no limitations General appearance: alert, anxious, in distress Head exam: Present: atraumatic, normocephalic, normal inspection Eye exam: Present: normal appearance, PERRL, EOMI. Absent: scleral icterus, conjunctival injection, periorbital swelling ENT exam: Present: normal exam, mucous membranes moist Neck exam: Present: normal inspection. Absent: tenderness, meningismus, lymphadenopathy Respiratory exam: Present: normal lung sounds bilaterally. Absent: respiratory distress, wheezes, rales, rhonchi, stridor Cardiovascular Exam: Present: normal rhythm, tachycardia, normal heart sounds. Absent: systolic murmur, diastolic murmur, rubs, gallop, clicks GI/Abdominal exam: Present: soft, normal bowel sounds. Absent: distended, tenderness, guarding, rebound, rigid Extremities exam: Present: normal inspection, full ROM, normal capillary refill. Absent: tenderness, pedal edema, joint swelling, calf tenderness Back exam: Present: normal inspection Neurological exam: Present: alert, oriented X3, CN II-XII intact Psychiatric exam: Present: normal affect, normal mood Skin exam: Present: warm, dry, intact, normal color. Absent: rash Course Vital Signs 09/16/21 09/16/21 09/16/21 04:04 06:08 06:30 Temperature 99.6 F Pulse Rate 112 H 118 H 117 H Pulse Rate [ Pulse Oximetery ] Respiratory 26 H 22 24 Rate Blood Pressure 167/105 156/105 169/104 Blood Pressure [Right Arm] O2 Sat by Pulse 95 96 95 Oximetry 09/16/21 09/16/21 08:21 11:05 Temperature 100.1 F H 97.8 F Pulse Rate Pulse Rate [ 122 H 110 H Pulse Oximetery ] Respiratory 20 18 Rate Blood Pressure Blood Pressure 160/107 151/99 [Right Arm] O2 Sat by Pulse 95 96 Oximetry - Reevaluation(s) Reevaluation #1: Record is reviewed Patient has no improvement here in the emergency department Patient informed results and questions answered Reevaluation #2: Patient will be admitted for anticoagulation and monitoring - Consultations Consultation #1: Spoke with on-call admitting for patient, they're agreeable to admit Chest Pain MDM - MDM 51 male to the emergency department for evaluation of chest pain history of PE no current anticoagulation. Patient doesn't multiple PEs here in the ER [place] for anticoagulation and further evaluation management Critical Care Time Critical Care Time: Yes Total Critical Care Time: 31 Disposition Clinical Impression: Pulmonary embolism, Multiple pulmonary emboli Disposition: ADMITTED IP TO THIS HOSP Condition: Serious Is patient prescribed a controlled substance at d/c from ED?: No
--- NOTE | 2021-09-16 04:58 | CT ---
EXAMINATION TYPE: CT abdomen pelvis w con DATE OF EXAM: 09/16/2021 COMPARISON: 09/03/2021 HISTORY: abd pain CT DLP: 1387.7 mGycm Automated exposure control for dose reduction was used. CONTRAST: Performed with IV Contrast, patient injected with 100 mL of Isovue 370. Images obtained from the diaphragm to the floor the pelvis with IV contrast. There is some infiltrate and atelectasis at both lung bases. Heart is enlarged. There is no pericardi al effusion. Liver is intact. Gallbladder is intact. Spleen is borderline enlarged and measures 13 cm. There is no pancreatic mass. Stomach is intact. There are a few punctate pancreatic calcifications and could rel ate to chronic pancreatitis. There is no adrenal mass. Kidneys show satisfactory contrast opacification. There is no hydronephrosi s. Delayed images show normal renal excretion. Ureters are not dilated. There is no retroperitoneal a denopathy. Bladder distends smoothly. There is no inguinal hernia. There is no free fluid in the pelv is. Abdominal aorta is atheromatous. There is no mesenteric edema. There is no ascites or free air. There is no bowel obstruction. Appendi x not seen. The lumbar vertebra have normal alignment. The posterior elements are intact. There is no compression fracture. The bony pelvis is intact. IMPRESSION: There is some mild infiltrate and atelectasis at the lung bases which is increased compared to old ex am. No acute abnormality within the abdomen pelvis.
[2021-09-16 05:11] LABS: ALT 60 U/L (4-49); AST 30 U/L (17-59); African American GFR (CKD) 90 (>60 ml/min/1.73 sqM); Albumin 3.7 g/dL (3.5-5.0); Alcohol <10 mg/dL; Alkaline Phosphatase 129 U/L (38-126); Anion Gap 7 mmol/L; Blood Urea Nitrogen 29 mg/dL (9-20); Calcium 9.9 mg/dL (8.4-10.2); Carbon Dioxide 26 mmol/L (22-30); Chloride 96 mmol/L (98-107); Glucose 118 mg/dL (74-99); Lipase 114 U/L (23-300); Magnesium 1.8 mg/dL (1.6-2.3); Non-African American GFR(CKD) 78 (>60 ml/min/1.73 sqM); Sodium 129 mmol/L (137-145); Total Bilirubin 1.1 mg/dL (0.2-1.3); Total Protein 6.8 g/dL (6.3-8.2)
[2021-09-16] MEDS ORDERED: HEPARIN SODIUM 1,000 UN/ML (10ML VL) IV ONE (05:15)
[2021-09-16 05:17] LABS: Basophils % (A) 0 %; Eosinophils % (A) 0 %; HCT 48.9 % (39.0-53.0); HGB 16.2 gm/dL (13.0-17.5); Lymphocytes # (A) 1.5 k/uL (1.0-4.8); Lymphocytes % (A) 12 %; MCH 27.6 pg (25.0-35.0); MCHC 33.1 g/dL (31.0-37.0); MCV 83.1 fL (80.0-100.0); Mean Platelet Volume 8.3; Monocytes # (A) 1.1 k/uL (0-1.0); Monocytes % (A) 8 %; Neutrophils # (A) 10.1 k/uL (1.3-7.7); Neutrophils % (A) 78 %; Platelet Count 408 k/uL (150-450); RBC 5.88 m/uL (4.30-5.90); WBC 13.1 k/uL (3.8-10.6)
--- NOTE | 2021-09-16 05:18 | CT ---
EXAMINATION TYPE: CT angio chest DATE OF EXAM: 09/16/2021 COMPARISON: 09/03/2021 HISTORY: chest pain CT DLP: 1387.7 mGycm Automated exposure control for dose reduction was used. CONTRAST: Performed with IV Contrast, patient injected with 100 mL of Isovue 370. There are 3-D post processed images. There is some triangular-shaped 4 cm infiltrate at the left posterior lung base. The other lung field s are fairly clear. There is no mediastinal adenopathy. There are no hilar masses. Thoracic aorta is intact and there is no aneurysm. There are multiple filling defects in the right lower lobe pulmonary artery. There are no hilar masses. There are also smaller filling defects in the left lower lobe pul monary artery. There are small filling defects extending into the right upper lobe pulmonary artery. The thoracic spine is intact. There is no compression fracture. IMPRESSION: Multiple large emboli in the right lower lobe pulmonary artery are increased compared to old exam. There are new emboli in the left lower lobe pulmonary artery posterior basal segment branch. There is wedge-shaped infiltrate that could be a pulmonary infarct. There is new small embolism in the right upper lobe pulmonary artery. This exam was discussed with ER attending staff at 5:30 AM.
[2021-09-16] MEDS ORDERED: NALOXONE 0.4 MG/ML 1 ML VIAL IV PRN (05:22)
[2021-09-16] MEDS ORDERED: LORazepam 2 MG/ML INJ IV PRN ×4 (05:22→06:56)
[2021-09-16] MEDS ORDERED: ONDANSETRON 4 MG/2 ML VIAL IVP PRN (05:22)
[2021-09-16 05:24] LABS: Partial Thromboplastin Time 23.5 sec (22.0-30.0); Prothrombin Time 10.7 sec (9.0-12.0)
[2021-09-16] MEDS: SODIUM CHLORIDE 0.9% 1,000 ML IV SCH ×2 (06:32→13:45)
[2021-09-16] MEDS: HEPARIN SOD,PORK IN 0.45% NACL 25,000 UNIT in 0.45% NACL 1 250ML.BAG IV SCH ×2 (06:34→23:02)
[2021-09-16 07:35] LABS: Appearance,Urine Clear (Clear); Bilirubin,Urine Negative (Negative); Blood,Urine Negative (Negative); Color,Urine Yellow; Glucose,Urine (UA) Negative (Negative); Ketones,Urine Negative (Negative); Leukocyte Esterase,Urine Negative (Negative); Nitrite,Urine Negative (Negative); PH, Urine 5.5 (5.0-8.0); Protein,Urine Trace (Negative); Specific Gravity,Urine >1.050 (1.001-1.035); Urobilinogen,Urine <2.0 mg/dL (<2.0)
[2021-09-16] MEDS: HYDROmorphone 1 MG/ML 1 ML SYRINGE IVP PRN ×3 (08:24→23:10)
[2021-09-16] MEDS ORDERED: ALBUTEROL NEBULIZED 2.5 MG/3 ML INHALATION PRN (08:37)
[2021-09-16] MEDS: amLODIPine 5 MG TAB PO SCH (10:01)
[2021-09-16] MEDS: FERROUS SULFATE 325 MG TAB PO SCH (10:01)
[2021-09-16] MEDS: allopurinoL 100 MG TAB PO SCH (10:02)
[2021-09-16] MEDS: NICOTINE 21MG/24HR PATCH TRANSDERM SCH (10:02)
[2021-09-16] MEDS: carvediloL 12.5 MG TAB PO SCH ×2 (10:02→17:06)
[2021-09-16] MEDS: SPIRONOLACTONE 25 MG TAB PO SCH (10:02)
[2021-09-16] MEDS: ATORVASTATIN 10 MG TAB PO SCH (10:02)
[2021-09-16] MEDS: ASPIRIN 81 MG PO SCH (10:02)
[2021-09-16] MEDS: TORSEMIDE 20 MG TAB PO SCH (11:04)
[2021-09-16 11:33] LABS: Glucose,Whole Blood 132 mg/dL (75-99)
[2021-09-16] MEDS ORDERED: ERGOCALCIFEROL 1,250 MCG (50,000 IU) CAPSULE PO SCH (12:00)
--- NOTE | 2021-09-16 12:33 | US ---
EXAMINATION TYPE: US venous doppler duplex LE BI DATE OF EXAM: 09/16/2021 12:19 PM COMPARISON: NONE CLINICAL HISTORY: PEs, assess for DVt. SIDE PERFORMED: Bilateral TECHNIQUE: The lower extremity deep venous system is examined utilizing real time linear array sonog kanu with graded compression, doppler sonography and color-flow sonography. VESSELS IMAGED: Common Femoral Vein Deep Femoral Vein Greater Saphenous Vein * Femoral Vein Popliteal Vein Small Saphenous Vein * Proximal Calf Veins (* superficial vessels) Right Leg: Negative for DVT Left Leg: Positive for DVT. Starting at distal FV and extending through proximal calf veins the vess el is distended with internal echoes and is not compressible. IMPRESSION: Findings compatible with DVT as noted above.
--- NOTE | 2021-09-16 13:23 | CONS ---
MIAN Marmolejo is a 51-year-old gentleman with a history of nonischemic cardiomyopathy, severe LV systolic dysfunction and hypertension who was admitted to hospital recently with symptoms of shortness of breath and was treated as acute exacerbation of chronic congestive heart failure. He was discharged home and comes back in complaining of sudden-onset shortness of breath and right-sided pleuritic pain. The patient at the time of my evaluation in the emergency room appears short of breath at rest and he is tachycardiac. EKG shows sinus rhythm with right bundle branch block. His labs show that the troponin is mildly elevated at 0.2 and 0.1. D-dimer was elevated at 9.3. Patient underwent a CT scan of the chest that showed multiple large pulmonary emboli in the right lower lobe that we are told have increased compared to an old exam and there are new emboli involving the left lower lobe with evidence of pulmonary infarct. Patient had elevated D-dimer at his last admission also and underwent a CT scan of the chest that did not reveal any pulmonary embolism. Patient had a CT scan of the chest in December of 2020 that showed evidence of pulmonary embolism in the right lower lobe and there was no evidence of right heart strain. Patient is currently on IV heparin and we are awaiting an echocardiogram at this time. Past medical history is significant for nonischemic cardiomyopathy, chronic congestive heart failure, COPD, hypertension. Current medications include albuterol, Ultram, Norvasc, Demadex, Aldactone, Habitrol, DuoNeb, Coreg, aspirin . ALLERGIES: MORPHINE, PENICILLIN. Family history is negative for premature coronary artery disease. SOCIAL HISTORY: He denies current smoking. He does have a history of smoking. REVIEW OF SYSTEMS HEENT is unremarkable. CARDIAC: As described above. RESPIRATORY: As described above. GI: Negative. GENITOURINARY: Negative. ALLERGY/IMMUNOLOGY: Negative. SKIN: Negative. MUSCULOSKELETAL: Significant for arthritis. PSYCHOSOCIAL: Negative. ENDOCRINE: Negative. DERMATOLOGY: Negative. CONSTITUTIONAL: Negative. ONCOLOGICAL: Negative. MOBILE SOLUTIONS ARCHITECT: Negative. Rest of the system review is not relevant. On exam, he appears mildly short of breath at rest. Heart rate is 110 beats per minute. Blood pressure is 150/99, respiratory rate is 18, O2 saturation is 96% on 2 L. There is no jugular venous distention. Carotid upstroke is normal. There is no bruit. Chest exam reveals good air entry bilaterally. Heart exam reveals first and second heart sounds. No gallop. No murmur. Abdomen is soft, nontender. Examination of extremities did not reveal any edema. Peripheral pulses are felt. Patient's troponins are elevated. BNP is elevated. D-dimer is elevated. CT scan of the chest is abnormal. EKG is abnormal. ASSESSMENT: 1. Acute pulmonary embolism. 2. Dilated cardiomyopathy with congestive heart failure. PLAN: Patient is on IV heparin. I will get an echocardiogram done and consult a vascular surgeon. MMODL / IJN: [id number] /
[2021-09-16] MEDS: HEPARIN SODIUM 1,000 UN/ML (10ML VL) IV PRN ×2 (13:44→23:08)
--- NOTE | 2021-09-16 13:50 | ECHOF ---
Referral Reason:PE MEASUREMENTS -------- HEIGHT: 190.5 cm WEIGHT: 77.1 kg BP: 150/101 RVIDd: 4.7 cm (< 3.3) IVSd: 1.9 cm (0.6 - 1.1) LVIDd: 5.5 cm (3.9 - 5.3) LVPWd: 1.5 cm (0.6 - 1.1) IVSs: 1.9 cm LVIDs: 4.9 cm LVPWs: 1.8 cm TAPSE: 26.67 mm FINDINGS -------- Resting tachycardia (HR>100bpm). This was a technically adequate study. The left ventricular size is normal. There is severe concentric left ventricular hypertrophy. The re is severe global hypokinesis of LV . Overall left ventricular systolic function is severely impa ired with, an EF between 25 - 30 %. The right ventricle is moderately enlarged. Moderate mitral regurgitation is present. [id number] tricuspid regurgitation present. There is no pericardial effusion. CONCLUSIONS -------- 1. The left ventricular size is normal. 2. There is severe concentric left ventricular hypertrophy. 3. There is severe global hypokinesis of LV . 4. Overall left ventricular systolic function is severely impaired with, an EF between 25 - 30 %. 5. The right ventricle is moderately enlarged. 6. Moderate mitral regurgitation is present. 7. [id number] tricuspid regurgitation present. PASSENGER FLAGMAN: Thi Liu, [facility]
[2021-09-16] MEDS: IPRATROPIUM-ALBUTEROL 3 ML NEB INHALATION SCH ×2 (14:01→21:11)
--- NOTE | 2021-09-16 14:10 | P.CNPUL ---
History of Present Illness Consult date: 09/16/21 Reason for consult: dyspnea, pulmonary embolism Chief complaint: Diffuse pain and thoracoabdominal area History of present illness: Patient is a 51-year-old male came into the hospital for evaluation of initially thought to be a flank pain subsequently noted to be present and extending from some sternal to epigastric and flank area, pain of severe category tight and sharp does not improved with simple measures and pain medicine, have the exertional component present and got worse with deep breathing, has ongoing pa lpitations present, patient was noted to be have sinus tachycardia with prolonged QTC on EKG, prior history of the chronic renal insufficiency history of TIAs bulging thus chronic back pain numbness in the left leg, patient denies any loss of consciousness and denies any cough or sputum. Denies any night sweats or fevers chills denies any hemoptysis, no bowel or bladder related problem, T-max on arrival was noted to be 99.6 patient was hypertensive with blood pressure 167/105 him his significant labs were white cell count 13,100 hemoglobin and hematocrit 16 and 48, d-dimer extremely high 9.34, history of previous sodium 129, BUN/creatinine 29/1.1, troches were elevated 0.205 second was 0.195, ultrasound of lower extremity positive for left lower extremity deep venous thrombosis, computed tomography scan of the chest was positive for multiple large pulmonary embolism in right lower lobe pulmonary vessel increase burden of emboli noted on the left side some of them have appearance of infarct on the left side also right upper lobe embolism were seen, currently patient is being treated with bronchodilators continuation of home medications, and IV heparin drip, patient covid test is negative, Patient recently has been hospitalized and discharged 2 days ago due to acute exacerbation of congestive heart failure and chronic systolic heart failure due to nonischemic cardiomyopathy with elevation of liver enzymes due to passive hepatic congestion and chronic kidney Review of Systems All systems: negative Past Medical History Past Medical History: Heart Failure, Hypertension, Osteoarthritis (OA) Additional Past Medical History / Comment(s): cardiomyopathy Constipation/bloating. Renal insufficiency, 80% kidney function, hx TIA's X2, 9 yrs ago X2, bulging disc (L4), back pain, ocassional numbness left leg. History of Any Multi-Drug Resistant Organisms: None Reported Past Surgical History: Appendectomy, Heart Catheterization Additional Past Surgical History / Comment(s): Right second and third toes reattached after lawnmower accident. Past Anesthesia/Blood Transfusion Reactions: No Reported Reaction Past Psychological History: No Psychological Hx Reported Smoking Status: Former smoker Past Alcohol Use History: None Reported Additional Past Alcohol Use History / Comment(s): Has been smoking for 30 yrs, QUIT 1 WEEKS AGO Past Drug Use History: None Reported - Past Family History Mother Family Medical History: No Reported History Medications and Allergies Home Medications Medication Instructions Recorded Confirmed Type Carvedilol [Coreg] 12.5 mg PO BID #60 tablet 11/22/20 09/16/21 Rx Spironolactone [Aldactone] 25 mg PO DAILY 30 Days #30 tab 11/22/20 09/16/21 Rx Ferrous Sulfate [Iron (65 MG 325 mg PO DAILY 12/08/20 09/16/21 History Elemental)] traMADol HCL [Ultram] 50 mg PO Q4-6H PRN 12/08/20 09/16/21 History Allopurinol [Zyloprim] 200 mg PO DAILY 09/02/21 09/16/21 History Ergocalciferol [Vitamin D2 (1250 1,250 mcg PO Q14D 09/02/21 09/16/21 History Mcg = 36745 Iu)] amLODIPine [Norvasc] 5 mg PO DAILY 09/02/21 09/16/21 History Aspirin 81 mg PO DAILY 90 Days #90 tab 09/11/21 09/16/21 Rx Atorvastatin [Lipitor] 10 mg PO DAILY 90 Days #90 tab 09/11/21 09/16/21 Rx Nicotine 21Mg/24Hr Patch [Habitrol] 1 patch TRANSDERM DAILY 30 Days 09/11/21 09/16/21 Rx #30 patch Torsemide [Demadex] 20 mg PO DAILY 90 Days #90 tab 09/11/21 09/16/21 Rx Albuterol Inhaler [Ventolin Hfa 2 puff INHALATION RT-QID PRN 09/16/21 09/16/21 History Inhaler] Ipratropium-Albuterol Nebulize 3 ml INHALATION RT-TID 09/16/21 09/16/21 History [Duoneb 0.5 mg-3 mg/3 ml Soln] Allergies Allergy/AdvReac Type Severity Reaction Status Date / Time morphine Allergy Rash/Hives Verified 09/16/21 07:38 Penicillins Allergy Rash/Hives Verified 09/16/21 07:38 pineapple Allergy Anaphylaxis Verified 09/16/21 07:38 Physical Exam Vitals: Vital Signs Temp Pulse Pulse Resp BP BP Pulse Ox 09/16/21 11:05 97.8 F 110 H 18 151/99 96 09/16/21 08:21 100.1 F H 122 H 20 160/107 95 09/16/21 06:30 117 H 24 169/104 95 09/16/21 06:08 118 H 22 156/105 96 09/16/21 04:04 99.6 F 112 H 26 H 167/105 95 Intake and Output 09/15/21 09/16/21 09/16/21 22:59 06:59 14:59 Output Total 400 Balance -400 Output: Urine 400 Other: Voiding Method Urinal Weight 77.111 kg 77.111 kg - Constitutional General appearance: average body habitus, cooperative, disheveled - EENT Eyes: EOMI, PERRLA Ears: bilateral: normal - Neck Carotids: bilateral: upstroke normal - Respiratory Respiratory: bilateral: CTA - Cardiovascular Rhythm: regular Heart sounds: normal: S1, S2 - Gastrointestinal General gastrointestinal: normal bowel sounds, soft - Neurologic Neurologic: CNII-XII intact - Musculoskeletal Musculoskeletal: gait normal, generalized weakness, strength equal bilaterally - Psychiatric Psychiatric: A&O x's 3, appropriate affect, intact judgment & insight Results - Laboratory Findings CBC and BMP: 09/16/21 04:20 09/16/21 04:15 PT/INR, D-dimer PT 10.7 sec (9.0-12.0) 09/16/21 04:20 INR 1.0 (<1.2) 09/16/21 04:20 D-Dimer 9.34 mg/L FEU (<0.60) H 09/16/21 04:20 Abnormal lab findings: Abnormal Labs 09/16/21 09/16/21 09/16/21 04:15 04:15 04:20 WBC 13.1 H Neutrophils # 10.1 H Monocytes # 1.1 H APTT D-Dimer Sodium 129 L Chloride 96 L BUN 29 H Glucose 118 H POC Glucose (mg/dL) Phosphorus 5.0 H ALT 60 H Alkaline Phosphatase 129 H Troponin I 0.205 H* Ur Specific [place] Urine Protein 12/03/0209/16/21 09/16/21 04:20 07:18 08:40 WBC Neutrophils # Monocytes # APTT D-Dimer 9.34 H Sodium Chloride BUN Glucose POC Glucose (mg/dL) Phosphorus ALT Alkaline Phosphatase Troponin I 0.195 H* Ur Specific [place] >1.050 H Urine Protein Trace H 09/16/21 09/16/21 11:28 12:38 WBC Neutrophils # Monocytes # APTT 30.7 H D-Dimer Sodium Chloride BUN Glucose POC Glucose (mg/dL) 132 H Phosphorus ALT Alkaline Phosphatase Troponin I Ur Specific [place] Urine Protein - Diagnostic Findings Chest x-ray: report reviewed, image reviewed CT scan - chest: report reviewed, image reviewed (Finding as noted above) Assessment and Plan Assessment: Acute pulmonary embolism Left lower extremity deep venous thrombosis Left-sided pulmonary infarction Developing secondary pneumonia cannot be excluded Hypertension hypertensive cardiovascular disease Chronic kidney disease History of low back pain History of smoking in the past Plan: Continue IV heparin Echocardiogram IV antibiotics with Rocephin Pain management by primary service Further plan of care as per clinical response of the patient
[2021-09-16] MEDS: traMADol 50 MG TAB PO PRN (14:41)
[2021-09-16] MEDS: THIAMINE 100 MG TAB PO SCH (17:06)
--- NOTE | 2021-09-16 17:54 | HP ---
HISTORY AND PHYSICAL This is a 51-year-old white male came in with flank pain and some abdominal pain from his sternum to his epigastric and flank area. He came into the hospital, was found to have respiratory distress, sinus tachycardia, abnormal EKG, and bilateral pulmonary embolisms. T-max was 99.6 with a white count of 13. D-dimer high at 9.34. Ultrasound of the lower extremities positive for left lower DVT. CT scan show multiple PEs, treated with heparin drip and remains in the ER. PAST MEDICAL HISTORY: Cardiomyopathy, constipation, bloating, renal insufficiency, degenerative disc disease. SURGERIES: Appendectomy, heart catheterizations. FAMILY HISTORY: Mother. HOME MEDICINES: Coreg 12.5 b.i.d., spironolactone 25 mg daily, iron sulfate 325 daily, tramadol 50 q.6 p.r.n., zyloprim 200 mg daily, vitamin D 1250 q.14 days, Norvasc 5 mg daily, aspirin 81 mg daily, Lipitor 10 mg daily, nicotine patch 21 mg daily, q.i.d. [employer]. ALLERGIES: MORPHINE, PENICILLIN, PINEAPPLE. PHYSICAL EXAMINATION: T-max 100.1, pulse is 100 to 120, respiratory rate 18-26, blood pressure 150s to 160s over 100 to 105, O2 saturation 95 to 96 on 2 L. Lungs have scattered rhonchi and wheeze. Cardiac S1, S2, tachy. Abdomen is soft, non-tender. Extremities no cyanosis, clubbing, edema. ASSESSMENT: 1. Acute pulmonary embolism, bilateral. 2. Left lower extremity deep vein thrombosis. 3. Left-sided pulmonary infarction. 4. Development of secondary pneumonia. 5. Hypertensive cardiovascular disease. 6. Cardiomyopathy. 7. Chronic kidney disease. 8. Lumbar disc disease. 9. Nicotine addiction. Heparin, echo, antibiotics, pain control. Prognosis guarded. Cardiology, pulmonary consults. MMODL / IJN: [id number] /
[2021-09-16 19:29] LABS: Glucose,Whole Blood 135 mg/dL (75-99)
[2021-09-17 03:56] LABS: INR 1.1 (<1.2); Partial Thromboplastin Time 49.6 sec (22.0-30.0); Prothrombin Time 11.4 sec (9.0-12.0)
[2021-09-17] MEDS: HYDROmorphone 1 MG/ML 1 ML SYRINGE IVP PRN ×7 (04:06→23:29)
[2021-09-17 04:18] LABS: Calcium 9.4 mg/dL (8.4-10.2); Potassium 4.2 mmol/L (3.5-5.1); Total Bilirubin 1.1 mg/dL (0.2-1.3)
[2021-09-17 04:28] LABS: Basophils # (A) 0.1 k/uL (0-0.2); Basophils % (A) 0 %; Eosinophils % (A) 0 %; HCT 45.4 % (39.0-53.0); HGB 15.1 gm/dL (13.0-17.5); Lymphocytes # (A) 1.3 k/uL (1.0-4.8); Lymphocytes % (A) 12 %; MCH 27.3 pg (25.0-35.0); MCHC 33.2 g/dL (31.0-37.0); MCV 82.2 fL (80.0-100.0); Mean Platelet Volume 8.4; Monocytes # (A) 0.8 k/uL (0-1.0); Monocytes % (A) 7 %; Neutrophils # (A) 8.7 k/uL (1.3-7.7); Neutrophils % (A) 79 %; Platelet Count 343 k/uL (150-450); RBC 5.53 m/uL (4.30-5.90); WBC 11.1 k/uL (3.8-10.6)
[2021-09-17] MEDS: carvediloL 12.5 MG TAB PO SCH ×2 (07:06→16:55)
[2021-09-17] MEDS: THIAMINE 100 MG TAB PO SCH ×2 (07:06→16:56)
[2021-09-17] MEDS: SPIRONOLACTONE 25 MG TAB PO SCH (07:47)
[2021-09-17] MEDS: allopurinoL 100 MG TAB PO SCH (07:47)
[2021-09-17] MEDS: FERROUS SULFATE 325 MG TAB PO SCH (07:47)
[2021-09-17] MEDS: amLODIPine 5 MG TAB PO SCH (07:47)
[2021-09-17] MEDS: ATORVASTATIN 10 MG TAB PO SCH (07:47)
[2021-09-17] MEDS: TORSEMIDE 20 MG TAB PO SCH (07:47)
[2021-09-17] MEDS: ASPIRIN 81 MG PO SCH (07:47)
[2021-09-17] MEDS: IPRATROPIUM-ALBUTEROL 3 ML NEB INHALATION SCH ×3 (08:06→20:52)
[2021-09-17] MEDS: NICOTINE 21MG/24HR PATCH TRANSDERM SCH (08:58)
[2021-09-17] MEDS ORDERED: carvediloL 12.5 MG TAB PO STA (09:09)
[2021-09-17] MEDS: HEPARIN SOD,PORK IN 0.45% NACL 25,000 UNIT in 0.45% NACL 1 250ML.BAG IV SCH ×2 (10:11→23:41)
--- NOTE | 2021-09-17 10:44 | P.PN ---
Subjective Progress Note Date: 09/17/21 HISTORY OF PRESENT ILLNESS: This is a 51-year-old male who follows in the office with Dr. Rider. Patient has a history of congestive heart failure and nonischemic cardiomyopathy. Ebenezer garcia was recently admitted to the hospital with a Non-STEMI and was treated medically. Patient also was treated with IV Lasix and dobutamine for congestive heart failure and congestive hepatomegaly with abnormal LFTs. The patient was discharged home in stable condition. Patient states he began having right-sided chest discomfort on Friday night so he presented back to the emergency room. Patient was found to have multiple pulmonary emboli. Patient is currently on IV heparin. Patient is on 2 L nasal cannula with oxygen saturations greater than 92%. Telemetry reveals sinus tachycardia with a heart rate around 110. Patient is currently on carvedilol 12.5 mg twice a day. He is afebrile. Patient does report chest discomfort with deep inspiration. Echocardiogram completed revealing ejection fraction 25-30%, moderately enlarged right ventricle, moderate mitral regurgitation, and mild to moderate tricuspid regurgitation. Lower extremity Doppler completed which was negative for DVT of right leg. Positive for DVT of left leg. Chest CT reveals multiple large emboli in the right lower lobe pulmonary artery. Flora left lower lobe pulmonary artery. PHYSICAL EXAM: VITAL SIGNS: Reviewed. GENERAL: Well-developed in no acute distress. NECK: Supple. No JVD or thyromegaly LUNGS: Respirations even and unlabored. Lungs diminished to auscultation bilaterally. HEART: Mildly tachycardic. Regular rate and rhythm. S1 and S2 heard. Systolic murmur noted. EXTREMITIES: Normal range of motion. No clubbing or cyanosis. Peripheral pulses intact. No lower extremity edema ASSESSMENT: Bilateral pulmonary emboli Left lower extremity DVT Recent admission for Non-STEMI Nonischemic cardiomyopathy Chronic systolic congestive heart failure, EF 20-25% LVH History of abnormal LFTs Hypertension PLAN: Continue current cardiac medications Per case management, patient does not have prescription drug coverage Will begin Coumadin with target INR 2-3 Continue IV heparin until target INR is reached No plans for EKOS at this time per Dr. Bermudez Further recommendations pending patient course Nurse practitioner note has been reviewed by physician. Signing provider agrees with the documented findings, assessment, and plan of care. Objective - Vital Signs Vital signs: Vital Signs Temp 97.9 F 09/17/21 08:02 Pulse 111 H 12/06/21 08:02 Resp 18 09/17/21 08:02 BP 128/86 09/17/21 08:02 Pulse Ox 95 09/17/21 08:02 Intake & Output 09/16/21 09/17/21 09/17/21 18:59 06:59 18:59 Intake Total 339.473 151.375 762.544 Output Total 2350 450 625 Balance -2010.527 -298.625 137.544 Weight 77.111 kg 70.6 kg Intake: IV 250 .9 @ 20 240 Invasive Line 1 10 Intake, IV Titration 99.473 151.375 272.544 Amount Heparin Sod,Pork in 0.45% 99.473 151.375 222.544 NaCl 25,000 unit In 0.45 % NaCl 1 250ml.bag @ 18 UNITS/KG/HR 13.88 mls/hr IV .Q18H1M JORGE Rx#: [id number] cefTRIAXone 1 gm In 50 Sodium Chloride 0.9% 50 ml @ 100 mls/hr IVPB Q24HR JORGE Rx#:[id number] Oral 240 240 Output: Urine 2350 450 625 Other: Voiding Method Urinal Urinal Urinal # Voids 1 - Labs CBC & Chem 7: 09/17/21 03:35 09/17/21 03:35 Labs: Abnormal Lab Results - Last 24 Hours (Table) 09/16/21 09/16/21 09/16/21 Range/Units 11:28 12:38 12:38 WBC (3.8-10.6) k/uL Neutrophils # (1.3-7.7) k/uL APTT 30.7 H (22.0-30.0) sec Sodium (137-145) mmol/L Chloride (98-107) mmol/L BUN (9-20) mg/dL Glucose (74-99) mg/dL POC Glucose (mg/dL) 132 H (75-99) mg/dL Troponin I 0.207 H* (0.000-0.034) ng/mL Total Protein (6.3-8.2) g/dL Albumin (3.5-5.0) g/dL 09/16/21 09/16/21 09/17/21 Range/Units 19:28 19:44 03:35 WBC 11.1 H (3.8-10.6) k/uL Neutrophils # 8.7 H (1.3-7.7) k/uL APTT 35.7 H (22.0-30.0) sec Sodium (137-145) mmol/L Chloride (98-107) mmol/L BUN (9-20) mg/dL Glucose (74-99) mg/dL POC Glucose (mg/dL) 135 H (75-99) mg/dL Troponin I (0.000-0.034) ng/mL Total Protein (6.3-8.2) g/dL Albumin (3.5-5.0) g/dL 09/17/21 09/17/21 Range/Units 03:35 03:35 WBC (3.8-10.6) k/uL Neutrophils # (1.3-7.7) k/uL APTT 49.6 H (22.0-30.0) sec Sodium 131 L (137-145) mmol/L Chloride 97 L (98-107) mmol/L BUN 28 H (9-20) mg/dL Glucose 115 H (74-99) mg/dL POC Glucose (mg/dL) (75-99) mg/dL Troponin I (0.000-0.034) ng/mL Total Protein 6.0 L (6.3-8.2) g/dL Albumin 3.0 L (3.5-5.0) g/dL
--- NOTE | 2021-09-17 14:23 | P.GSCN ---
History of Present Illness Consult date: 09/17/21 Reason for Consult: Pulmonary emboli Requesting physician: Bob Nino History of present illness: This is a 51-year-old male who presented to the emergency department 2 days ago with complaints of right-sided chest pain. He has a recent diagnosis of nonischemic cardiomyopathy, severe LV systolic dysfunction and hypertension. He was recently hospitalized with shortness of breath and treated for acute exacerbation of chronic congestive heart failure. Shouldn't states he was also having some shortness of breath which increases when sitting up or exertion. On admission he was noted to elevated troponins as well as elevated d-dimer at 9.3. He underwent a CT angiogram of the chest that showed multiple large emboli in the right lower lobe pulmonary artery which is increased compared to old exam as well as new emboli in the left lower lobe pulmonary artery posterior basal segment branch. There is also a new small embolism in the right upper lobe pulmonary artery. Patient also had a left lower extremity DVT. Vascular surgery was consulted related to bilateral pulmonary emboli. He had an echocardiogram showing an EF between 25 and 30%. Moderate right ventricle enlargement. On his last admission he also underwent echocardiogram on 09/03/2021 showing an RVSP of 53.85. With a mildly enlarged right ventricle. Patient states overall he is feeling a little better. Still having some right sided chest wall discomfort. He is on 3 L of nasal cannula with saturation 96- 97%. The patient states up until recently he has been actively working, he states even being off work last couple weeks since this last hospitalization he has still been active at home. He denies any recent travel. He denies any previous history of clotting disorders for himself or family history. He denies tobacco use. He has not had any previous workup for clotting disorders. He states that he believes he was on his anticoagulation may be up to 3 months but due to inaffordability stopped his medications. He is currently on a heparin drip. Review of Systems 14 point review of systems was completed all pertinent positives and negatives as stated in the HPI. Past Medical History Past Medical History: Heart Failure, Hypertension, Osteoarthritis (OA) Additional Past Medical History / Comment(s): cardiomyopathy Constipa tion/bloating. Renal insufficiency, 80% kidney function, hx TIA's X2, 9 yrs ago X2, bulging disc (L4), back pain, ocassional numbness left leg. History of Any Multi-Drug Resistant Organisms: None Reported Past Surgical History: Appendectomy, Heart Catheterization Additional Past Surgical History / Comment(s): Right second and third toes reattached after lawnmower accident. Past Anesthesia/Blood Transfusion Reactions: No Reported Reaction Past Psychological History: No Psychological Hx Reported Smoking Status: Former smoker Past Alcohol Use History: None Reported Additional Past Alcohol Use History / Comment(s): Has been smoking for 30 yrs, QUIT 1 WEEKS AGO Past Drug Use History: None Reported - Past Family History Mother Family Medical History: No Reported History Medications and Allergies Home Medications Medication Instructions Recorded Confirmed Type Carvedilol [Coreg] 12.5 mg PO BID #60 tablet 11/22/20 09/16/21 Rx Spironolactone [Aldactone] 25 mg PO DAILY 30 Days #30 tab 11/22/20 09/16/21 Rx Ferrous Sulfate [Iron (65 MG 325 mg PO DAILY 12/08/20 09/16/21 History Elemental)] traMADol HCL [Ultram] 50 mg PO Q4-6H PRN 12/08/20 09/16/21 History Allopurinol [Zyloprim] 200 mg PO DAILY 09/02/21 09/16/21 History Ergocalciferol [Vitamin D2 (1250 1,250 mcg PO Q14D 09/02/21 09/16/21 History Mcg = 89210 Iu)] amLODIPine [Norvasc] 5 mg PO DAILY 09/02/21 09/16/21 History Aspirin 81 mg PO DAILY 90 Days #90 tab 09/11/21 09/16/21 Rx Atorvastatin [Lipitor] 10 mg PO DAILY 90 Days #90 tab 09/11/21 09/16/21 Rx Nicotine 21Mg/24Hr Patch [Habitrol] 1 patch TRANSDERM DAILY 30 Days 09/11/21 09/16/21 Rx #30 patch Torsemide [Demadex] 20 mg PO DAILY 90 Days #90 tab 09/11/21 09/16/21 Rx Albuterol Inhaler [Ventolin Hfa 2 puff INHALATION RT-QID PRN 09/16/21 09/16/21 History Inhaler] Ipratropium-Albuterol Nebulize 3 ml INHALATION RT-TID 09/16/21 09/16/21 History [Duoneb 0.5 mg-3 mg/3 ml Soln] Apixaban [Eliquis Starter Pack 5 - 10 mg PO DIRECTED 30 Days 09/17/21 Rx (for VTE)] #1 each Allergies Allergy/AdvReac Type Severity Reaction Status Date / Time morphine Allergy Rash/Hives Verified 09/16/21 07:38 Penicillins Allergy Rash/Hives Verified 09/16/21 07:38 pineapple Allergy Anaphylaxis Verified 09/16/21 07:38 Surgical - Exam Vital Signs Temp Pulse Resp BP Pulse Ox 99.6 F 112 H 26 H 167/105 95 09/16/21 04:04 09/16/21 04:04 09/16/21 04:04 09/16/21 04:04 09/16/21 04:04 General appearance: The patient is alert, oriented, appears in no acute distress. HET: Head is normocephalic and atraumatic. Pupils are equal and reactive. Oropharynx is clear without lesions. Neck: Supple without lymphadenopathy. Trachea midline. Heart: S1 S2. Regular rate and rhythm. Lungs: Clear to auscultation. Abdomen: Soft, nontender, nondistended. Extremities: Normal skin color and turgor. No cyanosis, rash, ulceration, clubbing, or edema. Radial and pedal pulses are 2/4 bilaterally. Neurological: No focal deficits. Alert and oriented 3. Results - Labs 09/17/21 03:35 09/17/21 03:35 Abnormal Lab Results - Last 24 Hours (Table) 09/16/21 09/16/21 09/16/21 Range/Units 08:40 11:28 12:38 WBC (3.8-10.6) k/uL Neutrophils # (1.3-7.7) k/uL APTT (22.0-30.0) sec Sodium (137-145) mmol/L Chloride (98-107) mmol/L BUN (9-20) mg/dL Glucose (74-99) mg/dL POC Glucose (mg/dL) 132 H (75-99) mg/dL Troponin I 0.195 H* 0.207 H* (0.000-0.034) ng/mL Total Protein (6.3-8.2) g/dL Albumin (3.5-5.0) g/dL 09/16/21 09/16/21 09/16/21 Range/Units 12:38 19:28 19:44 WBC (3.8-10.6) k/uL Neutrophils # (1.3-7.7) k/uL APTT 30.7 H 35.7 H (22.0-30.0) sec Sodium (137-145) mmol/L Chloride (98-107) mmol/L BUN (9-20) mg/dL Glucose (74-99) mg/dL POC Glucose (mg/dL) 135 H (75-99) mg/dL Troponin I (0.000-0.034) ng/mL Total Protein (6.3-8.2) g/dL Albumin (3.5-5.0) g/dL 09/17/21 09/17/21 09/17/21 Range/Units 03:35 03:35 03:35 WBC 11.1 H (3.8-10.6) k/uL Neutrophils # 8.7 H (1.3-7.7) k/uL APTT 49.6 H (22.0-30.0) sec Sodium 131 L (137-145) mmol/L Chloride 97 L (98-107) mmol/L BUN 28 H (9-20) mg/dL Glucose 115 H (74-99) mg/dL POC Glucose (mg/dL) (75-99) mg/dL Troponin I (0.000-0.034) ng/mL Total Protein 6.0 L (6.3-8.2) g/dL Albumin 3.0 L (3.5-5.0) g/dL Diabetes panel 09/17/21 Range/Units 03:35 Sodium 131 L (137-145) mmol/L Potassium 4.2 (3.5-5.1) mmol/L Chloride 97 L (98-107) mmol/L Carbon Dioxide 23 (22-30) mmol/L BUN 28 H (9-20) mg/dL Creatinine 1.13 (0.66-1.25) mg/dL Glucose 115 H (74-99) mg/dL Calcium 9.4 (8.4-10.2) mg/dL AST 27 (17-59) U/L ALT 39 (4-49) U/L Alkaline Phosphatase 116 (38-126) U/L Total Protein 6.0 L (6.3-8.2) g/dL Albumin 3.0 L (3.5-5.0) g/dL Calcium panel 09/17/21 Range/Units 03:35 Calcium 9.4 (8.4-10.2) mg/dL Albumin 3.0 L (3.5-5.0) g/dL Pituitary panel 09/17/21 Range/Units 03:35 Sodium 131 L (137-145) mmol/L Potassium 4.2 (3.5-5.1) mmol/L Chloride 97 L (98-107) mmol/L Carbon Dioxide 23 (22-30) mmol/L BUN 28 H (9-20) mg/dL Creatinine 1.13 (0.66-1.25) mg/dL Glucose 115 H (74-99) mg/dL Calcium 9.4 (8.4-10.2) mg/dL Adrenal panel 09/17/21 Range/Units 03:35 Sodium 131 L (137-145) mmol/L Potassium 4.2 (3.5-5.1) mmol/L Chloride 97 L (98-107) mmol/L Carbon Dioxide 23 (22-30) mmol/L BUN 28 H (9-20) mg/dL Creatinine 1.13 (0.66-1.25) mg/dL Glucose 115 H (74-99) mg/dL Calcium 9.4 (8.4-10.2) mg/dL Total Bilirubin 1.1 (0.2-1.3) mg/dL AST 27 (17-59) U/L ALT 39 (4-49) U/L Alkaline Phosphatase 116 (38-126) U/L Total Protein 6.0 L (6.3-8.2) g/dL Albumin 3.0 L (3.5-5.0) g/dL - Imaging Comments: CT angiogram of chest and CT of abdomen and pelvis reviewed Assessment and Plan Assessment: 1. Bilateral pulmonary emboli 2. History of pulmonary embolism 3. History of nonischemic cardiomyopathy 4. History of congestive heart failure Plan: 1. Continue symptomatic supportive care 2. Agree with transition to Coumadin as patient with concerns for financial coverage for DOAC 3. Consult to social work regarding financial difficulties and inability to afford medications 4. Consult to hematology for unprovoked pulmonary emboli/DVT 5. No plans for vascular surgical intervention with EKOS 6. Continue close follow-up with cardiology Thank you for this consultation, and allowing us take part in the plan of care o f your patient during his hospital stay. The impression and plan of care has been dictated as directed. Dr. Ibanez I performed a history and examination of this patient, discussed the same with the dictator. I agree with the dictator's note ,documented as a scribe. Any additional findings or plans will be noted.
--- NOTE | 2021-09-17 17:33 | P.PN ---
Subjective Progress Note Date: 09/17/21 Principal diagnosis: Acute pulmonary embolism Left lower extremity deep venous thrombosis Left-sided pulmonary infarction Developing secondary pneumonia cannot be excluded Hypertension hypertensive cardiovascular disease Chronic kidney disease History of low back pain History of smoking in the past 09/17/2021, patient seen eval examined during the rounds labs reviewed me dications reviewed care plan discussed, Estrace status slightly improved but however patient continued to have pleuritic chest pain on coughing and deep breathing, discussed with him about pathophysiology of pulmonary infarction, we'll continue heparin continue pain medicine follow clinical course closely Patient is a 51-year-old male came into the hospital for evaluation of initially thought to be a flank pain subsequently noted to be present and extending from some sternal to epigastric and flank area, pain of severe category tight and sharp does not improved with simple measures and pain medicine, have the exertional component present and got worse with deep breathing, has ongoing palpitations present, patient was noted to be have sinus tachycardia with prolonged QTC on EKG, prior history of the chronic renal insufficiency history of TIAs bulging thus chronic back pain numbness in the left leg, patient denies any loss of consciousness and denies any cough or sputum. Denies any night sweats or fevers chills denies any hemoptysis, no bowel or bladder related problem, T-max on arrival was noted to be 99.6 patient was hypertensive with blood pressure 167/105 him his significant labs were white cell count 13,100 hemoglobin and hematocrit 16 and 48, d-dimer extremely high 9.34, history of previous sodium 129, BUN/creatinine 29/1.1, troches were elevated 0.205 second was 0.195, ultrasound of lower extremity positive for left lower extremity deep venous thrombosis, computed tomography scan of the chest was positive for multiple large pulmonary embolism in right lower lobe pulmonary vessel increase burden of emboli noted on the left side some of them have appearance of infarct on the left side also right upper lobe embolism were seen, currently patient is being treated with bronchodilators continuation of home medications, and IV heparin drip, patient covid test is negative, Patient recently has been hospitalized and discharged 2 days ago due to acute exacerbation of congestive heart failure and chronic systolic heart failure due to nonischemic cardiomyopathy with elevation of liver enzymes due to passive hepatic congestion and chronic kidney Objective - Vital Signs Vital signs: Vital Signs Temp 99.3 F 09/17/21 14:58 Pulse 106 H 09/17/21 14:58 Resp 16 09/17/21 14:58 BP 119/77 09/17/21 14:58 Pulse Ox 96 09/17/21 14:58 Intake & Output 09/16/21 09/17/21 09/17/21 18:59 06:59 18:59 Intake Total 339.473 151.375 762.544 Output Total 2350 450 1595 Balance -2010.527 -298.625 -832.456 Weight 77.111 kg 70.6 kg Intake: IV 250 .9 @ 20 240 Invasive Line 1 10 Intake, IV Titration 99.473 151.375 272.544 Amount Heparin Sod,Pork in 0.45% 99.473 151.375 222.544 NaCl 25,000 unit In 0.45 % NaCl 1 250ml.bag @ 18 UNITS/KG/HR 13.88 mls/hr IV .Q18H1M JORGE Rx#: [id number] cefTRIAXone 1 gm In 50 Sodium Chloride 0.9% 50 ml @ 100 mls/hr IVPB Q24HR JORGE Rx#:[id number] Oral 240 240 Output: Urine 2350 450 1595 Other: Voiding Method Urinal Urinal Urinal # Voids 1 - Exam - Constitutional General appearance: average body habitus, cooperative, disheveled - EENT Eyes: EOMI, PERRLA Ears: bilateral: normal - Neck Carotids: bilateral: upstroke normal - Respiratory Respiratory: bilateral: CTA - Cardiovascular Rhythm: regular Heart sounds: normal: S1, S2 - Gastrointestinal General gastrointestinal: normal bowel sounds, soft - Neurologic Neurologic: CNII-XII intact - Musculoskeletal Musculoskeletal: gait normal, generalized weakness, strength equal bilaterally - Psychiatric Psychiatric: A&O x's 3, appropriate affect, intact judgment & insight - Labs CBC & Chem 7: 09/17/21 03:35 09/17/21 03:35 Labs: Abnormal Lab Results - Last 24 Hours (Table) 09/16/21 09/16/21 09/17/21 Range/Units 19:28 19:44 03:35 WBC 11.1 H (3.8-10.6) k/uL Neutrophils # 8.7 H (1.3-7.7) k/uL APTT 35.7 H (22.0-30.0) sec Sodium (137-145) mmol/L Chloride (98-107) mmol/L BUN (9-20) mg/dL Glucose (74-99) mg/dL POC Glucose (mg/dL) 135 H (75-99) mg/dL Total Protein (6.3-8.2) g/dL Albumin (3.5-5.0) g/dL 09/17/21 09/17/21 Range/Units 03:35 03:35 WBC (3.8-10.6) k/uL Neutrophils # (1.3-7.7) k/uL APTT 49.6 H (22.0-30.0) sec Sodium 131 L (137-145) mmol/L Chloride 97 L (98-107) mmol/L BUN 28 H (9-20) mg/dL Glucose 115 H (74-99) mg/dL POC Glucose (mg/dL) (75-99) mg/dL Total Protein 6.0 L (6.3-8.2) g/dL Albumin 3.0 L (3.5-5.0) g/dL Assessment and Plan Assessment: Acute pulmonary embolism Left lower extremity deep venous thrombosis Left-sided pulmonary infarction Developing secondary pneumonia cannot be excluded Hypertension hypertensive cardiovascular disease Chronic kidney disease History of low back pain History of smoking in the past Plan: Continue IV heparin Echocardiogram is reviewed there is global hypokinesia, ejection fraction 25 Kevin percent, RV is enlarged, LVH is noted IV antibiotics with Rocephin Pain management by primary service Further plan of care as per clinical response of the patient Time with Patient: Greater than 30
[2021-09-17] MEDS ORDERED: WARFARIN 5 MG TAB PO ONE (18:00)
--- NOTE | 2021-09-17 23:27 | PN ---
PROGRESS NOTE White male with acute pulmonary embolism in both bilateral lungs and left lower extremity DVT with left-sided pulmonary infarction, developing secondary pneumonia, hypertensive cardiovascular disease, chronic kidney disease, history of lumbar back pain. The patient is breathing more easily today on oxygen. He still has pleuritic chest pain, but is breathing better. Temp 99.3, pulse 100-106, respiratory 16 to 18, blood pressure 119/77, pulse ox 96%. Cardiovascular S1, S2. Lungs clear. GI soft. Hematology negative Homans. Psych: Fair mood and affect. GI is normal bowel sounds. Cranial nerves are intact. White count 11.1, hemoglobin 15.1, sodium 131, potassium 4.2. ASSESSMENT: 1. Acute pulmonary embolism. 2. Left extremity deep vein thrombosis. 3. Left sided pulmonary infarction. 4. Secondary pneumonia. 5. Hypertensive cardiovascular disease. 6. Chronic kidney disease. 7. Low back pain. 8. Nicotine addiction. Continue IV heparin. Echocardiogram showed ejection fraction 25%. RV has a large LVH. IV antibiotics with Rocephin. Continue with Heparin. Transition over to possible Eliquis on discharge. Continue current treatment. MMODL / IJN: [id number] /
[2021-09-18] MEDS: HYDROmorphone 1 MG/ML 1 ML SYRINGE IVP PRN ×5 (03:34→22:42)
[2021-09-18] MEDS: THIAMINE 100 MG TAB PO SCH ×2 (06:52→17:41)
[2021-09-18] MEDS: carvediloL 12.5 MG TAB PO SCH ×2 (06:52→17:41)
[2021-09-18 06:55] LABS: Basophils # (A) 0.1 k/uL (0-0.2); Basophils % (A) 1 %; Eosinophils # (A) 0.1 k/uL (0-0.7); Eosinophils % (A) 1 %; HCT 42.3 % (39.0-53.0); HGB 13.7 gm/dL (13.0-17.5); Lymphocytes # (A) 1.6 k/uL (1.0-4.8); Lymphocytes % (A) 15 %; MCH 26.3 pg (25.0-35.0); MCHC 32.3 g/dL (31.0-37.0); MCV 81.5 fL (80.0-100.0); Mean Platelet Volume 8.1; Monocytes # (A) 0.7 k/uL (0-1.0); Monocytes % (A) 6 %; Neutrophils # (A) 7.9 k/uL (1.3-7.7); Neutrophils % (A) 75 %; Platelet Count 328 k/uL (150-450); RDW 14.5 % (11.5-15.5); WBC 10.5 k/uL (3.8-10.6)
[2021-09-18 07:07] LABS: INR 1.1 (<1.2); Prothrombin Time 11.4 sec (9.0-12.0)
[2021-09-18 07:15] LABS: ALT 32 U/L (4-49); AST 27 U/L (17-59); African American GFR (CKD) >90 (>60 ml/min/1.73 sqM); Albumin 2.7 g/dL (3.5-5.0); Alkaline Phosphatase 118 U/L (38-126); Anion Gap 8 mmol/L; Blood Urea Nitrogen 28 mg/dL (9-20); Calcium 9.4 mg/dL (8.4-10.2); Carbon Dioxide 26 mmol/L (22-30); Chloride 97 mmol/L (98-107); Glucose 102 mg/dL (74-99); Non-African American GFR(CKD) 85 (>60 ml/min/1.73 sqM); Sodium 131 mmol/L (137-145); Total Protein 5.8 g/dL (6.3-8.2)
[2021-09-18] MEDS: FERROUS SULFATE 325 MG TAB PO SCH (08:55)
[2021-09-18] MEDS: ASPIRIN 81 MG PO SCH (08:55)
[2021-09-18] MEDS: allopurinoL 100 MG TAB PO SCH (08:55)
[2021-09-18] MEDS: ATORVASTATIN 10 MG TAB PO SCH (08:55)
[2021-09-18] MEDS: amLODIPine 5 MG TAB PO SCH (08:55)
[2021-09-18] MEDS: NICOTINE 21MG/24HR PATCH TRANSDERM SCH (08:56)
[2021-09-18] MEDS: SPIRONOLACTONE 25 MG TAB PO SCH (08:56)
[2021-09-18] MEDS: IPRATROPIUM-ALBUTEROL 3 ML NEB INHALATION SCH ×3 (09:16→21:51)
[2021-09-18] MEDS: HEPARIN SOD,PORK IN 0.45% NACL 25,000 UNIT in 0.45% NACL 1 250ML.BAG IV SCH (12:15)
[2021-09-18] MEDS: TORSEMIDE 20 MG TAB PO SCH (12:20)
--- NOTE | 2021-09-18 12:20 | P.PN ---
Subjective Progress Note Date: 09/18/21 HISTORY OF PRESENT ILLNESS: This is a 51-year-old male who follows in the office with Dr. Rider. Patient has a history of congestive heart failure and nonischemic cardiomyopathy. Ebenezer garcia was recently admitted to the hospital with a Non-STEMI and was treated medically. Patient also was treated with IV Lasix and dobutamine for congestive heart failure and congestive hepatomegaly with abnormal LFTs. The patient was discharged home in stable condition. Patient states he began having right-sided chest discomfort on Friday night so he presented back to the emergency room. Patient was found to have multiple pulmonary emboli. Patient is currently on IV heparin. Patient is on 2 L nasal cannula with oxygen saturations greater than 92%. Telemetry reveals sinus tachycardia with a heart rate around 110. Patient is currently on carvedilol 12.5 mg twice a day. He is afebrile. Patient does report chest discomfort with deep inspiration. Echocardiogram completed revealing ejection fraction 25-30%, moderately enlarged right ventricle, moderate mitral regurgitation, and mild to moderate tricuspid regurgitation. Lower extremity Doppler completed which was negative for DVT of right leg. Positive for DVT of left leg. Chest CT reveals multiple large emboli in the right lower lobe pulmonary artery. Flora left lower lobe pulmonary artery. 09/18/2021 Patient examined this morning at the bedside. Patient reports mild discomfort with deep inspiration. He currently denies shortness of breath. He is on 2 L nasal cannula with oxygen saturations greater than 92%. Blood pressure 111/73. He remains on IV heparin. He was started on Coumadin yesterday. INR today 1.1. PHYSICAL EXAM: VITAL SIGNS: Reviewed. GENERAL: Well-developed in no acute distress. NECK: Supple. No JVD or thyromegaly LUNGS: Respirations even and unlabored. Lungs diminished to auscultation bilaterally. HEART: Regular rate and rhythm. S1 and S2 heard. Systolic murmur noted. EXTREMITIES: Normal range of motion. No clubbing or cyanosis. Peripheral pulses intact. No lower extremity edema ASSESSMENT: Bilateral pulmonary emboli Left lower extremity DVT Recent admission for Non-STEMI Nonischemic cardiomyopathy Chronic systolic congestive heart failure, EF 20-25% LVH History of abnormal LFTs Hypertension PLAN: Continue current cardiac medications Per case management, patient does not have prescription drug coverage Continue Coumadin with target INR 2-3. Give 10mg tonight. Continue IV heparin until target INR is reached No plans for EKOS at this time per Dr. Bermudez Further recommendations pending patient course Nurse practitioner note has been reviewed by physician. Signing provider agrees with the documented findings, assessment, and plan of care. Objective - Vital Signs Vital signs: Vital Signs Temp 98.7 F 09/18/21 08:00 Pulse 92 09/18/21 08:00 Resp 19 09/18/21 08:00 BP 111/73 09/18/21 08:00 Pulse Ox 94 L 09/18/21 08:00 Intake & Output 09/17/21 09/18/21 09/18/21 18:59 06:59 18:59 Intake Total 1002.544 250 440 Output Total 1595 850 Balance -592.456 -600 440 Weight 72.6 kg Intake: IV 250 .9 @ 20 240 Invasive Line 1 10 Intake, IV Titration 272.544 250 Amount Heparin Sod,Pork in 0.45% 222.544 250 NaCl 25,000 unit In 0.45 % NaCl 1 250ml.bag @ 18 UNITS/KG/HR 13.88 mls/hr IV .Q18H1M JORGE Rx#: [id number] cefTRIAXone 1 gm In 50 Sodium Chloride 0.9% 50 ml @ 100 mls/hr IVPB Q24HR JORGE Rx#:[id number] Oral 480 440 Output: Urine 1595 850 Other: Voiding Method Urinal Urinal Urinal # Voids 1 # Bowel Movements 1 - Labs CBC & Chem 7: 09/18/21 06:42 09/18/21 06:42 Labs: Abnormal Lab Results - Last 24 Hours (Table) 09/18/21 09/18/21 Range/Units 06:42 06:42 Neutrophils # 7.9 H (1.3-7.7) k/uL Sodium 131 L (137-145) mmol/L Chloride 97 L (98-107) mmol/L BUN 28 H (9-20) mg/dL Glucose 102 H (74-99) mg/dL Total Protein 5.8 L (6.3-8.2) g/dL Albumin 2.7 L (3.5-5.0) g/dL
--- NOTE | 2021-09-18 12:30 | P.PN ---
Subjective Progress Note Date: 09/18/21 Patient seen and examined lying in bed. He states his breathing has improved. He still has some mild discomfort in the right side of his chest wall if he takes a deep breath. He remains on heparin and Coumadin was started yesterday. His INR 1.1. Patient had voiced concerns with finances as well as medication coverage. Social work has been consulted. Objective - Vital Signs Vital signs: Vital Signs Temp 98.7 F 09/18/21 08:00 Pulse 92 09/18/21 08:00 Resp 19 09/18/21 08:00 BP 111/73 09/18/21 08:00 Pulse Ox 94 L 09/18/21 08:00 Intake & Output 09/17/21 09/18/21 09/18/21 18:59 06:59 18:59 Intake Total 1002.544 250 440 Output Total 1595 850 Balance -592.456 -600 440 Weight 72.6 kg Intake: IV 250 .9 @ 20 240 Invasive Line 1 10 Intake, IV Titration 272.544 250 Amount Heparin Sod,Pork in 0.45% 222.544 250 NaCl 25,000 unit In 0.45 % NaCl 1 250ml.bag @ 18 UNITS/KG/HR 13.88 mls/hr IV .Q18H1M JORGE Rx#: [id number] cefTRIAXone 1 gm In 50 Sodium Chloride 0.9% 50 ml @ 100 mls/hr IVPB Q24HR JORGE Rx#:[id number] Oral 480 440 Output: Urine 1595 850 Other: Voiding Method Urinal Urinal # Voids 1 # Bowel Movements 1 - Exam General appearance: The patient is alert, oriented, in no acute distress. HET: Head is normocephalic and atraumatic. Pupils are equal and reactive. Oropharynx is clear without lesions. Neck: Supple without lymphadenopathy. Trachea midline. Heart: S1 S2. Regular rate and rhythm. Lungs: Clear to auscultation. Abdomen: Soft, nontender, nondistended. Extremities: Normal skin color and turgor. No cyanosis, rash, ulceration, clubbing, or edema. Radial and pedal pulses are 2/4 bilaterally. Neurological: No focal deficits. Strength and sensation are grossly intact - Labs CBC & Chem 7: 09/18/21 06:42 09/18/21 06:42 Labs: Abnormal Lab Results - Last 24 Hours (Table) 09/18/21 09/18/21 Range/Units 06:42 06:42 Neutrophils # 7.9 H (1.3-7.7) k/uL Sodium 131 L (137-145) mmol/L Chloride 97 L (98-107) mmol/L BUN 28 H (9-20) mg/dL Glucose 102 H (74-99) mg/dL Total Protein 5.8 L (6.3-8.2) g/dL Albumin 2.7 L (3.5-5.0) g/dL Assessment and Plan Assessment: 1. Bilateral pulmonary emboli 2. History of pulmonary embolism 3. History of nonischemic cardiomyopathy 4. History of congestive heart failure Plan: 1. Continue symptomatic supportive care 2. Agree with transition to Coumadin as patient with concerns for financial coverage for DOAC 3. Consult to social work regarding financial difficulties and inability to afford medications 4. Consult to hematology for unprovoked pulmonary emboli/DVT 5. No plans for vascular surgical intervention with EKOS 6. Continue close follow-up with cardiology 7. Vascular surgery will be on stand by. Continue with recommendations for Coumadin dosing per cardiology Thank you for this consultation, and allowing us take part in the plan of care of your patient during his hospital stay. The impression and plan of care has been dictated as directed. Dr. Ibanez I performed a history and examination of this patient, discussed the same with the dictator. I agree with the dictator's note ,documented as a scribe. Any additional findings or plans will be noted.
--- NOTE | 2021-09-18 14:57 | CDI ---
Documentation Clarification Form Date: 09/18/2021 02:23:41 PM From: Sara Rubi RN CCDS Admit Date: 09/16/2021 05:22:00 AM Patient Name: Jaleel Pal Visit Number: [id number] Discharge Date: ATTENTION: The Clinical Documentation Specialists (CDI) and [facility] Coding Staff appreciate your assistance in clarifying documentation. Please respond to the clarification below the line at the bottom and electronically sign. The CDI & [facility] Coding staff will review the response and follow-up if needed. Please note: Queries are made part of the Legal Health Record. If you have any questions, please contact the author of this message via ITS. Dr. Ruben Bermudez MD There is documentation of Recent admission for Non-STEMI, 09/18, Cardiology progress note. To capture the severity of the condition the date must be provided in the medical record. History/Risk Factors: 51-year-old male presents to the ED with abdominal pain from his sternum to his sternum to his epigastric and flank area. Medical history: Dilated Cardiomyopathy, chronic systolic heart failure, HTN, CKD and recent Non Nstemi. 09/16, Cardiology consult. Clinical Indicators: Recent Non-Nstemi 09/03/21, HTN, Dilated Cardiomyopathy, Chronic Systolic Heart Failure. Troponin: 09/16 0.205; 0.195, 0.207. EK/5: Sinus tachycardia, Possible left atrial enlargement, Right bundle branch block, Left anterior fascicular block., Bifascicular block. Inferior infarct, age undetermined. Cardiology progress note 09/18: Bilateral pulmonary emboli, Left lower extremity DVT, Recent admission for Non-STEMI, Nonischemic cardiomyopathy, chronic systolic congestive heart failure EF 20-25%, LVH, History of abnormal LFTs, HTN. Treatment: Telemetry unit, Troponin labs. Cardiology consult. Can you please clarify the recent admission date? [ ] September 03, 2021 [ ] Other, please specify [ ] Unable to determine (Template Last Revised: December 2020) MTDD
--- NOTE | 2021-09-18 15:55 | P.PN ---
Subjective Progress Note Date: 09/18/21 Principal diagnosis: Acute pulmonary embolism Left lower extremity deep venous thrombosis Left-sided pulmonary infarction Developing secondary pneumonia cannot be excluded Hypertension hypertensive cardiovascular disease Chronic kidney disease History of low back pain History of smoking in the past 09/18/2021, patient seen eval examined during the rounds labs reviewed me dications reviewed care plan discussed, respiratory status continued to improve patient is now on 2 L oxygen chest pain is better, breathing comfortably, patient received first dose of Coumadin today, remains on IV heparin once INR is up to 2.5 then will stop heparin 09/17/2021, patient seen eval examined during the rounds labs reviewed medications reviewed care plan discussed, Estrace status slightly improved but however patient continued to have pleuritic chest pain on coughing and deep breathing, discussed with him about pathophysiology of pulmonary infarction, we'll continue heparin continue pain medicine follow clinical course closely Patient is a 51-year-old male came into the hospital for evaluation of initially thought to be a flank pain subsequently noted to be present and extending from some sternal to epigastric and flank area, pain of severe category tight and sharp does not improved with simple measures and pain medicine, have the exertional component present and got worse with deep breathing, has ongoing palpitations present, patient was noted to be have sinus tachycardia with prolonged QTC on EKG, prior history of the chronic renal insufficiency history of TIAs bulging thus chronic back pain numbness in the left leg, patient denies any loss of consciousness and denies any cough or sputum. Denies any night sweats or fevers chills denies any hemoptysis, no bowel or bladder related problem, T-max on arrival was noted to be 99.6 patient was hypertensive with blo od pressure 167/105 him his significant labs were white cell count 13,100 hemoglobin and hematocrit 16 and 48, d-dimer extremely high 9.34, history of previous sodium 129, BUN/creatinine 29/1.1, troches were elevated 0.205 second was 0.195, ultrasound of lower extremity positive for left lower extremity deep venous thrombosis, computed tomography scan of the chest was positive for multiple large pulmonary embolism in right lower lobe pulmonary vessel increase burden of emboli noted on the left side some of them have appearance of infarct on the left side also right upper lobe embolism were seen, currently patient is being treated with bronchodilators continuation of home medications, and IV heparin drip, patient covid test is negative, Patient recently has been hospitalized and discharged 2 days ago due to acute exacerbation of congestive heart failure and chronic systolic heart failure due to nonischemic cardiomyopathy with elevation of liver enzymes due to passive hepatic congestion and chronic kidney Objective - Vital Signs Vital signs: Vital Signs Temp 98.3 F 09/18/21 12:00 Pulse 92 09/18/21 14:00 Resp 19 09/18/21 14:00 BP 119/80 09/18/21 12:00 Pulse Ox 95 09/18/21 12:00 Intake & Output 09/17/21 09/18/21 09/18/21 18:59 06:59 18:59 Intake Total 1002.544 250 440 Output Total 1595 850 500 Balance -592.456 -600 -60 Weight 72.6 kg Intake: IV 250 .9 @ 20 240 Invasive Line 1 10 Intake, IV Titration 272.544 250 Amount Heparin Sod,Pork in 0.45% 222.544 250 NaCl 25,000 unit In 0.45 % NaCl 1 250ml.bag @ 18 UNITS/KG/HR 13.88 mls/hr IV .Q18H1M JORGE Rx#: [id number] cefTRIAXone 1 gm In 50 Sodium Chloride 0.9% 50 ml @ 100 mls/hr IVPB Q24HR JORGE Rx#:[id number] Oral 480 440 Output: Urine 1595 850 500 Other: Voiding Method Urinal Urinal Urinal # Voids 1 # Bowel Movements 1 - Exam - Constitutional General appearance: average body habitus, cooperative, disheveled - EENT Eyes: EOMI, PERRLA Ears: bilateral: normal - Neck Carotids: bilateral: upstroke normal - Respiratory Respiratory: bilateral: CTA - Cardiovascular Rhythm: regular Heart sounds: normal: S1, S2 - Gastrointestinal General gastrointestinal: normal bowel sounds, soft - Neurologic Neurologic: CNII-XII intact - Musculoskeletal Musculoskeletal: gait normal, generalized weakness, strength equal bilaterally - Psychiatric Psychiatric: A&O x's 3, appropriate affect, intact judgment & insight - Labs CBC & Chem 7: 09/18/21 06:42 09/18/21 06:42 Labs: Abnormal Lab Results - Last 24 Hours (Table) 09/18/21 09/18/21 Range/Units 06:42 06:42 Neutrophils # 7.9 H (1.3-7.7) k/uL Sodium 131 L (137-145) mmol/L Chloride 97 L (98-107) mmol/L BUN 28 H (9-20) mg/dL Glucose 102 H (74-99) mg/dL Total Protein 5.8 L (6.3-8.2) g/dL Albumin 2.7 L (3.5-5.0) g/dL Assessment and Plan Assessment: Acute pulmonary embolism Left lower extremity deep venous thrombosis Left-sided pulmonary infarction Developing secondary pneumonia cannot be excluded Hypertension hypertensive cardiovascular disease Chronic kidney disease History of low back pain History of smoking in the past Plan: Continue IV heparin, continue Coumadin aim for INR 2.5 and above Echocardiogram is reviewed there is global hypokinesia, ejection fraction 25 Kevni percent, RV is enlarged, LVH is noted IV antibiotics with Rocephin Pain management by primary service Further plan of care as per clinical response of the patient Time with Patient: Greater than 30
[2021-09-18] MEDS ORDERED: WARFARIN 10 MG TAB PO ONE (18:00)
--- NOTE | 2021-09-18 22:09 | P.CONS ---
History of Present Illness - Reason for Consult Consult date: 09/18/21 Pulmonary Emoboli Requesting physician: Ashly Haile - Chief Complaint SOB - History of Present Illness Mr. huntley presented with flank pain and shortness of breath. He was found to have PE and started on Heparin drip. Apparently has previous history of PE in which he was not adherent to medications due to cost, therefore he we have been consulted to further evaluate. Review of Systems All systems: negative Constitutional: Reports as per HPI Past Medical History Past Medical History: Heart Failure, Hypertension, Osteoarthritis (OA) Additional Past Medical History / Comment(s): cardiomyopathy Constipation/bloating. Renal insufficiency, 80% kidney function, hx TIA's X2, 9 yrs ago X2, bulging disc (L4), back pain, ocassional numbness left leg. History of Any Multi-Drug Resistant Organisms: None Reported Past Surgical History: Appendectomy, Heart Catheterization Additional Past Surgical History / Comment(s): Right second and third toes reattached after lawnmower accident. Past Anesthesia/Blood Transfusion Reactions: No Reported Reaction Past Psychological History: No Psychological Hx Reported Smoking Status: Former smoker Past Alcohol Use History: None Reported Additional Past Alcohol Use History / Comment(s): Has been smoking for 30 yrs, QUIT 1 WEEKS AGO Past Drug Use History: None Reported - Past Family History Mother Family Medical History: No Reported History Medications and Allergies Home Medications Medication Instructions Recorded Confirmed Type Carvedilol [Coreg] 12.5 mg PO BID #60 tablet 11/22/20 09/16/21 Rx Spironolactone [Aldactone] 25 mg PO DAILY 30 Days #30 tab 11/22/20 09/16/21 Rx Ferrous Sulfate [Iron (65 MG 325 mg PO DAILY 12/08/20 09/16/21 History Elemental)] traMADol HCL [Ultram] 50 mg PO Q4-6H PRN 12/08/20 09/16/21 History Allopurinol [Zyloprim] 200 mg PO DAILY 09/02/21 09/16/21 History Ergocalciferol [Vitamin D2 (1250 1,250 mcg PO Q14D 09/02/21 09/16/21 History Mcg = 96758 Iu)] amLODIPine [Norvasc] 5 mg PO DAILY 09/02/21 09/16/21 History Aspirin 81 mg PO DAILY 90 Days #90 tab 09/11/21 09/16/21 Rx Atorvastatin [Lipitor] 10 mg PO DAILY 90 Days #90 tab 09/11/21 09/16/21 Rx Nicotine 21Mg/24Hr Patch [Habitrol] 1 patch TRANSDERM DAILY 30 Days 09/11/21 09/16/21 Rx #30 patch Torsemide [Demadex] 20 mg PO DAILY 90 Days #90 tab 09/11/21 09/16/21 Rx Albuterol Inhaler [Ventolin Hfa 2 puff INHALATION RT-QID PRN 09/16/21 09/16/21 History Inhaler] Ipratropium-Albuterol Nebulize 3 ml INHALATION RT-TID 09/16/21 09/16/21 History [Duoneb 0.5 mg-3 mg/3 ml Soln] Apixaban [Eliquis Starter Pack 5 - 10 mg PO DIRECTED 30 Days 09/17/21 Rx (for VTE)] #1 each Allergies Allergy/AdvReac Type Severity Reaction Status Date / Time morphine Allergy Rash/Hives Verified 09/16/21 07:38 Penicillins Allergy Rash/Hives Verified 09/16/21 07:38 pineapple Allergy Anaphylaxis Verified 09/16/21 07:38 Physical Exam Vitals: Vital Signs Temp Pulse Resp BP Pulse Ox 09/18/21 08:00 98.7 F 92 19 111/73 94 L 09/18/21 04:00 99.3 F 96 17 95 09/18/21 02:00 96 17 09/18/21 00:00 99.3 F 96 17 104/68 94 L 09/17/21 20:00 98.8 F 95 17 130/75 97 09/17/21 14:58 99.3 F 106 H 16 119/77 96 09/17/21 11:02 98.9 F 95 16 120/76 96 Intake and Output 09/17/21 09/18/21 09/18/21 22:59 06:59 14:59 Intake Total 490 440 Output Total 1025 250 Balance -535 -250 440 Intake: Intake, IV Titration 250 Amount Heparin Sod,Pork in 0.45% 250 NaCl 25,000 unit In 0.45 % NaCl 1 250ml.bag @ 18 UNITS/KG/HR 13.88 mls/hr IV .Q18H1M [facility] Rx#: [id number] Oral 240 440 Output: Urine 1025 250 Other: Voiding Method Urinal Urinal Urinal # Voids 1 # Bowel Movements 1 Weight 72.6 kg Poor Historian NAD Head: NCAT Lungs: Rhonchi HR: RR Tachy Abdomen S, ND Ext: lle edema Results CBC & Chem 7: 09/18/21 06:42 09/18/21 06:42 Labs: Abnormal Lab Results - Last 24 Hours (Table) 09/18/21 09/18/21 Range/Units 06:42 06:42 Neutrophils # 7.9 H (1.3-7.7) k/uL Sodium 131 L (137-145) mmol/L Chloride 97 L (98-107) mmol/L BUN 28 H (9-20) mg/dL Glucose 102 H (74-99) mg/dL Total Protein 5.8 L (6.3-8.2) g/dL Albumin 2.7 L (3.5-5.0) g/dL CT scan - chest: report reviewed Venous US: report reviewed Assessment and Plan (1) Pulmonary embolism Current Visit: Yes Status: Acute Code(s): I26.99 - OTHER PULMONARY EMBOLISM WITHOUT ACUTE COR PULMONALE SNOMED Code(s): 17588283 Plan: Assessment and Recommendations: 1. Pulmonary EMboli: - Patient has ongoing provoking factors therefore length of anticoagulation is undetermined at this time - COntinue with heparin bridge to warfarin due to cost in hopes to establish better adherence - Will follow up in office 4-6 weeks and will determine at that time if hypercoagulable work-up is needed Physician Attest: I have completed the full history and physical and agreee with above dictation, dictated as a ascribe.
--- NOTE | 2021-09-19 02:15 | PN ---
PROGRESS NOTE The patient appears to be improving from a pulmonary embolus standpoint. He says he is breathing better, anyway. He is down to 2 L and breathing comfortably. On IV heparin. Cardiovascular S1, S2. Lungs with scattered wheeze. Hematology negative Homans. Psych fair mood and affect. ASSESSMENT: 1. Deep vein thrombosis, pulmonary embolism. 2. infarction. 3. Secondary pneumonia. 4. Hypertensive cardiovascular disease. 5. Chronic kidney disease. Continue IV heparin. Continue Coumadin. Wait for 2 to 3 INR. Continue antibiotics. Prognosis guarded. MMODL / IJN: [id number] /
[2021-09-19 04:40] LABS: Basophils # (A) 0.1 k/uL (0-0.2); Basophils % (A) 1 %; Eosinophils # (A) 0.1 k/uL (0-0.7); Eosinophils % (A) 1 %; HCT 44.8 % (39.0-53.0); HGB 14.2 gm/dL (13.0-17.5); Hypochromasia Slight; Lymphocytes # (A) 1.5 k/uL (1.0-4.8); Lymphocytes % (A) 17 %; MCH 26.8 pg (25.0-35.0); MCHC 31.7 g/dL (31.0-37.0); MCV 84.8 fL (80.0-100.0); Mean Platelet Volume 8.1; Monocytes # (A) 0.8 k/uL (0-1.0); Monocytes % (A) 10 %; Neutrophils # (A) 6.1 k/uL (1.3-7.7); Neutrophils % (A) 70 %; Platelet Count 341 k/uL (150-450); RBC 5.29 m/uL (4.30-5.90); RDW 14.3 % (11.5-15.5); WBC 8.6 k/uL (3.8-10.6)
[2021-09-19 04:56] LABS: ALT 36 U/L (4-49); AST 33 U/L (17-59); African American GFR (CKD) >90 (>60 ml/min/1.73 sqM); Albumin 2.8 g/dL (3.5-5.0); Alkaline Phosphatase 130 U/L (38-126); Anion Gap 9 mmol/L; Blood Urea Nitrogen 30 mg/dL (9-20); Calcium 9.8 mg/dL (8.4-10.2); Carbon Dioxide 27 mmol/L (22-30); Chloride 95 mmol/L (98-107); Glucose 103 mg/dL (74-99); Non-African American GFR(CKD) 79 (>60 ml/min/1.73 sqM); Potassium 3.8 mmol/L (3.5-5.1); Sodium 131 mmol/L (137-145); Total Bilirubin 0.6 mg/dL (0.2-1.3); Total Protein 5.8 g/dL (6.3-8.2)
[2021-09-19 04:58] LABS: INR 1.7 (<1.2); Prothrombin Time 16.5 sec (9.0-12.0)
[2021-09-19] MEDS: HEPARIN SODIUM 1,000 UN/ML (10ML VL) IV PRN (05:29)
[2021-09-19] MEDS: HEPARIN SOD,PORK IN 0.45% NACL 25,000 UNIT in 0.45% NACL 1 250ML.BAG IV SCH ×3 (05:30→23:25)
[2021-09-19] MEDS: carvediloL 12.5 MG TAB PO SCH ×2 (06:55→17:05)
[2021-09-19] MEDS: THIAMINE 100 MG TAB PO SCH ×2 (06:55→17:06)
[2021-09-19] MEDS: NICOTINE 21MG/24HR PATCH TRANSDERM SCH (08:14)
[2021-09-19] MEDS: SPIRONOLACTONE 25 MG TAB PO SCH (08:15)
[2021-09-19] MEDS: amLODIPine 5 MG TAB PO SCH (08:15)
[2021-09-19] MEDS: allopurinoL 100 MG TAB PO SCH (08:15)
[2021-09-19] MEDS: TORSEMIDE 20 MG TAB PO SCH (08:15)
[2021-09-19] MEDS: ATORVASTATIN 10 MG TAB PO SCH (08:15)
[2021-09-19] MEDS: ASPIRIN 81 MG PO SCH (08:15)
[2021-09-19] MEDS: HYDROmorphone 1 MG/ML 1 ML SYRINGE IVP PRN ×3 (08:22→21:31)
[2021-09-19] MEDS: IPRATROPIUM-ALBUTEROL 3 ML NEB INHALATION SCH ×3 (08:36→19:25)
--- NOTE | 2021-09-19 10:03 | P.PN ---
Subjective Progress Note Date: 09/19/21 Principal diagnosis: Acute pulmonary embolism Left lower extremity deep venous thrombosis Left-sided pulmonary infarction Developing secondary pneumonia cannot be excluded Hypertension hypertensive cardiovascular disease Chronic kidney disease History of low back pain History of smoking in the past 09/19/2021, patient seen eval examined during the rounds respiratory status remains stable, less pleuritic pain is present, shortness present improved, patient however continued to complain of pain there is some element of chronic pain syndrome as well, will defer pain management to primary service, for Estrace standpoint has been doing well remains on broad-spectrum antibiotics, remains on heparin and Coumadin, PT/INR improved to 16.5/1.6, sodium was 131 potassium is 3.8, BUN/creatinine 30/1.09, 09/18/2021, patient seen eval examined during the rounds labs reviewed medications reviewed care plan discussed, respiratory status continued to improve patient is now on 2 L oxygen chest pain is better, breathing comfortably, patient received first dose of Coumadin today, remains on IV heparin once INR is up to 2.5 then will stop heparin 09/17/2021, patient seen eval examined during the rounds labs reviewed medications reviewed care plan discussed, Estrace status slightly improved but however patient continued to have pleuritic chest pain on coughing and deep b reathing, discussed with him about pathophysiology of pulmonary infarction, we'll continue heparin continue pain medicine follow clinical course closely Patient is a 51-year-old male came into the hospital for evaluation of initially thought to be a flank pain subsequently noted to be present and extending from some sternal to epigastric and flank area, pain of severe category tight and sharp does not improved with simple measures and pain medicine, have the exertional component present and got worse with deep breathing, has ongoing palpitations present, patient was noted to be have sinus tachycardia with prolonged QTC on EKG, prior history of the chronic renal insufficiency history of TIAs bulging thus chronic back pain numbness in the left leg, patient denies any loss of consciousness and denies any cough or sputum. Denies any night sweats or fevers chills denies any hemoptysis, no bowel or bladder related problem, T-max on arrival was noted to be 99.6 patient was hypertensive with blood pressure 167/105 him his significant labs were white cell count 13,100 hemoglobin and hematocrit 16 and 48, d-dimer extremely high 9.34, history of previous sodium 129, BUN/creatinine 29/1.1, troches were elevated 0.205 second was 0.195, ultrasound of lower extremity positive for left lower extremity deep venous thrombosis, computed tomography scan of the chest was positive for multiple large pulmonary embolism in right lower lobe pulmonary vessel increase burden of emboli noted on the left side some of them have appearance of infarct on the left side also right upper lobe embolism were seen, currently patient is being treated with bronchodilators continuation of home medications, and IV heparin drip, patient covid test is negative, Patient recently has been hospitalized and discharged 2 days ago due to acute exacerbation of congestive heart failure and chronic systolic heart failure due to nonischemic cardiomyopathy with elevation of liver enzymes due to passive hepatic congestion and chronic kidney Objective - Vital Signs Vital signs: Vital Signs Temp 97.7 F 09/19/21 08:00 Pulse 82 09/19/21 08:00 Resp 18 09/19/21 08:00 BP 133/80 09/19/21 08:00 Pulse Ox 96 09/19/21 08:37 Intake & Output 09/18/21 09/19/21 09/19/21 18:59 06:59 18:59 Intake Total 800.604 139.396 Output Total 1750 875 200 Balance -949.396 -735.604 -200 Weight 73.2 kg Intake: Intake, IV Titration 360.604 139.396 Amount Heparin Sod,Pork in 0.45% 360.604 139.396 NaCl 25,000 unit In 0.45 % NaCl 1 250ml.bag @ 18 UNITS/KG/HR 13.88 mls/hr IV .Q18H1M [facility] Rx#: [id number] Oral 440 Output: Urine 1750 875 200 Other: Voiding Method Urinal Urinal Urinal # Bowel Movements 1 - Exam - Constitutional General appearance: average body habitus, cooperative, disheveled - EENT Eyes: EOMI, PERRLA Ears: bilateral: normal - Neck Carotids: bilateral: upstroke normal - Respiratory Respiratory: bilateral: CTA - Cardiovascular Rhythm: regular Heart sounds: normal: S1, S2 - Gastrointestinal General gastrointestinal: normal bowel sounds, soft - Neurologic Neurologic: CNII-XII intact - Musculoskeletal Musculoskeletal: gait normal, generalized weakness, strength equal bilaterally - Psychiatric Psychiatric: A&O x's 3, appropriate affect, intact judgment & insight - Labs CBC & Chem 7: 09/19/21 04:17 09/19/21 04:17 Labs: Abnormal Lab Results - Last 24 Hours (Table) 09/18/21 09/18/21 09/19/21 Range/Units 16:35 23:00 04:17 PT 16.5 H (9.0-12.0) sec INR 1.7 H (<1.2) APTT 34.6 H 31.9 H (22.0-30.0) sec Sodium (137-145) mmol/L Chloride (98-107) mmol/L BUN (9-20) mg/dL Glucose (74-99) mg/dL Alkaline Phosphatase (38-126) U/L Total Protein (6.3-8.2) g/dL Albumin (3.5-5.0) g/dL 09/19/21 Range/Units 04:17 PT (9.0-12.0) sec INR (<1.2) APTT (22.0-30.0) sec Sodium 131 L (137-145) mmol/L Chloride 95 L (98-107) mmol/L BUN 30 H (9-20) mg/dL Glucose 103 H (74-99) mg/dL Alkaline Phosphatase 130 H (38-126) U/L Total Protein 5.8 L (6.3-8.2) g/dL Albumin 2.8 L (3.5-5.0) g/dL Assessment and Plan Assessment: Acute pulmonary embolism bilateral and multiple segments Left lower extremity deep venous thrombosis Left-sided pulmonary infarction Developing secondary pneumonia cannot be excluded Hypertension hypertensive cardiovascular disease Chronic kidney disease History of low back pain History of smoking in the past Plan: Continue IV heparin, continue Coumadin aim for INR 2.5 and above, overlap for 24 hours then heparin can be discontinued Echocardiogram is reviewed there is global hypokinesia, ejection fraction 25 percent, RV is enlarged, LVH is noted IV antibiotics with Rocephin Pain management by primary service Further plan of care as per clinical response of the patient Time with Patient: Greater than 30
--- NOTE | 2021-09-19 10:54 | P.PN ---
Subjective Progress Note Date: 09/19/21 HISTORY OF PRESENT ILLNESS: This is a 51-year-old male who follows in the office with Dr. Rider. Patient has a history of congestive heart failure and nonischemic cardiomyopathy. Ebenezer garcia was recently admitted to the hospital with a Non-STEMI and was treated medically. Patient also was treated with IV Lasix and dobutamine for congestive heart failure and congestive hepatomegaly with abnormal LFTs. The patient was discharged home in stable condition. Patient states he began having right-sided chest discomfort on Friday night so he presented back to the emergency room. Patient was found to have multiple pulmonary emboli. Patient is currently on IV heparin. Patient is on 2 L nasal cannula with oxygen saturations greater than 92%. Telemetry reveals sinus tachycardia with a heart rate around 110. Patient is currently on carvedilol 12.5 mg twice a day. He is afebrile. Patient does report chest discomfort with deep inspiration. Echocardiogram completed revealing ejection fraction 25-30%, moderately enlarged right ventricle, moderate mitral regurgitation, and mild to moderate tricuspid regurgitation. Lower extremity Doppler completed which was negative for DVT of right leg. Positive for DVT of left leg. Chest CT reveals multiple large emboli in the right lower lobe pulmonary artery. Flora left lower lobe pulmonary artery. 09/18/2021 Patient examined this morning at the bedside. Patient reports mild discomfort with deep inspiration. He currently denies shortness of breath. He is on 2 L nasal cannula with oxygen saturations greater than 92%. Blood pressure 111/73. He remains on IV heparin. He was started on Coumadin yesterday. INR today 1.1. 09/19/2021 Patient examined this morning at the bedside. Patient reports his shortness of breath is about the same as yesterday. He continues to have discomfort with deep inspiration. He remains on IV heparin and Coumadin. INR today is 1.7. PHYSICAL EXAM: VITAL SIGNS: Reviewed. GENERAL: Well-developed in no acute distress. NECK: Supple. No JVD or thyromegaly LUNGS: Respirations even and unlabored. Lungs diminished to auscultation bilaterally. HEART: Regular rate and rhythm. S1 and S2 heard. Systolic murmur noted. EXTREMITIES: Normal range of motion. No clubbing or cyanosis. Peripheral pulses intact. No lower extremity edema ASSESSMENT: Bilateral pulmonary emboli Left lower extremity DVT Recent admission for Non-STEMI Nonischemic cardiomyopathy Chronic systolic congestive heart failure, EF 20-25% LVH History of abnormal LFTs Hypertension PLAN: Continue current cardiac medications Per case management, patient does not have prescription drug coverage Continue Coumadin with target INR 2-3. Continue IV heparin until target INR is reached Further recommendations pending patient course Nurse practitioner note has been reviewed by physician. Signing provider agrees with the documented findings, assessment, and plan of care. Objective - Vital Signs Vital signs: Vital Signs Temp 97.7 F 09/19/21 08:00 Pulse 82 09/19/21 08:00 Resp 18 09/19/21 08:00 BP 133/80 09/19/21 08:00 Pulse Ox 96 09/19/21 08:37 Intake & Output 09/18/21 09/19/21 09/19/21 18:59 06:59 18:59 Intake Total 800.604 139.396 Output Total 1750 875 200 Balance -949.396 -735.604 -200 Weight 73.2 kg Intake: Intake, IV Titration 360.604 139.396 Amount Heparin Sod,Pork in 0.45% 360.604 139.396 NaCl 25,000 unit In 0.45 % NaCl 1 250ml.bag @ 18 UNITS/KG/HR 13.88 mls/hr IV .Q18H1M [facility] Rx#: [id number] Oral 440 Output: Urine 1750 875 200 Other: Voiding Method Urinal Urinal Urinal # Bowel Movements 1 - Labs CBC & Chem 7: 09/19/21 04:17 09/19/21 04:17 Labs: Abnormal Lab Results - Last 24 Hours (Table) 09/18/21 09/18/21 09/19/21 Range/Units 16:35 23:00 04:17 PT 16.5 H (9.0-12.0) sec INR 1.7 H (<1.2) APTT 34.6 H 31.9 H (22.0-30.0) sec Sodium (137-145) mmol/L Chloride (98-107) mmol/L BUN (9-20) mg/dL Glucose (74-99) mg/dL Alkaline Phosphatase (38-126) U/L Total Protein (6.3-8.2) g/dL Albumin (3.5-5.0) g/dL 09/19/21 Range/Units 04:17 PT (9.0-12.0) sec INR (<1.2) APTT (22.0-30.0) sec Sodium 131 L (137-145) mmol/L Chloride 95 L (98-107) mmol/L BUN 30 H (9-20) mg/dL Glucose 103 H (74-99) mg/dL Alkaline Phosphatase 130 H (38-126) U/L Total Protein 5.8 L (6.3-8.2) g/dL Albumin 2.8 L (3.5-5.0) g/dL
--- NOTE | 2021-09-19 11:53 | P.PN ---
Subjective Progress Note Date: 09/19/21 Patient seen and examined lying in bed. Denying any shortness of breath or chest pain. States he still has some chest wall/flank pain when he takes in a deep breath. He still remains on IV heparin drip as he is transition to Coumadin awaiting therapeutic level. INR today was 1.7. Hematology has seen patient and plan is for outpatient follow-up and possible workup. Objective - Vital Signs Vital signs: Vital Signs Temp 97.7 F 09/19/21 08:00 Pulse 82 09/19/21 08:00 Resp 18 09/19/21 08:00 BP 133/80 09/19/21 08:00 Pulse Ox 96 09/19/21 08:37 Intake & Output 09/18/21 09/19/21 09/19/21 18:59 06:59 18:59 Intake Total 800.604 139.396 Output Total 1750 875 200 Balance -949.396 -735.604 -200 Weight 73.2 kg Intake: Intake, IV Titration 360.604 139.396 Amount Heparin Sod,Pork in 0.45% 360.604 139.396 NaCl 25,000 unit In 0.45 % NaCl 1 250ml.bag @ 18 UNITS/KG/HR 13.88 mls/hr IV .Q18H1M [facility] Rx#: [id number] Oral 440 Output: Urine 1750 875 200 Other: Voiding Method Urinal Urinal # Bowel Movements 1 - Exam General appearance: The patient is alert, oriented, in no acute distress. HET: Head is normocephalic and atraumatic. Pupils are equal and reactive. Oropharynx is clear without lesions. Neck: Supple without lymphadenopathy. Trachea midline. Heart: S1 S2. Regular rate and rhythm. Lungs: Clear to auscultation. Abdomen: Soft, nontender, nondistended. Extremities: Normal skin color and turgor. No cyanosis, rash, ulceration, clubbing, or edema. Radial and pedal pulses are 2/4 bilaterally. Neurological: No focal deficits. Strength and sensation are grossly intact - Labs CBC & Chem 7: 09/19/21 04:17 09/19/21 04:17 Labs: Abnormal Lab Results - Last 24 Hours (Table) 09/18/21 09/18/21 09/19/21 Range/Units 16:35 23:00 04:17 PT 16.5 H (9.0-12.0) sec INR 1.7 H (<1.2) APTT 34.6 H 31.9 H (22.0-30.0) sec Sodium (137-145) mmol/L Chloride (98-107) mmol/L BUN (9-20) mg/dL Glucose (74-99) mg/dL Alkaline Phosphatase (38-126) U/L Total Protein (6.3-8.2) g/dL Albumin (3.5-5.0) g/dL 09/19/21 Range/Units 04:17 PT (9.0-12.0) sec INR (<1.2) APTT (22.0-30.0) sec Sodium 131 L (137-145) mmol/L Chloride 95 L (98-107) mmol/L BUN 30 H (9-20) mg/dL Glucose 103 H (74-99) mg/dL Alkaline Phosphatase 130 H (38-126) U/L Total Protein 5.8 L (6.3-8.2) g/dL Albumin 2.8 L (3.5-5.0) g/dL Assessment and Plan Assessment: 1. Bilateral pulmonary emboli 2. History of pulmonary embolism 3. History of nonischemic cardiomyopathy 4. History of congestive heart failure Plan: 1. Continue symptomatic supportive care 2. Agree with transition to Coumadin as patient with concerns for financial coverage for DOAC 3. Consult to social work regarding financial difficulties and inability to afford medications 4. Consult to hematology for unprovoked pulmonary emboli/DVT 5. No plans for vascular surgical intervention with [facility]OS 6. Continue close follow-up with cardiology 7. Vascular surgery will be on stand by. Continue with recommendations for Coumadin dosing per cardiology Thank you for this consultation, we will sign off at this time. The impression and plan of care has been dictated as directed. Dr. Hines I performed a history and examination of this patient, discussed the same with the dictator. I agree with the dictator's note ,documented as a scribe. Any additional findings or plans will be noted.
--- NOTE | 2021-09-19 13:03 | P.PN ---
Subjective Progress Note Date: 09/19/21 inr 1.7 Objective - Vital Signs Vital signs: Vital Signs Temp 97.4 F L 09/19/21 11:33 Pulse 80 09/19/21 11:33 Resp 18 09/19/21 11:33 BP 126/72 09/19/21 11:33 Pulse Ox 97 09/19/21 11:33 Intake & Output 09/18/21 09/19/21 09/19/21 18:59 06:59 18:59 Intake Total 800.604 139.396 Output Total 1750 875 200 Balance -949.396 -735.604 -200 Weight 73.2 kg Intake: Intake, IV Titration 360.604 139.396 Amount Heparin Sod,Pork in 0.45% 360.604 139.396 NaCl 25,000 unit In 0.45 % NaCl 1 250ml.bag @ 18 UNITS/KG/HR 13.88 mls/hr IV .Q18H1M [facility] Rx#: [id number] Oral 440 Output: Urine 1750 875 200 Other: Voiding Method Urinal Urinal Urinal # Bowel Movements 1 - Constitutional General appearance: Present: cooperative, no acute distress - EENT Eyes: Present: EOMI ENT: Present: NA/AT - Neck Neck: Present: normal ROM - Respiratory Respiratory: bilateral: rales (bases) - Cardiovascular Rhythm: regularly irregular - Gastrointestinal General gastrointestinal: Present: soft - Integumentary Integumentary Comment(s): poor hygiene Integumentary: Present: pale - Neurologic Neurologic: Present: CNII-XII intact - Musculoskeletal Musculoskeletal: Present: generalized weakness - Psychiatric Psychiatric: Present: A&O x's 3 - Labs CBC & Chem 7: 09/19/21 04:17 09/19/21 04:17 Labs: Abnormal Lab Results - Last 24 Hours (Table) 09/18/21 09/18/21 09/19/21 Range/Units 16:35 23:00 04:17 PT 16.5 H (9.0-12.0) sec INR 1.7 H (<1.2) APTT 34.6 H 31.9 H (22.0-30.0) sec Sodium (137-145) mmol/L Chloride (98-107) mmol/L BUN (9-20) mg/dL Glucose (74-99) mg/dL Alkaline Phosphatase (38-126) U/L Total Protein (6.3-8.2) g/dL Albumin (3.5-5.0) g/dL 09/19/21 09/19/21 Range/Units 04:17 12:01 PT (9.0-12.0) sec INR (<1.2) APTT 70.6 H (22.0-30.0) sec Sodium 131 L (137-145) mmol/L Chloride 95 L (98-107) mmol/L BUN 30 H (9-20) mg/dL Glucose 103 H (74-99) mg/dL Alkaline Phosphatase 130 H (38-126) U/L Total Protein 5.8 L (6.3-8.2) g/dL Albumin 2.8 L (3.5-5.0) g/dL Assessment and Plan (1) Pulmonary embolism Current Visit: Yes Status: Acute Code(s): I26.99 - OTHER PULMONARY EMBOLISM WITHOUT ACUTE COR PULMONALE SNOMED Code(s): 88104528 Plan: Assessment and Recommendations: 1. Pulmonary EMboli: - Patient has ongoing provoking factors therefore length of anticoagulation is undetermined at this time - COntinue with heparin bridge to warfarin due to cost in hopes to establish better adherence - Will follow up in office 4-6 weeks and will determine at that time if hypercoagulable work-up is needed INR 1.7 today, will stop heparin and proceed warfarin alone once therapeutic 2-3 inr achieved Physician Attest: I have completed the full history and physical and agreee with above dictation, dictated as a ascribe.
[2021-09-19 13:09] LABS: APTT 49 Sec(s) (<43); APTT 1:1 Mix 44 Sec(s) (<43); Dilute Russell Viper Venom 39 Sec(s) (<44); Hexagonal Phase Neutralization Negative (Negative)
[2021-09-19 13:29] LABS: Calcium 9.6 mg/dL (8.4-10.2); Magnesium 1.9 mg/dL (1.6-2.3); Potassium 4.3 mmol/L (3.5-5.1)
[2021-09-19 13:55] LABS: Erythrocyte Sedimentation Rate 49 mm/hr (0-15)
[2021-09-19] MEDS ORDERED: WARFARIN 5 MG TAB PO ONE (18:00)
[2021-09-20] MEDS: carvediloL 12.5 MG TAB PO SCH ×2 (06:21→17:01)
[2021-09-20] MEDS: THIAMINE 100 MG TAB PO SCH ×2 (06:22→17:01)
[2021-09-20] MEDS: SPIRONOLACTONE 25 MG TAB PO SCH (07:56)
[2021-09-20] MEDS: allopurinoL 100 MG TAB PO SCH (07:56)
[2021-09-20] MEDS: amLODIPine 5 MG TAB PO SCH (07:56)
[2021-09-20] MEDS: ATORVASTATIN 10 MG TAB PO SCH (07:56)
[2021-09-20] MEDS: NICOTINE 21MG/24HR PATCH TRANSDERM SCH (07:56)
[2021-09-20] MEDS: TORSEMIDE 20 MG TAB PO SCH (07:56)
[2021-09-20] MEDS: ASPIRIN 81 MG PO SCH (07:56)
[2021-09-20 08:35] LABS: INR 4.9 (<1.2); Prothrombin Time 47.1 sec (9.0-12.0)
[2021-09-20] MEDS: IPRATROPIUM-ALBUTEROL 3 ML NEB INHALATION SCH ×3 (08:42→21:17)
--- NOTE | 2021-09-20 12:16 | P.PN ---
Subjective Progress Note Date: 09/20/21 HISTORY OF PRESENT ILLNESS: This is a 51-year-old male who follows in the office with Dr. Rider. Patient has a history of congestive heart failure and nonischemic cardiomyopathy. Ebenezer garcia was recently admitted to the hospital with a Non-STEMI and was treated medically. Patient also was treated with IV Lasix and dobutamine for congestive heart failure and congestive hepatomegaly with abnormal LFTs. The patient was discharged home in stable condition. Patient states he began having right-sided chest discomfort on Friday night so he presented back to the emergency room. Patient was found to have multiple pulmonary emboli. Patient is currently on IV heparin. Patient is on 2 L nasal cannula with oxygen saturations greater than 92%. Telemetry reveals sinus tachycardia with a heart rate around 110. Patient is currently on carvedilol 12.5 mg twice a day. He is afebrile. Patient does report chest discomfort with deep inspiration. Echocardiogram completed revealing ejection fraction 25-30%, moderately enlarged right ventricle, moderate mitral regurgitation, and mild to moderate tricuspid regurgitation. Lower extremity Doppler completed which was negative for DVT of right leg. Positive for DVT of left leg. Chest CT reveals multiple large emboli in the right lower lobe pulmonary artery. Flora left lower lobe pulmonary artery. 09/18/2021 Patient examined this morning at the bedside. Patient reports mild discomfort with deep inspiration. He currently denies shortness of breath. He is on 2 L nasal cannula with oxygen saturations greater than 92%. Blood pressure 111/73. He remains on IV heparin. He was started on Coumadin yesterday. INR today 1.1. 09/19/2021 Patient examined this morning at the bedside. Patient reports his shortness of breath is about the same as yesterday. He continues to have discomfort with deep inspiration. He remains on IV heparin and Coumadin. INR today is 1.7. 09/20/2021 Patient examined this morning at the bedside. He remains on 2L NC. Reports his breathing feels about the same as it has been the past few days. Vital signs are stable. INR today 4.9. IV heparin has been discontinued. PHYSICAL EXAM: VITAL SIGNS: Reviewed. GENERAL: Well-developed in no acute distress. NECK: Supple. No JVD or thyromegaly LUNGS: Respirations even and unlabored. Lungs diminished to auscultation bilaterally. HEART: Regular rate and rhythm. S1 and S2 heard. Systolic murmur noted. EXTREMITIES: Normal range of motion. No clubbing or cyanosis. Peripheral pulses intact. No lower extremity edema ASSESSMENT: Bilateral pulmonary emboli Left lower extremity DVT Recent admission for Non-STEMI Nonischemic cardiomyopathy Chronic systolic congestive heart failure, EF 20-25% LVH History of abnormal LFTs Hypertension PLAN: Continue current cardiac medications IV heparin discontinued Monitor INR. Hematology following. No Coumadin tonight. Further recommendations pending patient course Nurse practitioner note has been reviewed by physician. Signing provider agrees with the documented findings, assessment, and plan of care. Objective - Vital Signs Vital signs: Vital Signs Temp 98.3 F 09/20/21 07:58 Pulse 85 09/20/21 12:00 Resp 17 09/20/21 12:00 BP 123/80 09/20/21 12:00 Pulse Ox 95 09/20/21 12:00 Intake & Output 09/19/21 09/20/21 09/20/21 18:59 06:59 18:59 Intake Total 837.000 870.000 490 Output Total 1100 500 400 Balance -263.000 370.000 90 Weight 73.5 kg Intake: IV 140 .9 @ 20 140 Intake, IV Titration 250.000 250.000 250 Amount Heparin Sod,Pork in 0.45% 250.000 250.000 250 NaCl 25,000 unit In 0.45 % NaCl 1 250ml.bag @ 18 UNITS/KG/HR 13.88 mls/hr IV .Q18H1M [facility] Rx#: [id number] Oral 587 480 240 Output: Urine 1100 500 400 Other: Voiding Method Urinal Urinal Urinal # Voids 2 - Labs CBC & Chem 7: 09/19/21 04:17 09/19/21 12:01 Labs: Abnormal Lab Results - Last 24 Hours (Table) 09/17/21 09/19/21 09/19/21 Range/Units 22:54 04:17 12:01 ESR 49 H (0-15) mm/hr PT (9.0-12.0) sec INR (<1.2) APTT 70.6 H (22.0-30.0) sec Lupus Anticoag aPTT 49 H (<43) Sec(s) Lupus Anticoag PTT Mix 44 H (<43) Sec(s) Sodium (137-145) mmol/L Chloride (98-107) mmol/L BUN (9-20) mg/dL Glucose (74-99) mg/dL 09/19/21 09/19/21 09/20/21 Range/Units 12:01 20:26 01:53 ESR (0-15) mm/hr PT (9.0-12.0) sec INR (<1.2) APTT 64.3 H 47.8 H (22.0-30.0) sec Lupus Anticoag aPTT (<43) Sec(s) Lupus Anticoag PTT Mix (<43) Sec(s) Sodium 133 L (137-145) mmol/L Chloride 95 L (98-107) mmol/L BUN 28 H (9-20) mg/dL Glucose 140 H (74-99) mg/dL 09/20/21 Range/Units 07:42 ESR (0-15) mm/hr PT 47.1 H (9.0-12.0) sec INR 4.9 H (<1.2) APTT (22.0-30.0) sec Lupus Anticoag aPTT (<43) Sec(s) Lupus Anticoag PTT Mix (<43) Sec(s) Sodium (137-145) mmol/L Chloride (98-107) mmol/L BUN (9-20) mg/dL Glucose (74-99) mg/dL
--- NOTE | 2021-09-20 13:33 | P.PN ---
Subjective Progress Note Date: 09/20/21 Principal diagnosis: Acute pulmonary embolism Left lower extremity deep venous thrombosis Left-sided pulmonary infarction Developing secondary pneumonia cannot be excluded Hypertension hypertensive cardiovascular disease Chronic kidney disease History of low back pain History of smoking in the past 09/20/2021, patient seen eval examined during the rounds labs reviewed me dications and care plan discussed, respiratory status remains stable some aches and pains are present but overall stable, patient has been primary service, remains on Coumadin dose being adjusted as per PT/INR, PT/INR is 47/4.9 heparin has been discontinued, PT/INR for tomorrow pending 09/19/2021, patient seen eval examined during the rounds respiratory status remains stable, less pleuritic pain is present, shortness present improved, patient however continued to complain of pain there is some element of chronic pain syndrome as well, will defer pain management to primary service, for Estrace standpoint has been doing well remains on broad-spectrum antibiotics, remains on heparin and Coumadin, PT/INR improved to 16.5/1.6, sodium was 131 potassium is 3.8, BUN/creatinine 30/1.09, 09/18/2021, patient seen eval examined during the rounds labs reviewed medications reviewed care plan discussed, respiratory status continued to improve patient is now on 2 L oxygen chest pain is better, breathing comfortably, patient received first dose of Coumadin today, remains on IV heparin once INR is up to 2.5 then will stop heparin 09/17/2021, patient seen eval examined during the rounds labs reviewed medications reviewed care plan discussed, Estrace status slightly improved but however patient continued to have pleuritic chest pain on coughing and deep breathing, discussed with him about pathophysiology of pulmonary infarction, we'll continue heparin continue pain medicine follow clinical course closely Patient is a 51-year-old male came into the hospital for evaluation of initially thought to be a flank pain subsequently noted to be present and extending from some sternal to epigastric and flank area, pain of severe category tight and sharp does not improved with simple measures and pain medicine, have the exertional component present and got worse with deep breathing, has ongoing palpitations present, patient was noted to be have sinus tachycardia with prolonged QTC on EKG, prior history of the chronic renal insufficiency history of TIAs bulging thus chronic back pain numbness in the left leg, patient denies any loss of consciousness and denies any cough or sputum. Denies any night sweats or fevers chills denies any hemoptysis, no bowel or bladder related problem, T-max on arrival was noted to be 99.6 patient was hypertensive with blood pressure 167/105 him his significant labs were white cell count 13,100 hemoglobin and hematocrit 16 and 48, d-dimer extremely high 9.34, history of previous sodium 129, BUN/creatinine 29/1.1, troches were elevated 0.205 second was 0.195, ultrasound of lower extremity positive for left lower extremity deep venous thrombosis, computed tomography scan of the chest was positive for multiple large pulmonary embolism in right lower lobe pulmonary vessel increase burden of emboli noted on the left side some of them have appearance of infarct on the left side also right upper lobe embolism were seen, currently patient is being treated with bronchodilators continuation of home medications, and IV heparin drip, patient covid test is negative, Patient recently has been hospitalized and discharged 2 days ago due to acute exacerbation of congestive heart failure and chronic systolic heart failure due to nonischemic cardiomyopathy with elevation of liver enzymes due to passive hepatic congestion and chronic kidney Objective - Vital Signs Vital signs: Vital Signs Temp 98.3 F 09/20/21 07:58 Pulse 85 09/20/21 12:00 Resp 17 09/20/21 12:00 BP 123/80 09/20/21 12:00 Pulse Ox 95 09/20/21 12:00 Intake & Output 09/19/21 09/20/21 09/20/21 18:59 06:59 18:59 Intake Total 837.000 870.000 490 Output Total 1100 500 400 Balance -263.000 370.000 90 Weight 73.5 kg Intake: IV 140 .9 @ 20 140 Intake, IV Titration 250.000 250.000 250 Amount Heparin Sod,Pork in 0.45% 250.000 250.000 250 NaCl 25,000 unit In 0.45 % NaCl 1 250ml.bag @ 18 UNITS/KG/HR 13.88 mls/hr IV .Q18H1M [facility] Rx#: [id number] Oral 587 480 240 Output: Urine 1100 500 400 Other: Voiding Method Urinal Urinal Urinal # Voids 2 - Exam - Constitutional General appearance: average body habitus, cooperative, disheveled - EENT Eyes: EOMI, PERRLA Ears: bilateral: normal - Neck Carotids: bilateral: upstroke normal - Respiratory Respiratory: bilateral: CTA - Cardiovascular Rhythm: regular Heart sounds: normal: S1, S2 - Gastrointestinal General gastrointestinal: normal bowel sounds, soft - Neurologic Neurologic: CNII-XII intact - Musculoskeletal Musculoskeletal: gait normal, generalized weakness, strength equal bilaterally - Psychiatric Psychiatric: A&O x's 3, appropriate affect, intact judgment & insight - Labs CBC & Chem 7: 09/19/21 04:17 09/19/21 12:01 Labs: Abnormal Lab Results - Last 24 Hours (Table) 09/19/21 09/19/21 09/20/21 Range/Units 04:17 20:26 01:53 ESR 49 H (0-15) mm/hr PT (9.0-12.0) sec INR (<1.2) APTT 64.3 H 47.8 H (22.0-30.0) sec 09/20/21 Range/Units 07:42 ESR (0-15) mm/hr PT 47.1 H (9.0-12.0) sec INR 4.9 H (<1.2) APTT (22.0-30.0) sec Assessment and Plan Assessment: Acute pulmonary embolism bilateral and multiple segments Left lower extremity deep venous thrombosis Left-sided pulmonary infarction Developing secondary pneumonia cannot be excluded Hypertension hypertensive cardiovascular disease Chronic kidney disease History of low back pain History of smoking in the past Plan: Continue Coumadin as per PT/INR hold for now today repeat tomorrow Echocardiogram is reviewed there is global hypokinesia, ejection fraction 25 percent, RV is enlarged, LVH is noted IV antibiotics with Rocephin Pain management by primary service Further plan of care as per clinical response of the patient Time with Patient: Greater than 30
[2021-09-20] MEDS ORDERED: WARFARIN 0.5 MG TAB PO ONE (18:00)
[2021-09-21 01:52] LABS: Basophils # (A) 0.1 k/uL (0-0.2); Basophils % (A) 1 %; Eosinophils # (A) 0.1 k/uL (0-0.7); Eosinophils % (A) 1 %; HCT 46.2 % (39.0-53.0); HGB 14.6 gm/dL (13.0-17.5); Hypochromasia Slight; Lymphocytes # (A) 1.3 k/uL (1.0-4.8); Lymphocytes % (A) 19 %; MCHC 31.5 g/dL (31.0-37.0); MCV 85.7 fL (80.0-100.0); Mean Platelet Volume 7.8; Monocytes # (A) 0.5 k/uL (0-1.0); Monocytes % (A) 7 %; Neutrophils # (A) 4.8 k/uL (1.3-7.7); Neutrophils % (A) 70 %; Platelet Count 371 k/uL (150-450); RBC 5.39 m/uL (4.30-5.90); RDW 14.7 % (11.5-15.5); WBC 6.9 k/uL (3.8-10.6)
[2021-09-21 02:05] LABS: Potassium 4.7 mmol/L (3.5-5.1); Total Bilirubin 0.4 mg/dL (0.2-1.3); Total Protein 6.1 g/dL (6.3-8.2)
--- NOTE | 2021-09-21 05:13 | PN ---
PROGRESS NOTE 51-year-old white male who is admitted for bilateral pulmonary embolisms with a history of systolic CHF. He has been started on Coumadin and heparin. His INR is up to 4.9. We will have to withhold his Coumadin. He is breathing better. He is up moving. Wants to possibly be discharged home tomorrow. Psych: Fair mood and affect. Neurologic: Alert and oriented x3. Blood pressure is 130s over 80s, 96 on room air, respiratory 16-18, pulse 68-80. PLAN: Hold Coumadin for a day or 2 and possibly restart at a lower dose. Follow up as an outpatient. Continue current pain under his right rib, pain control as needed. Continue anticoagulants outpatient. Smoking cessation and breathe clean air down the road was discussed with him. PROGNOSIS: Guarded. MMODL / IJN: [id number] /
[2021-09-21] MEDS: carvediloL 12.5 MG TAB PO SCH (06:22)
[2021-09-21] MEDS: THIAMINE 100 MG TAB PO SCH (06:22)
[2021-09-21] MEDS: traMADol 50 MG TAB PO PRN (06:22)
[2021-09-21 07:50] VITALS: BMI 19.1
[2021-09-21] MEDS: ASPIRIN 81 MG PO SCH (08:51)
[2021-09-21] MEDS: TORSEMIDE 20 MG TAB PO SCH (08:51)
[2021-09-21] MEDS: ATORVASTATIN 10 MG TAB PO SCH (08:51)
[2021-09-21] MEDS: SPIRONOLACTONE 25 MG TAB PO SCH (08:51)
[2021-09-21] MEDS: amLODIPine 5 MG TAB PO SCH (08:51)
[2021-09-21] MEDS: allopurinoL 100 MG TAB PO SCH (08:51)
[2021-09-21 08:52] LABS: INR 2.8 (<1.2); Prothrombin Time 27.5 sec (9.0-12.0)
[2021-09-21] MEDS: NICOTINE 21MG/24HR PATCH TRANSDERM SCH (08:52)
[2021-09-21 09:04] VITALS: BP 132/66; PULSE 82; RESP 16; TEMP 98
[2021-09-21] MEDS: IPRATROPIUM-ALBUTEROL 3 ML NEB INHALATION SCH (09:04)
--- NOTE | 2021-09-21 13:17 | P.PN ---
Subjective Progress Note Date: 09/21/21 HISTORY OF PRESENT ILLNESS: This is a 51-year-old male who follows in the office with Dr. Rider. Patient has a history of congestive heart failure and nonischemic cardiomyopathy. Ebenezer garcia was recently admitted to the hospital with a Non-STEMI and was treated medically. Patient also was treated with IV Lasix and dobutamine for congestive heart failure and congestive hepatomegaly with abnormal LFTs. The patient was discharged home in stable condition. Patient states he began having right-sided chest discomfort on Friday night so he presented back to the emergency room. Patient was found to have multiple pulmonary emboli. Patient is currently on IV heparin. Patient is on 2 L nasal cannula with oxygen saturations greater than 92%. Telemetry reveals sinus tachycardia with a heart rate around 110. Patient is currently on carvedilol 12.5 mg twice a day. He is afebrile. Patient does report chest discomfort with deep inspiration. Echocardiogram completed revealing ejection fraction 25-30%, moderately enlarged right ventricle, moderate mitral regurgitation, and mild to moderate tricuspid regurgitation. Lower extremity Doppler completed which was negative for DVT of right leg. Positive for DVT of left leg. Chest CT reveals multiple large emboli in the right lower lobe pulmonary artery. Flora left lower lobe pulmonary artery. 09/18/2021 Patient examined this morning at the bedside. Patient reports mild discomfort with deep inspiration. He currently denies shortness of breath. He is on 2 L nasal cannula with oxygen saturations greater than 92%. Blood pressure 111/73. He remains on IV heparin. He was started on Coumadin yesterday. INR today 1.1. 09/19/2021 Patient examined this morning at the bedside. Patient reports his shortness of breath is about the same as yesterday. He continues to have discomfort with deep inspiration. He remains on IV heparin and Coumadin. INR today is 1.7. 09/20/2021 Patient examined this morning at the bedside. He remains on 2L NC. Reports his breathing feels about the same as it has been the past few days. Vital signs are stable. INR today 4.9. IV heparin has been discontinued. 09/21/2021 Patient examined this morning at the bedside. He denies chest pain or pressure. He denies shortness of breath. INR today 2.8. He is hoping to be discharged home today. PHYSICAL EXAM: VITAL SIGNS: Reviewed. GENERAL: Well-developed in no acute distress. NECK: Supple. No JVD or thyromegaly LUNGS: Respirations even and unlabored. Lungs diminished to auscultation bilaterally. HEART: Regular rate and rhythm. S1 and S2 heard. Systolic murmur noted. EXTREMITIES: Normal range of motion. No clubbing or cyanosis. Peripheral pulses intact. No lower extremity edema ASSESSMENT: Bilateral pulmonary emboli Left lower extremity DVT Recent admission for Non-STEMI Nonischemic cardiomyopathy Chronic systolic congestive heart failure, EF 20-25% LVH History of abnormal LFTs Hypertension PLAN: Continue current cardiac medications Monitor INR. Hematology following. Patient is stable for discharge home today from a cardiac standpoint Nurse practitioner note has been reviewed by physician. Signing provider agrees with the documented findings, assessment, and plan of care. Objective - Vital Signs Vital signs: Vital Signs Temp 98 F 09/21/21 09:03 Pulse 82 09/21/21 09:03 Resp 16 09/21/21 09:03 BP 132/66 09/21/21 09:03 Pulse Ox 95 09/21/21 09:03 Intake & Output 09/20/21 09/21/21 09/21/21 18:59 06:59 18:59 Intake Total 934 Output Total 1850 1000 Balance -916 -1000 Weight 69.2 kg 69.2 kg Intake: Intake, IV Titration 250 Amount Heparin Sod,Pork in 0.45% 250 NaCl 25,000 unit In 0.45 % NaCl 1 250ml.bag @ 18 UNITS/KG/HR 13.88 mls/hr IV .Q18H1M [facility] Rx#: [id number] Oral 684 Output: Urine 1850 1000 Other: Voiding Method Urinal Urinal Urinal # Voids 2 - Labs CBC & Chem 7: 09/21/21 01:30 09/21/21 01:30 Labs: Abnormal Lab Results - Last 24 Hours (Table) 09/21/21 09/21/21 09/21/21 Range/Units 01:30 01:30 07:49 PT 27.5 H (9.0-12.0) sec INR 2.8 H (<1.2) APTT 32.7 H (22.0-30.0) sec Sodium 133 L (137-145) mmol/L Chloride 97 L (98-107) mmol/L BUN 30 H (9-20) mg/dL Glucose 188 H (74-99) mg/dL AST 60 H (17-59) U/L ALT 68 H (4-49) U/L Alkaline Phosphatase 137 H (38-126) U/L Total Protein 6.1 L (6.3-8.2) g/dL Albumin 3.0 L (3.5-5.0) g/dL
[2021-09-21] MEDS ORDERED: WARFARIN 5 MG TAB PO ONE (18:00)
[2021-09-22] MEDS ORDERED: WARFARIN 2.5 MG TAB PO SCH (18:00)
--- NOTE | 2021-09-24 10:41 | CDI ---
Documentation Clarification Form Date: 09/24/21 From: Hien Haley Admit Date: 09/16/2021 05:22:00 AM Patient Name: Jaleel Pal Visit Number: [id number] Discharge Date: 09/21/2021 11:48:00 AM ATTENTION: The Clinical Documentation Specialists (CDI) and [facility] Coding Staff appreciate your assistance in clarifying documentation. Please respond to the clarification below the line at the bottom and electronically sign. The CDI & [facility] Coding staff will review the response and follow-up if needed. Please note: Queries are made part of the Legal Health Record. If you have any questions, please contact the author of this message via ITS. Dr. Bob Nino, Unspecified CKD is documented in the H&P and Dr Galvez's consult. Additional clarification regarding the stage of CKD is requested. History/Risk Factors: HTN w chronic systolic CHF & CKD, acute pulmonary embolism, acute DVT of left femoral vein Patients Historical BUN/CR/GFR Current BUN: 29, 28,28, 30, 28, 30 Current CR: 1.11, 1.13, 1.03, 1.09, 1.16, 1.24 Current GFR: 78, 76, 85, 79, 74, 68 Treatment: IV fluids, Demadex Please clarify the stage of the CKD, if known: [ ] CKD Stage 1 (GFR > 90) [ ] CKD Stage 2 (GFR 60-89) [ ] CKD Stage 3 (GFR 30-59) [ ] CKD Stage 3a (GFR 45-59) [ ] CKD Stage 3b (GFR 30-44) [ ] CKD Stage 4 (GFR 15-29) [ ] CKD Stage 5 (GFR <15) [ ] ESRD [ ] Other, please specify [ ] Unable to determine MTDD
--- NOTE | 2021-09-25 06:20 | DS ---
DISCHARGE SUMMARY ADDENDUM: Please add: Chronic kidney disease stage 2. MMODL / IJN: [id number] /
[2021-09-26 08:39] LABS: Protein C (Activity) 66
--- NOTE | 2021-10-01 07:55 | CDI ---
Documentation Clarification Form Date: 09/18/2021 02:23:41 PM From: Sara Rubi RN CCDS Admit Date: 09/16/2021 05:22:00 AM Patient Name: Jaleel Pal Visit Number: [id number] Discharge Date: ATTENTION: The Clinical Documentation Specialists (CDI) and [facility] Coding Staff appreciate your assistance in clarifying documentation. Please respond to the clarification below the line at the bottom and electronically sign. The CDI & [facility] Coding staff will review the response and follow-up if needed. Please note: Queries are made part of the Legal Health Record. If you have any questions, please contact the author of this message via ITS. Dr. Ruben Bermudez Thank you for signing the query please document your response in the medical record. There is documentation of Recent admission for Non-STEMI, 09/18, Cardiology progress note. To capture the severity of the condition the date must be provided in the medical record. History/Risk Factors: 51-year-old male presents to the ED with abdominal pain from his sternum to his sternum to his epigastric and flank area. Medical history: Dilated Cardiomyopathy, chronic systolic heart failure, HTN, CKD and recent Non Nstemi. 09/16, Cardiology consult. Clinical Indicators: Recent Non-Nstemi 09/03/21, HTN, Dilated Cardiomyopathy, Chronic Systolic Heart Failure. Troponin: 09/16 0.205; 0.195, 0.207. EK/5: Sinus tachycardia, Possible left atrial enlargement, Right bundle branch block, Left anterior fascicular block., Bifascicular block. Inferior infarct, age undetermined. Cardiology progress note 09/18: Bilateral pulmonary emboli, Left lower extremity DVT, Recent admission for Non-STEMI, Nonischemic cardiomyopathy, chronic systolic congestive heart failure EF 20-25%, LVH, History of abnormal LFTs, HTN. Treatment: Telemetry unit, Troponin labs. Cardiology consult. Can you please clarify the recent admission date? [ ] September 03, 2021 [ ] Other, please specify [ ] Unable to determine (Template Last Revised: December 2020) MTDD
--- NOTE | 2021-10-22 07:49 | CDI ---
Documentation Clarification Form Date: 09/18/2021 02:23:41 PM From: Sara Rubi RN CCDS Admit Date: 09/16/2021 05:22:00 AM Patient Name: Jaleel Pal Visit Number: [id number] Discharge Date: ATTENTION: The Clinical Documentation Specialists (CDI) and [facility] Coding Staff appreciate your assistance in clarifying documentation. Please respond to the clarification below the line at the bottom and electronically sign. The CDI & [facility] Coding staff will review the response and follow-up if needed. Please note: Queries are made part of the Legal Health Record. If you have any questions, please contact the author of this message via ITS. Dr. Ruben Bermudez There is documentation of Recent admission for Non-STEMI, 09/18, Cardiology progress note. To capture the severity of the condition the date must be provided in the medical record. History/Risk Factors: 51-year-old male presents to the ED with abdominal pain from his sternum to his sternum to his epigastric and flank area. Medical history: Dilated Cardiomyopathy, chronic systolic heart failure, HTN, CKD and recent Non Nstemi. 09/16, Cardiology consult. Clinical Indicators: Recent Non-Nstemi 09/03/21, HTN, Dilated Cardiomyopathy, Chronic Systolic Heart Failure. Troponin: 09/16 0.205; 0.195, 0.207. EK/5: Sinus tachycardia, Possible left atrial enlargement, Right bundle branch block, Left anterior fascicular block., Bifascicular block. Inferior infarct, age undetermined. Cardiology progress note 09/18: Bilateral pulmonary emboli, Left lower extremity DVT, Recent admission for Non-STEMI, Nonischemic cardiomyopathy, chronic systolic congestive heart failure EF 20-25%, LVH, History of abnormal LFTs, HTN. Treatment: Telemetry unit, Troponin labs. Cardiology consult. Can you please clarify the recent NSTEMI date? [ ] September 03, 2021 [ ] Other, please specify [x ] Unable to determine (Template Last Revised: December 2020) MTDD
== END 2021-09-21 11:48 | disposition home or self-care (01) | DRG 299 ==
LOC: EC 03:56 → 3SCARD 05:22
PROVIDERS: ADMIT Family Medicine; ATTEND Family Medicine
DX: I82.412 Acute embolism and thrombosis of left femoral vein (principal); I26.94 Multiple subsegmental thrombotic pulmonary emboli without acute cor pulmonale; J18.9 Pneumonia, unspecified organism; I13.0 Hypertensive heart and chronic kidney disease with heart failure and stage 1 through stage 4 chronic kidney disease, or unspecified chronic kidney disease; I42.0 Dilated cardiomyopathy; J44.0 Chronic obstructive pulmonary disease with (acute) lower respiratory infection; I50.22 Chronic systolic (congestive) heart failure; Z20.822 Contact with and (suspected) exposure to COVID-19; N18.2 Chronic kidney disease, stage 2 (mild); K59.00 Constipation, unspecified; I45.10 Unspecified right bundle-branch block; I08.1 Rheumatic disorders of both mitral and tricuspid valves; G89.4 Chronic pain syndrome; M54.50 Low back pain, unspecified; M51.9 Unspecified thoracic, thoracolumbar and lumbosacral intervertebral disc disorder; R77.8 Other specified abnormalities of plasma proteins; M19.90 Unspecified osteoarthritis, unspecified site; F17.211 Nicotine dependence, cigarettes, in remission; Z71.6 Tobacco abuse counseling; Z79.82 Long term (current) use of aspirin; Z79.899 Other long term (current) drug therapy; Z86.73 Personal history of transient ischemic attack (TIA), and cerebral infarction without residual deficits; Z90.49 Acquired absence of other specified parts of digestive tract; Z87.19 Personal history of other diseases of the digestive system; Z87.828 Personal history of other (healed) physical injury and trauma; Z86.711 Personal history of pulmonary embolism; Z98.890 Other specified postprocedural states; Z88.5 Allergy status to narcotic agent; Z88.0 Allergy status to penicillin; Z91.018 Allergy to other foods; Z82.49 Family history of ischemic heart disease and other diseases of the circulatory system
CPT/HCPCS: 36415; 71275; 74177; 80048; 80053; 80320; 81003; 81241; 83605; 83690; 83735; 83880; 84100; 84484; 85025; 85301; 85303; 85306; 85379; 85598; 85610; 85613; 85652; 85730; 85732; 86038; 86431; 87635; 93005; 93308; 93970; 94760; 96361; 96374; 96375; 99291